=== PATIENT | female | born 1950 | race Caucasian/White ===

== ENCOUNTER 2016-06-23 17:54 | Inpatient (IN) | payer MEDICARE, OTHER ==
[~2016-06-23] VITALS: Ht 160 cm; Wt 56.7 kg
[~2016-06-23 17:54] MED LIST: HYDR-3326 PO
[2016-06-23] MEDS ORDERED: HYDROCODONE/APAP 5/325MG 1 EACH TABLET ONE (18:42)
[2016-06-23] MEDS ORDERED: HYDROCODONE/APAP 5/325MG 1 EACH TABLET PO ONE (19:00)
[2016-06-23] MEDS ORDERED: VANCOMYCIN 1 GM in IV D5W 250 ML IV ONE (19:30)
[2016-06-23] MEDS ORDERED: IV SET PRIMARY PUMP SET 1 EA INFUS.SET MC ONE ×2 (19:40→21:38)
[2016-06-23 19:42] LABS: BASOPHILS # (AUTO) 0.1 /CMM (0.0-0.2); BASOPHILS % (AUTO) 0.5 % (0.0-2.0); DIFF TOTAL % 100 %; EOSINOPHILS # (AUTO) 0.1 /CMM (0.0-0.7); EOSINOPHILS % (AUTO) 1.2 % (0.0-6.0); HEMATOCRIT 34 % (33-45); HEMOGLOBIN 11.6 g/dL (11.5-14.8); LYMPHOCYTES # (AUTO) 2.3 /CMM (0.8-4.8); LYMPHOCYTES % (AUTO) 22.6 % (20.0-44.0); MEAN CORPUSCULAR HEMOGLOBIN 32 PG (26.0-33.0); MEAN CORPUSCULAR HGB CONC 34 g/dl (31.0-36.0); MEAN CORPUSCULAR VOLUME 94 fL (82-100); MONOCYTES # (AUTO) 0.6 /CMM (0.1-1.30); MONOCYTES % (AUTO) 6.1 % (2.0-12.0); NEUTROPHILS % (AUTO) 69.6 % (43.0-81.0); PLATELET COUNT (AUTO) 283 /CMM (150-450); RED BLOOD CELL COUNT(AUTO) 3.59 MIL/uL (4.0-5.2); WHITE BLOOD COUNT (AUTO) 10.1 K/uL (4.3-11.0)
[2016-06-23 19:59] LABS: INR 0.93 (0.87-1.13); PROTHROMBIN TIME 9.8 SECS (9.5-12.7)
[2016-06-23 20:02] LABS: CALCIUM, SERUM 8.4 mg/dL (8.5-10.1); CREATININE 0.6 mg/dL (0.6-1.3); POTASSIUM 3.4 mmol/L (3.5-5.1)
[2016-06-23] MEDS ORDERED: IV NS 0.9% 1,000 ML IV PRN (20:04)
[2016-06-23 20:05] LABS: ALBUMIN 3.2 g/dL (3.4-5.0); BILIRUBIN,DIRECT 0.1 mg/dL (0.0-0.2); BILIRUBIN,TOTAL 0.4 mg/dL (0.2-1.0); INDIRECT BILIRUBIN 0.3 mg/dL (0.0-1.1); TOTAL PROTEIN, SERUM 7.3 g/dL (6.4-8.2)
[2016-06-23 20:15] VITALS: BP 126/77
[2016-06-23] MEDS ORDERED: FEE PK DOSING 1 MIN EA MC ONE (20:29)
[2016-06-23] MEDS ORDERED: ACETAMINOPHEN 325 MG TABLET PO PRN (20:30)
[2016-06-23] MEDS ORDERED: ONDANSETRON HCL/PF 4 MG/2 ML VIAL IVP PRN (20:30)
[2016-06-23] MEDS ORDERED: POTASSIUM CHLORIDE 20 MEQ POWDER PACKET PO ONE (20:30)
[2016-06-23] MEDS ORDERED: MAG HYDROX/AL HYDROX/SIMETH 30 ML UDC PO PRN (20:30)
[2016-06-23] MEDS ORDERED: MAGNESIUM HYDROXIDE 30 ML UDC PO PRN (20:30)
[2016-06-23] MEDS ORDERED: POTASSIUM CHLORIDE 20 MEQ POWDER PACKET ONE (21:27)
[2016-06-23 21:30] VITALS: BP 126/77
[2016-06-23] MEDS: IV NS 0.9% 1,000 ML IV PRN (21:44)
[2016-06-23] MEDS ORDERED: SECONDARY IV SET 1 EA INFUS.SET MC ONE (21:50)
[2016-06-23] MEDS ORDERED: ZOLPIDEM TARTRATE 5 MG TABLET PO PRN (22:00)
[2016-06-23] MEDS ORDERED: MORPHINE SULFATE INJ 2 MG/ML DISP.SYRIN ONE (22:43)
[2016-06-23] MEDS: MORPHINE SULFATE INJ 2 MG/ML DISP.SYRIN IV PRN (22:54)
[2016-06-24] MEDS ORDERED: MORPHINE SULFATE INJ 2 MG/ML DISP.SYRIN ONE (05:25)
[2016-06-24] MEDS: MORPHINE SULFATE INJ 2 MG/ML DISP.SYRIN IV PRN ×4 (05:30→20:43)
[2016-06-24 08:00] VITALS: BP 159/89
[2016-06-24 08:18] LABS: CALCIUM, SERUM 8.2 mg/dL (8.5-10.1); CREATININE 0.5 mg/dL (0.6-1.3); POTASSIUM 4.2 mmol/L (3.5-5.1)
[2016-06-24] MEDS: PANTOPRAZOLE 40 MG TABLET.DR PO SCH (08:25)
[2016-06-24] MEDS: HYDROCODONE/APAP 5/325MG 1 EACH TABLET PO PRN (08:27)
[2016-06-24 08:34] LABS: BASOPHILS % (AUTO) 0.1 % (0.0-2.0); DIFF TOTAL % 100 %; EOSINOPHILS # (AUTO) 0.1 /CMM (0.0-0.7); EOSINOPHILS % (AUTO) 0.5 % (0.0-6.0); HEMATOCRIT 32 % (33-45); LYMPHOCYTES # (AUTO) 1.1 /CMM (0.8-4.8); LYMPHOCYTES % (AUTO) 11.5 % (20.0-44.0); MEAN CORPUSCULAR HEMOGLOBIN 33 PG (26.0-33.0); MEAN CORPUSCULAR HGB CONC 35 g/dl (31.0-36.0); MEAN CORPUSCULAR VOLUME 95 fL (82-100); MONOCYTES # (AUTO) 0.7 /CMM (0.1-1.30); MONOCYTES % (AUTO) 6.9 % (2.0-12.0); NEUTROPHILS # (AUTO) 7.9 /CMM (1.8-8.9); PLATELET COUNT (AUTO) 275 /CMM (150-450); RED BLOOD CELL COUNT(AUTO) 3.37 MIL/uL (4.0-5.2); WHITE BLOOD COUNT (AUTO) 9.8 K/uL (4.3-11.0)
[2016-06-24] MEDS: VANCOMYCIN 1 GM in IV D5W 250 ML IV SCH ×2 (08:34→20:43)
[2016-06-24] MEDS: Magnesium 1GM/D5W 100ML PREMIX 100 ML IV SCH ×2 (10:15→12:05)
[2016-06-24] MEDS ORDERED: SECONDARY IV SET 1 EA INFUS.SET MC ONE (11:28)
[2016-06-24 16:00] VITALS: BP 129/76
[2016-06-24 20:00] VITALS: BP 129/75
[2016-06-25] MEDS: MORPHINE SULFATE INJ 2 MG/ML DISP.SYRIN IV PRN ×5 (02:19→22:43)
[2016-06-25 08:00] VITALS: BP_SYST 117; BP_SYST 128; BP_DIAS 54; BP_DIAS 74
[2016-06-25] MEDS: PANTOPRAZOLE 40 MG TABLET.DR PO SCH (08:02)
[2016-06-25 08:30] LABS: CALCIUM, SERUM 8.4 mg/dL (8.5-10.1); CREATININE 0.6 mg/dL (0.6-1.3); POTASSIUM 3.4 mmol/L (3.5-5.1)
[2016-06-25] MEDS: VANCOMYCIN 1 GM in IV D5W 250 ML IV SCH ×2 (10:17→21:06)
[2016-06-25] MEDS ORDERED: POTASSIUM CHLORIDE 20 MEQ TAB.PRT.SR PO SCH (13:00)
[2016-06-25] MEDS ORDERED: SECONDARY IV SET 1 EA INFUS.SET MC ONE (13:28)
[2016-06-25] MEDS: Magnesium 1GM/D5W 100ML PREMIX 100 ML IV SCH ×2 (13:36→14:35)
[2016-06-25 16:00] VITALS: BP 151/81
[2016-06-25] MEDS: IV NS 0.9% 1,000 ML IV PRN (18:24)
[2016-06-25 20:00] VITALS: BP 154/68
[2016-06-25 21:43] LABS: THYROID STIMULATING HORMONE 1.026 uIU/mL (0.358-3.74)
[2016-06-26] MEDS: HYDROCODONE/APAP 5/325MG 1 EACH TABLET PO PRN ×4 (02:13→23:15)
[2016-06-26] MEDS: MORPHINE SULFATE INJ 2 MG/ML DISP.SYRIN IV PRN ×4 (04:12→19:59)
[2016-06-26 06:55] LABS: CALCIUM, SERUM 8.6 mg/dL (8.5-10.1); CREATININE 0.6 mg/dL (0.6-1.3); POTASSIUM 3.7 mmol/L (3.5-5.1)
[2016-06-26 08:00] VITALS: BP 158/75
[2016-06-26] MEDS: PANTOPRAZOLE 40 MG TABLET.DR PO SCH (08:42)
[2016-06-26] MEDS: VANCOMYCIN 1 GM in IV D5W 250 ML IV SCH (08:43)
[2016-06-26] MEDS: IV NS 0.9% 1,000 ML IV PRN (08:43)
[2016-06-26] MEDS ORDERED: SECONDARY IV SET 1 EA INFUS.SET MC ONE (12:41)
[2016-06-26] MEDS: Magnesium 1GM/D5W 100ML PREMIX 100 ML IV SCH ×2 (12:45→14:16)
[2016-06-26 15:42] VITALS: BP 131/81
[2016-06-26 16:00] VITALS: BP 131/81
[2016-06-26] MEDS ORDERED: HYDR-3326 PO (18:47)
[2016-06-26] MEDS ORDERED: RXVAN XX (18:47)
[2016-06-26 20:00] VITALS: BP 148/86
[2016-06-27] MEDS: VANCOMYCIN 1 GM in IV D5W 250 ML IV SCH (00:12)
== END 2016-06-27 02:30 | DRG 603 ==
LOC: ER 18:02 → MED 20:20 → MEDSG2 06-25 06:33
PROVIDERS: ADMIT Nurse Practitioner Acute Care; ATTEND Nurse Practitioner Acute Care
DX: L03.113 Cellulitis of right upper limb (principal); E87.1 Hypo-osmolality and hyponatremia; J43.9 Emphysema, unspecified; I10 Essential (primary) hypertension; E87.6 Hypokalemia; F17.200 Nicotine dependence, unspecified, uncomplicated; J42 Unspecified chronic bronchitis; Z59.0 Homelessness; F17.210 Nicotine dependence, cigarettes, uncomplicated
CPT/HCPCS: 36415; 73080-TC; 73200-TC; 76882; 80048-TC; 80076-TC; 80202-TC; 83735-TC; 83935-TC; 84100-TC; 84443-TC; 85025-TC; 85730-TC; 87040-TC; 87081-TC; A4565; A4606; J2270; J3370; J3475; J7030; J7060

== ENCOUNTER 2016-07-17 09:32 | Outpatient (CLI) | payer MEDICARE, OTHER ==
[~2016-07-17 09:32] MED LIST changes: +RXVAN XX
== END 2016-07-17 23:59 | disposition home or self-care (01) ==
LOC: US 09:32
PROVIDERS: ATTEND Internal Medicine
DX: L02.511 Cutaneous abscess of right hand (principal)
CPT/HCPCS: 76882

== ENCOUNTER 2017-01-21 13:37 | Inpatient (IN) | payer MEDICARE, OTHER ==
[~2017-01-21] VITALS: Ht 160 cm; Wt 57.2 kg
--- NOTE | 2017-01-21 13:51 | NUR ---
NO ACUTE DISTRESS; PLACED IN ER 16 - MONITORED
--- NOTE | 2017-01-21 14:00 | NUR ---
LAC #18 IV ACCESS. BLOOD SAMPLE COLLECTED SENT TO LAB
--- NOTE | 2017-01-21 14:05 | NUR ---
EKG IN PROGRESS
[2017-01-21 14:07] LABS: BASOPHILS # (AUTO) 0.1 /CMM (0.0-0.2); BASOPHILS % (AUTO) 0.9 % (0.0-2.0); EOSINOPHILS # (AUTO) 0.3 /CMM (0.0-0.7); EOSINOPHILS % (AUTO) 2.6 % (0.0-6.0); HEMATOCRIT 39 % (33-45); HEMOGLOBIN 13.5 g/dL (11.5-14.8); LYMPHOCYTES # (AUTO) 2.8 /CMM (0.8-4.8); LYMPHOCYTES % (AUTO) 28.3 % (20.0-44.0); MEAN CORPUSCULAR HEMOGLOBIN 32 PG (26.0-33.0); MEAN CORPUSCULAR HGB CONC 35 g/dl (31.0-36.0); MEAN CORPUSCULAR VOLUME 92 fL (82-100); MONOCYTES # (AUTO) 0.5 /CMM (0.1-1.30); MONOCYTES % (AUTO) 5.4 % (2.0-12.0); NEUTROPHILS # (AUTO) 6.3 /CMM (1.8-8.9); NEUTROPHILS % (AUTO) 62.8 % (43.0-81.0); PLATELET COUNT (AUTO) 424 /CMM (150-450); RDW COEFFICIENT OF VARIATION 14.1 (11.5-15.0); RED BLOOD CELL COUNT(AUTO) 4.26 MIL/uL (4.0-5.2)
--- NOTE | 2017-01-21 14:08 | NUR ---
RADIOLOGY AT BEDSIDE FOR CHEST XRAY.
[2017-01-21 14:17] LABS: CALCIUM, SERUM 8.7 mg/dL (8.5-10.1); CARBON DIOXIDE 25 mmol/L (21-32); CHLORIDE 90 mmol/L (98-107); CREATININE 0.6 mg/dL (0.6-1.3); GLUCOSE 91 mg/dL (74-106); POTASSIUM 3.7 mmol/L (3.5-5.1); SODIUM SERUM 126 mmol/L (136-145); UREA NITROGEN, BLOOD 4 mg/dL (7-18)
[2017-01-21 14:21] LABS: INR 0.96 (0.87-1.13)
[2017-01-21 14:22] LABS: ALANINE AMINOTRANSFERASE 18 U/L (12-78); ALBUMIN 3.4 g/dL (3.4-5.0); ALKALINE PHOSPHATASE 83 U/L (46-116); ASPARTATE AMINOTRANSFERASE 19 U/L (15-37); BILIRUBIN,DIRECT 0.1 mg/dL (0.0-0.2); BILIRUBIN,TOTAL 0.2 mg/dL (0.2-1.0); TOTAL PROTEIN, SERUM 7.2 g/dL (6.4-8.2)
[2017-01-21 14:25] LABS: TROPONIN I < 0.017 ng/mL (0.00-0.056)
--- NOTE | 2017-01-21 16:01 | NUR ---
REPORT GIVEN TO LOLIS. PT AWAITING TRANSFER TO THE FLOOR.
[2017-01-21 18:04] VITALS: BP 134/81
--- NOTE | 2017-01-21 19:35 | NUR ---
RN NOTES PT AWAKE ON BED FAMILY AT BEDSIDE. COMPLAINING OF HEADACHE AND NON RADIATING CHEST PAIN AT SCALE OF 9/10. PT IS AOX3 ABLE TO MAKE KNOWN NEEDS. WARMTH TO TOUCH AFEBRILE. NO ACUTE RESP. DISTRESS.SR HR 80'S ON TELE MONITOR. IV SITE ON LEFT AC G 18 INTACT AND PATENT. FLUSHED WELL. PLAN OF CARE PROVIDED AND EDUCATE PT REGARDING THE DSE. PROCESS. KEPT PT CLEAN AND DRY. WILL CONTINUE TO MONITOR,
[2017-01-21 20:00] VITALS: BP 125/52
[2017-01-22] VITALS (7 sets, daily range): BP systolic 125–153; BP diastolic 52–94
--- NOTE | 2017-01-22 06:17 | NUR ---
RN NOTES PT ASLEEP WELL ON BED. NO RESP DISTRESS NOTED REMAINED IN STABLE CONDITION STILL COMPLAINING OF NON RADIATING CHEST PAIN TIME TO TIME AT SCALE OF 8-9/10. SATING 98% IN RA. PRN MEDICINE GIVEN ORDERED. ASSISTED TO THE BATHROOM AND AMBULATE WELL. KEPT PT CLEAN AND COMFORTABLE IN BED. WILL ENDORSED CONTINUITY OF CARE TO AM NURSE.
[2017-01-22 07:33] LABS: BASOPHILS # (AUTO) 0.1 /CMM (0.0-0.2); BASOPHILS % (AUTO) 0.7 % (0.0-2.0); EOSINOPHILS # (AUTO) 0.2 /CMM (0.0-0.7); EOSINOPHILS % (AUTO) 3.1 % (0.0-6.0); HEMATOCRIT 36 % (33-45); HEMOGLOBIN 12.4 g/dL (11.5-14.8); LYMPHOCYTES % (AUTO) 26.1 % (20.0-44.0); MEAN CORPUSCULAR HEMOGLOBIN 32 PG (26.0-33.0); MEAN CORPUSCULAR HGB CONC 34 g/dl (31.0-36.0); MEAN CORPUSCULAR VOLUME 93 fL (82-100); MONOCYTES # (AUTO) 0.4 /CMM (0.1-1.30); MONOCYTES % (AUTO) 5.5 % (2.0-12.0); NEUTROPHILS % (AUTO) 64.6 % (43.0-81.0); PLATELET COUNT (AUTO) 349 /CMM (150-450); RDW COEFFICIENT OF VARIATION 14.7 (11.5-15.0); WHITE BLOOD COUNT (AUTO) 7.8 K/uL (4.3-11.0)
[2017-01-22 07:38] LABS: TROPONIN I < 0.017 ng/mL (0.00-0.056)
[2017-01-22 07:48] LABS: CALCIUM, SERUM 8.4 mg/dL (8.5-10.1); CARBON DIOXIDE 25 mmol/L (21-32); CHLORIDE 98 mmol/L (98-107); CREATININE 0.6 mg/dL (0.6-1.3); GLUCOSE 139 mg/dL (74-106); MAGNESIUM 1.8 mg/dL (1.8-2.4); POTASSIUM 3.8 mmol/L (3.5-5.1); SODIUM SERUM 133 mmol/L (136-145); UREA NITROGEN, BLOOD 4 mg/dL (7-18)
--- NOTE | 2017-01-22 08:00 | NUR ---
RN NOTES PT AWAKE ON BED PT IS AOX3 ABLE TO MAKE KNOWN NEEDS. WARMTH TO TOUCH AFEBRILE. NO ACUTE RESP. DISTRESS.SR HR 80'S ON TELE MONITOR. IV SITE ON LEFT AC G 18 INTACT AND PATENT. FLUSHED WELL. PLAN OF CARE PROVIDED AND EDUCATE PT REGARDING PLAN OF CARE. KEPT PT CLEAN AND DRY. WILL CONTINUE TO MONITOR, BED IN LOWEST AND LOCKED POSITION , ON IVF ORDERED
[2017-01-22 08:57] LABS: CHOLESTEROL 179 mg/dL (<200); HDL CHOLESTEROL 68 mg/dL (40-60); LDL 102 mg/dL (0-99); TRIGLYCERIDES 36 mg/dL (30-150)
--- NOTE | 2017-01-22 10:14 | NUR ---
MOTOR SETTER NOTE SEEN B DR DEGROOT VIDEO PLAYER MECHANIC WITH NEW ORDER OF PROTONIX GIVEN
--- NOTE | 2017-01-22 11:14 | NUR ---
Social service consult requested by [facility] for homelessness. Pt. is a 66 year old female who was admitted to [facility] for chest pain. SW and disease case manager rn Kareem met with pt. bedside. Pt. is alert and oriented x 4. SW is familiar with pt. from previous admission. Pt. was pleasant and cooperative with SW during the assessment. Pt. informed SW she is homeless and has been homeless by choice for a very long time. Pt's emergency contact is her sister Crsytal who resides in [place]. Pt. has a boyfriend and lives with him on the streets at [facility] in [place]. Pt. has been with her boyfriend Martin for 14 years. Pt. receives approximately $982/month in SSI. Pt. denies suicidal/homicidal ideations and visual/auditory hallucinations at this time. Pt. consumes alcohol and smokes marijuana occasionally. Pt. smokes one packet of cigarettes per day. Pt. would like to go to [facility] upon discharge. manager retail sales Kareem is aware of discharge plan and will arrange placement. Pt. does not have an advance healthcare directive and makes her own decisions.
--- NOTE | 2017-01-22 11:19 | NUR ---
HOUSE FATHER NOTE SPRAY MIXER DREW AND SOCIAL MOE BLANTON AT BEDSIDE DISCUSSING ABOOT PLAN OF CARE
--- NOTE | 2017-01-22 16:55 | NUR ---
SHUTDOWN COORDINATOR NOTE ON BREATHING TX ORDERED PRN CONT ON IVF ORDERED WILL CONT TO MONITOR CLOSELY
--- NOTE | 2017-01-22 18:40 | NUR ---
CONDENSER CLEANER NOTE C\O PAIN 8\10 IN BODY MORPHINE 2 MG IVP GIVEN ORDERED WILL CONT TO MONITOR CLOSELY
--- NOTE | 2017-01-22 19:56 | NUR ---
SECURITY ALARM INSTALLER INITIAL NOTES RECEIVED PT AWAKE ON BED PT IS AOX3 ABLE TO MAKE KNOWN NEEDS. WARMTH TO TOUCH AFEBRILE. NO ACUTE RESP. DISTRESS.SR HR 70'S ON TELE MONITOR. IV SITE ON LEFT AC G 18 INTACT AND PATENT. FLUSHED WELL. PLAN OF CARE PROVIDED AND EDUCATE PT REGARDING PLAN OF CARE. KEPT PT CLEAN AND DRY. WILL CONTINUE TO MONITOR, BED IN LOWEST AND LOCKED POSITION , ON IVF ORDERED
[2017-01-23] VITALS (8 sets, daily range): BP systolic 123–178; BP diastolic 68–89
--- NOTE | 2017-01-23 06:25 | NUR ---
REGIONAL SALES COORDINATOR CLOSING NOTES RECEIVED PT AWAKE ON BED PT IS AOX3 ABLE TO MAKE KNOWN NEEDS. WARMTH TO TOUCH AFEBRILE. NO ACUTE RESP. DISTRESS.SR HR 70'S ON TELE MONITOR. IV SITE ON LEFT AC G 18 INTACT AND PATENT. FLUSHED WELL. PLAN OF CARE PROVIDED AND EDUCATE PT REGARDING PLAN OF CARE. KEPT PT CLEAN AND DRY. WILL CONTINUE TO MONITOR, BED IN LOWEST AND LOCKED POSITION , ON IVF ORDERED
[2017-01-23 07:37] LABS: BASOPHILS # (AUTO) 0.1 /CMM (0.0-0.2); BASOPHILS % (AUTO) 0.6 % (0.0-2.0); EOSINOPHILS # (AUTO) 0.3 /CMM (0.0-0.7); EOSINOPHILS % (AUTO) 4.1 % (0.0-6.0); HEMATOCRIT 37 % (33-45); HEMOGLOBIN 12.4 g/dL (11.5-14.8); LYMPHOCYTES # (AUTO) 1.8 /CMM (0.8-4.8); LYMPHOCYTES % (AUTO) 23.5 % (20.0-44.0); MEAN CORPUSCULAR HEMOGLOBIN 32 PG (26.0-33.0); MEAN CORPUSCULAR HGB CONC 34 g/dl (31.0-36.0); MEAN CORPUSCULAR VOLUME 94 fL (82-100); MONOCYTES # (AUTO) 0.5 /CMM (0.1-1.30); MONOCYTES % (AUTO) 6.5 % (2.0-12.0); NEUTROPHILS # (AUTO) 5.1 /CMM (1.8-8.9); NEUTROPHILS % (AUTO) 65.3 % (43.0-81.0); PLATELET COUNT (AUTO) 339 /CMM (150-450); RDW COEFFICIENT OF VARIATION 14.8 (11.5-15.0); RED BLOOD CELL COUNT(AUTO) 3.92 MIL/uL (4.0-5.2); WHITE BLOOD COUNT (AUTO) 7.9 K/uL (4.3-11.0)
[2017-01-23 07:46] LABS: CALCIUM, SERUM 8.3 mg/dL (8.5-10.1); CREATININE 0.5 mg/dL (0.6-1.3); POTASSIUM 4.5 mmol/L (3.5-5.1)
--- NOTE | 2017-01-23 08:00 | NUR ---
TELE1/RN AM SHIFT INITIAL NOTES RECEIVED PT AWAKE SITTING IN BED, A/O X 4, DENIES ANY SYMPTOMS AT THIS TIME. ON ROOM AIR SATURATING @ 99%, LUNG SOUNDS CLEAR. ON TELE MONITORING WITH SINUS RHYTHM, HR 67. IV SITE FLUSHED, PATENT WITH NO S/S OF INFECTION, SL. NO ACUTE CHANGE OF CONDITION, SCHEDULED AM MEDS TO BE GIVEN. CL WITHIN REACHED AND SAFETY MAINTAINED. ON GOING MONITORING.
--- NOTE | 2017-01-23 11:45 | NUR ---
TELE1/RN ROUNDS - DR. SARAVIA UPDATED PT'S CONDITION. PT SEEN & EXAMINED BY DR. SARAVIA, WITH NEW ORDER TO D/C CONTINUED IV FLUIDS. ORDER NOTED AND CARRIED OUT.
--- NOTE | 2017-01-23 16:00 | NUR ---
TELE1/RN AFTERNOON ROUNDS NO CHANGE OF CONDITION. MONITORING.
--- NOTE | 2017-01-23 19:30 | NUR ---
ASPHALT TAMPER INITIAL NOTES RECEIVED PATIENT AWAKE A/OX3, ABLE TO MAKE NEEDS KNOWN. FAMILY AT BEDSIDE. C/O FEELING SOME DISCOMFORT WHEN INHALING. REQUEST FOR BREATHING TX IN A LITTLE BIT. SKIN WARM AND DRY TO TOUCH. DENIES SOB, ON RA. DENIES PAIN OR DISCOMFORT. ON TELE MONITOR SR 73. HOB ELEVATED. SIDE RAILS UP AND LOCKED. BED KEPT AT LOWEST POSITION. CALL LIGHT KEPT WITHIN EASY REACH. WILL CONTINUE TO MONITOR.
--- NOTE | 2017-01-23 19:46 | NUR ---
TELE1/RN AM SHIFT END BERTHA NO CHANGE OF CONDITION NOTED DURING THE SHIFT. ALL NEEDS MET. PT ENDORSED TO PM NURSE TO CONTINUE CARE. CL WITHIN REACHED AND SAFETY MAINTAINED.
[2017-01-24] VITALS (9 sets, daily range): BP systolic 142–184; BP diastolic 62–97
--- NOTE | 2017-01-24 07:11 | NUR ---
IMMIGRATION SPECIALIST CLOSING NOTES NO SIGNIFICANT CHANGES OVERNIGHT. ALL NEEDS ANTICIPATED AND MET. SR ON TELE MONITOR. SKIN WARM AND DRY TO TOUCH. NO C/O CHEST PAIN. NO C/O SOB. SIDE RAILS UP AND LOCKED. BED KEPT AT LOWEST POSITION. CALL LIGHT KEPT WITHIN EASY REACH. WILL ENDORSE CONTINUITY OF CARE TO AM NURSE.
--- NOTE | 2017-01-24 07:30 | NUR ---
WOOL CLASSER AM NOTES PATIENT IN BED, AWAKE A/OX3, ABLE TO MAKE NEEDS KNOWN. C/O FEELING SOME DISCOMFORT LAST NIGHT, ON RA, NOT IN ANY DISTRESS, NO SOB, TELEMETRY READS SINUS RHYTHM 76, DENIES PAIN AT THIS TIME, LEFT AC G18 IV ACCESS FLUSHES WELL, SITE CLEAR, SKIN WARM AND DRY TO TOUCH. HOB ELEVATED. SIDE RAILS UP AND LOCKED. BED KEPT AT LOWEST POSITION. CALL LIGHT WITHIN EASY REACH. WILL CONTINUE TO MONITOR.
--- NOTE | 2017-01-24 09:30 | NUR ---
SLAGGER NOTES ADMINISTERED DUE MEDS.
--- NOTE | 2017-01-24 18:33 | NUR ---
CHIEF MECHANICAL ENGINEER CLOSING NOTES NO SIGNIFICANT CHANGES IN CONDITION. ALL NEEDS ANTICIPATED AND MET. SR ON TELE MONITOR. SKIN WARM AND DRY TO TOUCH. NO C/O CHEST PAIN. NO C/O SOB. SIDE RAILS UP AND LOCKED. BED KEPT AT LOWEST POSITION. CALL LIGHT KEPT WITHIN EASY REACH. RESTING COMFORTABLY. WILL ENDORSE TO NEXT SHIFT FOR SHERRY.
--- NOTE | 2017-01-24 19:56 | NUR ---
RN NOTES COMPLAINED OF HEADACHE- TYLENOL 650MG PO GIVEN ORDERED
--- NOTE | 2017-01-24 20:05 | NUR ---
RN NOTES ORTHOPEDIC PHYSICIAN ASSISTANT ALEJANDRO CALLED AND INFORMED ME THAT THE SURGEON FROM [facility] dR. ROJAS WILL CALL AND HE'S GOING TO TALK TO THE PATIENT Addendum: 01/24/17 at 2006 by CHRISTAL ALVARADO RN WRONG PATIENT- WRONG ENTRY
[2017-01-25] VITALS: BP 166/86
--- NOTE | 2017-01-25 03:41 | NUR ---
RN NOTES COMPLAINED OF HEADACHE- TYLENOL 650MG PO GIVEN ORDERED, V/S STABLE
[2017-01-25 04:00] VITALS: BP 148/91
--- NOTE | 2017-01-25 06:33 | NUR ---
RN NOTES AWAKE, DENIES PAIN, NO SOB, MORNING CARE RENDERED, CALL LIGHT WITHIN REACH, [id number] UPX2, PT. NEEDS ATTENDED. ENDORSED TO DAYSHIFT NURSE FOR CONTINUITY OF CARE
[2017-01-25 08:00] VITALS: BP 169/77
--- NOTE | 2017-01-25 08:03 | NUR ---
DANCE THERAPIST INITIAL NOTES RN RECEIVED PATIENT IN BED, AWAKE A/OX3, ABLE TO MAKE NEEDS KNOWN. NO COMPLAINTS AT THIS TIME STATED SHE HAD A HEADACHE THIS AM TYLENOL 650MG ADMINISTERED BY PM RN .PT ON RA, NOT IN ANY DISTRESS, NO SOB, DENIES PAIN AT THIS TIME, LEFT AC G18 IV ACCESS FLUSHES WELL, SITE CLEAR, SKIN WARM AND DRY TO TOUCH. HOB ELEVATED. SIDE RAILS UP AND LOCKED. BED KEPT AT LOWEST POSITION. CALL LIGHT WITHIN EASY REACH. PATIENT AMBULATORY RN WILL CONTINUE TO MONITOR.
[2017-01-25 12:00] VITALS: BP_SYST 133; BP_SYST 155; BP_DIAS 16; BP_DIAS 65
[2017-01-25] MEDS ORDERED: METO25TA20 PO (12:51)
[2017-01-25] MEDS ORDERED: ALBU2.5V13 NEB (12:51)
[2017-01-25] MEDS ORDERED: PANT40TA2 PO (12:51)
[2017-01-25] MEDS ORDERED: THIA100T13 PO (12:51)
[2017-01-25] MEDS ORDERED: ASPI81TA2 PO (12:51)
--- NOTE | 2017-01-25 15:33 | NUR ---
RN NOTE RN CALLED TO GIVE REPORT ON PATIENT , [phone]. REPORT GIVEN TO LILI BENAVIDES . RN ACKNOWLEDGED UNDERSTANDING NO COMPLAINTS OR ISSUE PER THE PATIENT AT THIS MOMENT
[2017-01-25 16:00] VITALS: BP 151/72
--- NOTE | 2017-01-25 17:21 | NUR ---
rn note ems arrived to [facility] patient report given patient , vitals assessed patient b/p elevated , MD valdovinos called for orders , md order hydraLIZINE 25mg po x 1 dose now , rn acknowledged pharmacy acknowledged medication will be administered mey ems will wait to see if this medication is effective rn will continue to follow
--- NOTE | 2017-01-25 17:42 | NUR ---
RN NOTE MEDICATION ADMINISTERED RN WILL CONTINUE TO FOLLOW PATIENT B/P PATIENT IN BED NO DISTRESS NOTED NO SOB OR ANXIETY EXPRESSED. PATIENT PLACED ON WILL CALL VIA EMS
--- NOTE | 2017-01-25 17:44 | NUR ---
RN NOTE [facility] NOTIFIED ABOUT PATIENT CURRENT STATUS AND RN ACKNOWLEDGED UNDERSTANDING
--- NOTE | 2017-01-25 19:25 | NUR ---
rn note patient stable at this time no complaints patient in bed resting , plan of care discussed with patient rn will endorsed d/c care to pm rn iv has been removed from patient no issues.
--- NOTE | 2017-01-25 19:35 | NUR ---
PRODUCT EVANGELIST INITIAL NOTE PT RECEIVED IN NO ACUTE DISTRESS. NO C/O PAIN OR ANY ISSUES AT THIS TIME. PT IS SR ON THE TELE BUT HAS A BP OF 175/89 AND WAS SUPPOSED TO BE D/C DURING THE DAY BUT WAS UNABLE TO DO SO DUE TO BP BEING TOO HIGH FOR BLS. PT HAD A LAC18G THAT WAS D/C BEFORE THE SHIFT DUE TO POSSIBLE D/C LATER DURING MY SHIFT. COMFORT AND SAFETY MEASURES TO BE ENSURED DURING THE SHIFT.
[2017-01-25 20:00] VITALS: BP 175/79
--- NOTE | 2017-01-25 22:00 | NUR ---
RN NOTE SPOKE TO DENTAL MOLD MAKER NURSE REGARDING PT D/C. WILL PUT OFF UNTIL BP IS LOWERED ON REGULAR BASIS. POSSIBLE D/C EITHER TONIGHT OR TOMORROW DURING NEXT SHIFT. ALL D/C PAPERWORK IS COMPLETED.
[2017-01-26] VITALS: BP 169/72
[2017-01-26 04:00] VITALS: BP 147/69
--- NOTE | 2017-01-26 05:50 | NUR ---
REGIONAL SERVICE MANAGER CLOSING NOTE PT REMAINS IN NO ACUTE DISTRESS. PT HAD HIGH BLOOD PRESSURE BEFORE MY SHIFT IN WHICH MEDICATION WAS ORDERED X1 NOW BUT EMT DID NOT WANT TO TAKE PT WITH BP OF THAT LEVEL. BP MEDICATION WAS GIVEN SCHEDULED BUT BP HAS SUSTAINED TO A HIGH LEVEL. PT HAS NO IV SINCE IT WAS D/C PRIOR TO MY SHIFT. WILL ENDORSE CARE TO AM NURSE.
--- NOTE | 2017-01-26 07:00 | NUR ---
RN NOTE RECEIVED PT ON BED , A/Ox4, RESPIRATION PRASHANTH AND UNLABORED, ON RA , DENIES ANY DISTRESS, ON TELE SR , SR UP x3, CALL LIGHT WITHIN EASY REACH, CONTINUE TO MONITOR BP CLOSELY AND NOTIFY MD FOR ANY SIGNIFICANT CHANGES.
[2017-01-26 08:00] VITALS: BP_SYST 147; BP_SYST 148; BP_DIAS 64; BP_DIAS 84
[2017-01-26 12:00] VITALS: BP 112/56
--- NOTE | 2017-01-26 13:00 | NUR ---
RN NOTES II=385/56 HR =94, PT STABLE , REPORT GIVEN TO [facility].
--- NOTE | 2017-01-26 15:43 | NUR ---
RN NOTES EMT PERSONAL ON THE FLOOR TO TAKE PT TO REHAB, PT'S BP =196/91. HR 65, PT STATED STATED GET EXCITED WHEN SHE WANT TO LEAVE , JAIR RAE INFORMATION SECURITY CONSULTANT PAGED AND NOTIFIED , ATIVAN .5 MG PO GIVEN , CONTINUE TO MONITOR PT . [facility] NOTIFIED.
[2017-01-26 16:00] VITALS: BP 159/84
--- NOTE | 2017-01-26 16:21 | NUR ---
RN NOTES BP 159/ 81/ HR 65, PT PANCHITO ANY DISTRESS, REPORT GIVEN TO EMT , PT LEFT THE FLOOR TO REHAB VIA AMBULANCE IN STABLE CONDITION .
== END 2017-01-26 16:16 | DRG 392 ==
LOC: ER 13:38 → TELE1 16:12
PROVIDERS: ADMIT Nurse Practitioner Acute Care; ATTEND Nurse Practitioner Acute Care
DX: K21.9 Gastro-esophageal reflux disease without esophagitis (principal); E87.1 Hypo-osmolality and hyponatremia; I10 Essential (primary) hypertension; J44.1 Chronic obstructive pulmonary disease with (acute) exacerbation; E86.9 Volume depletion, unspecified; E78.5 Hyperlipidemia, unspecified; Z59.0 Homelessness; Z72.0 Tobacco use; F10.10 Alcohol abuse, uncomplicated; Y90.6 Blood alcohol level of 120-199 mg/100 ml; M47.814 Spondylosis without myelopathy or radiculopathy, thoracic region; I70.0 Atherosclerosis of aorta
CPT/HCPCS: 36415; 71010-TC; 80048-TC; 80061-TC; 80076-TC; 83735-TC; 84100-TC; 84443-TC; 84484-TC; 85025-TC; 85730-TC; 87081-TC; 93307-TC; A4606; G0480; J2270; J7030; Z7610

== ENCOUNTER 2017-05-13 19:43 | Emergency (ER) | payer MEDICARE, OTHER ==
[~2017-05-13] VITALS: Ht 157.5 cm; Wt 59.0 kg
[~2017-05-13 19:43] MED LIST changes: +ALBU2.5V13 NEB; +ASPI-1169 PO; -HYDR-3326 PO; +METO25TA20 PO; +PANT40TA2 PO; -RXVAN XX; +THIA100T13 PO
[2017-05-13 19:58] VITALS: BP 137/74
[2017-05-13] MEDS ORDERED: ALBUTEROL FS 2.5 MG/3 ML VIAL.NEB ONE (20:50)
[2017-05-13] MEDS ORDERED: IPRATROPIUM NEB FS 0.5 MG/2.5 ML AMPUL.NEB ONE (20:50)
[2017-05-13] MEDS ORDERED: ALBUTEROL FS 2.5 MG/3 ML VIAL.NEB NEB ONE (21:00)
[2017-05-13] MEDS ORDERED: HYDROCODONE BIT/HOMATROPINE 5 ML UDC PO ONE (21:00)
[2017-05-13] MEDS ORDERED: IPRATROPIUM NEB FS 0.5 MG/2.5 ML AMPUL.NEB NEB ONE (21:00)
[2017-05-13] MEDS ORDERED: predniSONE 20 MG TABLET PO ONE (21:00)
[2017-05-13] MEDS ORDERED: HYDROCODONE BIT/HOMATROPINE 5 ML UDC ONE (21:37)
[2017-05-13] MEDS ORDERED: predniSONE 20 MG TABLET ONE (21:37)
== END 2017-05-13 23:35 | disposition home or self-care (01) ==
LOC: ER 19:46
DX: J18.9 Pneumonia, unspecified organism (principal); J40 Bronchitis, not specified as acute or chronic; F10.10 Alcohol abuse, uncomplicated; F17.200 Nicotine dependence, unspecified, uncomplicated; Z79.82 Long term (current) use of aspirin
CPT/HCPCS: 71045; 99283; 99406; A4606; J7512; Z7610

== ENCOUNTER 2017-08-21 18:00 | Emergency (ER) | payer MEDICARE, OTHER ==
[~2017-08-21] VITALS: Ht 160 cm; Wt 59.0 kg
[2017-08-21] MEDS ORDERED: oxyCODONE/APAP (5/325 MG) 1 UDTAB TABLET ONE (18:43)
[2017-08-21] MEDS ORDERED: IBUPROFEN 600 MG TABLET PO ONE ×2 (18:43→19:00)
--- NOTE | 2017-08-21 18:52 | NUR ---
PT MEDICATED ORDERED.
[2017-08-21] MEDS ORDERED: oxyCODONE/APAP (5/325 MG) 1 UDTAB TABLET PO ONE (19:00)
--- NOTE | 2017-08-21 19:18 | NUR ---
REPORT RECEIVED FROM MAKAYLA PAYAN FOR SHERRY.
[2017-08-21 19:29] VITALS: BP 132/77
--- NOTE | 2017-08-21 20:11 | NUR ---
Patient does not wish to proceed with medical care recommended by ( ). Patient given information related to possible complications, up to and including , which could occur as a result of leaving the hospital at this time. Patient verbalizes understanding of risks involved due to leaving against medical advice. Patient has signed AMA form.
[2017-12-28] MEDS ORDERED: AMLO10TA6 PO (13:23)
[2017-12-28] MEDS ORDERED: HYDR-3972 PO (13:23)
[2017-12-28] MEDS ORDERED: ASPI-1169 PO (13:23)
[2017-12-28] MEDS ORDERED: ZOLP5TAB2 PO (13:23)
[2017-12-28] MEDS ORDERED: PRED20TA PO (13:23)
[2017-12-28] MEDS ORDERED: HYDR-4076 PO (13:23)
[2017-12-28] MEDS ORDERED: PRED5TAB48 PO (13:23)
[2017-12-28] MEDS ORDERED: CEPH-570 PO (13:27)
[2017-12-28] MEDS ORDERED: PANT40TA2 PO (13:27)
== END 2017-08-21 20:13 | disposition left against medical advice (07) ==
LOC: ER 18:03
DX: M79.605 Pain in left leg (principal); I10 Essential (primary) hypertension; Z79.82 Long term (current) use of aspirin; F10.10 Alcohol abuse, uncomplicated; F17.290 Nicotine dependence, other tobacco product, uncomplicated; J44.0 Chronic obstructive pulmonary disease with (acute) lower respiratory infection; Z98.890 Other specified postprocedural states
CPT/HCPCS: 99283; 99406; A4606; Z7610

== ENCOUNTER 2017-12-25 16:01 | Inpatient (IN) | payer MEDICARE, OTHER ==
[~2017-12-25] VITALS: Ht 162.6 cm; Wt 58.1 kg
--- NOTE | 2017-12-25 16:10 | NUR ---
C/O SUBSTERNAL CHEST PAIN R/T NECK AREA. PT WAS GIVEN NITRO AND ASA, NAD NOTED, VSS, RESP EVEN AND UNLABORED, PT WAS PUT ON MONITOR, WAITING FOR MD ARREOLA.
[2017-12-25 16:37] LABS: BASOPHILS % (AUTO) 0.8 % (0.0-2.0); EOSINOPHILS % (AUTO) 4.1 % (0.0-6.0); HEMATOCRIT 38 % (33-45); HEMOGLOBIN 13.1 g/dL (11.5-14.8); LYMPHOCYTES # (AUTO) 2.4 /CMM (0.8-4.8); MEAN CORPUSCULAR HEMOGLOBIN 33 PG (26.0-33.0); MEAN CORPUSCULAR HGB CONC 34 g/dl (31.0-36.0); MEAN CORPUSCULAR VOLUME 96 fL (82-100); MONOCYTES # (AUTO) 0.4 /CMM (0.1-1.30); MONOCYTES % (AUTO) 6.6 % (2.0-12.0); NEUTROPHILS # (AUTO) 3.1 /CMM (1.8-8.9); NEUTROPHILS % (AUTO) 49.5 % (43.0-81.0); PLATELET COUNT (AUTO) 267 /CMM (150-450); RDW COEFFICIENT OF VARIATION 12.7 (11.5-15.0); RED BLOOD CELL COUNT(AUTO) 3.99 MIL/uL (4.0-5.2); WHITE BLOOD COUNT (AUTO) 6.2 K/uL (4.3-11.0)
[2017-12-25 16:46] LABS: CALCIUM, SERUM 8.5 mg/dL (8.5-10.1); CARBON DIOXIDE 23 mmol/L (21-32); CHLORIDE 89 mmol/L (98-107); CREATININE 0.5 mg/dL (0.6-1.3); GLUCOSE 87 mg/dL (74-106); POTASSIUM 3.3 mmol/L (3.5-5.1); SODIUM SERUM 122 mmol/L (136-145); UREA NITROGEN, BLOOD 3 mg/dL (7-18)
[2017-12-25 16:49] LABS: INR 0.92 (0.85-1.15)
[2017-12-25 16:52] LABS: ALANINE AMINOTRANSFERASE 38 U/L (12-78); ALBUMIN 3.6 g/dL (3.4-5.0); ALKALINE PHOSPHATASE 70 U/L (46-116); ASPARTATE AMINOTRANSFERASE 50 U/L (15-37); BILIRUBIN,DIRECT 0.1 mg/dL (0.0-0.2); BILIRUBIN,TOTAL 0.2 mg/dL (0.2-1.0); TOTAL PROTEIN, SERUM 6.3 g/dL (6.4-8.2)
[2017-12-25 16:54] LABS: TROPONIN I < 0.017 ng/mL (0.00-0.056)
[2017-12-25] MEDS ORDERED: NAPR-1164 PO (17:00)
--- NOTE | 2017-12-25 17:18 | NUR ---
CALLED [employer] CHEMICAL OPERATIONS AND TRAINING WAS PAGED.
--- NOTE | 2017-12-25 18:20 | NUR ---
REPORT GIVEN TO ROSINA BENAVIDES FOR TELE 115-1.
[2017-12-25] MEDS ORDERED: IV NS 0.9% 1,000 ML IV PRN (18:37)
[2017-12-25] MEDS ORDERED: NITROGLYCERIN PACKET 1 GM PACKET TD ONE (19:00)
[2017-12-25] MEDS ORDERED: MAG HYDROX/AL HYDROX/SIMETH 30 ML UDC PO PRN (19:00)
[2017-12-25] MEDS ORDERED: Z GUARD REMEDY 2 OZ OINT TP PRN (19:00)
[2017-12-25] MEDS ORDERED: ONDANSETRON HCL/PF 4 MG/2 ML VIAL IVP PRN (19:00)
[2017-12-25] MEDS ORDERED: MAGNESIUM HYDROXIDE 30 ML UDC PO PRN (19:00)
[2017-12-25] MEDS ORDERED: ACETAMINOPHEN 325 MG TABLET PO PRN (19:00)
[2017-12-25] MEDS ORDERED: ASPIRIN 81 MG TAB.CHEW PO ONE (19:00)
[2017-12-25] MEDS ORDERED: POTASSIUM CHLORIDE 20 MEQ TAB.PRT.SR PO ONE (19:00)
[2017-12-25 20:00] VITALS: BP 114/74
--- NOTE | 2017-12-25 20:00 | NUR ---
MANAGER SPORTS NOTES RECEIVED PT IN BED, PT CAN FROM THE ED. PT A&OX4. PT C/O FOR CHEST PAIN 8-01/18. PT AMBULATES. PT IS ON A TELE MONITOR, HR SR 84. PT HAS A IV IN L HAND #18G S/L. VSS. DVT PUMP PLACED ORDERED. PIC ARE TAKE AND IN CHART. ALL ADMISSION ORDERS CARRIED OUT. ALL SAFETY PRECAUTIONS TAKEN. BED IN LOW LOCKED POSITION, CALL LIGHT WITH IN REACH. WILL CONT TO MONITOR.
[2017-12-25] MEDS: PANTOPRAZOLE 40 MG TABLET.DR PO SCH (20:19)
[2017-12-25] MEDS: MORPHINE SULFATE INJ 2 MG/ML DISP.SYRIN IV PRN (20:21)
[2017-12-25] MEDS: HYDROCODONE/APAP 5/325MG 1 EACH TABLET PO PRN (23:27)
[2017-12-26] VITALS (7 sets, daily range): BP systolic 119–174; BP diastolic 54–92
[2017-12-26] MEDS: MORPHINE SULFATE INJ 2 MG/ML DISP.SYRIN IV PRN ×3 (00:46→10:36)
--- NOTE | 2017-12-26 06:16 | NUR ---
RN CLOSING NOTES NO SIGNIFICANT CHANGE IN PTS CONDITION OVER NIGHT. PT C/O FOR CHEST AND HEAD PAIN, PAIN MEDICATION GIVEN ORDERED. ALL ADMISSION ORDERS COMPETED. ALL NEEDS MET. DVT PUMP APPLIED. ALL SAFETY PRECAUTION TAKEN.
--- NOTE | 2017-12-26 06:16 | NUR ---
RN CLOSING NOTES
[2017-12-26 06:28] LABS: BASOPHILS # (AUTO) 0.1 /CMM (0.0-0.2); BASOPHILS % (AUTO) 1.1 % (0.0-2.0); HEMATOCRIT 39 % (33-45); HEMOGLOBIN 13.3 g/dL (11.5-14.8); LYMPHOCYTES # (AUTO) 1.6 /CMM (0.8-4.8); LYMPHOCYTES % (AUTO) 30.3 % (20.0-44.0); MEAN CORPUSCULAR HEMOGLOBIN 34 PG (26.0-33.0); MEAN CORPUSCULAR HGB CONC 34 g/dl (31.0-36.0); MEAN CORPUSCULAR VOLUME 100 fL (82-100); MONOCYTES # (AUTO) 0.4 /CMM (0.1-1.30); MONOCYTES % (AUTO) 7.1 % (2.0-12.0); NEUTROPHILS # (AUTO) 2.9 /CMM (1.8-8.9); NEUTROPHILS % (AUTO) 56.5 % (43.0-81.0); PLATELET COUNT (AUTO) 221 /CMM (150-450); RDW COEFFICIENT OF VARIATION 13.5 (11.5-15.0); RED BLOOD CELL COUNT(AUTO) 3.91 MIL/uL (4.0-5.2); WHITE BLOOD COUNT (AUTO) 5.2 K/uL (4.3-11.0)
[2017-12-26 07:04] LABS: ALBUMIN 3.2 g/dL (3.4-5.0); BILIRUBIN,DIRECT 0.1 mg/dL (0.0-0.2); BILIRUBIN,TOTAL 0.5 mg/dL (0.2-1.0); CALCIUM, SERUM 8.5 mg/dL (8.5-10.1); CREATININE 0.5 mg/dL (0.6-1.3); MAGNESIUM 1.7 mg/dL (1.8-2.4); POTASSIUM 4.4 mmol/L (3.5-5.1); TOTAL PROTEIN, SERUM 6.1 g/dL (6.4-8.2)
[2017-12-26 07:09] LABS: THYROID STIMULATING HORMONE 3.94 uIU/mL (0.358-3.74)
--- NOTE | 2017-12-26 07:30 | NUR ---
CYTOTECHNOLOGIST SUPERVISOR NOTE: RECEIVED PATIENT IN BED, AWAKE, ALERT AND ABLE TO MAKE HER NEEDS KNOWN. RESPIRATION EVEN AND UNLABORED SATURATING 95% IN ROOM AIR AND TOLERATING TI WELL. DENIED ANY PAIN AT THIS TIME. HOB ELEVATED. ON TRANSFER OPERATOR, SR HR= 74. BED LOCKED AT ALL TIMES. CALL LIGHT WITHIN REACH. NEEDS ANTICIPATED.
[2017-12-26] MEDS: ASPIRIN 81 MG TAB.CHEW PO SCH (08:12)
[2017-12-26] MEDS: PANTOPRAZOLE 40 MG TABLET.DR PO SCH (08:12)
[2017-12-26] MEDS: Magnesium 1GM/D5W 100ML PREMIX 100 ML IV SCH ×2 (09:32→10:35)
--- NOTE | 2017-12-26 10:23 | NUR ---
MS RN NOTE: ECHOCARDIOGRAM AND ARTERIAL DOPPLER FOR (B) LOWER EXTREMITY WAS DONE.
[2017-12-26] MEDS: predniSONE 20 MG TABLET PO SCH (11:23)
--- NOTE | 2017-12-26 13:00 | NUR ---
MS RN NOTE: COLLECTED THE PATIENT'S URINE AND CALLED LAB FOR PICK-UP.
[2017-12-26 14:44] LABS: APPEARANCE,URINE SL CLOUDY (CLEAR); BILIRUBIN,URINE NEGATIVE (NEGATIVE); BLOOD, URINE NEGATIVE Ery/uL (NEGATIVE); COLOR,URINE YELLOW (YELLOW); KETONES,URINE NEGATIVE (NEGATIVE); LEUKOCYTE ESTERASE ,URINE 2+ (NEGATIVE); NITRITE, URINE NEGATIVE (NEGATIVE); PROTEIN,URINE NEGATIVE (NEGATIVE); UGLUCOSE NEGATIVE (NEGATIVE); UROBILINOGEN,URINE 0.2 EU/dL (0.2)
[2017-12-26 14:55] LABS: BACTERIA,URINE Many /HPF (None Seen)
[2017-12-26 14:56] LABS: RBC,URINE 0-2 /HPF (0-2); SQUAMOUS EPITHELIAL CELL,UR MOD /HPF (None Seen)
--- NOTE | 2017-12-26 15:54 | NUR ---
MS RN NOTE: CALLED AND PAGED THE ON-CALL DOCTOR FOR [facility] ( ) TO REPORT THE PATIENT'S ELEVATED BLOOD PRESSURE. AWAITING FOR MD'S RESPONSE.
[2017-12-26] MEDS ORDERED: hydrALAZINE HCL 25 MG TABLET PO PRN (16:00)
--- NOTE | 2017-12-26 16:00 | NUR ---
MS RN NOTE: RECEIVED A CALL BACK FROM JAIR SANDOVAL, TOOL CHECKER AND TOOL CHECKER WITH NEW BP MEDICATION ORDERS, NOTED AND CARRIED OUT.
[2017-12-26] MEDS: AMLODIPINE BESYLATE 5 MG TABLET PO SCH (16:06)
--- NOTE | 2017-12-26 18:08 | NUR ---
MS RN NOTE: RECHECKED THE PATIENT'S BP 147/92 AND HR= 92.
[2017-12-26] MEDS: HYDROCODONE/APAP 10/325MG 1 EA TABLET PO PRN (18:12)
--- NOTE | 2017-12-26 19:29 | NUR ---
MS RN NOTE: PATIENT AWAKE, ALERT X4. ABLE TO GO TO THE BATHROOM. DENIED ANY DIZZINESS. NO CHEST PAIN NOTED. REPORT GIVEN TO PM SHIFT NURSE FOR CONTINUITY OF CARE.
--- NOTE | 2017-12-26 19:30 | NUR ---
MS RN INITIAL NOTE RECEIVED PATIENT AWAKE A/OX4 ABLE TO MAKE NEEDS KNOWN. NO RESPIRATORY DISTRESS NOTED, ON ROOM AIR. C/O CHEST PAIN NON-RADIATING, STATES IT MAY BE RELATED TO ACID REFLUX, SKIN WARM AND DRY TO TOUCH. EXPLAINED TO PATIENT SHE HAS NORCO FOR PAIN AND MORPHINE WAS DISCONTINUED, PATIENT STATES MORPHINE WORKED BETTER FOR HER. NO FACIAL GRIMACING NOTED, FACE RELAXED, PLEASANT. SIDE RAILS UP AND LOCKED. BED KEPT AT LOWEST POSITION. CALL LIGHT KEPT WITHIN EASY REACH. WILL CONTINUE TO MONITOR.
--- NOTE | 2017-12-26 20:00 | NUR ---
MS RN NOTE EDUCATED PATIENT ON NARCOTIC USE AND S/E, PATIENT VERBALIZED UNDERSTANDING. OFFERED PATIENT NICOTINE PATCH, PATIENT REFUSED, STATES IT DOES NOT WORK FOR HER.
--- NOTE | 2017-12-26 20:35 | NUR ---
RN NOTE RECEIVED ORDER TO ALLOW PT TO TAKE A SHOWER FROM DR HECTOR TORRES. READBACK ORDERS PERFORMED. WILL CARRY OUT.
--- NOTE | 2017-12-26 21:01 | NUR ---
MS RN NOTE PATIENT FINISHED WITH SHOWER, TOLERATED WELL, PATIENT STATES "SHE FEELS REAL GOOD."
[2017-12-26] MEDS: HYDROCODONE/APAP 5/325MG 1 EACH TABLET PO PRN (21:29)
[2017-12-26] MEDS: diphenhydrAMINE HCL ELIX 25 MG/10 ML UDC PO PRN (21:38)
--- NOTE | 2017-12-26 22:00 | NUR ---
MS RN NOTE PATIENT REQUESTED TO LEAVE DVT PUMPS OFF FOR THE TIME BEING, PATIENT AWARE OF THE BENEFITS, BUT STILL WOULD LIKE TO LEAVE THEM OFF AT THIS TIME.
[2017-12-26] MEDS: ZOLPIDEM TARTRATE 5 MG TABLET PO PRN (22:49)
--- NOTE | 2017-12-27 04:04 | NUR ---
PATIENT C/O FEELING CONSTIPATED. PRN MOM GIVEN. WILL CONTINUE TO MONITOR.
--- NOTE | 2017-12-27 04:45 | NUR ---
MS RN NOTE MOM EFFECTIVE, PATIENT STATES SHE FEELS BETTER
--- NOTE | 2017-12-27 06:15 | NUR ---
MS RN CLOSING NOTE PATIENT RESTING COMFORTABLY, NO C/O PAIN AT THIS TIME. NO RESPIRATORY DISTRESS NOTED. PATIENT INDEPENDENT WITH ADL'S. ALL NEEDS ANTICIPATED AND MET. PAIN MONITORED AND MANAGED NEEDED. SIDE RAILS UP AND LOCKED. BED KEPT AT LOWEST POSITION. CALL LIGHT KEPT WITHIN EASY REACH. WILL ENDORSE CONTINUITY OF CARE TO AM NURSE.
[2017-12-27 06:45] LABS: BASOPHILS % (AUTO) 0.1 % (0.0-2.0); EOSINOPHILS % (AUTO) 0.5 % (0.0-6.0); HEMATOCRIT 41 % (33-45); HEMOGLOBIN 13.6 g/dL (11.5-14.8); LYMPHOCYTES # (AUTO) 1.1 /CMM (0.8-4.8); LYMPHOCYTES % (AUTO) 10.2 % (20.0-44.0); MEAN CORPUSCULAR HEMOGLOBIN 33 PG (26.0-33.0); MEAN CORPUSCULAR HGB CONC 33 g/dl (31.0-36.0); MEAN CORPUSCULAR VOLUME 100 fL (82-100); MONOCYTES # (AUTO) 0.5 /CMM (0.1-1.30); MONOCYTES % (AUTO) 4.3 % (2.0-12.0); NEUTROPHILS # (AUTO) 9.1 /CMM (1.8-8.9); NEUTROPHILS % (AUTO) 84.9 % (43.0-81.0); PLATELET COUNT (AUTO) 227 /CMM (150-450); RDW COEFFICIENT OF VARIATION 13.7 (11.5-15.0); RED BLOOD CELL COUNT(AUTO) 4.07 MIL/uL (4.0-5.2); WHITE BLOOD COUNT (AUTO) 10.8 K/uL (4.3-11.0)
[2017-12-27 07:08] LABS: CALCIUM, SERUM 8.7 mg/dL (8.5-10.1); CREATININE 0.7 mg/dL (0.6-1.3); MAGNESIUM 1.9 mg/dL (1.8-2.4); POTASSIUM 3.5 mmol/L (3.5-5.1)
[2017-12-27 08:00] VITALS: BP 161/91
--- NOTE | 2017-12-27 08:00 | NUR ---
MED/SURG AM NURSE RECEIVED PATIENT IN BED, ALERT AND ORIENTED X4, NO COMPLAINS OF PAIN. NO COMPLAINS OF SHORTNESS OF BREATH, ON ROOM AIR, SATURATION AT 100%, SKIN IS WARM TO TOUCH, AFEBRILE AT 98.0, GAUGE 22 INTRAVENOUS LINE ON THE RIGHT FOREARM, INTACT AND PLACE, PATENT WHEN FLUSHED, PATIENT AMBULATORY, ENCOURAGE USE OF CALL LIGHT FOR ASSISTANCE, CALL LIGHT WITHIN EASY REACH, SAFETY MAINTAINED, WILL CONTINUE TO MONITOR
[2017-12-27] MEDS: PANTOPRAZOLE 40 MG TABLET.DR PO SCH (08:21)
[2017-12-27] MEDS: AMLODIPINE BESYLATE 5 MG TABLET PO SCH (08:21)
[2017-12-27] MEDS: predniSONE 20 MG TABLET PO SCH (08:21)
[2017-12-27] MEDS: ASPIRIN 81 MG TAB.CHEW PO SCH (08:21)
--- NOTE | 2017-12-27 10:17 | NUR ---
BLOOD PRESSURE AT 185/ 95 DESPITE THE ROUTINE NORVASC 5MG GIVEN AT 0900AM, PATIENT DENIES HEADACHE AT THIS TIME. HYDRALAZINE PRN GIVEN ORDERED. WILL CONTINUE TO MONITOR THE PATIENT.
--- NOTE | 2017-12-27 12:00 | NUR ---
MED/ASSEMBLER FLUORESCENT LIGHTS NOTES SEEN AND EXAMINED BY . NEW ORDERS OBTAINED FOR ANTIBIOTIC THERAPY AND ONE TIME DOSE OF NORVASC 5MG TAB.
[2017-12-27] MEDS ORDERED: AMLODIPINE BESYLATE 5 MG TABLET PO ONE (12:30)
[2017-12-27] MEDS: CEFTRIAXONE 1 G in IV D5W 50 ML IV SCH (12:34)
[2017-12-27] MEDS: HYDROCODONE/APAP 10/325MG 1 EA TABLET PO PRN ×2 (15:15→21:23)
[2017-12-27 16:00] VITALS: BP 138/75
--- NOTE | 2017-12-27 19:27 | NUR ---
MED/ SURG CLOSING NOTES \ NO ACUTE CHANGES NOTED WITHIN THE SHIFT. PATIENT ALERT AND AWAKE, SIGNIFICANT OTHER AT BEDSIDE. CALL LIGHT WITHIN REACH. SAFETY MAINTAINED
[2017-12-27 20:00] VITALS: BP 155/79
--- NOTE | 2017-12-27 20:00 | NUR ---
NURSE OPENING NOTES RECEIVED PATIENT IN BED, ALERT AND ORIENTED X4, NO COMPLAINS OF PAIN. NO COMPLAINS OF SHORTNESS OF BREATH, ON ROOM AIR, SATURATION AT 98%, SKIN IS WARM TO TOUCH, GAUGE 22 INTRAVENOUS LINE ON THE RIGHT FOREARM, INTACT AND PATENT WHEN FLUSHED, PATIENT AMBULATORY, ENCOURAGE USE OF CALL LIGHT FOR ASSISTANCE, CALL LIGHT WITHIN EASY REACH, SAFETY MAINTAINED, WILL CONTINUE TO MONITOR .
[2017-12-27] MEDS: diphenhydrAMINE HCL ELIX 25 MG/10 ML UDC PO PRN (21:22)
[2017-12-27] MEDS: ZOLPIDEM TARTRATE 5 MG TABLET PO PRN (23:27)
[2017-12-28] MEDS: diphenhydrAMINE HCL ELIX 25 MG/10 ML UDC PO PRN ×2 (02:59→10:46)
[2017-12-28] MEDS: HYDROCODONE/APAP 10/325MG 1 EA TABLET PO PRN ×2 (03:01→10:46)
[2017-12-28 04:00] VITALS: BP 114/66
--- NOTE | 2017-12-28 06:00 | NUR ---
RN CLOSING NOTE PATIENT RESTING COMFORTABLY, NO C/O PAIN AT THIS TIME. NO RESPIRATORY DISTRESS NOTED. PATIENT INDEPENDENT WITH ADL'S. ALL NEEDS ANTICIPATED AND MET. PAIN MANAGED NEEDED WITH TIMELY MANNERS. SIDE RAILS UP X2, BED KEPT AT LOWEST, LOCKED POSITION. CALL LIGHT KEPT WITHIN EASY REACH. WILL ENDORSE CONTINUITY OF CARE TO AM NURSE.
--- NOTE | 2017-12-28 07:31 | NUR ---
MS RN NOTES: RECEIVED PT ON BED AWAKE, ALERT AND ORIENTED X4. ABLE TO MAKE NEEDS KNOWN. NO ACUTE DISTRESS NOTED. DENIES PAIN AND DISCOMFORT AT THIS TIME. ON ROOM AIR, SATURATING WELL, BREATHING EVEN AND UNLABORED WITH NORMAL RESPIRATIONS. KEPT CLEAN, DRY AND COMFORTABLE. SAFETY AND FALL PRECAUTIONS OBSERVED AND MAINTAINED. CALL LIGHT WITHIN REACH. ENCOURAGED TO VERBALIZE NEEDS AND CONCERNS AND TO CALL FOR ASSISTANCE IF NEEDED. WILL CONTINUE TO MONITOR PT.
[2017-12-28 08:00] VITALS: BP 162/87
[2017-12-28] MEDS: predniSONE 20 MG TABLET PO SCH (08:27)
[2017-12-28] MEDS: ASPIRIN 81 MG TAB.CHEW PO SCH (08:27)
[2017-12-28] MEDS: PANTOPRAZOLE 40 MG TABLET.DR PO SCH (08:27)
--- NOTE | 2017-12-28 08:30 | NUR ---
WOUND CARE CONSULT: PT PRESENTS CONTINENT AT THIS TIME AND AMBULATORY. PT HAS SKIN CONDITION ON ARMS AND CHEST, PRESENT ON ADMISSION. PT STATES HAS ITCHING TO ARMS AND CHEST. DEFER TO MD/PRINTED CIRCUIT BOARD ASSEMBLER FOR SKIN CONDITION. RECOMMENDATIONS MADE FOR SKIN PROTECTION AND DISCUSSED WITH NURSING STAFF. PT NOTED TO HAVE DRY SKIN ON LOWER LEGS. WILL SEE PRN. CURRENT SHAMIR SCORE IS 22. Addendum: 12/28/17 at 0832 by JUSTO ROSAS WNDNU Amended: Links added.
[2017-12-28 09:00] VITALS: BP 132/68
[2017-12-28] MEDS ORDERED: AMLODIPINE BESYLATE 10 MG TABLET PO SCH (09:00)
[2017-12-28] MEDS ORDERED: MINERAL OIL/PETROLATUM,WHITE 120 GM JAR TP PRN (09:00)
[2017-12-28] MEDS: CEFTRIAXONE 1 G in IV D5W 50 ML IV SCH (11:14)
[2017-12-28] MEDS ORDERED: HYDR-4076 PO (13:23)
[2017-12-28] MEDS ORDERED: ASPI-1169 PO (13:23)
[2017-12-28] MEDS ORDERED: AMLO10TA2 PO (13:23)
[2017-12-28] MEDS ORDERED: PRED5TAB48 PO (13:23)
[2017-12-28] MEDS ORDERED: PRED20TA PO (13:23)
[2017-12-28] MEDS ORDERED: HYDR-3972 PO (13:23)
[2017-12-28] MEDS ORDERED: ZOLP5TAB2 PO (13:23)
[2017-12-28] MEDS ORDERED: PANT40TA2 PO (13:27)
[2017-12-28] MEDS ORDERED: CEPH-570 PO (13:27)
--- NOTE | 2017-12-28 14:24 | NUR ---
MS RN NOTES: REPORT GIVEN TO MAKAYLA FONTANEZ AT [facility].
[2017-12-28] MEDS: HYDROCODONE/APAP 5/325MG 1 EACH TABLET PO PRN (15:52)
[2017-12-28 16:00] VITALS: BP 117/62
--- NOTE | 2017-12-28 16:10 | NUR ---
MS RN NOTES: PATIENT WAS DISCHARGED AT [facility]. PT IN STABLE CONDITION. NO APPARENT DISTRESS WAS NOTED. ON ROOM AIR, NO SOB NOTED. PT IS AMBULATORY. IV ON RIGHT FOREARM WAS REMOVED. VITAL SIGNS ARE STABLE. BELONGINGS LIST WAS SIGNED. DISCHARGE INSTRUCTIONS GIVEN.
== END 2017-12-28 16:14 | DRG 392 ==
LOC: ER 16:02 → TELE1 18:46 → MEDSG1 12-26 12:48
PROVIDERS: ADMIT Nurse Practitioner Acute Care; ATTEND Nurse Practitioner Acute Care
DX: K21.9 Gastro-esophageal reflux disease without esophagitis (principal); E87.1 Hypo-osmolality and hyponatremia; N39.0 Urinary tract infection, site not specified; E86.0 Dehydration; E78.5 Hyperlipidemia, unspecified; J44.9 Chronic obstructive pulmonary disease, unspecified; Z59.0 Homelessness; I10 Essential (primary) hypertension; F17.210 Nicotine dependence, cigarettes, uncomplicated; I73.9 Peripheral vascular disease, unspecified; R74.0 Nonspecific elevation of levels of transaminase and lactic acid dehydrogenase [LDH]; Z72.89 Other problems related to lifestyle; M51.36 Other intervertebral disc degeneration, lumbar region; Z71.6 Tobacco abuse counseling; R21 Rash and other nonspecific skin eruption; M48.54XS Collapsed vertebra, not elsewhere classified, thoracic region, sequela of fracture; E86.1 Hypovolemia; L98.9 Disorder of the skin and subcutaneous tissue, unspecified
CPT/HCPCS: 36415; 71045-TC; 80048-TC; 80061-TC; 80076-TC; 81000-TC; 83690-TC; 83735-TC; 84100-TC; 84300-TC; 84443-TC; 84484-TC; 85025-TC; 85730-TC; 87081-TC; 87086-TC; 93307-TC; A4606; J0696; J2270; J3475; J7030; J7060; Q0163; Z7610

== ENCOUNTER 2018-04-06 11:45 | Inpatient (IN) | payer MEDICARE, OTHER ==
[~2018-04-06] VITALS: Ht 160 cm; Wt 56.9 kg
[~2018-04-06 11:45] MED LIST changes: -ALBU2.5V13 NEB; +AMLO10TA6 PO; +CEPH-570 PO; +HYDR-3972 PO; +HYDR-4076 PO; -METO25TA20 PO; +NAPR-1164 PO; +PRED20TA PO; +PRED5TAB48 PO; -THIA100T13 PO; +ZOLP5TAB2 PO
--- NOTE | 2018-04-06 12:36 | NUR ---
67 Y/O MALE PLACED IN BED 14 C/O LEFT KNEE PAIN.
--- NOTE | 2018-04-06 12:56 | NUR ---
POSSIBLE HIP FRACTURE. 20 G PLACED LEFT INTERNS. BLOOD OBTAINED AND SENT. IV MEDICATIONS GIVEN
[2018-04-06] MEDS ORDERED: MORPHINE SULFATE INJ 4 MG/ML DISP.SYRIN ONE (12:58)
[2018-04-06] MEDS ORDERED: ONDANSETRON HCL/PF 4 MG/2 ML VIAL ONE (12:58)
[2018-04-06] MEDS ORDERED: MORPHINE SULFATE INJ 2 MG/ML DISP.SYRIN IV ONE (13:00)
[2018-04-06] MEDS ORDERED: ONDANSETRON HCL/PF 4 MG/2 ML VIAL IV ONE (13:00)
[2018-04-06 13:09] LABS: BASOPHILS # (AUTO) 0.1 /CMM (0.0-0.2); BASOPHILS % (AUTO) 0.7 % (0.0-2.0); HEMATOCRIT 39 % (33-45); HEMOGLOBIN 13.5 g/dL (11.5-14.8); LYMPHOCYTES # (AUTO) 2.4 /CMM (0.8-4.8); LYMPHOCYTES % (AUTO) 24.4 % (20.0-44.0); MEAN CORPUSCULAR HGB CONC 35 g/dl (31.0-36.0); MEAN CORPUSCULAR VOLUME 96 fL (82-100); MONOCYTES # (AUTO) 0.7 /CMM (0.1-1.30); MONOCYTES % (AUTO) 6.8 % (2.0-12.0); NEUTROPHILS # (AUTO) 6.6 /CMM (1.8-8.9); NEUTROPHILS % (AUTO) 66.1 % (43.0-81.0); PLATELET COUNT (AUTO) 246 /CMM (150-450); RED BLOOD CELL COUNT(AUTO) 4.06 MIL/uL (4.0-5.2); WHITE BLOOD COUNT (AUTO) 9.9 K/uL (4.3-11.0)
[2018-04-06 13:22] LABS: CALCIUM, SERUM 8.6 mg/dL (8.5-10.1); CREATININE 0.6 mg/dL (0.6-1.3); POTASSIUM 3.3 mmol/L (3.5-5.1)
[2018-04-06 13:26] LABS: ALBUMIN 3.3 g/dL (3.4-5.0); BILIRUBIN,TOTAL 0.3 mg/dL (0.2-1.0); TOTAL PROTEIN, SERUM 6.5 g/dL (6.4-8.2)
--- NOTE | 2018-04-06 15:14 | NUR ---
NO FRACTURE OF HIP SEEN ON RADIOLOGY. HOWEVER PT CANNOT MOVE SECONDARY TO PAIN.
--- NOTE | 2018-04-06 15:40 | NUR ---
PT TAKEN TO RADIOLOGY FOR RE-EVALUATION OF HIP.
--- NOTE | 2018-04-06 18:31 | NUR ---
[facility] PAGED
--- NOTE | 2018-04-06 19:14 | NUR ---
PT TO BE ADMITTED. WAITING FOR ROOM TO COME AVAILABLE. PT FED DINNER.
[2018-04-06] MEDS ORDERED: IV NS 0.9% 1,000 ML BAG IV ONE (19:30)
[2018-04-06] MEDS ORDERED: IV 1/2NS 1000 ML 1,000 ML IV PRN (19:41)
[2018-04-06] MEDS ORDERED: ACETAMINOPHEN 325 MG TABLET PO PRN (20:00)
[2018-04-06] MEDS ORDERED: NAPROXEN 500 MG TABLET PO PRN (20:00)
[2018-04-06] MEDS ORDERED: hydrALAZINE HCL 25 MG TABLET PO PRN (20:00)
[2018-04-06] MEDS ORDERED: Z GUARD REMEDY 2 OZ OINT TP PRN (20:00)
[2018-04-06] MEDS ORDERED: MAGNESIUM HYDROXIDE 30 ML UDC PO PRN (20:00)
[2018-04-06] MEDS ORDERED: ONDANSETRON HCL/PF 4 MG/2 ML VIAL IVP PRN (20:00)
[2018-04-06] MEDS ORDERED: MAG HYDROX/AL HYDROX/SIMETH 30 ML UDC PO PRN (20:00)
[2018-04-06] MEDS ORDERED: POTASSIUM CHLORIDE 20 MEQ TAB.PRT.SR PO ONE (21:00)
--- NOTE | 2018-04-06 21:06 | NUR ---
PT ADMITTED TO M/S ROOM 204-[address] DE LA O'S SERVICE. DX - ENTRACTABLE LEFT LEG PAIN AND HYPONATREMIA. REPORT GIVEN TO VERONIKA. PT TRANSFERRED TO FLOOR.
[2018-04-06 21:15] VITALS: BP 155/81
--- NOTE | 2018-04-06 21:30 | NUR ---
ADMITTED A 67 Y/O F, A, OX4, BREATHING EVENLY. NO SOB. NAD. IN STABLE CONDITION. VSS. W/ ONGOING C/O L HIP/ LEG PAIN. MEDICAL INFO WERE OBTAINED FROM THE PT . PT IS CURRENTLY RECEIVING IV NS FROM THE ER. IV SITE INTACT AND PATENT. F/C IN PLACE, DRAINING CLEAR YELLOW URINE. NEEDS ATTENDED. BED LOW LOCKED. CALL LIGHT WITHIN REACH,. WILL CONT TO MONITOR AND WILL F/U W/ MD'S ORDERS.
[2018-04-06] MEDS: HYDROCODONE/APAP 5/325MG 1 EACH TABLET PO PRN (22:22)
--- NOTE | 2018-04-06 22:22 | NUR ---
NORCO GIVEN FOR CO L HIP PAIN. WILL CONT TO MONITOR ,
--- NOTE | 2018-04-06 22:40 | NUR ---
PAGED TO CLARIFY THE IVF ORDER . AWAITING FOR HIS CALL BACK.
--- NOTE | 2018-04-06 23:05 | NUR ---
CRISTIANO ACNP ON THE FLOOR MADE AWARE OF THE IVF ORDER OF 0.45% NS AND THE DX OF HYPONATREMIA AND ALSO PT'S C/O GENERAL ITCHING . FLAT SORTER PROCESSOR W/ A NEW ORDER TO CHANGE THE FLUID TO NS WITH THE SAME RATE AND BENADRYL. NEW ORDERS WERE PLACED. WILL CONT TO MONITOR ,
[2018-04-06] MEDS ORDERED: IV NS 0.9% 1,000 ML IV PRN (23:30)
[2018-04-06] MEDS: diphenhydrAMINE HCL 25 MG CAPSULE PO PRN (23:49)
--- NOTE | 2018-04-06 23:49 | NUR ---
BENADRYL GIVEN ORDERED FOR C/O GENERALIZED ITCHINESS. WILL CONT TO MONITOR,
[2018-04-07] MEDS: HYDROCODONE/APAP 5/325MG 1 EACH TABLET PO PRN ×3 (03:53→19:45)
--- NOTE | 2018-04-07 03:53 | NUR ---
NORCO GIVEN FOR CO L HIP PAIN. WILL CONT TO MONITOR
[2018-04-07] MEDS: diphenhydrAMINE HCL 25 MG CAPSULE PO PRN ×3 (06:35→19:44)
[2018-04-07] MEDS: PANTOPRAZOLE 40 MG TABLET.DR PO SCH (06:35)
[2018-04-07 06:41] LABS: BASOPHILS % (AUTO) 0.5 % (0.0-2.0); EOSINOPHILS % (AUTO) 4.2 % (0.0-6.0); HEMATOCRIT 37 % (33-45); HEMOGLOBIN 12.7 g/dL (11.5-14.8); LYMPHOCYTES # (AUTO) 2.1 /CMM (0.8-4.8); LYMPHOCYTES % (AUTO) 36.3 % (20.0-44.0); MEAN CORPUSCULAR HGB CONC 35 g/dl (31.0-36.0); MEAN CORPUSCULAR VOLUME 97 fL (82-100); MONOCYTES # (AUTO) 0.5 /CMM (0.1-1.30); MONOCYTES % (AUTO) 8.8 % (2.0-12.0); NEUTROPHILS # (AUTO) 2.9 /CMM (1.8-8.9); NEUTROPHILS % (AUTO) 50.2 % (43.0-81.0); PLATELET COUNT (AUTO) 213 /CMM (150-450); RED BLOOD CELL COUNT(AUTO) 3.79 MIL/uL (4.0-5.2); WHITE BLOOD COUNT (AUTO) 5.7 K/uL (4.3-11.0)
--- NOTE | 2018-04-07 07:17 | NUR ---
PT IN BED SLEEPING AROUSES EASILY. BREATHING EVENLY. NO SOB. NAD .SKIN WARM AND DRY. NO ACUTE EVENT DURING THE NIGHT. PAIN TOLERATED WELL. NO RESP DISTRESS NOTED. F/C IN PLACE. ASSISTED W/ ADLS. BED LOW LOCKED. SRX2. CALL LIGHT WITHIN REACH,. WILL CONT TO MONITOR AND WILL ENDORSE TO AM SHIFT FOR SHERRY.
[2018-04-07 08:00] VITALS: BP 140/84
--- NOTE | 2018-04-07 08:00 | NUR ---
MS RN NOTES RECEIVED PATIENT ASLEEP IN BED WITH NO DISTRESS NOTED. NO C/O PAIN OR DISCOMFORT. PERIPHERAL IV INTACT AND PATENT. BED IN LOW LOCK POSITION. ALL BELONGINGS KEPT NEAR BEDSIDE. WILL CONTINUE TO MONITOR
--- NOTE | 2018-04-07 08:30 | NUR ---
ENCOURAGED PT TO AMBULATE AND HAVE THE OSPINA CATHETER REMOVED.EXPLAINED THE COMPLICATIONS OF OSPINA CATHETER.PT AGREED TO HER OSPINA CATHETER REMOVED. ASSISTED PT TO THE TOILET WITH FWW AND REMOVED OSPINA CATHETER WITH 200 ML CLEAR YELLOW URINE WITH NO HEMATURIA NOTED.PT TOLERATED WELL.
[2018-04-07] MEDS: ASPIRIN 81 MG TAB.CHEW PO SCH (08:36)
[2018-04-07] MEDS: AMLODIPINE BESYLATE 10 MG TABLET PO SCH (08:36)
[2018-04-07] MEDS: MORPHINE SULFATE INJ 4 MG/ML DISP.SYRIN IV PRN ×2 (08:41→14:59)
--- NOTE | 2018-04-07 08:47 | NUR ---
SCANNED AND OPENED THE NICODERM PATCH AND PT REFUSED NOTIFIED THE PHARMACIST.DISPOSED THE NICODERM IN THE MEDICINE DISPENSER WITNESSED BY CO-RN,FERNANDA GONZALES.
[2018-04-07] MEDS: NICOTINE PATCH (14MG) 14 MG PATCH.TD24 TD SCH (08:49)
[2018-04-07 11:50] LABS: ALBUMIN 2.9 g/dL (3.4-5.0); BILIRUBIN,TOTAL 0.4 mg/dL (0.2-1.0); CALCIUM, SERUM 7.9 mg/dL (8.5-10.1); CREATININE 0.5 mg/dL (0.6-1.3); MAGNESIUM 1.8 mg/dL (1.8-2.4); PHOSPHORUS 2.8 mg/dL (2.5-4.9); POTASSIUM 4.3 mmol/L (3.5-5.1); TOTAL PROTEIN, SERUM 5.9 g/dL (6.4-8.2)
[2018-04-07] MEDS: Potassium Chloride 40 MEQ in IV NS 0.9% 1,000 ML IV PRN (12:09)
--- NOTE | 2018-04-07 13:53 | NUR ---
Social service consult requested by SOLEDAD Neal for placement. Pt. is a 67 year old female who was admitted to [facility] for intractable left leg and Hyponatremia. DIGNA met with pt. bedside. Pt. is alert and oriented x 4. Pt's boyfriend Martin was bedside. SW is familiar with pt. from previous admissions. Pt. receives SSI monthly. Pt. [place] [address] on [address] in [place]. Pt. has been homeless for over 15+years. Pt. drinks approximately 4 beers per day and smokes marijuana once in a while. Pt. denies any other drug use. Pt. is a cigarette smoker. Pt. has Depression and anxiety and takes Ativan for her anxiety. Pt. is trying to link with [facility] for permanent housing. Pt. does not have a clinical case manager assigned as of yet. Pt. is interested in going to [facility] when medically cleared. DIGNA informed business case analyst Stephanie regarding pt. wanting to go to the aforementioned SNF. No other social service needs are requested at this time. DIGNA is available, if needed.
[2018-04-07 13:55] LABS: OSMOLALITY,URINE 208 mOS/kg (340-1090)
[2018-04-07 14:02] LABS: URINE SODIUM, RANDOM 16 mmol/l (40-220)
[2018-04-07] MEDS: BETAMETHASONE DIP 0.05% CREAM 15 GM TUBE TP SCH ×2 (14:49→18:15)
[2018-04-07 16:00] VITALS: BP 142/76
--- NOTE | 2018-04-07 18:49 | NUR ---
MS RN NOTES PATIENT AWAKE IN BED AND REMAINS IN STABLE CONDITION. VISITOR AT BEDSIDE. NO C/O PAIN OR DISCOMFORT. ALL DUE MEDS GIVEN ORDERED WITH NO ASE NOTED. PERIPHERAL IV REMAINS INTACT AND PATENT. BED IN LOW LOCK SETTING. CALL LIGHT WITHIN REACH. WILL ENDORSE TO ONCOMING SHIFT.
--- NOTE | 2018-04-07 19:45 | NUR ---
RN NOTE; RECEIVED PT IN BED AWAKE AND ALERT. W/ ONGOING C/O LLE PAIN. BREATHING EVENLY. NAD . NEEDS ATTENDED . CALL LIGHT WITHIN REACH , WILL CONT TO MONITOR ,
--- NOTE | 2018-04-07 19:46 | NUR ---
BENADRYL AND NORCO GIVEN ORDERED PER PT'S REQUEST FOR C/O GENERALIZED ITCHINESS AND LLE PAIN . WILL CONT TO MONITOR ,
[2018-04-07] MEDS: ZOLPIDEM TARTRATE 5 MG TABLET PO PRN (21:32)
--- NOTE | 2018-04-07 21:32 | NUR ---
DORIANIEN GIVEN ORDERED PER PT'S REQUEST FOR C/O INSOMNIA . WILL CONT TO MONITOR ,
[2018-04-07 21:34] VITALS: BP 119/68
[2018-04-08] MEDS: LORAZEPAM 1 MG TABLET PO PRN ×2 (00:35→09:06)
--- NOTE | 2018-04-08 00:35 | NUR ---
ATIVAN GIVEN ORDERED PER PT'S REQUEST FOR C/O ANXIETY . WILL CONT TO MONITOR ,
[2018-04-08] MEDS: HYDROCODONE/APAP 5/325MG 1 EACH TABLET PO PRN ×4 (04:39→20:08)
[2018-04-08] MEDS: diphenhydrAMINE HCL 25 MG CAPSULE PO PRN ×4 (04:39→21:09)
--- NOTE | 2018-04-08 04:40 | NUR ---
BENADRYL AND NORCO GIVEN ORDERED PER PT'S REQUEST FOR C/O GENERALIZED ITCHINESS AND LLE PAIN . WILL CONT TO MONITOR ,
[2018-04-08] MEDS: Potassium Chloride 40 MEQ in IV NS 0.9% 1,000 ML IV PRN (06:54)
--- NOTE | 2018-04-08 07:38 | NUR ---
PT IN BED STABLE W/ NO ACUTE EVENT DURING THE NIGHT , NO C/O PAIN AT THIS TIME. MEDICATED ORDERED. NEEDS ATTENDED . BED LOW LOCKED. SRX2. CALL LIGHT WITHIN REACH,. WILL CONT TO MONITOR AND WILL ENDORSE TO AM SHIFT FOR SHERRY
[2018-04-08 08:00] VITALS: BP 135/71
--- NOTE | 2018-04-08 08:00 | NUR ---
MS RN NOTES PATIENT AWAKE IN BED.WITH C/O BLE AND LOWER BACK PAIN.NORCO GIVEN PRN FOR PAIN MGT.PERIPHERAL IV REMAINS INTACT AND PATENT WITH IVF OF NS+40 MEQ AT 75 ML/HR INFUSING WELL. BED IN LOW LOCK SETTING. CALL LIGHT WITHIN REACH.
[2018-04-08 08:19] LABS: CALCIUM, SERUM 8.7 mg/dL (8.5-10.1); CREATININE 0.6 mg/dL (0.6-1.3); MAGNESIUM 1.8 mg/dL (1.8-2.4); PHOSPHORUS 3.3 mg/dL (2.5-4.9); POTASSIUM 4.3 mmol/L (3.5-5.1)
[2018-04-08 08:30] LABS: THYROID STIMULATING HORMONE 2.757 uIU/mL (0.358-3.74); URIC ACID 3.8 mg/dL (2.6-7.2)
[2018-04-08] MEDS: PANTOPRAZOLE 40 MG TABLET.DR PO SCH (08:55)
[2018-04-08] MEDS: AMLODIPINE BESYLATE 10 MG TABLET PO SCH (08:56)
[2018-04-08] MEDS: NICOTINE PATCH (14MG) 14 MG PATCH.TD24 TD SCH (08:57)
[2018-04-08] MEDS: ASPIRIN 81 MG TAB.CHEW PO SCH (08:57)
[2018-04-08] MEDS: BETAMETHASONE DIP 0.05% CREAM 15 GM TUBE TP SCH ×2 (08:59→17:57)
[2018-04-08 14:07] LABS: URINE SODIUM, RANDOM 60 mmol/l (40-220)
[2018-04-08 14:14] LABS: APPEARANCE,URINE SL CLOUDY (CLEAR); BILIRUBIN,URINE NEGATIVE (NEGATIVE); BLOOD, URINE TRACE-INTA Ery/uL (NEGATIVE); COLOR,URINE YELLOW (YELLOW); KETONES,URINE NEGATIVE (NEGATIVE); LEUKOCYTE ESTERASE ,URINE MODERATE (NEGATIVE); NITRITE, URINE NEGATIVE (NEGATIVE); PROTEIN,URINE NEGATIVE (NEGATIVE); UGLUCOSE NEGATIVE (NEGATIVE); UROBILINOGEN,URINE 0.2 EU/dL (0.2)
[2018-04-08 14:31] LABS: BACTERIA,URINE Moderate /HPF (None Seen); RBC,URINE 0-2 /HPF (0-2); SQUAMOUS EPITHELIAL CELL,UR Few /HPF (None Seen)
[2018-04-08 16:00] VITALS: BP 119/72
[2018-04-08] MEDS: ENSURE ENLIVE CHOC 237 ML CAN PO SCH ×2 (17:00→17:57)
--- NOTE | 2018-04-08 19:00 | NUR ---
MS RN NOTES RECEIVE PT IN BED A/O X 4 IN STABLE CONDITION, NOT IN DISTRESS, SAFETY MEASURES IN PLACE WILL CONTINUE TO MONITOR.
[2018-04-08 20:00] VITALS: BP 130/79
[2018-04-08 20:48] LABS: OSMOLALITY,URINE 305 mOS/kg (340-1090)
[2018-04-08] MEDS: ZOLPIDEM TARTRATE 5 MG TABLET PO PRN (21:09)
[2018-04-09] MEDS: diphenhydrAMINE HCL 25 MG CAPSULE PO PRN ×3 (01:15→13:36)
[2018-04-09] MEDS: LORAZEPAM 1 MG TABLET PO PRN (01:15)
[2018-04-09] MEDS: HYDROCODONE/APAP 5/325MG 1 EACH TABLET PO PRN ×3 (01:17→12:20)
--- NOTE | 2018-04-09 06:36 | NUR ---
MS RN CLOSING NOTES ASLEEP AND EASILY AWAKEN, TOLERATING ROOM AIR 98%. RESPIRATION EVEN AND UNLABORED. KEPT CLEAN AND DRY AND COMFORTABLE, ALL NURSING CARE RENDERED. NEEDS ATTENDED AND ANTICIPATED. PAIN MEDICATED BY PAIN MEDICATION. TOLERATED WITH COMFORT. ON LOW BED AT ALL TIMES TO ENSURE SAFETY. SAFE HAZARD FREE ENVIRONMENT PROVIDED. CALL LIGHT WITHIN EASY TO REACH. WILL ENDORSE NEXT SHIFT CONTINUITY OF CARE
--- NOTE | 2018-04-09 07:42 | NUR ---
MS RN OPENING NOTES RECEIVED PT FROM NIGHTSHIFT RN IN STABLE CONDITION. PT IS A/O X3. NO SOB OR ACUTE SIGNS OF DISTRESS NOTED. BREATHING IS EVEN AND UNLABORED. SHE DENIES ANY PAIN AT THIS TIME. IV TO LEFT WRIST NOTED TO BE PATENT AND INTACT. NO REDNESS OR SIGNS OF INFILTRATION NOTED. BED IN LOW LOCKED POSITION, SIDE RAILS UP X2, CALL LIGHT WITHIN REACH,. WILL CONTINUE TO MONITOR
[2018-04-09] MEDS: PANTOPRAZOLE 40 MG TABLET.DR PO SCH (08:12)
[2018-04-09] MEDS: ENSURE ENLIVE CHOC 237 ML CAN PO SCH ×2 (08:12→12:18)
[2018-04-09] MEDS: NICOTINE PATCH (14MG) 14 MG PATCH.TD24 TD SCH (08:12)
[2018-04-09] MEDS: ASPIRIN 81 MG TAB.CHEW PO SCH (08:12)
[2018-04-09 08:13] VITALS: BP 144/81
[2018-04-09] MEDS: AMLODIPINE BESYLATE 10 MG TABLET PO SCH (08:13)
[2018-04-09] MEDS: BETAMETHASONE DIP 0.05% CREAM 15 GM TUBE TP SCH (08:14)
[2018-04-09] MEDS ORDERED: MULTIPLE VIT (LYCOPENE/FA/MV,CA,IRON,MIN/LUT)1 TAB PO SCH (09:00)
[2018-04-09] MEDS ORDERED: LORA1TAB PO (11:50)
--- NOTE | 2018-04-09 15:30 | NUR ---
MS GALLEY BOY NOTES PT WAS DISCHARGED TO [facility] IN STABLE CONDITION. REPORT CALLED AND GIVEN TO LILI THE RECEIVING RN. ALL NEEDS WERE MET DURING SHIFT AND ORDERS CARRIED OUT ACCORDING. ALL DUE MEDS GIVEN. PAIN PROPERLY MANAGED WITH PRN MEDICATIONS. IV WAS SUCCESSFULLY REMOVED WITH NO COMPLICATIONS. D/C INSTRUCTIONS AND EXITCARE MATERIALS REVIEWED WITH PT PRIOR TO D/C. PT VERBALIZED FULL UNDERSTANDING OF INSTRUCTIONS AND F/U APPOINTMENT. VSS PRIOR TO DISCHARGE. D/C PHOTOS TAKEN AND PLACED IN PT'S CHART. SHE WAS SAFELY TRANSFERRED FROM [facility] TO [facility] AND LEFT VIA AMBULANCE TRANSPORT. ALL BELONGINGS VERIFIED PRIOR TO D/C. PT CHOSE TO LEAVE THE WALKER PROVIDED TO HER.
== END 2018-04-09 15:27 | DRG 641 ==
LOC: ER 11:50 → TELE2 20:22 → MEDSG2 22:06
PROVIDERS: ADMIT Nurse Practitioner Acute Care
DX: E87.1 Hypo-osmolality and hyponatremia (principal); E44.0 Moderate protein-calorie malnutrition; E78.5 Hyperlipidemia, unspecified; I10 Essential (primary) hypertension; E87.6 Hypokalemia; F12.90 Cannabis use, unspecified, uncomplicated; J44.9 Chronic obstructive pulmonary disease, unspecified; F32.9 Major depressive disorder, single episode, unspecified; Z59.0 Homelessness; F17.210 Nicotine dependence, cigarettes, uncomplicated; M79.605 Pain in left leg; F10.20 Alcohol dependence, uncomplicated; Y90.9 Presence of alcohol in blood, level not specified; Z68.22 Body mass index [BMI] 22.0-22.9, adult; B35.4 Tinea corporis; H57.89 Other specified disorders of eye and adnexa; W08.XXXA Fall from other furniture, initial encounter; Y93.9 Activity, unspecified; Y92.811 Bus as the place of occurrence of the external cause
CPT/HCPCS: 36415; 71045-TC; 72192-TC; 73502; 73552; 73564-TC; 80048-TC; 80053-TC; 80061-TC; 80076-TC; 81000-TC; 83735-TC; 83935-TC; 84100-TC; 84300-TC; 84443-TC; 84550-TC; 85025-TC; 85730-TC; 87081-TC; 87086-TC; 87186-TC; 97110-TC; 97116-TC; 97530-TC; A4606; G0378; J2270; J2405; J3480; J7030; Q0163; Z7610

== ENCOUNTER 2018-06-01 11:11 | Inpatient (IN) | payer MEDICARE, OTHER ==
[~2018-06-01] VITALS: Ht 160 cm; Wt 66.2 kg
[~2018-06-01 11:11] MED LIST changes: -AMLO10TA6 PO; +AMLO10TA7 PO; -CEPH-570 PO; +LORA1TAB PO; -PRED20TA PO; -PRED5TAB48 PO
[2018-06-01] MEDS ORDERED: oxyCODONE/APAP (5/325 MG) 1 UDTAB TABLET ONE (11:46)
[2018-06-01] MEDS ORDERED: IBUPROFEN 600 MG TABLET PO ONE ×2 (11:47→12:00)
--- NOTE | 2018-06-01 11:55 | NUR ---
BIBRA 102, C/O L HIP PAIN. PT AAOX4, VSS. PT STS SHE FELL LAST NOV & ONGOING PAIN SINCE THEN. DENIES CP, SOB, DIZZINESS, N/V @ THIS TIME. PT SEEN & EVAL'D BY SOLEDAD PINTO. MEDICATED FOR PAIN & WILL CONT TO MONITOR.
[2018-06-01] MEDS ORDERED: oxyCODONE/APAP (5/325 MG) 1 UDTAB TABLET PO ONE (12:00)
[2018-06-01] MEDS ORDERED: ZOLP5TAB2 PO (12:25)
[2018-06-01] MEDS ORDERED: LORA1TAB PO (12:25)
[2018-06-01] MEDS ORDERED: HYDR-4076 PO (12:25)
[2018-06-01] MEDS ORDERED: AMLO10TA7 PO (12:25)
[2018-06-01] MEDS ORDERED: ASPI-1169 PO (12:25)
[2018-06-01] MEDS ORDERED: PANT40TA2 PO (12:25)
[2018-06-01] MEDS ORDERED: HYDR-4384 PO (12:25)
[2018-06-01 12:44] LABS: BASOPHILS # (AUTO) 0.1 /CMM (0.0-0.2); BASOPHILS % (AUTO) 0.7 % (0.0-2.0); EOSINOPHILS % (AUTO) 2.6 % (0.0-6.0); HEMATOCRIT 38 % (33-45); HEMOGLOBIN 12.9 g/dL (11.5-14.8); LYMPHOCYTES # (AUTO) 2.4 /CMM (0.8-4.8); MEAN CORPUSCULAR HGB CONC 34 g/dl (31.0-36.0); MEAN CORPUSCULAR VOLUME 96 fL (82-100); MONOCYTES # (AUTO) 0.7 /CMM (0.1-1.30); MONOCYTES % (AUTO) 9.3 % (2.0-12.0); NEUTROPHILS # (AUTO) 3.9 /CMM (1.8-8.9); NEUTROPHILS % (AUTO) 54.4 % (43.0-81.0); PLATELET COUNT (AUTO) 242 /CMM (150-450); WHITE BLOOD COUNT (AUTO) 7.2 K/uL (4.3-11.0)
[2018-06-01 12:53] LABS: CALCIUM, SERUM 8.9 mg/dL (8.5-10.1); CREATININE 0.6 mg/dL (0.6-1.3)
[2018-06-01 12:54] LABS: POTASSIUM 2.8 mmol/L (3.5-5.1)
--- NOTE | 2018-06-01 13:21 | NUR ---
325-1 MS UPDATED BED.
[2018-06-01] MEDS ORDERED: POTASSIUM CHLORIDE 20 MEQ TAB.PRT.SR PO ONE ×2 (13:30→13:43)
--- NOTE | 2018-06-01 13:35 | NUR ---
PT SITTING UP EATING MEAL. PT STS LT HIP PAIN 01/18, BLAIR, EXPERIENCE PLANNING STRATEGIST AWARE. WILL CONT TO MONITOR.
--- NOTE | 2018-06-01 13:38 | NUR ---
CALLED [employer] ELASTIC CUTTER WAS PAGED.
--- NOTE | 2018-06-01 13:56 | NUR ---
REPORT GIVEN TO CRISTHIAN TERRELL FOR CONT OF CARE.
[2018-06-01] MEDS ORDERED: ONDANSETRON HCL/PF 4 MG/2 ML VIAL IVP PRN (14:00)
[2018-06-01] MEDS ORDERED: MAG HYDROX/AL HYDROX/SIMETH 30 ML UDC PO PRN (14:00)
[2018-06-01] MEDS ORDERED: Z GUARD REMEDY 2 OZ OINT TP PRN (14:00)
[2018-06-01] MEDS ORDERED: MAGNESIUM HYDROXIDE 30 ML UDC PO PRN (14:00)
[2018-06-01] MEDS ORDERED: ACETAMINOPHEN 325 MG TABLET PO PRN (14:00)
[2018-06-01] MEDS ORDERED: NAPROXEN 500 MG TABLET PO PRN (14:00)
[2018-06-01] MEDS ORDERED: hydrALAZINE HCL 25 MG TABLET PO PRN (14:00)
[2018-06-01] MEDS ORDERED: ZOLPIDEM TARTRATE 5 MG TABLET PO PRN (14:00)
[2018-06-01 14:25] VITALS: BP 133/68
--- NOTE | 2018-06-01 14:25 | NUR ---
m/s vocational technical education director: admission admitted this 67 yrs old female pt from [facility] with dx: hip pain. awake, a/ox4; able to ambulate from gurney to her bed upon arrival to floor. still c/o left hip pain 01/18. physical therapist at bedside for assessment. oriented to room and surroundings. noted scab on left foot. inventory done by evp head of sm[employer] americ[employer] experience strategy. vss. instructed to call for assistance. will continue to monitor.
--- NOTE | 2018-06-01 14:30 | NUR ---
m/s gasoline power shovel operator: md visit dr. marquez at bedside at this time.
[2018-06-01] MEDS: HYDROCODONE/APAP 5/325MG 1 EACH TABLET PO PRN ×2 (16:27→20:54)
--- NOTE | 2018-06-01 16:27 | NUR ---
m/s epoxy coatings installer: notes c/o 02/17 left hip pain, medicated with norco 1 tab po as ordered. instructed to call for assistance. will continue to monitor.
--- NOTE | 2018-06-01 17:27 | NUR ---
m/s manager communication: notes pt having dinner. hob elevated. voiced no discomfort. call light within reach. will monitor.
--- NOTE | 2018-06-01 18:25 | NUR ---
m/s writer technical publications: notes in bed awake, resting comfortable. needs attended. instructed to call for assistance. will continue to monitor.
--- NOTE | 2018-06-01 19:00 | NUR ---
RN MS OPENING NOTES RECEIVED PATIENT IN BED AWAKE ALERT AND ORIENTED X 4, RESPIRATIONS EVEN AND UNLABORED WITH EQUAL RISE AND FALL OF CHEST, DENIES ANY PAIN OR DISCOMFORT AT THIS TIME, IV SITE TO LEFT FA #20G INTACT AND PATENT,NO REDNESS, NO INFILTRATION PRESENT. ORIENTED TO STAFF AND CALL LIGHT AND KEPT WITHIN REACH, TOILETING AND FLUIDS OFFERED, ALL NEEDS ATTENDED REMAINS COMFORTABLE AT THIS TIME, WILL CONTINUE TO MONITOR AND ATTENDED TO NEEDS.
[2018-06-01 20:00] VITALS: BP 120/73
--- NOTE | 2018-06-01 20:48 | NUR ---
RN MS NOTES PATIENT COMPLAINT OF ITCHINESS, REQUESTING FOR BENADRYL CALLED AND SPOKE TO LG WITH NEW ORDER FOR BENADRYL 25MG PO Q 6 HR PRN FOR ITCHINESS. N.O READ BACK , NOTED AND CARRIED OUT WILL CONTINUE TO MONITOR.
--- NOTE | 2018-06-01 21:00 | NUR ---
RN MS NOTES PATIENT COMPLAINT OF PAIN TO LEFT HIP 8-01/18 REQUESTING FOR NORCO NORCO 5/325 PRN GIVEN ORDERED, WILL CONTINUE TO MONITOR FOR EFFECTIVENESS.
[2018-06-01 21:34] VITALS: BP 120/73
[2018-06-01] MEDS: diphenhydrAMINE HCL ELIX 25 MG/10 ML UDC PO PRN (22:08)
--- NOTE | 2018-06-01 22:08 | NUR ---
RN MS NOTES PATIENT COMPLAINT OF ITCHINESS REQUESTING FOR PRN BENADRYL PRN GIVEN ORDERED WILL CONTINUE TO MONITOR FOR EFFECTIVENESS. PATIENT STATES SHE TAKES "BENADRYL FOR ITCHINESS."
[2018-06-02] MEDS: HYDROCODONE/APAP 5/325MG 1 EACH TABLET PO PRN ×3 (03:50→20:14)
--- NOTE | 2018-06-02 03:50 | NUR ---
RN MS NOTES PATIENT COMPLAINT OF PAIN TO LEFT HIP 8-01/18 REQUESTING FOR NORCO NORCO 5/325 PRN GIVEN ORDERED, WILL CONTINUE TO MONITOR FOR EFFECTIVENESS.
[2018-06-02] MEDS: diphenhydrAMINE HCL ELIX 25 MG/10 ML UDC PO PRN ×3 (05:46→23:37)
--- NOTE | 2018-06-02 05:52 | NUR ---
RN MS NOTES PATIENT COMPLAINT OF ITCHINESS TO ARMS REQUESTING FOR BENADRYL PRN GIVEN ORDERED
--- NOTE | 2018-06-02 06:24 | NUR ---
RN MS CLOSING NOTES PATIENT IN BED AWAKE ALERT AND ORIENTED X 4, RESPIRATIONS EVEN AND UNLABORED WITH EQUAL RISE AND FALL OF CHEST, DENIES ANY PAIN OR DISCOMFORT AT THIS TIME, IV SITE TO LEFT FA #20G INTACT AND PATENT,NO REDNESS, NO INFILTRATION PRESENT. CALL LIGHT AND KEPT WITHIN REACH, TOILETING AND FLUIDS OFFERED, ALL NEEDS ATTENDED REMAINS COMFORTABLE AT THIS TIME, WILL CONTINUE TO MONITOR AND ATTENDED TO NEEDS AND ENDORSE TO NEXT SHIFT.
[2018-06-02 06:56] LABS: BASOPHILS % (AUTO) 0.3 % (0.0-2.0); EOSINOPHILS % (AUTO) 4.8 % (0.0-6.0); HEMATOCRIT 35 % (33-45); HEMOGLOBIN 11.9 g/dL (11.5-14.8); LYMPHOCYTES % (AUTO) 33.4 % (20.0-44.0); MEAN CORPUSCULAR HGB CONC 35 g/dl (31.0-36.0); MEAN CORPUSCULAR VOLUME 96 fL (82-100); MONOCYTES # (AUTO) 0.5 /CMM (0.1-1.30); MONOCYTES % (AUTO) 8.9 % (2.0-12.0); NEUTROPHILS # (AUTO) 3.1 /CMM (1.8-8.9); NEUTROPHILS % (AUTO) 52.6 % (43.0-81.0); PLATELET COUNT (AUTO) 223 /CMM (150-450); RED BLOOD CELL COUNT(AUTO) 3.61 MIL/uL (4.0-5.2)
--- NOTE | 2018-06-02 07:30 | NUR ---
MS RN Opening Note Patient awake, resting in bed. No acute distress, SOB or complaints of chest pain. Alert and oriented x 4, able to verbalize needs. Respirations even and unlabored on room air. Peripheral IV access to the left forearm 20 gauge, intact, patent and saline locked. Skin warm and dry to touch. Fall and Safety precautions in place: bed in lowest and locked position, bed alarm on, side rails up x2, call light and personal possessions within reach. Oriented to safety measures and use of call light, verbalized understanding and demonstrated use. Will continue to monitor and intervene as needed.
[2018-06-02 07:31] LABS: THYROID STIMULATING HORMONE 2.624 uIU/mL (0.358-3.74)
[2018-06-02 07:49] LABS: CALCIUM, SERUM 8.7 mg/dL (8.5-10.1); CREATININE 0.8 mg/dL (0.6-1.3); MAGNESIUM 1.7 mg/dL (1.8-2.4); PHOSPHORUS 3.6 mg/dL (2.5-4.9); POTASSIUM 3.8 mmol/L (3.5-5.1)
[2018-06-02 08:00] VITALS: BP 130/78
[2018-06-02] MEDS: AMLODIPINE BESYLATE 10 MG TABLET PO SCH (08:10)
[2018-06-02] MEDS: PANTOPRAZOLE 40 MG TABLET.DR PO SCH (08:10)
[2018-06-02] MEDS: ASPIRIN 81 MG TAB.CHEW PO SCH (08:11)
[2018-06-02] MEDS: LORAZEPAM 1 MG TABLET PO PRN ×2 (08:21→08:46)
[2018-06-02] MEDS: Magnesium 1GM/D5W 100ML PREMIX 100 ML IV SCH ×2 (13:07→14:48)
[2018-06-02] MEDS ORDERED: PROMETHAZINE HCL SYRUP 6.25 MG/5 ML UDC PO PRN (14:00)
[2018-06-02 16:00] VITALS: BP 110/65
--- NOTE | 2018-06-02 18:39 | NUR ---
MS RN Closing Note Patient awake, resting in bed. No acute distress, SOB or complaints of chest pain. Alert and oriented x 4, able to verbalize needs. Respirations even and unlabored on room air. Peripheral IV access to the left forearm 20 gauge, intact, patent and saline locked. Skin warm and dry to touch. No acute events this shift. Patient clean, dry and comfortable. Fall and Safety precautions in place: bed in lowest and locked position, bed alarm on, side rails up x2, call light and personal possessions within reach. Oriented to safety measures and use of call light, verbalized understanding and demonstrated use. Will endorse to overnight stocker RN for continuity of care.
--- NOTE | 2018-06-02 19:30 | NUR ---
MS RN NOTES RECEIVED SLEEPING ON HER LEFT SIDE,BREATHING NORMAL,SALINE LOCK LFA INTACT AND PATENT.WITH SITTER AT BEDSIDE FOR STANDBY ASSIST.CALL LIGHT IN REACH,NEEDS ANTICIPATED.
[2018-06-02 20:00] VITALS: BP 125/75
--- NOTE | 2018-06-02 20:14 | NUR ---
MS RN NOTES PAIN MANAGEMENT C/O LEFT HIP PAIN 5/10 ON PAIN SCALE,MEDICATED WITH NORCO 5/325MG,1 TAB PO ORDERED FOR MODERATE PAIN.FALL PRECAUTION OBSERVED.
[2018-06-02 20:28] VITALS: BP 125/75
--- NOTE | 2018-06-02 23:31 | NUR ---
MS RN NOTES AWAKE,MEDICATED WITH BENADRYL 25MG ORAL SOLUTION PER PATIENT REQUEST FOR SLEEP.JULIANNE RAMOS
[2018-06-03] MEDS: HYDROCODONE/APAP 5/325MG 1 EACH TABLET PO PRN ×4 (01:46→19:34)
--- NOTE | 2018-06-03 01:46 | NUR ---
MS RN NOTES AWAKE,C/O LEFT HIP PAIN POST AMBULATION TO THE RESTROOM,MEDICATED WITH NORCO 5/325MG,1 TAB PO FOR PAIN SCALE 6/10,SITTER AT BEDSIDE.
--- NOTE | 2018-06-03 03:00 | NUR ---
MS RN NOTES SOUND ASLEEP,KEPT WARM AND COMFORTABLE.SITTER AT BEDSIDE
--- NOTE | 2018-06-03 06:42 | NUR ---
MS RN NOTES AWAKE THIS TIME,AMBULATE TO THE TOILET ASSISTED BY SITTER,NO FALL,NO INJURY.POSSIBLE D/C TO SNF.IN NO ACUTE DISTRESS.WILL ENDORSE TO DAY NURSE FOR SHERRY.
--- NOTE | 2018-06-03 07:26 | NUR ---
Nurse Notes: report received from the night nurse Татьяна Cobos RN, received patient resting quietly in bed. Pain level is 10/10, last pain medication was given at 0146. Pain is in the left foot.
[2018-06-03 08:00] VITALS: BP 133/75
[2018-06-03] MEDS: PANTOPRAZOLE 40 MG TABLET.DR PO SCH (08:04)
[2018-06-03] MEDS: ASPIRIN 81 MG TAB.CHEW PO SCH (09:40)
[2018-06-03] MEDS: AMLODIPINE BESYLATE 10 MG TABLET PO SCH (09:40)
--- NOTE | 2018-06-03 09:44 | NUR ---
Nurse Notes: Patient was medicated with [place] 1 tablet, took medication after breakfast, complaining of pain in left foot. Mepilix dressing to left foot, bandaid was removed. patient stated Mepilix feels better.
[2018-06-03] MEDS: diphenhydrAMINE HCL ELIX 25 MG/10 ML UDC PO PRN ×2 (10:32→22:13)
[2018-06-03] MEDS ORDERED: NAPROXEN 250 MG TABLET PO PRN (13:00)
--- NOTE | 2018-06-03 15:29 | NUR ---
Nurse Notes: Patient was able to ambulate with physical therapy earlier, medicated at present time with [place] 5/325. complaining of left foot pain.
[2018-06-03 17:30] VITALS: BP 122/73
--- NOTE | 2018-06-03 19:40 | NUR ---
Nurse Notes: report given to Geno BENAVIDES, patient was medicated at 1934 with [place] 5/325. for left foot pain, and left hip.
--- NOTE | 2018-06-03 19:40 | NUR ---
MS/RN OPENING NOTES PT AWAKE, ON ROOM AIR, BREATHING EVEN AND UNLABORED. DENIES SOB. IN NO ACUTE DISTRESS. RECENTLY RECEIVED PRN NORCO FOR PAIN. IV TO LFA PATENT AND INTACT. BED IN LOW/LOCKED POSITION WITH CALL LIGHT IN REACH BILATERAL UPPER SIDE RAILS IN PLACE. WILL CONTINUE TO MONITOR
[2018-06-03 20:00] VITALS: BP 120/72
[2018-06-03 20:43] VITALS: BP 120/72
[2018-06-04] MEDS: HYDROCODONE/APAP 5/325MG 1 EACH TABLET PO PRN ×4 (01:10→15:19)
--- NOTE | 2018-06-04 07:20 | NUR ---
MS/RN OPENING NOTE THE PATIENT IS RECEIVED IN BED. AWAKE, ALERT AND ORIENTED X4. IN ROOM AIR AND DENIES SOB. RESPIRATION REGULAR AND UNLABORED. DENIES PAIN AT THIS TIME. LFA G 20 PATENT AND SALINE LOCKED. BED LOW AND LOCKED. SIDE RAILS UP X3. CALL LIGHT WITHIN REACH. WILL CONTINUE TO MONITOR.
--- NOTE | 2018-06-04 07:35 | NUR ---
MS/RN CLOSING NOTES PT AWAKE, ON ROOM AIR, BREATHING EVEN AND UNLABORED. DENIES SOB, PAIN MANAGED WITH PRN NORCO. IV TO LFA PATENT AND INTACT. SLEPT WELL DURING SHIFT. ALL NEEDS MET. NO SIGNIFICANT CHANGES OVERNIGHT. BED IN LOW/LOCKED POSITION WITH CALL LIGHT IN REACH BILATERAL UPPER SIDE RAILS IN PLACE. ENDORSED TO DAY SHIFT RN SHERRY.
[2018-06-04] MEDS: diphenhydrAMINE HCL ELIX 25 MG/10 ML UDC PO PRN ×2 (07:40→14:43)
[2018-06-04] MEDS: PANTOPRAZOLE 40 MG TABLET.DR PO SCH (07:40)
[2018-06-04 09:57] VITALS: BP 115/70
[2018-06-04] MEDS: ASPIRIN 81 MG TAB.CHEW PO SCH (09:57)
[2018-06-04] MEDS: AMLODIPINE BESYLATE 10 MG TABLET PO SCH (09:57)
[2018-06-04] MEDS: LORAZEPAM 1 MG TABLET PO PRN (11:44)
--- NOTE | 2018-06-04 11:44 | NUR ---
MS/RN NOTE THE PATIENT VERBALIZED BEING ANXIOUS. PRN ATIVAN GIVEN PER ORDER. WILL CONTINUE TO MONITOR.
--- NOTE | 2018-06-04 13:20 | NUR ---
MS/RN NOTE THE PATIENT REFUSED PHOTO TO BE TAKEN DESPITE EXPLAINING RISKS AND BENEFITS MULTIPLE TIMES. GAVE DISCHARGE INSTRUCTIONS TO THE PATIENT AND SHE VERBALIZED UNDERSTANDING. REPORT GIVEN TO THE RECEIVING NURSE.
== END 2018-06-04 15:29 | DRG 554 ==
LOC: ER 11:12 → MED 13:38
DX: M16.12 Unilateral primary osteoarthritis, left hip (principal); E87.1 Hypo-osmolality and hyponatremia; M25.552 Pain in left hip; E87.6 Hypokalemia; I10 Essential (primary) hypertension; J44.9 Chronic obstructive pulmonary disease, unspecified; E78.5 Hyperlipidemia, unspecified; F17.210 Nicotine dependence, cigarettes, uncomplicated; F32.9 Major depressive disorder, single episode, unspecified; I73.9 Peripheral vascular disease, unspecified; F19.10 Other psychoactive substance abuse, uncomplicated; Z59.0 Homelessness; H02.824 Cysts of left upper eyelid; L98.8 Other specified disorders of the skin and subcutaneous tissue; Z71.6 Tobacco abuse counseling
CPT/HCPCS: 36415; 71045-TC; 73630-TC; 80048-TC; 80061-TC; 83735-TC; 84100-TC; 84443-TC; 85025-TC; 87081-TC; 97110-TC; 97116-TC; 97530-TC; G0378; J3475; Q0163; Q0169

== ENCOUNTER 2018-08-02 17:07 | Emergency (ER) | payer MEDICARE, OTHER ==
[~2018-08-02] VITALS: Ht 157.5 cm; Wt 71.7 kg
[~2018-08-02 17:07] MED LIST changes: -HYDR-3972 PO; -HYDR-4076 PO; +HYDR-4384 PO
--- NOTE | 2018-08-02 17:07 | NUR ---
PT [id number] FRM BUS STOP FOR CHEST PAIN AND N/V. +ETOH, ZOFRAN 4MG IM GIVEN MELTING SUPERVISOR, PT IS AAOX4, NOT IN RESPIRAOTRY DISTRESS, V/S STABLE, KEPT RESTED AND COMFORTABLE, HOOKED TO MONITOR, WILL CONTINUE TO MONITOR.
--- NOTE | 2018-08-02 17:44 | NUR ---
SEEN AND EXAMINED BY DR. CHRISTIE.
--- NOTE | 2018-08-02 17:45 | NUR ---
IV LINE ESTABLISHED, LABS DRAWNED AND SENT TO LAB.
--- NOTE | 2018-08-02 18:10 | NUR ---
ASPHALT MIXING MACHINE OPERATOR AT BEDSIDE FOR XRAY.
[2018-08-02 18:15] LABS: BASOPHILS # (AUTO) 0.1 /CMM (0.0-0.2); BASOPHILS % (AUTO) 0.9 % (0.0-2.0); EOSINOPHILS % (AUTO) 4.3 % (0.0-6.0); HEMATOCRIT 39 % (33-45); HEMOGLOBIN 13.6 g/dL (11.5-14.8); LYMPHOCYTES % (AUTO) 38.9 % (20.0-44.0); MEAN CORPUSCULAR HGB CONC 35 g/dl (31.0-36.0); MEAN CORPUSCULAR VOLUME 96 fL (82-100); MONOCYTES # (AUTO) 0.6 /CMM (0.1-1.30); MONOCYTES % (AUTO) 7.2 % (2.0-12.0); NEUTROPHILS # (AUTO) 3.8 /CMM (1.8-8.9); NEUTROPHILS % (AUTO) 48.7 % (43.0-81.0); PLATELET COUNT (AUTO) 315 /CMM (150-450); RED BLOOD CELL COUNT(AUTO) 4.07 MIL/uL (4.0-5.2); WHITE BLOOD COUNT (AUTO) 7.7 K/uL (4.3-11.0)
[2018-08-02 18:26] LABS: CALCIUM, SERUM 9.6 mg/dL (8.5-10.1); CARBON DIOXIDE 28 mmol/L (21-32); CHLORIDE 87 mmol/L (98-107); CREATININE 0.6 mg/dL (0.6-1.3); GLUCOSE 79 mg/dL (74-106); POTASSIUM 3.2 mmol/L (3.5-5.1); SODIUM SERUM 124 mmol/L (136-145); UREA NITROGEN, BLOOD 5 mg/dL (7-18)
[2018-08-02 18:35] LABS: ALANINE AMINOTRANSFERASE 19 U/L (12-78); ALBUMIN 3.9 g/dL (3.4-5.0); ALKALINE PHOSPHATASE 79 U/L (46-116); ASPARTATE AMINOTRANSFERASE 17 U/L (15-37); BILIRUBIN,DIRECT 0.1 mg/dL (0.0-0.2); BILIRUBIN,TOTAL 0.2 mg/dL (0.2-1.0); TOTAL PROTEIN, SERUM 7.3 g/dL (6.4-8.2)
--- NOTE | 2018-08-02 19:12 | NUR ---
REPORT REC'D FROM MELINDA LÓPEZ RN FOR SHERRY.
[2018-08-02] MEDS ORDERED: ACETAMINOPHEN ES 500 MG TABLET ONE (19:36)
[2018-08-02 19:45] VITALS: BP 116/66
[2018-08-02] MEDS: ACETAMINOPHEN ES 500 MG TABLET PO ONE (19:45)
--- NOTE | 2018-08-02 19:48 | NUR ---
verbal order for 1gm Tylenol PO. medication given prior to discharge.
== END 2018-08-02 19:47 | disposition home or self-care (01) ==
LOC: ER 18:10
DX: R07.89 Other chest pain (principal); I10 Essential (primary) hypertension; F10.10 Alcohol abuse, uncomplicated; F17.200 Nicotine dependence, unspecified, uncomplicated; Y90.9 Presence of alcohol in blood, level not specified; Z79.82 Long term (current) use of aspirin; Z90.89 Acquired absence of other organs; Z98.890 Other specified postprocedural states
CPT/HCPCS: 36415; 71045-TC; 80048-TC; 80076-TC; 84484-TC; 85025-TC

== ENCOUNTER 2018-08-07 14:18 | Emergency (ER) | payer MEDICARE, OTHER ==
[~2018-08-07] VITALS: Ht 157.5 cm; Wt 61.2 kg
[2018-08-07] MEDS ORDERED: Magnesium 1GM/D5W 100ML PREMIX 200 ML IV ONE (14:26)
[2018-08-07] MEDS ORDERED: ALBUTEROL FS 2.5 MG/3 ML VIAL.NEB NEB ONE (14:30)
[2018-08-07] MEDS ORDERED: IPRATROPIUM NEB FS 0.5 MG/2.5 ML AMPUL.NEB NEB ONE (14:30)
[2018-08-07] MEDS ORDERED: DEXAMETHASONE SOD PHOSPHATE 10 MG/ML VIAL IV ONE (14:30)
[2018-08-07 14:38] LABS: BASOPHILS # (AUTO) 0.1 /CMM (0.0-0.2); BASOPHILS % (AUTO) 1.2 % (0.0-2.0); EOSINOPHILS % (AUTO) 3.3 % (0.0-6.0); HEMATOCRIT 36 % (33-45); HEMOGLOBIN 12.4 g/dL (11.5-14.8); LYMPHOCYTES # (AUTO) 2.4 /CMM (0.8-4.8); LYMPHOCYTES % (AUTO) 35.2 % (20.0-44.0); MEAN CORPUSCULAR HGB CONC 34 g/dl (31.0-36.0); MEAN CORPUSCULAR VOLUME 97 fL (82-100); MONOCYTES # (AUTO) 0.7 /CMM (0.1-1.30); MONOCYTES % (AUTO) 10.3 % (2.0-12.0); NEUTROPHILS # (AUTO) 3.4 /CMM (1.8-8.9); PLATELET COUNT (AUTO) 274 /CMM (150-450); RED BLOOD CELL COUNT(AUTO) 3.77 MIL/uL (4.0-5.2); WHITE BLOOD COUNT (AUTO) 6.9 K/uL (4.3-11.0)
[2018-08-07] MEDS ORDERED: DEXAMETHASONE SOD PHOSPHATE 10 MG/ML VIAL ONE (14:41)
[2018-08-07] MEDS ORDERED: Magnesium 1GM/D5W 100ML PREMIX 100 ML IV ONE (14:42)
[2018-08-07] MEDS ORDERED: ALBUTEROL FS 2.5 MG/3 ML VIAL.NEB ONE (14:45)
[2018-08-07] MEDS ORDERED: ALBUTEROL FS 2.5 MG/0.5 ML VIAL.NEB ONE (14:45)
[2018-08-07 14:51] LABS: CALCIUM, SERUM 7.8 mg/dL (8.5-10.1); CARBON DIOXIDE 26 mmol/L (21-32); CHLORIDE 95 mmol/L (98-107); CREATININE 0.5 mg/dL (0.6-1.3); GLUCOSE 90 mg/dL (74-106); POTASSIUM 3.2 mmol/L (3.5-5.1); SODIUM SERUM 129 mmol/L (136-145); UREA NITROGEN, BLOOD 4 mg/dL (7-18)
[2018-08-07 15:30] VITALS: BP 131/72
--- NOTE | 2018-08-07 15:42 | NUR ---
IV removed. Catheter intact and site benign. Pressure and 4x4 applied to site. No bleeding noted.Patient discharged to home in stable condition. Written and verbal after care instructions given. Patient verbalizes understanding of instruction.
== END 2018-08-07 15:48 | disposition home or self-care (01) ==
LOC: ER 14:21
DX: J44.1 Chronic obstructive pulmonary disease with (acute) exacerbation (principal); R07.89 Other chest pain; I10 Essential (primary) hypertension; F10.10 Alcohol abuse, uncomplicated; F17.200 Nicotine dependence, unspecified, uncomplicated; Y90.9 Presence of alcohol in blood, level not specified; Z59.0 Homelessness; Z90.89 Acquired absence of other organs; Z98.890 Other specified postprocedural states; Z79.82 Long term (current) use of aspirin
CPT/HCPCS: 36415; 71045; 80048; 84484; 85025; 93005; 94640 ×2; 96365; 96375; 99284; J1100; J3475

== ENCOUNTER 2018-08-25 15:10 | Inpatient (IN) | payer MEDICARE, OTHER ==
[~2018-08-25] VITALS: Ht 160 cm; Wt 61.9 kg
--- NOTE | 2018-08-25 15:18 | NUR ---
PT BROUGHT INTO EMERGENCY ROOM FOR C/C CHEST PAIN ACCOMPANIED BY FAMILY.
[2018-08-25] MEDS ORDERED: ALBUTEROL FS 2.5 MG/3 ML VIAL.NEB CONTNEB ONE (15:30)
[2018-08-25] MEDS ORDERED: predniSONE 20 MG TABLET PO ONE (15:30)
[2018-08-25] MEDS ORDERED: IPRATROPIUM NEB FS 0.5 MG/2.5 ML AMPUL.NEB NEB ONE (15:30)
[2018-08-25 15:38] LABS: BASOPHILS # (AUTO) 0.1 /CMM (0.0-0.2); BASOPHILS % (AUTO) 1.5 % (0.0-2.0); EOSINOPHILS % (AUTO) 4.2 % (0.0-6.0); HEMATOCRIT 38 % (33-45); HEMOGLOBIN 13.2 g/dL (11.5-14.8); LYMPHOCYTES # (AUTO) 2.3 /CMM (0.8-4.8); LYMPHOCYTES % (AUTO) 37.7 % (20.0-44.0); MEAN CORPUSCULAR HGB CONC 35 g/dl (31.0-36.0); MEAN CORPUSCULAR VOLUME 95 fL (82-100); MONOCYTES # (AUTO) 0.5 /CMM (0.1-1.30); MONOCYTES % (AUTO) 9.1 % (2.0-12.0); NEUTROPHILS # (AUTO) 2.9 /CMM (1.8-8.9); NEUTROPHILS % (AUTO) 47.5 % (43.0-81.0); PLATELET COUNT (AUTO) 324 /CMM (150-450); RED BLOOD CELL COUNT(AUTO) 4.01 MIL/uL (4.0-5.2)
[2018-08-25 15:45] LABS: CALCIUM, SERUM 8.7 mg/dL (8.5-10.1); CREATININE 0.6 mg/dL (0.6-1.3); POTASSIUM 3.1 mmol/L (3.5-5.1)
[2018-08-25] MEDS ORDERED: predniSONE 20 MG TABLET ONE (16:00)
--- NOTE | 2018-08-25 16:02 | NUR ---
PT GIVEN PO MEDICATION RT CALLED FOR BREATHING TREATMENT
[2018-08-25] MEDS ORDERED: ALBUTEROL FS 2.5 MG/3 ML VIAL.NEB ONE (16:03)
[2018-08-25] MEDS ORDERED: IPRATROPIUM NEB FS 0.5 MG/2.5 ML AMPUL.NEB ONE (16:03)
[2018-08-25] MEDS ORDERED: POTASSIUM CHLORIDE 20 MEQ TAB.PRT.SR PO ONE ×2 (16:27→16:30)
[2018-08-25] MEDS ORDERED: ASPIRIN 325 MG TABLET ONE (16:57)
[2018-08-25] MEDS ORDERED: ASPIRIN 325 MG TABLET PO ONE (17:00)
--- NOTE | 2018-08-25 17:05 | NUR ---
CALLED HOUSE SUP FOR TELE BED
--- NOTE | 2018-08-25 17:26 | NUR ---
PAGED DR SHAW
--- NOTE | 2018-08-25 18:09 | NUR ---
CALLED REPORT TO CHECO RN ON 3W PT ADMITTED TO ROOM 311 UNDER MD HODGSON. TELEY
--- NOTE | 2018-08-25 18:25 | NUR ---
MS RN RECEIVED A NEW ADMISSION,67 YEAR OLD FEMALE,CAME IN W/ CC OF CHEST PAIN, COPD EXACERBATION, NSR ON MONITOR,DENIES PAIN AT THIS TIME,WILL MONITOR PATIENT.
[2018-08-25] MEDS: ASPIRIN 81 MG TAB.CHEW PO SCH (18:41)
[2018-08-25] MEDS: CARVEDILOL 6.25 MG TABLET PO SCH (18:57)
[2018-08-25] MEDS ORDERED: NITROGLYCERIN 0.4 MG/TAB BOTTLE SL PRN (19:00)
[2018-08-25] MEDS ORDERED: MORPHINE SULFATE INJ 2 MG/ML DISP.SYRIN IV PRN (19:00)
--- NOTE | 2018-08-25 19:00 | NUR ---
MS RN ON BED, NO DISTRESS NOTED, WILL ENDORSE TO SALES FORECAST ANALYST FOR CONTINUITY OF CARE.
--- NOTE | 2018-08-25 19:30 | NUR ---
RN NOTES RECEIVED PT. FROM ER DX. OF CHEST PAIN, SR ON TELE MONITOR HR-79, DENIES PAIN, NO SOB, A/OX4, AMBULATORY, ADMISSION INSTRUCTION GIVEN, CALL LIGHT WITHIN REACH, SIDERAILSUPX2, CONTINUE TO MONITOR
[2018-08-25 20:00] VITALS: BP 151/86
--- NOTE | 2018-08-25 21:10 | NUR ---
RN NOTES COMPLAINED OF CHEST PAIN.. MORPHINE 1 MG IV GIVEN ORDERED, PUT PT ON O2 @ 2L, WILL CONTINUE TO MONITOR
--- NOTE | 2018-08-25 22:00 | NUR ---
RN NOTES AFTER GIVING MORPHINE CHEST PAIN WAS RELIEVED PER PT.
[2018-08-25] MEDS: ACETAMINOPHEN 325 MG TABLET PO PRN (22:53)
--- NOTE | 2018-08-25 22:56 | NUR ---
RN NOTES COMPLAINED OF HEADACHE, GOT AN ORDER FROM SEEMA SANDOVAL A TYLENO, TYLENOL 650MG PO GIVEN ORDERED, V/ S STABLE
[2018-08-25 23:10] VITALS: BP 151/86
[2018-08-26] MEDS ORDERED: ZOLPIDEM TARTRATE 5 MG TABLET PO PRN ×2 (00:30→21:30)
--- NOTE | 2018-08-26 00:49 | NUR ---
RN NOTES PT. ASKED FOR SLEEPING PILL- GOT AN ORDER FROM DAVION SANDOVAL-PUBLIC ADDRESS SYSTEM OPERATOR, AMBIEN, AMBIEN 5MG PO GIVEN ORDERED, V/S STABLE
[2018-08-26 04:21] VITALS: BP 158/78
[2018-08-26 05:50] LABS: BASOPHILS # (AUTO) 0.1 /CMM (0.0-0.2); BASOPHILS % (AUTO) 1.1 % (0.0-2.0); EOSINOPHILS % (AUTO) 1.2 % (0.0-6.0); HEMATOCRIT 40 % (33-45); HEMOGLOBIN 13.5 g/dL (11.5-14.8); LYMPHOCYTES # (AUTO) 1.9 /CMM (0.8-4.8); LYMPHOCYTES % (AUTO) 37.6 % (20.0-44.0); MEAN CORPUSCULAR HGB CONC 34 g/dl (31.0-36.0); MEAN CORPUSCULAR VOLUME 95 fL (82-100); MONOCYTES # (AUTO) 0.4 /CMM (0.1-1.30); MONOCYTES % (AUTO) 8.7 % (2.0-12.0); NEUTROPHILS # (AUTO) 2.6 /CMM (1.8-8.9); NEUTROPHILS % (AUTO) 51.4 % (43.0-81.0); PLATELET COUNT (AUTO) 290 /CMM (150-450); RED BLOOD CELL COUNT(AUTO) 4.16 MIL/uL (4.0-5.2); WHITE BLOOD COUNT (AUTO) 5.1 K/uL (4.3-11.0)
[2018-08-26] MEDS: ACETAMINOPHEN 325 MG TABLET PO PRN ×2 (06:38→15:10)
--- NOTE | 2018-08-26 06:41 | NUR ---
RN NOTES COMPLAINED OF HEADACHE-TYLENOL 650MG PO GIVEN ORDERED, V/S STABLE, DENIES CHEST PAIN, NO SOB, MONRING CARE RENDERED,C ALL LIGHT WITHIN REACH, SIDERAILSUPX2, PT. NEEDS ATTENDED
[2018-08-26 07:29] LABS: CREATININE 0.6 mg/dL (0.6-1.3); MAGNESIUM 1.9 mg/dL (1.8-2.4); PHOSPHORUS 3.1 mg/dL (2.5-4.9)
--- NOTE | 2018-08-26 07:30 | NUR ---
software support analyst Opening Notes Patient currently awake, resting in bed. Semi-Fowlers position, supine. Alert and oriented x3, able to make needs known. No complaints of shortness of breath or chest pain at this time. Respirations even and unlabored on 2 L oxygen as needed, no acute distress noted. External youth nutritional monitor in place: currently sinus rhythm at 72 bpm. Peripheral IV to the left hand 18 gauge, intact, patent and saline locked. Updated patient on current plan of care and safety measures. Safety and fall precautions in place: bed in lowest and locked position, side rails up x2, bed alarm on, call light and personal possessions within reach. Room well lit and floor clear of items. Reminded patient of safety measures, verbalized understanding. Patient currently clean, dry and comfortable. Will continue to monitor and intervene as needed.
[2018-08-26 08:00] VITALS: BP 151/94
[2018-08-26] MEDS: ASPIRIN 81 MG TAB.CHEW PO SCH (09:01)
[2018-08-26] MEDS: CARVEDILOL 6.25 MG TABLET PO SCH ×2 (09:02→21:24)
[2018-08-26] MEDS: VALSARTAN 80 MG TABLET PO SCH (11:49)
--- NOTE | 2018-08-26 14:00 | NUR ---
MS RN Note Paged hospitalist Dr. Mas to reconcile home medications for patient. Patient requesting home medication for anxiety. Received confirmation via telephone that he will review home medications. Will follow-up.
--- NOTE | 2018-08-26 14:24 | NUR ---
Social service consult requested by Dr. Vigil for homelessness. Pt. is a 67 year old woman who was admitted to [facility] for COPD. SW met with pt. bedside. Pt. is alert and oriented x 4. Pt. was reading a book when SW went to assess pt. SW is very familiar with pt. from previous admissions. Pt. appears disheveled. Pt's skin is carranza in complexion. Pt. is cooperative and friendly with SW during the assessment. Pt. has been homeless for over 15+years. Pt. stated she has been staying with her son and his family in a motel in [place] for a month but had to leave since the place was too small. Pt. went back to the streets with her boyfriend Martin. Pt. is interested in going to [facility], where she usually goes on every discharge from [facility]. Pt. drinks approximately 4 beers per day and smokes marijuana once in a while. Pt. denies any other drug use. Pt. is a cigarette smoker. Pt. has Depression and anxiety and takes Ativan for her anxiety. Pt. does not want homeless halfway placement but wants to go to [facility] SN[facility] when medically cleared. SW informed window caser Neena Bowman regarding pt. wanting to go to the aforementioned SNF. No other social service needs are requested at this time. SW is available, if needed.
[2018-08-26 16:00] VITALS: BP 154/91
[2018-08-26] MEDS: NYSTATIN/TRIAMCIN CREAM 15 GM TUBE TP SCH (16:00)
--- NOTE | 2018-08-26 18:00 | NUR ---
MS RN Note Paged hospitalist Dr. Mas to reconcile home medications for patient. Patient requesting home medication for anxiety. Received confirmation that he will review home medications. Will follow-up.
--- NOTE | 2018-08-26 18:36 | NUR ---
MS RN Closing Notes Patient currently awake, resting in bed. Semi-Fowlers position, supine. Alert and oriented x3, able to make needs known. No complaints of shortness of breath or chest pain at this time. Respirations even and unlabored on room air, no acute distress noted. Peripheral IV to the left hand 18 gauge, intact, patent and saline locked. Updated patient on current plan of care and safety measures. Safety and fall precautions in place: bed in lowest and locked position, side rails up x2, bed alarm on, call light and personal possessions within reach. Room well lit and floor clear of items. Reminded patient of safety measures, verbalized understanding. Patient currently clean, dry and comfortable. Will endorse to MAKAYLA Zavala for continuity of care.
--- NOTE | 2018-08-26 19:35 | NUR ---
RN MS OPENING NOTES RECEIVED PT IN BED, AWAKE ALERT ORIENTED X4, BREATHING EVEN AND UNLABORED ON ROOM AIR, COMPLAINING OF PAIN ON THE LOWER EXTREMITIES, WILL FOLLOW UP WITH PAIN MEDS SCHEDULED. IV ACCESS ON THE L HAND 18G SL. BED IN LOWEST LOCKED POSITION, CALL LIGHT WITHIN REACH AT ALL TIMES, WILL CONTINUE TO MONITOR FREQUENTLY
[2018-08-26] MEDS ORDERED: LORAZEPAM 1 MG TABLET PO ONE (20:30)
[2018-08-26] MEDS ORDERED: HYDROCODONE/APAP 5/325MG 1 EACH TABLET PO PRN (20:30)
[2018-08-26 20:32] VITALS: BP 138/86
[2018-08-26] MEDS ORDERED: LORAZEPAM 0.5 MG TABLET PO PRN (21:30)
[2018-08-26] MEDS ORDERED: ZOLPIDEM TARTRATE 5 MG TABLET PO ONE (22:00)
[2018-08-26 23:49] VITALS: BP 138/86
[2018-08-27] MEDS: NYSTATIN/TRIAMCIN CREAM 15 GM TUBE TP SCH ×2 (04:44→15:57)
[2018-08-27] MEDS: ACETAMINOPHEN 325 MG TABLET PO PRN (04:44)
--- NOTE | 2018-08-27 06:27 | NUR ---
RN MS CLOSING NOTES PT REMAINS IN BED, SLEEPING, EASILY AROUSED TO NAME CALL, BREATHING EVEN AND UNLABORED ON ROOM AIR,IN NO APPARENT PAIN OR DISCOMFORT AT THIS TIME. IV ACCESS ON THE L HAND 18G SL. BED IN LOWEST LOCKED POSITION, CALL LIGHT WITHIN REACH AT ALL TIMES, WILL ENDORSE TO DAY NURSE FOR SHERRY
--- NOTE | 2018-08-27 07:30 | NUR ---
MS RN Opening Notes Patient currently awake, resting in bed. Semi-Fowlers position, supine. Alert and oriented x3, able to make needs known. No complaints of shortness of breath or chest pain at this time. Respirations even and unlabored on room air. Peripheral IV to the left hand 18 gauge, intact, patent and saline locked. Updated patient on current plan of care and safety measures. Safety and fall precautions in place: bed in lowest and locked position, side rails up x2, bed alarm on, call light and personal possessions within reach. Room well lit and floor clear of items. Reminded patient of safety measures, verbalized understanding. Patient currently clean, dry and comfortable. Will continue to monitor and intervene as needed.
[2018-08-27 08:00] VITALS: BP 140/78
--- NOTE | 2018-08-27 08:17 | NUR ---
WOUND CARE CONSULT WOUND CARE RECEIVED CONSULT FOR MULTIPLE REDNESS ON CHEST. WOUND CARE WILL DEFER CONSULT AND TREATMENT PLANS TO PLASTIC SURGICAL TEAM WHO ARE CURRENTLY FOLLOWING THIS PATIENT. PATIENT WITH SHAMIR AT 18, ALL PRESSURE ULCER PREVENTION MEASURES ARE NOTED TO BE IN PLACE. WILL SEE PRN.
[2018-08-27] MEDS: CARVEDILOL 6.25 MG TABLET PO SCH ×2 (08:42→20:37)
[2018-08-27] MEDS: VALSARTAN 80 MG TABLET PO SCH (08:42)
[2018-08-27] MEDS: ASPIRIN 81 MG TAB.CHEW PO SCH (08:42)
[2018-08-27] MEDS ORDERED: ZOLPIDEM TARTRATE 5 MG TABLET PO PRN (09:00)
[2018-08-27] MEDS: AMLODIPINE BESYLATE 10 MG TABLET PO SCH (09:22)
[2018-08-27] MEDS: GABAPENTIN 100 MG CAPSULE PO SCH ×3 (09:22→17:10)
[2018-08-27] MEDS ORDERED: NAPROXEN 250 MG TABLET PO PRN (09:30)
[2018-08-27] MEDS: LORAZEPAM 1 MG TABLET PO PRN (11:31)
[2018-08-27] MEDS: HYDROCODONE/APAP 5/325MG 1 EACH TABLET PO PRN ×2 (15:57→23:13)
[2018-08-27 16:00] VITALS: BP 134/79
--- NOTE | 2018-08-27 18:17 | NUR ---
MS RN Closing Notes Patient currently awake, sitting in bed. Semi-Fowlers position, supine. Alert and oriented x3, able to make needs known. No complaints of shortness of breath or chest pain at this time. Respirations even and unlabored on room air. No acute events this shift. Peripheral IV to the left hand 18 gauge, intact, patent and saline locked. Updated patient on current plan of care and safety measures. Safety and fall precautions in place: bed in lowest and locked position, side rails up x2, bed alarm on, call light and personal possessions within reach. Room well lit and floor clear of items. Reminded patient of safety measures, verbalized understanding. Patient currently clean, dry and comfortable. All due medications given as ordered, as needed medications administered for pain management. Will endorse to apparel trimmings sales representative RN for continuity of care.
--- NOTE | 2018-08-27 19:20 | NUR ---
RN NOTES: RECEIVED AWAKE ON BED,SITTING COMFORTABLY, FRIENDLY ,A/OX 4, ORIENTED TO UNIT AND STAFF, IV CANNULA INTACT ON LH G#18 SL,ABLE TO MAKE NEEDS KNOW, FALL,SAFETY AND ASPIRATION PRECAUTION OBSERVED, BED LOW AND LOCKED, CALL LIGHT WITHIN EASY REACH, NO PAIN OR DISCOMFORT UPON CHANGE OF SHIFT.KEPT COMFORTABLE IN BED.
[2018-08-27 20:00] VITALS: BP 135/77
[2018-08-27 20:10] VITALS: BP 135/77
--- NOTE | 2018-08-27 20:40 | NUR ---
RN NOTES: REQUEST FOR HER SLEEPING PILL,GIVEN PER PATIENT REQUEST, KEPT IN COMFORTABLE POSITION,CALL LIGHT WITHIN EASY REACH.
--- NOTE | 2018-08-27 23:13 | NUR ---
RN NOTES: AWAKE ASSISTED GOING TO THE BATHROOM, AFTER SHE PEE, SHE REQUEST FOR HER PAIN MEDICATION , COMPLAINED OF GENERALIZED PAIN 5/10, NON PHARMACOLOGIC INTERVENTION RENDERED, DIM LIGHT, PLAYED SOME SOFT MUSIC AND GIVEN WARM BLANKET.KEPT ON CLOSE WATCH.CALL LIGHT WITHIN EASY REACH.
--- NOTE | 2018-08-28 00:24 | NUR ---
RN NOTES: ABLE TO SLEEP AND REST, NO COMPLAINTS OF PAIN OR DISCOMFORT, KEPT RESTED.
[2018-08-28] MEDS: NYSTATIN/TRIAMCIN CREAM 15 GM TUBE TP SCH ×2 (04:22→16:09)
[2018-08-28] MEDS: HYDROCODONE/APAP 5/325MG 1 EACH TABLET PO PRN ×2 (05:16→15:12)
--- NOTE | 2018-08-28 05:17 | NUR ---
RN NOTES: AWAKE, SHE COMPLAINED OF PAIN 7/10 ON BOTH LOWER EXTREMITY, TRIED TO ELEVATE BUT SHE SAID "IT WONT HELP I WANT MY PAIN MEDICATION", PRN GIVEN PER PATIENT REQUEST, NON PHARMACOLOGIC INTERVENTION RENDERED.
--- NOTE | 2018-08-28 06:35 | NUR ---
RN NOTES: AWAKE IN BED, A/OX4, WAITING FOR HER BREAKFAST TO BE SERVED, NO CHEST PAIN,NO LABORATORY TEST FOR TODAY,OK TO SHOWER,TO F/U WITH CM FOR PLACEMENT,FALL,SAFETY AND ASPIRATION PRECAUTION OBSERVED, BED LOW AND LOCKED, CALL LIGHT WITHIN EASY REACH, ENDORSED FOR CONTINUITY OF CARE.
--- NOTE | 2018-08-28 07:23 | NUR ---
RN MS OPENING NOTES Received patient on room air, no sob noted. Seen patient waiting for breakfast up from her bed, steady gait. Bed at the lowest setting and call light within reach.
[2018-08-28] MEDS ORDERED: PANTOPRAZOLE 40 MG TABLET.DR PO SCH (07:30)
[2018-08-28 08:00] VITALS: BP 115/71
[2018-08-28] MEDS: GABAPENTIN 100 MG CAPSULE PO SCH ×3 (08:39→17:32)
[2018-08-28] MEDS: ASPIRIN 81 MG TAB.CHEW PO SCH (08:39)
[2018-08-28] MEDS: CARVEDILOL 6.25 MG TABLET PO SCH (08:40)
[2018-08-28] MEDS: AMLODIPINE BESYLATE 10 MG TABLET PO SCH (08:40)
[2018-08-28 08:41] VITALS: BP 115/71
[2018-08-28] MEDS: VALSARTAN 80 MG TABLET PO SCH (08:41)
[2018-08-28] MEDS: LORAZEPAM 1 MG TABLET PO PRN (08:49)
--- NOTE | 2018-08-28 18:30 | NUR ---
RN MS CLOSING NOTES Patient discharged to home with his son and boyfriend. Patient was on room air, no sob noted. Vital signs stable, patient denied pain. Patient has all the discharge paperworks signed and agreed to. Patient had no further questions about the plan of care. Patient's belongings are with her, clothes, valuables, cell phones and jewelry.
--- NOTE | 2018-09-02 11:48 | NUR ---
RN MS NOTES, LATE ENTRY Patient was in a hurry to leave and refused photo's of wounds to be taken of.
[2018-09-28] MEDS ORDERED: OXYB5TAB29 PO (14:41)
[2018-09-28] MEDS ORDERED: methylPREDNISolone SOD SUCC IV (14:41)
[2018-09-28] MEDS ORDERED: ALBUT2 NEB (14:41)
[2018-09-28] MEDS ORDERED: IPRA0.2S9 NEB (14:41)
== END 2018-08-28 18:30 | disposition home or self-care (01) | DRG 74 ==
LOC: ER 15:12 → TELE 18:17 → MED 08-26 08:43
PROVIDERS: ADMIT Internal Medicine; ATTEND Internal Medicine
DX: B02.29 Other postherpetic nervous system involvement (principal); J44.1 Chronic obstructive pulmonary disease with (acute) exacerbation; I20.0 Unstable angina; E87.1 Hypo-osmolality and hyponatremia; E78.5 Hyperlipidemia, unspecified; E87.6 Hypokalemia; I10 Essential (primary) hypertension; K21.9 Gastro-esophageal reflux disease without esophagitis; F17.210 Nicotine dependence, cigarettes, uncomplicated; Z59.0 Homelessness; I73.9 Peripheral vascular disease, unspecified; R21 Rash and other nonspecific skin eruption; H02.89 Other specified disorders of eyelid
CPT/HCPCS: 36415; 71045-TC; 80048-TC; 80061-TC; 83735-TC; 83880; 84100-TC; 84484-TC; 85025-TC; 87081-TC; 93307-TC; G0378; J2270

== ENCOUNTER 2018-09-25 08:33 | Inpatient (IN) | payer MEDICARE, OTHER ==
[~2018-09-25] VITALS: Ht 165.1 cm; Wt 57.6 kg
[~2018-09-25 08:33] MED LIST changes: -ASPI-1169 PO
--- NOTE | 2018-09-25 08:55 | NUR ---
NESTOR FROM [place] FOR CHEST PAIN, SHARP, NON-RADIATING, ALSO C/O BACK PAIN SINCE WAKING UP THIS MORNING. AOx4, AMBULATORY, TO ER BED 10, HOOKED TO MONITOR, CHANGED TO GOWN, PROVIDED W WARM BLANKET, AWAITING MD ARREOLA.
--- NOTE | 2018-09-25 08:56 | NUR ---
AMIE JALLOH AT BEDSIDE
[2018-09-25] MEDS ORDERED: IV NS 0.9% 1,000 ML BAG IV ONE (09:00)
[2018-09-25 09:07] LABS: BASOPHILS # (AUTO) 0.1 /CMM (0.0-0.2); BASOPHILS % (AUTO) 1.6 % (0.0-2.0); EOSINOPHILS % (AUTO) 0.9 % (0.0-6.0); HEMATOCRIT 40 % (33-45); HEMOGLOBIN 13.9 g/dL (11.5-14.8); LYMPHOCYTES # (AUTO) 1.3 /CMM (0.8-4.8); LYMPHOCYTES % (AUTO) 14.7 % (20.0-44.0); MEAN CORPUSCULAR HGB CONC 35 g/dl (31.0-36.0); MEAN CORPUSCULAR VOLUME 93 fL (82-100); MONOCYTES # (AUTO) 0.5 /CMM (0.1-1.30); MONOCYTES % (AUTO) 5.8 % (2.0-12.0); NEUTROPHILS # (AUTO) 6.7 /CMM (1.8-8.9); PLATELET COUNT (AUTO) 358 /CMM (150-450); WHITE BLOOD COUNT (AUTO) 8.7 K/uL (4.3-11.0)
[2018-09-25 09:15] LABS: CALCIUM, SERUM 8.9 mg/dL (8.5-10.1); CREATININE 0.7 mg/dL (0.6-1.3); POTASSIUM 3.9 mmol/L (3.5-5.1)
--- NOTE | 2018-09-25 10:42 | NUR ---
PT IN BED ASLEEP, HOOKED TO MONITOR, VSS, WILL CONTINUE TO MONITOR ACCORDINGLY, KEPT WARM AND SAFE
--- NOTE | 2018-09-25 12:12 | NUR ---
IT 326-1 DANIELLE VORA DNP Addendum: 09/25/18 at 1303 by JEANIE REPORT GIVEN TO FERNANDO BENAVIDES OF [facility]
--- NOTE | 2018-09-25 12:32 | NUR ---
PROVIDED W MEAL TRAY. PT TOLERATED PO WELL.
--- NOTE | 2018-09-25 13:00 | NUR ---
REPORT GIVEN TO FERNANDO BENAVIDES OF TELE UNIT
[2018-09-25] MEDS ORDERED: MORPHINE SULFATE INJ 4 MG/ML DISP.SYRIN ONE (13:55)
[2018-09-25] MEDS: MORPHINE SULFATE INJ 4 MG/ML DISP.SYRIN IV PRN ×3 (14:01→22:33)
--- NOTE | 2018-09-25 15:58 | NUR ---
MIXING HOUSE OPERATOR NOTES Received patient on room air, no sob noted. Patient states that she has some pain at this time. Patient states that she has been here before. Patient has no current questions or concerns at this time. Vital signs WNL, bed at the lowest setting, call light within reach.
[2018-09-25 16:00] VITALS: BP 140/89
--- NOTE | 2018-09-25 18:09 | NUR ---
RN MS CLOSING NOTES Patient remains on room air, no sob noted. Patient denies pain at this time and is lying down comfortably on her bed. Vital signs WNL, no bruises or wounds noted. Patient denies having bruises and wounds as well. Patient's bed at the lowest setting, call light within reach.
--- NOTE | 2018-09-25 19:19 | NUR ---
MS/RN OPENING NOTES RECEIVED PATIENT IN BED, AWAKE, ALERT, ABLE TO VERBALIZE NEEDS, RESPIRATIONS EVEN AND UNLABORED, LAST PAIN MEDICATION GIVEN 30 MINUTES AGO. SKIN WARM TO TOUCH, KEPT COMFORTABLE, BED LOCKED, CALL LIGHTS WITHIN REACH, WILL MONITOR.INSTRUCT TO USE CALL LIGHTS FOR ASSISTANCE, OFFERED SNACKS. WILL MONITOR.
[2018-09-25 20:00] VITALS: BP 148/83
[2018-09-25 20:42] VITALS: BP 148/83
--- NOTE | 2018-09-25 21:13 | NUR ---
MS/RN NOTES MD DE LA O INFORMED REGARDING HOME MEDS REPORTED NOT YET RECONCILED, ASKING SLEEPING MED, COUGH MEDS AND ATIVAN, TO MONITOR.
[2018-09-25] MEDS: ZOLPIDEM TARTRATE 5 MG TABLET PO PRN (21:29)
[2018-09-25] MEDS: GUAIFENESIN/D-METHORPHAN HB 5 ML UDC PO PRN (21:29)
--- NOTE | 2018-09-25 21:29 | NUR ---
MS/RN NOTES PATIENT REQUESTED MEDICATION FOR SLEEP AND COUGH MEDICATION MD ORDERAS HOME MEDICATIONS.
[2018-09-25] MEDS ORDERED: NAPROXEN 500 MG TABLET PO PRN (21:30)
[2018-09-25] MEDS ORDERED: HYDROCODONE/APAP 5/325MG 1 EACH TABLET PO PRN (21:30)
--- NOTE | 2018-09-25 23:00 | NUR ---
MS/RN NOTES PAIN MEDICATION GIVEN REQUESTED BY PATIENT FOR SEVERE PAIN 9/10 MORPHINE GIVEN. WILL MONITOR.
[2018-09-26] MEDS: MORPHINE SULFATE INJ 4 MG/ML DISP.SYRIN IV PRN ×4 (03:14→20:28)
--- NOTE | 2018-09-26 03:15 | NUR ---
MS/RN NOTES PAIN MEDICATION REQUESTED 01/18 HEAD AND CHEST B/P CHECK AT 120/80. WILL MONITOR. IV MORPHINE TO GIVE.
--- NOTE | 2018-09-26 06:21 | NUR ---
MS/RN NOTES PATIENT ABLE TO SLEEP INTERMITENTLY, PAIN MEDICATION IV MORPHINE GIVEN, MONITORED, KEPT COMFORTABLE, CALL LIGHTS WITHIN REACH.
--- NOTE | 2018-09-26 07:43 | NUR ---
M/S RN NOTES PATIENT AWAKE IN BED, ALERT AND ORIENTED X4. NO RESPIRATORY DISTRESS NOTED. PATIENT C/O CHEST PAIN 8/10, NON RADIATING. MEDICATION GIVEN ORDERED. IV SL ON RT HAND #20G, INTACT AND PATENT, NO REDNESS. PATIENT'S NEEDS ATTENDED. BED ON LOWEST LOCKED POSITION, CALL LIGHT WITHIN REACH. WILL CONTINUE TO MONITOR.
[2018-09-26] MEDS: PANTOPRAZOLE 40 MG TABLET.DR PO SCH (07:53)
[2018-09-26] MEDS: GUAIFENESIN/D-METHORPHAN HB 5 ML UDC PO PRN (07:53)
[2018-09-26 08:00] VITALS: BP 115/72
[2018-09-26] MEDS: AMLODIPINE BESYLATE 10 MG TABLET PO SCH (09:02)
[2018-09-26] MEDS ORDERED: LEVALBUTEROL HCL NEB 1.25 MG/0.5 ML VIAL.NEB IH SCH (09:30)
[2018-09-26] MEDS ORDERED: ACETAMINOPHEN 325 MG TABLET PO PRN (13:00)
[2018-09-26] MEDS ORDERED: ONDANSETRON HCL/PF 4 MG/2 ML VIAL IVP PRN (13:00)
[2018-09-26] MEDS: ALBUTEROL FS 2.5 MG/3 ML VIAL.NEB NEB SCH ×4 (13:00→22:38)
[2018-09-26] MEDS ORDERED: Z GUARD REMEDY 2 OZ OINT TP PRN (13:00)
[2018-09-26] MEDS: ENOXAPARIN SODIUM 40 MG/0.4 ML DISP.SYRIN SQ SCH ×2 (13:00→13:17)
[2018-09-26] MEDS ORDERED: MAGNESIUM HYDROXIDE 30 ML UDC PO PRN (13:00)
[2018-09-26] MEDS: IPRATROPIUM NEB FS 0.5 MG/2.5 ML AMPUL.NEB NEB SCH ×4 (13:18→22:38)
[2018-09-26] MEDS: methylPREDNISolone SOD SUCC 125 MG/2ML VIAL IV SCH ×2 (13:19→16:28)
[2018-09-26] MEDS ORDERED: ALBUTEROL FS 2.5 MG/0.5 ML VIAL.NEB NEB SCH (13:30)
[2018-09-26 16:00] VITALS: BP 150/80
--- NOTE | 2018-09-26 19:00 | NUR ---
RN mariannasurananda opening notes Received PT from morning nurse. Pt is alert and oriented X4. No respiratory distress noted. No nausea or vomiting. PT gait is steady. IV sites is SL, intact, patent and flush without resistance. Safety precautions is maintained. Bed at low position and call light is within reach. Will continue to monitor and assist all needs.
[2018-09-26 20:00] VITALS: BP 119/74
--- NOTE | 2018-09-26 20:00 | NUR ---
RN mariannasurananda notes PT c/o of chest pain 9 out 10 on pain scale, non radiating. Morphine PRN has been given. Will continue to monitor and assist all needs.
[2018-09-26] MEDS ORDERED: FUROSEMIDE 20 MG/2 ML VIAL IV ONE (20:30)
--- NOTE | 2018-09-26 21:30 | NUR ---
RN medsurg closing notes PT is alert and oriented X4. Pt is awake in bed and very talkative. PT states "Morphine helped my pain". PT's pain is reduced to 6 from 9 out of pain scale. VS is stable. All meds have been given including PRN meds and assisted all needs. IV sites is intact, patent, flush without resistance and SL. Safety precautions is maintained. Bed at low position and call light is within reach. Will endorse to other night nurse.
--- NOTE | 2018-09-26 22:00 | NUR ---
MS RN NOTE RECEIVED MIDSHIFT REPORT FROM MAKAYLA SIEGEL. PT IN STABLE CONDITION A&O X4, ABLE TO MAKE NEEDS KNOWN. CURRENTLY AWAKE, IN BED. NO SIGNS OF SOB OR DISTRESS, NO C/O PAIN. ALL CURRENT NEEDS MET. BED LOW, LOCKED, BED ALARM ON, UPPER RAILS UP, AND CALL LIGHT WITHIN REACH. WILL CONT. TO MONITOR.
[2018-09-26] MEDS: ZOLPIDEM TARTRATE 5 MG TABLET PO PRN (22:42)
[2018-09-27] MEDS: MORPHINE SULFATE INJ 4 MG/ML DISP.SYRIN IV PRN ×4 (01:19→20:13)
[2018-09-27] MEDS: ALBUTEROL FS 2.5 MG/3 ML VIAL.NEB NEB SCH ×6 (03:30→23:19)
[2018-09-27] MEDS: IPRATROPIUM NEB FS 0.5 MG/2.5 ML AMPUL.NEB NEB SCH ×6 (03:30→23:19)
[2018-09-27 06:19] LABS: BASOPHILS % (AUTO) 0.1 % (0.0-2.0); HEMATOCRIT 36 % (33-45); HEMOGLOBIN 12.3 g/dL (11.5-14.8); LYMPHOCYTES # (AUTO) 0.5 /CMM (0.8-4.8); LYMPHOCYTES % (AUTO) 10.7 % (20.0-44.0); MEAN CORPUSCULAR HGB CONC 34 g/dl (31.0-36.0); MEAN CORPUSCULAR VOLUME 94 fL (82-100); MONOCYTES # (AUTO) 0.3 /CMM (0.1-1.30); MONOCYTES % (AUTO) 5.7 % (2.0-12.0); NEUTROPHILS # (AUTO) 4.2 /CMM (1.8-8.9); NEUTROPHILS % (AUTO) 83.5 % (43.0-81.0); PLATELET COUNT (AUTO) 283 /CMM (150-450); RED BLOOD CELL COUNT(AUTO) 3.87 MIL/uL (4.0-5.2); WHITE BLOOD COUNT (AUTO) 5.1 K/uL (4.3-11.0)
--- NOTE | 2018-09-27 06:25 | NUR ---
MS RN NOTE PT IN STABLE CONDITION A&O X4, ABLE TO MAKE NEEDS KNOWN. CURRENTLY AWAKE, IN BED. NO SIGNS OF SOB OR DISTRESS, NO C/O PAIN. ALL CURRENT NEEDS MET. BED LOW, LOCKED, BED ALARM ON, UPPER RAILS UP, AND CALL LIGHT WITHIN REACH. WILL CONT. TO MONITOR AND ENDORSE TO NEXT SHIFT FOR SHERRY.
[2018-09-27 06:35] LABS: ALBUMIN 3.3 g/dL (3.4-5.0); BILIRUBIN,TOTAL 0.1 mg/dL (0.2-1.0); CALCIUM, SERUM 9.6 mg/dL (8.5-10.1); CREATININE 0.7 mg/dL (0.6-1.3); MAGNESIUM 1.5 mg/dL (1.8-2.4); PHOSPHORUS 3.3 mg/dL (2.5-4.9); POTASSIUM 3.6 mmol/L (3.5-5.1); TOTAL PROTEIN, SERUM 6.8 g/dL (6.4-8.2)
[2018-09-27 08:00] VITALS: BP 143/79
--- NOTE | 2018-09-27 08:00 | NUR ---
MS RN NOTES PATIENT NOTED IN BED RESTING NO SOB OR ACUTE DISTRESS NOTED. PATIENT ALERT, ORIENTED X3. BED IN LOW LOCKED POSITION. CALL LIGHT WITHIN REACH. PERIPHERAL IV INTACT PATENT. WILL CONTINUE TO MONITOR.
[2018-09-27] MEDS: AMLODIPINE BESYLATE 10 MG TABLET PO SCH (09:01)
[2018-09-27] MEDS: methylPREDNISolone SOD SUCC 125 MG/2ML VIAL IV SCH ×3 (09:02→17:15)
[2018-09-27] MEDS: PANTOPRAZOLE 40 MG TABLET.DR PO SCH (09:02)
[2018-09-27] MEDS: LORAZEPAM 1 MG TABLET PO PRN (09:05)
[2018-09-27] MEDS: Magnesium 1GM/D5W 100ML PREMIX 100 ML IV SCH ×2 (10:07→11:23)
--- NOTE | 2018-09-27 10:30 | NUR ---
Social service consult requested by Dr. Kim for homelessness. Pt. is a 68 year old female who was admitted to [facility] for chest pain. SW is familiar with pt. from previous admissions. Pt's last admission was on 08/25/18. SW met with pt. bedside. Pt. is alert and oriented x 4. Pt. was sitting on her bed when SW visited the pt. Pt. appears disheveled. Pt's skin is carranza in complexion. Pt. is cooperative and friendly with SW during the assessment. Pt. has been homeless for over 15+years. Pt. was staying with her son and his family in a motel in [place] for a month or so. Pt. states she is not going to live with her son anymore since they are not getting along. During last admission to [facility], pt. was discharged to [facility], however pt. declined because she only wants to go to [facility], however they had no bed availability. Pt. again would like to be discharged to [facility]. DIGNA informed pt. she will inform counseling case manager Neena Bowman regarding her request. Pt. drinks approximately 4-5 beers per day and smokes marijuana once in a while. Pt. denies any other drug use. Pt. is a cigarette smoker. Pt. states she recently started smoking cigars. Pt. has Depression and anxiety and takes Ativan for her anxiety. Pt. does not want homeless long term placement but wants to go to [facility] when medically cleared. DIGNA gave pt. contact information to [facility] located at [address] [place] [address] in [place] and informed pt. to sign up with them through the [employer] system for housing. No other social service needs are requested at this time. SW is available, if needed. Homeless Patient Waiver Form to be signed by the pt. upon discharge.
[2018-09-27] MEDS ORDERED: VITAMINS A AND D 56.7 GM TUBE TP PRN (14:00)
[2018-09-27] MEDS ORDERED: diphenhydrAMINE HCL/ZINC ACET CREAM 28.3 GM TUBE TP PRN (14:00)
[2018-09-27 15:27] VITALS: BP 120/64
[2018-09-27 15:37] LABS: APPEARANCE,URINE CLEAR (CLEAR); BILIRUBIN,URINE NEGATIVE (NEGATIVE); BLOOD, URINE NEGATIVE Ery/uL (NEGATIVE); COLOR,URINE YELLOW (YELLOW); KETONES,URINE NEGATIVE (NEGATIVE); LEUKOCYTE ESTERASE ,URINE NEGATIVE (NEGATIVE); NITRITE, URINE NEGATIVE (NEGATIVE); PH,URINE 6.5 (5.0-8.0); PROTEIN,URINE NEGATIVE (NEGATIVE); UGLUCOSE NEGATIVE (NEGATIVE); UROBILINOGEN,URINE 0.2 EU/dL (0.2)
[2018-09-27] MEDS: OXYBUTYNIN CHLORIDE ER 5 MG TAB PO SCH (18:00)
--- NOTE | 2018-09-27 19:08 | NUR ---
MS RN NOTES PATIENT IN BED RESTING NO SOB OR ACUTE DISTRESS NOTED. ALL DUE MEDICATIONS ADMINISTERED. ALL NEEDS MET. NO ACUTE CHANGES NOTED DURING SHIFT WILL ENDORSE CARE TO PM SHIFT.
--- NOTE | 2018-09-27 19:15 | NUR ---
MS/RN NOTES RECEIVED PT. SITTING UP IN BED. PT. IS AWAKE, ALERT AND ORIENTED X3. BREATHING EVEN AND UNLABORED ON ROOM AIR. NO SOB, RESPIRATORY DISTRESS OR COMPLAINTS OF PAIN NOTED AT THIS TIME. PT. WITH RIGHT FOREARM 20 GAUGE IV SALINE LOCK PRESENT, PATENT AND INTACT. BED LOCKED AND IN LOWEST POSITION, SIDE RAILS UP X2, CALL LIGHT WITHIN REACH, WILL CONTINUE TO MONITOR.
[2018-09-27 20:00] VITALS: BP 134/78
[2018-09-27] MEDS: ZOLPIDEM TARTRATE 5 MG TABLET PO PRN (23:53)
[2018-09-27] MEDS: GUAIFENESIN/D-METHORPHAN HB 5 ML UDC PO PRN (23:53)
[2018-09-28] MEDS: IPRATROPIUM NEB FS 0.5 MG/2.5 ML AMPUL.NEB NEB SCH ×5 (03:21→15:22)
[2018-09-28] MEDS: ALBUTEROL FS 2.5 MG/3 ML VIAL.NEB NEB SCH ×5 (03:21→15:22)
[2018-09-28] MEDS: MORPHINE SULFATE INJ 4 MG/ML DISP.SYRIN IV PRN ×2 (04:07→10:27)
--- NOTE | 2018-09-28 06:55 | NUR ---
MS/RN NOTES PT. IS LYING IN BED RESTING. BREATHING EVEN AND UNLABORED ON ROOM AIR. NO SOB, RESPIRATORY DISTRESS OR COMPLAINTS OF PAIN NOTED AT THIS TIME. PT. WITH RIGHT FOREARM 20 GAUGE IV SALINE LOCK PRESENT, PATENT AND INTACT. ALL PT. NEEDS MET. BED LOCKED AND IN LOWEST POSITION, SIDE RAILS UP X2, CALL LIGHT WITHIN REACH, WILL ENDORSE TO DAYSHIFT NURSE FOR CONTINUITY OF CARE.
[2018-09-28 06:59] LABS: BASOPHILS % (AUTO) 0.3 % (0.0-2.0); HEMATOCRIT 33 % (33-45); HEMOGLOBIN 11.2 g/dL (11.5-14.8); LYMPHOCYTES # (AUTO) 0.6 /CMM (0.8-4.8); LYMPHOCYTES % (AUTO) 5.7 % (20.0-44.0); MEAN CORPUSCULAR HGB CONC 34 g/dl (31.0-36.0); MEAN CORPUSCULAR VOLUME 94 fL (82-100); MONOCYTES # (AUTO) 0.4 /CMM (0.1-1.30); MONOCYTES % (AUTO) 3.8 % (2.0-12.0); NEUTROPHILS # (AUTO) 9.4 /CMM (1.8-8.9); NEUTROPHILS % (AUTO) 90.2 % (43.0-81.0); PLATELET COUNT (AUTO) 270 /CMM (150-450); RED BLOOD CELL COUNT(AUTO) 3.48 MIL/uL (4.0-5.2); WHITE BLOOD COUNT (AUTO) 10.4 K/uL (4.3-11.0)
[2018-09-28 07:09] LABS: CALCIUM, SERUM 8.8 mg/dL (8.5-10.1); CREATININE 0.6 mg/dL (0.6-1.3); MAGNESIUM 1.8 mg/dL (1.8-2.4); PHOSPHORUS 3.1 mg/dL (2.5-4.9); POTASSIUM 3.6 mmol/L (3.5-5.1)
--- NOTE | 2018-09-28 07:54 | NUR ---
MS RN NOTES PATIENT NOTED IN BED RESTING NO SOB OR ACUTE DISTRESS NOTED. PATIENT ALERT, ORIENTED X4. BED IN LOW LOCKED POSITION. CALL LIGHT WITHIN REACH. PERIPHERAL IV INTACT PATENT. WILL CONTINUE TO MONITOR.
[2018-09-28 08:00] VITALS: BP 127/67
[2018-09-28] MEDS: PANTOPRAZOLE 40 MG TABLET.DR PO SCH (08:13)
[2018-09-28] MEDS: methylPREDNISolone SOD SUCC 125 MG/2ML VIAL IV SCH ×3 (08:13→17:00)
[2018-09-28] MEDS: OXYBUTYNIN CHLORIDE ER 5 MG TAB PO SCH (08:19)
[2018-09-28] MEDS: LORAZEPAM 1 MG TABLET PO PRN (08:20)
[2018-09-28] MEDS: AMLODIPINE BESYLATE 10 MG TABLET PO SCH (08:20)
[2018-09-28] MEDS: ENOXAPARIN SODIUM 40 MG/0.4 ML DISP.SYRIN SQ SCH (09:00)
[2018-09-28] MEDS ORDERED: OXYB5TAB29 PO (14:41)
[2018-09-28] MEDS ORDERED: IPRA0.2S9 NEB (14:41)
[2018-09-28] MEDS ORDERED: ALBUT2 NEB (14:41)
[2018-09-28] MEDS ORDERED: methylPREDNISolone SOD SUCC IV (14:41)
[2018-09-28 16:00] VITALS: BP 134/68
--- NOTE | 2018-09-28 18:12 | NUR ---
MS RN NOTES PATIENT IN BED ALERT, ORIENTED X4. PATIENT TRANSFERRED TO [facility]. DISCHARGE TEACHING PROVIDED PATIENT VERBALIZED UNDERSTANDING . DISCHARGE PROTOCOL FOLLOWED. MD AWARE OF ALL ABNORMAL LABS AND TESTS. REPORT GIVEN TO MARY RN AT [facility]. PERIPHERAL IV LEFT IN PLACE REQUESTED BY PATIENT AND RN AT SNF SINCE IV STEROIDS ARE BEING CONTINUED AT SNF. ID BAND REMOVED. ALL BELONGINGS ACCOUNTED FOR, BELONGING LIST SIGNED. PATIENT TRANSFERRED TO [facility] IN STABLE CONDITION.
== END 2018-09-28 17:50 | DRG 190 ==
LOC: ER 08:34 → TELE 12:31 → MED 17:10
PROVIDERS: ADMIT Nurse Practitioner Acute Care; ATTEND Family Medicine
DX: J44.1 Chronic obstructive pulmonary disease with (acute) exacerbation (principal); I50.33 Acute on chronic diastolic (congestive) heart failure; E87.1 Hypo-osmolality and hyponatremia; I11.0 Hypertensive heart disease with heart failure; I25.10 Atherosclerotic heart disease of native coronary artery without angina pectoris; Z59.0 Homelessness; E78.5 Hyperlipidemia, unspecified; F17.210 Nicotine dependence, cigarettes, uncomplicated; N32.81 Overactive bladder; F10.10 Alcohol abuse, uncomplicated; E86.1 Hypovolemia; J40 Bronchitis, not specified as acute or chronic; L85.3 Xerosis cutis; R21 Rash and other nonspecific skin eruption; H57.9 Unspecified disorder of eye and adnexa
CPT/HCPCS: 36415; 71045-TC; 80048-TC; 80053-TC; 80061-TC; 81000-TC; 83735-TC; 83880; 84100-TC; 84484-TC; 85025-TC; 85730-TC; 87081-TC; G0378; J1650; J1940; J2270; J2930; J3475; J7030; J7050

== ENCOUNTER 2018-12-18 16:23 | Emergency (ER) | payer MEDICARE, OTHER ==
[~2018-12-18] VITALS: Ht 162.6 cm; Wt 63.5 kg
[~2018-12-18 16:23] MED LIST changes: +ALBUT2 NEB; +IPRA0.2S9 NEB; +OXYB5TAB29 PO; +methylPREDNISolone SOD SUCC IV
--- NOTE | 2018-12-18 16:23 | NUR ---
NESTOR [place] FROM THE STREET C/O ASTHMA ATTACK, WHEEZING IN THE FIELD, BREATHING TREATMENT X 1 IN THE FIELD, VA=477. TO ER BED 3, HOOKED TO MONITOR, CHANGED TO GOWN, PROVIDED W WARM BLANKET, AWAITING MD ARREOLA.
--- NOTE | 2018-12-18 16:38 | NUR ---
SARA CHIU AT BEDSIDE
[2018-12-18] MEDS ORDERED: predniSONE 20 MG TABLET ONE (16:45)
[2018-12-18] MEDS ORDERED: IPRATROPIUM NEB FS 0.5 MG/2.5 ML AMPUL.NEB ONE (16:50)
[2018-12-18] MEDS ORDERED: ALBUTEROL FS 2.5 MG/3 ML VIAL.NEB ONE (16:50)
--- NOTE | 2018-12-18 16:50 | NUR ---
RT AT BEDSIDE, STARTED PT W BREATHING TX
[2018-12-18] MEDS ORDERED: ALBUTEROL FS 2.5 MG/3 ML VIAL.NEB NEB ONE (17:00)
[2018-12-18] MEDS ORDERED: IPRATROPIUM NEB FS 0.5 MG/2.5 ML AMPUL.NEB NEB ONE (17:00)
[2018-12-18] MEDS ORDERED: predniSONE 20 MG TABLET PO ONE (17:00)
[2018-12-18] MEDS ORDERED: ACETAMINOPHEN 325 MG TABLET PO ONE (17:30)
[2018-12-18] MEDS ORDERED: IV NS 0.9% 500 ML BAG IV ONE (17:30)
[2018-12-18 17:35] LABS: BASOPHILS # (AUTO) 0.1 /CMM (0.0-0.2); BASOPHILS % (AUTO) 1.1 % (0.0-2.0); EOSINOPHILS % (AUTO) 3.7 % (0.0-6.0); HEMATOCRIT 36 % (33-45); HEMOGLOBIN 12.1 g/dL (11.5-14.8); LYMPHOCYTES # (AUTO) 3.1 /CMM (0.8-4.8); LYMPHOCYTES % (AUTO) 41.6 % (20.0-44.0); MEAN CORPUSCULAR HGB CONC 34 g/dl (31.0-36.0); MEAN CORPUSCULAR VOLUME 93 fL (82-100); MONOCYTES # (AUTO) 0.6 /CMM (0.1-1.30); MONOCYTES % (AUTO) 7.8 % (2.0-12.0); NEUTROPHILS # (AUTO) 3.4 /CMM (1.8-8.9); NEUTROPHILS % (AUTO) 45.8 % (43.0-81.0); PLATELET COUNT (AUTO) 206 /CMM (150-450); RED BLOOD CELL COUNT(AUTO) 3.82 MIL/uL (4.0-5.2); WHITE BLOOD COUNT (AUTO) 7.5 K/uL (4.3-11.0)
[2018-12-18 17:39] LABS: CALCIUM, SERUM 8.8 mg/dL (8.5-10.1); CARBON DIOXIDE 23 mmol/L (21-32); CHLORIDE 94 mmol/L (98-107); CREATININE 0.7 mg/dL (0.6-1.3); GLUCOSE 108 mg/dL (74-106); POTASSIUM 3.2 mmol/L (3.5-5.1); SODIUM SERUM 132 mmol/L (136-145); UREA NITROGEN, BLOOD 4 mg/dL (7-18)
[2018-12-18] MEDS ORDERED: ACETAMINOPHEN 325 MG TABLET ONE (17:48)
[2018-12-18 17:51] LABS: ALANINE AMINOTRANSFERASE 17 U/L (12-78); ALBUMIN 3.2 g/dL (3.4-5.0); ALKALINE PHOSPHATASE 81 U/L (46-116); ASPARTATE AMINOTRANSFERASE 26 U/L (15-37); BILIRUBIN,TOTAL 0.2 mg/dL (0.2-1.0); TOTAL PROTEIN, SERUM 6.8 g/dL (6.4-8.2)
[2018-12-18] MEDS ORDERED: IV NS 0.9% 1,000 ML BAG IV ONE (18:30)
[2018-12-18 18:32] LABS: APPEARANCE,URINE Clear (CLEAR); BILIRUBIN,URINE Negative (NEGATIVE); BLOOD, URINE Negative Ery/uL (NEGATIVE); COLOR,URINE Yellow (YELLOW); KETONES,URINE Negative (NEGATIVE); LEUKOCYTE ESTERASE ,URINE Negative (NEGATIVE); NITRITE, URINE Negative (NEGATIVE); PH,URINE 5.5 (5.0-8.0); PROTEIN,URINE Negative (NEGATIVE); UGLUCOSE Negative (NEGATIVE); UROBILINOGEN,URINE 0.2 EU/dL (0.2)
[2018-12-18] MEDS ORDERED: POTASSIUM CHLORIDE 20 MEQ TAB.PRT.SR PO ONE ×2 (18:35→19:00)
[2018-12-18] MEDS ORDERED: diphenhydrAMINE HCL 25 MG CAPSULE ONE (19:30)
[2018-12-18] MEDS ORDERED: diphenhydrAMINE HCL 25 MG CAPSULE PO ONE (19:30)
--- NOTE | 2018-12-18 19:30 | NUR ---
PT SIGNED HOMELESS WAIVER FORM
[2018-12-18 19:35] VITALS: BP 139/74
--- NOTE | 2018-12-18 19:44 | NUR ---
IV removed. Catheter intact and site benign. Pressure and 4x4 applied to site. No bleeding noted. Patient given written and verbal discharge instructions. Patient verbalizes understanding of instructions. Patient is ambulatory with steady gait. Refuses offer of assisted placement. Patient given list of available shelters in surrounding area. Patient discharged in proper clothing, all belongings returned, name band removed.
== END 2018-12-18 19:48 | disposition home or self-care (01) ==
LOC: ER 16:23
DX: J44.9 Chronic obstructive pulmonary disease, unspecified (principal); F17.200 Nicotine dependence, unspecified, uncomplicated; E87.1 Hypo-osmolality and hyponatremia; E87.8 Other disorders of electrolyte and fluid balance, not elsewhere classified; E87.6 Hypokalemia; E86.0 Dehydration; L30.9 Dermatitis, unspecified; I10 Essential (primary) hypertension; Z59.0 Homelessness; Z90.89 Acquired absence of other organs; Z98.890 Other specified postprocedural states; Z79.899 Other long term (current) drug therapy
CPT/HCPCS: 36415; 71045; 80048; 80076; 81001; 84484; 85025; 93005; 94640; 96360; 99284; 99406; J7030; J7040; J7512; Q0163; 81000-TC

== ENCOUNTER 2018-12-25 09:59 | Emergency (ER) | payer MEDICARE, OTHER ==
[~2018-12-25] VITALS: Ht 160 cm; Wt 59.0 kg
--- NOTE | 2018-12-25 10:05 | NUR ---
AAOX3, BIBRA 860 c/o weak and dizzy, admits to drinking alcohol this am, no focal deficit noted. Skin is warm and dry. Resp is even and unlabored with nad noted. Bilateral strong and equal cigar making machine supervisor. Face is symmetrical. Will continuously monitor the patient. Awaiting md for eval.
[2018-12-25] MEDS ORDERED: IV NS 0.9% 1,000 ML BAG IV ONE (10:30)
[2018-12-25 10:37] LABS: HEMATOCRIT 38 % (33-45); MEAN CORPUSCULAR VOLUME 92 fL (82-100); RED BLOOD CELL COUNT(AUTO) 4.13 MIL/uL (4.0-5.2)
[2018-12-25 10:40] LABS: BASOPHILS % (AUTO) 0.3 % (0.0-2.0); HEMOGLOBIN 12.7 g/dL (11.5-14.8); LYMPHOCYTES % (AUTO) 11.5 % (20.0-44.0); MEAN CORPUSCULAR HGB CONC 33 g/dl (31.0-36.0); MONOCYTES # (AUTO) 0.7 /CMM (0.1-1.30); MONOCYTES % (AUTO) 8.4 % (2.0-12.0); NEUTROPHILS % (AUTO) 78.8 % (43.0-81.0); PLATELET COUNT (AUTO) 301 /CMM (150-450); WHITE BLOOD COUNT (AUTO) 8.9 K/uL (4.3-11.0)
[2018-12-25 10:45] LABS: CREATININE 0.7 mg/dL (0.6-1.3); POTASSIUM 3.6 mmol/L (3.5-5.1)
--- NOTE | 2018-12-25 11:02 | NUR ---
Provided w sandwich and gatorade.
[2018-12-25 11:56] VITALS: BP 148/98
--- NOTE | 2018-12-25 11:57 | NUR ---
IV removed. Catheter intact and site benign. Pressure and 4x4 applied to site. No bleeding noted. Patient given written and verbal discharge instructions. Patient verbalizes understanding of instructions. Patient is ambulatory with steady gait. Refuses offer of longterm placement. Patient given list of available shelters in surrounding area. Name band removed. All belongings returned. Discharged in proper clothing.
== END 2018-12-25 12:14 | disposition home or self-care (01) ==
LOC: ER 10:03
DX: F10.10 Alcohol abuse, uncomplicated (principal); F17.200 Nicotine dependence, unspecified, uncomplicated; I10 Essential (primary) hypertension; Z90.89 Acquired absence of other organs; Z98.890 Other specified postprocedural states; Z79.899 Other long term (current) drug therapy; Y90.0 Blood alcohol level of less than 20 mg/100 ml
CPT/HCPCS: 36415; 80048; 80307; 83690; 85025; 99283; J7030; G0480

== ENCOUNTER 2019-01-17 12:31 | Emergency (ER) | payer MEDICARE, OTHER ==
[2019-01-17 13:18] LABS: BASOPHILS # (AUTO) 0.1 /CMM (0.0-0.2); BASOPHILS % (AUTO) 1.2 % (0.0-2.0); HEMATOCRIT 37 % (33-45); HEMOGLOBIN 12.6 g/dL (11.5-14.8); LYMPHOCYTES # (AUTO) 2.1 /CMM (0.8-4.8); LYMPHOCYTES % (AUTO) 34.7 % (20.0-44.0); MEAN CORPUSCULAR HGB CONC 34 g/dl (31.0-36.0); MEAN CORPUSCULAR VOLUME 92 fL (82-100); MONOCYTES # (AUTO) 0.7 /CMM (0.1-1.30); MONOCYTES % (AUTO) 10.7 % (2.0-12.0); NEUTROPHILS # (AUTO) 3.1 /CMM (1.8-8.9); NEUTROPHILS % (AUTO) 50.4 % (43.0-81.0); PLATELET COUNT (AUTO) 249 /CMM (150-450); RED BLOOD CELL COUNT(AUTO) 4.02 MIL/uL (4.0-5.2); WHITE BLOOD COUNT (AUTO) 6.2 K/uL (4.3-11.0)
[2019-01-17 13:24] LABS: CALCIUM, SERUM 9.5 mg/dL (8.5-10.1); CREATININE 0.5 mg/dL (0.6-1.3); POTASSIUM 3.4 mmol/L (3.5-5.1)
[2019-01-17] MEDS ORDERED: ALBUTEROL FS 2.5 MG/3 ML VIAL.NEB NEB ONE (13:30)
[2019-01-17] MEDS ORDERED: IV NS 0.9% 1,000 ML BAG IV ONE (13:30)
[2019-01-17] MEDS ORDERED: IPRATROPIUM NEB FS 0.5 MG/2.5 ML AMPUL.NEB NEB ONE (13:30)
--- NOTE | 2019-01-17 13:43 | NUR ---
CALLED RT FOR BREATHING TREATMENT
[2019-01-17] MEDS ORDERED: ALBUTEROL FS 2.5 MG/3 ML VIAL.NEB ONE (13:54)
[2019-01-17] MEDS ORDERED: IPRATROPIUM NEB FS 0.5 MG/2.5 ML AMPUL.NEB ONE (13:55)
--- NOTE | 2019-01-17 14:36 | NUR ---
Patient discharged to home in stable condition. Written and verbal after care instructions given. Patient verbalizes understanding of instruction. IV removed. Catheter intact and site benign. Pressure and 4x4 applied to site. No bleeding noted.
[2019-01-17 14:37] VITALS: BP 101/88
== END 2019-01-17 14:40 | disposition home or self-care (01) ==
LOC: ER 12:31
DX: J20.9 Acute bronchitis, unspecified (principal); J44.9 Chronic obstructive pulmonary disease, unspecified; I10 Essential (primary) hypertension; F10.20 Alcohol dependence, uncomplicated; F17.200 Nicotine dependence, unspecified, uncomplicated; Y90.9 Presence of alcohol in blood, level not specified; Z90.89 Acquired absence of other organs; Z98.890 Other specified postprocedural states
CPT/HCPCS: 36415; 71045; 80048; 85025; 94640; 99284; J7030

== ENCOUNTER 2019-02-01 13:17 | Inpatient (IN) | payer MEDICARE, OTHER ==
[~2019-02-01] VITALS: Ht 154.9 cm; Wt 58.1 kg
--- NOTE | 2019-02-01 13:46 | NUR ---
[facility] TO ER, C/O SOB AND EPIGASTRIC PAIN RADIATING TO CHEST " BURNING ". + NAUSEA; HHN - ALBUTEROL GIVEN X 1. PT SEEN & EVAL'D BY DR. DOYLE. PLACED ON ELECTRIC CAR OPERATOR, SR, NO ECTOPY NOTED. WILL CONT TO MONITOR.
[2019-02-01 13:47] LABS: BASOPHILS # (AUTO) 0.1 /CMM (0.0-0.2); BASOPHILS % (AUTO) 0.8 % (0.0-2.0); EOSINOPHILS % (AUTO) 2.9 % (0.0-6.0); HEMATOCRIT 39 % (33-45); LYMPHOCYTES # (AUTO) 2.9 /CMM (0.8-4.8); LYMPHOCYTES % (AUTO) 44.3 % (20.0-44.0); MEAN CORPUSCULAR HGB CONC 34 g/dl (31.0-36.0); MEAN CORPUSCULAR VOLUME 91 fL (82-100); MONOCYTES # (AUTO) 0.5 /CMM (0.1-1.30); MONOCYTES % (AUTO) 7.2 % (2.0-12.0); NEUTROPHILS % (AUTO) 44.8 % (43.0-81.0); PLATELET COUNT (AUTO) 209 /CMM (150-450); RED BLOOD CELL COUNT(AUTO) 4.26 MIL/uL (4.0-5.2); WHITE BLOOD COUNT (AUTO) 6.6 K/uL (4.3-11.0)
[2019-02-01 14:02] LABS: POTASSIUM 2.9 mmol/L (3.5-5.1); SODIUM SERUM 129 mmol/L (136-145)
[2019-02-01 14:03] LABS: CALCIUM, SERUM 8.6 mg/dL (8.5-10.1); CARBON DIOXIDE 20 mmol/L (21-32); CHLORIDE 92 mmol/L (98-107); CREATININE 0.7 mg/dL (0.6-1.3); GLUCOSE 85 mg/dL (74-106); UREA NITROGEN, BLOOD 6 mg/dL (7-18)
[2019-02-01] MEDS ORDERED: LIDOCAINE VISCOUS 2% UD 15 ML UDC MM ONE (14:30)
[2019-02-01] MEDS ORDERED: NITROGLYCERIN 4.9 GM SPRAY SL ONE (14:30)
[2019-02-01] MEDS ORDERED: ASPIRIN EC 325 MG TABLET.DR PO ONE ×2 (14:30→15:35)
[2019-02-01] MEDS ORDERED: MAG HYDROX/AL HYDROX/SIMETH 30 ML UDC PO ONE (14:30)
[2019-02-01 15:13] LABS: BILIRUBIN,DIRECT 0.1 mg/dL (0.0-0.2); BILIRUBIN,TOTAL 0.3 mg/dL (0.2-1.0)
[2019-02-01 15:14] LABS: ALBUMIN 3.7 g/dL (3.4-5.0); TOTAL PROTEIN, SERUM 6.9 g/dL (6.4-8.2)
[2019-02-01] MEDS ORDERED: POTASSIUM CHLORIDE 20 MEQ TAB.PRT.SR PO ONE ×2 (15:30→15:35)
[2019-02-01] MEDS ORDERED: ALBUTEROL FS 2.5 MG/3 ML VIAL.NEB CONTNEB ONE (15:30)
[2019-02-01] MEDS ORDERED: IPRATROPIUM NEB FS 0.5 MG/2.5 ML AMPUL.NEB NEB ONE (15:30)
[2019-02-01] MEDS ORDERED: methylPREDNISolone SOD SUCC 125 MG/2ML VIAL IV ONE (15:30)
[2019-02-01] MEDS ORDERED: MAG HYDROX/AL HYDROX/SIMETH 30 ML UDC ONE (15:35)
[2019-02-01] MEDS ORDERED: methylPREDNISolone SOD SUCC 125 MG/2ML VIAL ONE (15:35)
[2019-02-01] MEDS ORDERED: LIDOCAINE VISCOUS 2% UD 15 ML UDC ONE (15:35)
[2019-02-01] MEDS ORDERED: ALBUTEROL FS 2.5 MG/3 ML VIAL.NEB ONE (15:39)
[2019-02-01] MEDS ORDERED: IPRATROPIUM NEB FS 0.5 MG/2.5 ML AMPUL.NEB ONE (15:39)
[2019-02-01] MEDS ORDERED: NITROGLYCERIN 0.4 MG/TAB BOTTLE ONE (15:52)
--- NOTE | 2019-02-01 15:55 | NUR ---
Social service consult requested by ED ELEANOR Tam for homelessness. Pt. is a 68 year old female who was brought to [facility] via rescue ambulance complaining of chest pain. DIGNA met with the pt. bedside. Pt. is alert and oriented x 4. SW is familiar with the pt. from previous inpatient hospitalizations. Pt. is homeless. Pt. states she has been living with her son and boyfriend on the [place] of [place]. Pt. drinks 3 cans of beer per day and smokes a pack of cigarettes. Pt. denies drug use but smokes marijuana once in a while. Pt. states she is waiting for her sister to get a place in [place] and will move in with her. Pt. receives approximately $916.24 in [employer] money monthly. DIGNA offered pt. residential placement, however pt. declined. DIGNA left homeless residential resources and homeless waiver in the chart for pt. to sign upon discharge and for RN to give the resources. IF pt. is admitted, SW to follow up with the pt. tomorrow.
[2019-02-01] MEDS ORDERED: NITROGLYCERIN 0.4 MG/TAB BOTTLE SL ONE (16:00)
--- NOTE | 2019-02-01 16:02 | NUR ---
MEDICATED FOR CP & SOB PER ERMD ORDER, PT GINA WELL. PT'S GETTING BREATHING TX.
[2019-02-01] MEDS ORDERED: MORPHINE SULFATE INJ 2 MG/ML DISP.SYRIN IV ONE (16:30)
[2019-02-01] MEDS ORDERED: ONDANSETRON HCL/PF - ER 4 MG/2 ML VIAL IV ONE (16:30)
--- NOTE | 2019-02-01 16:30 | NUR ---
CALLED FOR BED
[2019-02-01] MEDS ORDERED: MORPHINE SULFATE INJ 4 MG/ML DISP.SYRIN ONE (16:40)
[2019-02-01] MEDS ORDERED: IOHEXOL-350 100 ML VIAL IV ONE ×2 (16:40→17:04)
[2019-02-01] MEDS ORDERED: CT SWABBABLE VALVE TRANS SET 1 EA INFUS.SET MC ONE ×2 (16:40→17:04)
[2019-02-01] MEDS ORDERED: ONDANSETRON HCL/PF 4 MG/2 ML VIAL ONE (16:40)
[2019-02-01] MEDS ORDERED: IV NS 0.9% 0 ML IV ONE (16:41)
--- NOTE | 2019-02-01 16:56 | NUR ---
room 104
[2019-02-01] MEDS ORDERED: IV NS 0.9% 250 ML IV ONE (17:04)
--- NOTE | 2019-02-01 17:10 | NUR ---
PT TO CT VIA KIT. MEDICATED FOR PAIN PER ERMD ORDER, PT GINA WELL.
[2019-02-01] MEDS ORDERED: KETOROLAC TROMETHAMINE INJ 30 MG/ML VIAL IV STA (17:45)
[2019-02-01] MEDS ORDERED: NITROGLYCERIN PACKET 1 GM PACKET ONE (17:58)
[2019-02-01] MEDS ORDERED: KETOROLAC TROMETHAMINE INJ 30 MG/ML VIAL ONE (17:58)
[2019-02-01] MEDS ORDERED: NITROGLYCERIN PACKET 1 GM PACKET TD ONE (18:00)
--- NOTE | 2019-02-01 18:26 | NUR ---
DR LELIA KRISHNA
--- NOTE | 2019-02-01 19:29 | NUR ---
DR COLIN KRISHNA
--- NOTE | 2019-02-01 19:52 | NUR ---
REPORT GIVEN TO MAKAYLA MICHAEL FOR SHERRY
[2019-02-01 20:00] VITALS: BP 195/94
[2019-02-01] MEDS ORDERED: NAPROXEN 500 MG TABLET PO PRN (20:00)
[2019-02-01] MEDS ORDERED: ALBUTEROL FS 2.5 MG/3 ML VIAL.NEB NEB PRN (20:00)
[2019-02-01] MEDS ORDERED: IPRATROPIUM NEB FS 0.5 MG/2.5 ML AMPUL.NEB NEB PRN (20:00)
--- NOTE | 2019-02-01 20:00 | NUR ---
PLATFORM INSPECTORCOILER NOTES, RECEIVED 68 YO FEMALE FROM ER DEPARTMENT VIA STRETCHER ACCOMPANIED BY A NURSE, UNDER MEDICAL SERVICES OF DR NIELSEN, WITH ADMITTING DX CHEST PAIN, VS UPON ADMISSION 200/119, 195/100, 188/89, HR 105, 97.9,18, C/O CHEST PAIN 01/18 AND PER REPORT FROM ER, PAIN HAS NOT RELIEVED WITH MORPHINE AND NITRO PATCH, WILL F/U WITH MD, PATIENT AFEBRILE AT THIS TIME, NOTED RASH IN CHEST/PAIN AND LEFT ARM, OTHERWISE SKIN INTACT, ABLE TO AMBULATE, COMPLAIN OF ARTHRITIC PAIN IN LEFT BOTH LEGS/KNEES, BED BATH UPON ADMISSION, DRY AND CLEAN, BILATERAL S/R OF BED UP FOR POSITIONING, CALL LIGHT W/I REACH, WILL CONTINUE TO MONITOR CLOSELY, AND FOLLOW UP WITH MD FOR FURTHER ORDERS. Addendum: 02/02/19 at 0656 by CM MCCALL RN OPTIMAL O2 SAT 96-98% AT ROOM AIR, NO SOB/ACUTE DISTRESS NOTED, NO DIAPHORESIS OR ABNORMALITY NOTED, BUT HIGH BLOOD PRESSURE AND CHEST PAIN.
--- NOTE | 2019-02-01 20:40 | NUR ---
RN NOTES, CALLED MD CONTESTANT COORDINATOR DERDERIAN AND REPORT BLOOD PRESSURE VALUES, AND HE REPLIED WITH NEW ORDER FOR METOPROLOL 25MG PO X1 NOW, WILL ADMINISTER ORDERED.
--- NOTE | 2019-02-01 20:40 | NUR ---
RN NOTES, DR NIELSEN AT THIS TIME ASSESSING PATIENT.
[2019-02-01] MEDS: LORAZEPAM 1 MG TABLET PO PRN (20:54)
[2019-02-01] MEDS ORDERED: NITROGLYCERIN 0.4 MG/TAB BOTTLE SL PRN (21:00)
[2019-02-01] MEDS ORDERED: METOPROLOL TARTRATE 25 MG TABLET PO ONE (21:00)
[2019-02-01] MEDS: ASPIRIN 81 MG TAB.CHEW PO SCH (21:07)
[2019-02-01] MEDS: MORPHINE SULFATE INJ 2 MG/ML DISP.SYRIN IV PRN ×2 (21:07→21:53)
--- NOTE | 2019-02-01 21:45 | NUR ---
EKG DONE. NOTIFIED RN WITH THE RESULT.
--- NOTE | 2019-02-01 21:53 | NUR ---
RN NOTES, RECHECK OF BLOOD PRESSURE AT THIS TIME, AND BLOOD PRESSURE CONTINUE 198/96 AT THIS TIME, WILL ADMINISTERED THE OTHER DOSE FOR MORPHINE, PATIENT STILL C/O CHEST PAIN, AND PLACED PATIENT IN O2 A 2LPM VIA NC AT THIS TIME, WILL CONTINUE TO MONITOR CLOSELY.
--- NOTE | 2019-02-01 22:30 | NUR ---
RN NOTES, AFTER CHECK BLOOD PRESSURE, BP AT THIS TIME 133/66, 99, 18, 99% AT 2LPM VIA NC, WILL CONTINUE TO MONITOR CLOSELY.
[2019-02-01] MEDS: ZOLPIDEM TARTRATE 5 MG TABLET PO PRN (22:46)
--- NOTE | 2019-02-01 23:11 | NUR ---
RN NOTES, CALLED DR NIELSEN AND INFORMED ABOUT THE VALUES FOR LABS ESPECIALLY LOW SODIUM AND IF HE WANTS IV FLUIDS FOR PATIENT, MD REPLIED WITH NO NEW ORDERS HE SATES " WHY SHOULD I ORDER FLUIDS IF PATIENT IS ABLE TO DRINK?" WILL CONTINUE TO MONITOR CLOSELY.
[2019-02-02] MEDS: HYDROCODONE/APAP 5/325MG 1 EACH TABLET PO PRN ×5 (00:47→21:56)
[2019-02-02 04:00] VITALS: BP 147/84
[2019-02-02 04:36] LABS: BASOPHILS % (AUTO) 0.2 % (0.0-2.0); EOSINOPHILS % (AUTO) 0.8 % (0.0-6.0); HEMATOCRIT 39 % (33-45); HEMOGLOBIN 13.3 g/dL (11.5-14.8); LYMPHOCYTES # (AUTO) 0.4 /CMM (0.8-4.8); MEAN CORPUSCULAR HGB CONC 34 g/dl (31.0-36.0); MEAN CORPUSCULAR VOLUME 90 fL (82-100); MONOCYTES # (AUTO) 0.1 /CMM (0.1-1.30); MONOCYTES % (AUTO) 1.1 % (2.0-12.0); NEUTROPHILS # (AUTO) 5.3 /CMM (1.8-8.9); NEUTROPHILS % (AUTO) 90.9 % (43.0-81.0); PLATELET COUNT (AUTO) 218 /CMM (150-450); RED BLOOD CELL COUNT(AUTO) 4.34 MIL/uL (4.0-5.2); WHITE BLOOD COUNT (AUTO) 5.8 K/uL (4.3-11.0)
[2019-02-02 04:48] LABS: CALCIUM, SERUM 8.6 mg/dL (8.5-10.1); CREATININE 0.6 mg/dL (0.6-1.3); MAGNESIUM 1.9 mg/dL (1.8-2.4); PHOSPHORUS 2.7 mg/dL (2.5-4.9)
--- NOTE | 2019-02-02 06:52 | NUR ---
RETURN TO SERVICE INSPECTOR CLOSING NOTES, PATIENT SLEEPING AT THIS TIME BUT EASILY AROUSABLE TO TACTILE STIMULI, NO SOB/ACUTE DISTRESS NOTED, WITH OPTIMAL O2 SATURATION LEVEL, DENIES CHEST PAIN AT THIS TIME, WITH EPISODES OF HIGH BLOOD PRESSURE LAST NIGHT, AFTER 2300 PATIENT WITH BLOOD PRESSURE STABLE, KEPT DRY AND CLEAN, BILATERAL S/R OF BED UP FOR POSITIONING, CALL LIGHT W/I REACH, WILL ENDORSE CONTINUITY OF CARE TO ONCOMING NURSE.
--- NOTE | 2019-02-02 07:20 | NUR ---
RN OPENING NOTES PT AWAKE AND DENIES SOB OR PAIN AT TIME OF REPORT. REPORT RECIEVED FROM CHICKEN HANGER RN. PT REQUESTING SALT AND SUGAR. PT HAS A RAC 18 GAUGE AND A LFA 20 GAUGE. BED IS LOCKED AND IN LOWEST POSITION WILL CONTINUE TO MONITOR.
[2019-02-02 08:00] VITALS: BP 174/78
[2019-02-02] MEDS: AMLODIPINE BESYLATE 10 MG TABLET PO SCH (08:13)
[2019-02-02] MEDS: ASPIRIN 81 MG TAB.CHEW PO SCH (08:13)
[2019-02-02] MEDS: PANTOPRAZOLE 40 MG TABLET.DR PO SCH (08:13)
[2019-02-02] MEDS: OXYBUTYNIN CHLORIDE ER 5 MG TAB PO SCH (08:13)
[2019-02-02] MEDS: METOPROLOL TARTRATE 25 MG TABLET PO SCH ×2 (08:14→16:33)
[2019-02-02] MEDS ORDERED: IOHEXOL-350 100 ML VIAL IV ONE ×2 (13:25→16:51)
[2019-02-02] MEDS ORDERED: CT SWABBABLE VALVE TRANS SET 1 EA INFUS.SET MC ONE (13:25)
[2019-02-02] MEDS ORDERED: IV NS 0.9% 0 ML IV ONE (13:26)
[2019-02-02] MEDS: METOPROLOL TARTRATE INJ 5 MG/5 ML AMPUL IVP PRN ×10 (13:41→14:38)
[2019-02-02] MEDS ORDERED: NITROGLYCERIN 0.4 MG/TAB BOTTLE ONE (13:43)
[2019-02-02] MEDS ORDERED: IV NS 0.9% 250 ML IV ONE (13:43)
[2019-02-02] MEDS ORDERED: NITROGLYCERIN 0.4 MG/TAB BOTTLE SL ONE ×3 (14:00→17:30)
[2019-02-02] MEDS ORDERED: METOPROLOL TARTRATE INJ 5 MG/5 ML AMPUL ONE ×3 (14:04→14:31)
[2019-02-02 16:00] VITALS: BP 116/71
--- NOTE | 2019-02-02 17:36 | NUR ---
CANCELED NITRO SL 0.4MG DUPLICATE ORDER.
[2019-02-02] MEDS ORDERED: diphenhydrAMINE HCL 25 MG CAPSULE PO PRN (18:00)
--- NOTE | 2019-02-02 19:26 | NUR ---
RN CLOSING NOTES PT SITTING IN BED WATCHING TELEVISION. REPORT GIVEN TO EVENT CREW TECHNICIAN RN FOR CONTINUATION OF CARE.
[2019-02-02 20:00] VITALS: BP 140/63
--- NOTE | 2019-02-02 23:28 | NUR ---
MS/RN PATIENT IS SLEEPING AT THIS TIME, AROUSES EASILY, APPEAR COMFORTABLE, NO SIGNS OF DISTRESS NOTED, CALL LIGHT IN REACH. WILL CONTINUE TO MONITOR.
[2019-02-02] MEDS: ZOLPIDEM TARTRATE 5 MG TABLET PO PRN (23:41)
[2019-02-03 04:00] VITALS: BP 111/68
[2019-02-03 06:00] VITALS: BP 111/68
[2019-02-03] MEDS ORDERED: HYDROCODONE/APAP 5/325MG 1 EACH TABLET ONE (06:01)
[2019-02-03] MEDS: HYDROCODONE/APAP 5/325MG 1 EACH TABLET PO PRN ×2 (06:08→22:43)
--- NOTE | 2019-02-03 06:27 | NUR ---
MS/RN PATIENT APPEARS SLEEPING AT THIS TIME, APPEAR COMFORTABLE, NO SIGNS OF DISTRESS NOTED, ALL NEEDS ATTENDED AT THIS TIME, WILL CONTINUE TO MONITOR.
--- NOTE | 2019-02-03 07:00 | NUR ---
RN AM SHIFT NOTE PATIENT AWAKE AND ALERT X4. PARTICIPATING IN CARE. ABLE TO AMBULATE TO BATHROOM WITHOUT SOB, MILD EPIGASTRIC PAIN NOTED, NO DIZZINESS, VERBALIZED BY PATIENT. DR CARLOS TO ASSES CTA THAT WAS PERFOMED YESTERDAY. PATIENT DOES NOT WANT TO GO TO A [facility] OR FACILITY PER NIGHT RN. MEDICAL MICROBIOLOGIST INVOLVED. IV PATENT AND INTACT. BED IN LOW POSITION, CALL LIGHT WITHIN REACH. ALARMS CHECKED AND OPERATING WELL.
[2019-02-03 07:31] LABS: BASOPHILS % (AUTO) 0.3 % (0.0-2.0); EOSINOPHILS % (AUTO) 0.4 % (0.0-6.0); HEMATOCRIT 38 % (33-45); HEMOGLOBIN 12.7 g/dL (11.5-14.8); LYMPHOCYTES # (AUTO) 1.6 /CMM (0.8-4.8); LYMPHOCYTES % (AUTO) 17.4 % (20.0-44.0); MEAN CORPUSCULAR HGB CONC 33 g/dl (31.0-36.0); MEAN CORPUSCULAR VOLUME 91 fL (82-100); MONOCYTES # (AUTO) 0.6 /CMM (0.1-1.30); MONOCYTES % (AUTO) 6.6 % (2.0-12.0); NEUTROPHILS % (AUTO) 75.3 % (43.0-81.0); PLATELET COUNT (AUTO) 191 /CMM (150-450); WHITE BLOOD COUNT (AUTO) 9.3 K/uL (4.3-11.0)
[2019-02-03 07:48] LABS: CALCIUM, SERUM 9.1 mg/dL (8.5-10.1); CREATININE 0.7 mg/dL (0.6-1.3); PHOSPHORUS 2.5 mg/dL (2.5-4.9); POTASSIUM 3.6 mmol/L (3.5-5.1)
[2019-02-03 08:00] VITALS: BP 109/64
[2019-02-03] MEDS: PANTOPRAZOLE 40 MG TABLET.DR PO SCH (08:14)
[2019-02-03] MEDS: ASPIRIN 81 MG TAB.CHEW PO SCH (08:14)
[2019-02-03] MEDS: OXYBUTYNIN CHLORIDE ER 5 MG TAB PO SCH (08:15)
[2019-02-03] MEDS: LORAZEPAM INJ 2 MG/ML VIAL IV PRN ×2 (08:28→16:15)
[2019-02-03] MEDS: METOPROLOL TARTRATE 25 MG TABLET PO SCH ×2 (09:00→16:15)
[2019-02-03] MEDS: AMLODIPINE BESYLATE 10 MG TABLET PO SCH (09:00)
--- NOTE | 2019-02-03 12:00 | NUR ---
RN NOTE PATIENT VERBALIZED TO RN SHE IS NOT UNCOMFORTABLE, NO PAIN AT THIS TIME. EATING AND DRINKING WELL. ABLE TO AMBULATE TO BATHROOM. ALL NEEDS MET AT THIS TIME
[2019-02-03 16:00] VITALS: BP_SYST 112; BP_SYST 148; BP_DIAS 72; BP_DIAS 84
--- NOTE | 2019-02-03 19:00 | NUR ---
RN CLOSING NOTE PATIENT ALERT ORITNED FAMILY AND BOYFRIEND AT BEDSIDE. PATIENTS BOYFRIEND ASKED TO LEAVE BY VISITING HOURS PER REQUEST OF FAMILY FOR PATIENT TO REST. PATIENT REFUSE TO GO TO [facility] PATIENT SIGNED CONSENT FOR CARDIAC STRESS TEST TOMRROW IN CHART 02/04.
--- NOTE | 2019-02-03 19:25 | NUR ---
MS/RN NOTED PATIENT RECEIVED IN BED, ALERT, AWAKE, WATCHING TV AT THIS TIME. PATIENT A/O X4, DENIES ANY PAIN OR DISCOMFORT, NO S/S OF ACUTE DISTRESS NOTED AT THIS TIME. RESPIRATION EVEN AND UNLABORED. NO SOB NOTED. LT HAND 20 GAUGE, IV SITE WITH NO S/S OF INFECTION, INFILTRATION. SAFETY MAINTAINED, BED AT THE LOWEST LOCKED POSITION. CALL LIGHT WITHIN REACH. KEPT CLEAN AND DRY. WILL CONTINUE TO MONITOR PATIENT PER PLAN OF CARE.
[2019-02-03 20:00] VITALS: BP 135/54
[2019-02-04] VITALS: BP 132/64
--- NOTE | 2019-02-04 06:41 | NUR ---
MS/RN NOTED PATIENT REMAINED IN BED, SLEEPING COMFORTABLY AT THIS TIME. NO S/S OF ACUTE DISTRESS NOTED AT THIS TIME. RESPIRATION EVEN AND UNLABORED. NO SOB NOTED. NO S/S OF PAIN NOTED. LT HAND 20 GAUGE, IV SITE WITH NO S/S OF INFECTION, INFILTRATION. PATIENT KEPT NPO AFTER MIDNIGHT FOR THE STRESS TEST TODAY. NO SIGNIFICANT CHANGE IN CONDITION NOTED. SAFETY MAINTAINED, BED AT THE LOWEST LOCKED POSITION. CALL LIGHT WITHIN REACH. KEPT CLEAN AND DRY. WILL ENDORSE TO AM SHIFT NURSE FOR SHERRY.
[2019-02-04 06:54] LABS: BASOPHILS % (AUTO) 0.5 % (0.0-2.0); EOSINOPHILS % (AUTO) 1.7 % (0.0-6.0); HEMATOCRIT 39 % (33-45); HEMOGLOBIN 12.9 g/dL (11.5-14.8); LYMPHOCYTES # (AUTO) 1.3 /CMM (0.8-4.8); LYMPHOCYTES % (AUTO) 21.8 % (20.0-44.0); MEAN CORPUSCULAR HGB CONC 34 g/dl (31.0-36.0); MEAN CORPUSCULAR VOLUME 91 fL (82-100); MONOCYTES # (AUTO) 0.5 /CMM (0.1-1.30); MONOCYTES % (AUTO) 8.8 % (2.0-12.0); NEUTROPHILS # (AUTO) 4.1 /CMM (1.8-8.9); NEUTROPHILS % (AUTO) 67.2 % (43.0-81.0); PLATELET COUNT (AUTO) 168 /CMM (150-450); RED BLOOD CELL COUNT(AUTO) 4.21 MIL/uL (4.0-5.2)
[2019-02-04 07:18] LABS: CALCIUM, SERUM 8.6 mg/dL (8.5-10.1); CREATININE 0.5 mg/dL (0.6-1.3); MAGNESIUM 1.8 mg/dL (1.8-2.4); PHOSPHORUS 3.1 mg/dL (2.5-4.9); POTASSIUM 3.7 mmol/L (3.5-5.1)
--- NOTE | 2019-02-04 07:20 | NUR ---
MS RN OPENING NOTES PT AWAKE, A/OX4. NO RESPIRATORY DISTRESS OR SOB NOTED AT THIS TIME. ON ROOM AIR SATURATING WELL. DENIES PAIN AT TIME. NPO, SHE WILL HAVE STRESS TEST TODAY. PT HAS L HAND 20 GAUGE INTACT, PATENT AND FLUSHED WELL. SAFETY MEASURES IN PLACE. BED IS LOCKED AND IN LOWEST POSITION, SIDE RIALS UP X2, CALL LIGHT WITHIN REACH. WILL CONTINUE TO MONITOR.
[2019-02-04] MEDS: PANTOPRAZOLE 40 MG TABLET.DR PO SCH ×2 (07:30→09:34)
[2019-02-04 08:00] VITALS: BP 158/68
[2019-02-04] MEDS ORDERED: REGADENOSON 0.4 MG/5 ML DISP.SYRIN IVP ONE (08:00)
--- NOTE | 2019-02-04 08:20 | NUR ---
RN MS NOTE PT TAKEN FOR STRESS TEST.
--- NOTE | 2019-02-04 09:20 | NUR ---
RN MS NOTE PT RETURNED FROM STRESS TEST. VS STABLE. BREAKFAST ORDERED.
[2019-02-04] MEDS: METOPROLOL TARTRATE 25 MG TABLET PO SCH ×2 (09:33→18:32)
[2019-02-04] MEDS: ASPIRIN 81 MG TAB.CHEW PO SCH (09:34)
[2019-02-04] MEDS: AMLODIPINE BESYLATE 10 MG TABLET PO SCH (09:34)
[2019-02-04] MEDS: OXYBUTYNIN CHLORIDE ER 5 MG TAB PO SCH (09:34)
[2019-02-04] MEDS: LORAZEPAM 1 MG TABLET PO PRN (09:47)
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
--- NOTE | 2019-02-04 14:10 | NUR ---
MS RN NOTE PT JUST HAD A BOWEL MOVEMENT.
--- NOTE | 2019-02-04 14:50 | NUR ---
MS RN NOTE DR. VORA ORDERED LACTULOSE FOR CONSTIPATION. ORDER CARRIED OUT.
[2019-02-04] MEDS ORDERED: LACTULOSE 10 G/15 ML UDC (PYXIS) PO PRN (15:00)
[2019-02-04 16:00] VITALS: BP 138/63
--- NOTE | 2019-02-04 18:05 | NUR ---
MS RN NOTE DR. VORA ORDERED DULCOLAX SUPPOSITORY AND DISCHARGE ORDER AFTER THAT. PATIENT REFUSED THE MEDICATION.
[2019-02-04] MEDS ORDERED: BISACODYL SUPP (10 MG) 10 MG/SUPP.RECT SUPP.RECT RC PRN (18:30)
--- NOTE | 2019-02-04 19:20 | NUR ---
MS/RN CLOSING NOTED PATIENT REMAINED IN BED, SLEEPING COMFORTABLY AT THIS TIME. NO S/S OF ACUTE DISTRESS NOTED AT THIS TIME. RESPIRATION EVEN AND UNLABORED. NO SOB NOTED. NO S/S OF PAIN NOTED. NO SIGNIFICANT CHANGE IN CONDITION NOTED. SAFETY MAINTAINED, BED AT THE LOWEST LOCKED POSITION. CALL LIGHT WITHIN REACH. KEPT CLEAN AND DRY. PaTIENT'S FRIEND WAS AT BEDSIDE TODAY. WILL ENDORSE TO PM SHIFT NURSE FOR SHERRY.
--- NOTE | 2019-02-04 19:25 | NUR ---
MS/RN NOTED PATIENT RECEIVED IN BED, ALERT, AWAKE, WATCHING TV AT THIS TIME. PATIENT A/O X4, DENIES ANY PAIN OR DISCOMFORT, NO S/S OF ACUTE DISTRESS NOTED AT THIS TIME. RESPIRATION EVEN AND UNLABORED. NO SOB NOTED. PATIENT ON PRESCRIBED O2 VIA NC, SATURATING 98% AT THIS TIME. RT AC 18 GAUGE AND LFA GAUGE 18, IV SITES WITH NO S/S OF INFECTION, INFILTRATION. SAFETY MAINTAINED, BED AT THE LOWEST LOCKED POSITION. CALL LIGHT WITHIN REACH. WILL CONTINUE TO MONITOR PATIENT PER PLAN OF CARE.
[2019-02-04 20:00] VITALS: BP 124/75
--- NOTE | 2019-02-04 22:07 | NUR ---
PATIENT DISCHARGED TO [facility] AT THIS TIME IN STABLE CONDITION, ACCOMPANIED BY 2 EMT'S. NO S/S OF ACUTE DISTRESS NOTED UPON DISCHARGE. RESPIRATION EVEN AND UNLABORED. NO SOB NOTED, PATIENT ALERT AND ORIENTED X4, DENIES ANY PAIN AT THIS TIME. MED RECON DONE WITH DR MERRICK VORA. REPORT GIVEN TO ROVERTO IN [facility].
== END 2019-02-05 00:34 | DRG 303 ==
LOC: ER 13:24 → MEDSG1 17:13 → TELE1 19:38 → MEDSG1 02-02 09:47
PROVIDERS: ADMIT Internal Medicine; ATTEND Nurse Practitioner Acute Care
DX: I25.10 Atherosclerotic heart disease of native coronary artery without angina pectoris (principal); E87.1 Hypo-osmolality and hyponatremia; E87.6 Hypokalemia; I10 Essential (primary) hypertension; B36.0 Pityriasis versicolor; E78.5 Hyperlipidemia, unspecified; F17.210 Nicotine dependence, cigarettes, uncomplicated; F32.9 Major depressive disorder, single episode, unspecified; F10.10 Alcohol abuse, uncomplicated; Z91.14 Patient's other noncompliance with medication regimen; Z59.0 Homelessness; K59.03 Drug induced constipation; T40.605A Adverse effect of unspecified narcotics, initial encounter; Y92.89 Other specified places as the place of occurrence of the external cause; J43.9 Emphysema, unspecified
CPT/HCPCS: 36415; 71045-TC; 75574; 76705-TC; 80048-TC; 80061-TC; 80076-TC; 83690-TC; 83735-TC; 84100-TC; 84484-TC; 85025-TC; 87081-TC; 93307-TC; A9502; G0378; J1885; J2060; J2270; J2405; J2785; J2930; J3490; J7050; Q0163; Q9967

== ENCOUNTER 2019-05-23 12:07 | Emergency (ER) | payer MEDICARE, OTHER ==
[~2019-05-23] VITALS: Ht 160 cm; Wt 57.6 kg
[~2019-05-23 12:07] MED LIST changes: -methylPREDNISolone SOD SUCC IV
[2019-05-23 12:16] VITALS: BP 114/74
== END 2019-05-23 12:38 | disposition home or self-care (01) ==
LOC: ER 12:13
DX: H69.81 Other specified disorders of Eustachian tube, right ear (principal); I10 Essential (primary) hypertension; M19.90 Unspecified osteoarthritis, unspecified site; F17.200 Nicotine dependence, unspecified, uncomplicated; Z90.89 Acquired absence of other organs; Z98.890 Other specified postprocedural states; Z79.899 Other long term (current) drug therapy; Z59.0 Homelessness

== ENCOUNTER 2019-05-31 10:26 | Inpatient (IN) | payer MEDICARE, OTHER ==
[~2019-05-31] VITALS: Ht 160 cm; Wt 59.4 kg
--- NOTE | 2019-05-31 10:50 | NUR ---
IBA RA 59 Homeless/Found in bench "Leg pain/genel weak" Pt states "Having problems with left Leg but today worse pain w/walk" BS-77. Patient a/ox4, breathing even and unlabored, nos ob noted, needs attended. Kept comfortable.
[2019-05-31 12:17] LABS: BASOPHILS % (AUTO) 0.8 % (0.0-2.0); EOSINOPHILS % (AUTO) 3.4 % (0.0-6.0); HEMATOCRIT 40 % (33-45); HEMOGLOBIN 13.7 g/dL (11.5-14.8); LYMPHOCYTES # (AUTO) 1.9 /CMM (0.8-4.8); LYMPHOCYTES % (AUTO) 31.9 % (20.0-44.0); MEAN CORPUSCULAR HGB CONC 34 g/dl (31.0-36.0); MEAN CORPUSCULAR VOLUME 94 fL (82-100); MONOCYTES # (AUTO) 0.5 /CMM (0.1-1.30); MONOCYTES % (AUTO) 8.7 % (2.0-12.0); NEUTROPHILS # (AUTO) 3.3 /CMM (1.8-8.9); NEUTROPHILS % (AUTO) 55.2 % (43.0-81.0); PLATELET COUNT (AUTO) 251 /CMM (150-450); RED BLOOD CELL COUNT(AUTO) 4.29 MIL/uL (4.0-5.2); WHITE BLOOD COUNT (AUTO) 5.9 K/uL (4.3-11.0)
[2019-05-31 12:30] LABS: CALCIUM, SERUM 8.8 mg/dL (8.5-10.1); CARBON DIOXIDE 28 mmol/L (21-32); CHLORIDE 87 mmol/L (98-107); CREATININE 0.5 mg/dL (0.6-1.3); GLUCOSE 93 mg/dL (74-106); POTASSIUM 3.5 mmol/L (3.5-5.1); SODIUM SERUM 123 mmol/L (136-145); UREA NITROGEN, BLOOD 4 mg/dL (7-18)
--- NOTE | 2019-05-31 12:30 | NUR ---
Patient is resting comfortably in bed with eyes closed. Easily aroused. VSS
--- NOTE | 2019-05-31 13:12 | NUR ---
CALLED [facility], PAGED DR SARAVIA
--- NOTE | 2019-05-31 13:15 | NUR ---
CALLED NURSING SUP FOR TELE BED
[2019-05-31] MEDS ORDERED: GUAI100S11 PO (13:20)
[2019-05-31] MEDS ORDERED: DIPH25CA51 PO (13:20)
[2019-05-31] MEDS ORDERED: IBUP-1953 PO (13:20)
[2019-05-31] MEDS ORDERED: PSEU120T57 PO (13:20)
--- NOTE | 2019-05-31 13:41 | NUR ---
CALLED [facility], PAGED DR SARAVIA
[2019-05-31] MEDS ORDERED: ASPIRIN 325 MG TABLET ONE (13:59)
[2019-05-31] MEDS ORDERED: NITROGLYCERIN PACKET 1 GM PACKET ONE (13:59)
[2019-05-31] MEDS ORDERED: ASPIRIN 325 MG TABLET PO ONE (14:00)
[2019-05-31] MEDS ORDERED: NITROGLYCERIN PACKET 1 GM PACKET TD ONE (14:00)
--- NOTE | 2019-05-31 14:18 | NUR ---
REPORT GIVEN TO THU BENAVIDES FOR SHERRY. PATIENT GIVEN FOOD TRAY AND TOLERATED MEAL.
[2019-05-31] MEDS ORDERED: ALBUTEROL FS 2.5 MG/0.5 ML VIAL.NEB NEB PRN (14:30)
[2019-05-31] MEDS ORDERED: LORAZEPAM 1 MG TABLET PO PRN (14:30)
[2019-05-31] MEDS ORDERED: ZOLPIDEM TARTRATE 5 MG TABLET PO PRN (14:30)
[2019-05-31] MEDS ORDERED: MAG HYDROX/AL HYDROX/SIMETH 30 ML UDC PO PRN (14:30)
[2019-05-31] MEDS ORDERED: GUAIFENESIN 300 MG/15 ML UDC PO PRN (14:30)
[2019-05-31] MEDS ORDERED: IPRATROPIUM NEB FS 0.5 MG/2.5 ML AMPUL.NEB NEB PRN (14:30)
[2019-05-31] MEDS ORDERED: Z GUARD REMEDY 2 OZ OINT TP PRN (14:30)
[2019-05-31] MEDS ORDERED: ONDANSETRON HCL/PF 4 MG/2 ML VIAL IVP PRN (14:30)
[2019-05-31] MEDS ORDERED: IV NS 0.9% 1,000 ML IV PRN (14:30)
[2019-05-31] MEDS ORDERED: MAGNESIUM HYDROXIDE 30 ML UDC PO PRN (14:30)
--- NOTE | 2019-05-31 15:00 | NUR ---
MS RN NOTES RECEIVED PATIENT VIA GURNEY FROM ER. PATIENT ALERT, ORIENTED X4. PERIPHERAL IV INTACT PATENT. NO SOB OR ACUTE DISTRESS NOTED. PATIENT ABLE TO AMBULATE REPORTS SOME WEAKNESS. DENIES CHEST PAIN. PATIENT PLACED IN ROOM. CALL LIGHT WITHIN REACH. BED IN LOW LOCKED POSITION, WILL CONTINUE TO MONITOR.
[2019-05-31] MEDS: HYDROCODONE/APAP 5/325MG 1 EACH TABLET PO PRN ×2 (16:47→21:02)
--- NOTE | 2019-05-31 18:53 | NUR ---
DOG AND CAT FOOD COOK NOTES PATIENT IN BED RESTING. NO SOB OR ACUTE DISTRESS NOTED. ALL DUE MEDICATIONS ADMINISTERED. ALL NEEDS MET. WILL ENDORSE CARE TO PM SHIFT.
[2019-05-31 20:00] VITALS: BP 143/72
--- NOTE | 2019-05-31 20:00 | NUR ---
TELE/RN OPENING NOTES RECEIVED PATIENT SITTING IN BED, AWAKE, ALERT X3, ABLE TO VERBALIZE NEEDS, RESPIRATIONS EVEN AND UNLABORED, ON ROOM AIR, SOME COMPLAIN OF PAIN IN BILATERAL LOWER EXTREMITIES, BED LOCKED, CALL LIGHTS WITHIN REACH, RECEIVED ENDORSEMENT FROM AM RN FOR SHERRY. BED LOCKED, CALL LIGHTS WITHIN REACH, WILL MONITOR.IV FLUIDS INFUSING AT 75 ML.
[2019-05-31 20:27] VITALS: BP 143/72
--- NOTE | 2019-05-31 21:21 | NUR ---
TELE/RN NOTES MD MADE AWARE REGARDING NGT TUBE FAILED ATTEMPT DUE TO BLOCKAGE.
[2019-06-01] VITALS: BP 131/71
[2019-06-01] MEDS: HYDROCODONE/APAP 5/325MG 1 EACH TABLET PO PRN ×2 (02:23→21:10)
--- NOTE | 2019-06-01 02:29 | NUR ---
TELE/RN NOTES PATIENT AWAKEN FROM SLEEP REPORTED SEVERE PAIN IN LOWER LEGS, ABLE TO DRINK FLUIDS AND HELP IV FLUIDS AT THIS TIME PER REQUEST. TO MONITOR.
[2019-06-01 04:00] VITALS: BP 126/79
--- NOTE | 2019-06-01 06:40 | NUR ---
321-1 PATIENT ALERT, ORIENTED X3, ABLE TO VERBALIZE NEEDS, ON PAIN MANAGEMENT MONITORING. WILL ENDORSE TO AM RN FOR SHERRY. BED LOCKED, CALL LIGHTS WITHIN REACH. WILL MONITOR.TELE MONITOR SR 81.
[2019-06-01 06:59] LABS: BASOPHILS # (AUTO) 0.1 /CMM (0.0-0.2); EOSINOPHILS % (AUTO) 3.9 % (0.0-6.0); HEMATOCRIT 40 % (33-45); HEMOGLOBIN 13.2 g/dL (11.5-14.8); LYMPHOCYTES # (AUTO) 1.4 /CMM (0.8-4.8); LYMPHOCYTES % (AUTO) 27.1 % (20.0-44.0); MEAN CORPUSCULAR HGB CONC 34 g/dl (31.0-36.0); MEAN CORPUSCULAR VOLUME 94 fL (82-100); MONOCYTES # (AUTO) 0.6 /CMM (0.1-1.30); MONOCYTES % (AUTO) 11.1 % (2.0-12.0); NEUTROPHILS % (AUTO) 56.9 % (43.0-81.0); PLATELET COUNT (AUTO) 212 /CMM (150-450); RED BLOOD CELL COUNT(AUTO) 4.19 MIL/uL (4.0-5.2); WHITE BLOOD COUNT (AUTO) 5.3 K/uL (4.3-11.0)
[2019-06-01 07:28] LABS: CALCIUM, SERUM 8.9 mg/dL (8.5-10.1); CREATININE 0.6 mg/dL (0.6-1.3); MAGNESIUM 1.9 mg/dL (1.8-2.4); PHOSPHORUS 3.5 mg/dL (2.5-4.9); POTASSIUM 3.8 mmol/L (3.5-5.1)
[2019-06-01 07:33] LABS: THYROID STIMULATING HORMONE 4.14 uIU/mL (0.358-3.74)
[2019-06-01 08:00] VITALS: BP 133/64
--- NOTE | 2019-06-01 08:13 | NUR ---
TELE/RN OPENING NOTES RECEIVED PATIENT LYING ON BED COMFORTABLY. ALERT AND ORIENTED X4. PATIENT COMPLAINED OF PAIN 12/18. PATIENT RESPIRATIONS EVEN AND UNLABORED. NO RESPIRATORY DISTRESS NOTED. BED IN LOWEST POSITION AND [id number]. SIDE RAILS UP X2. CALL LIGHTS WITHIN REACH. WILL CONTINUE TO MONITOR.
[2019-06-01] MEDS: CARVEDILOL 12.5 MG TABLET PO SCH ×2 (09:43→21:08)
[2019-06-01] MEDS: AMLODIPINE BESYLATE 10 MG TABLET PO SCH (09:43)
[2019-06-01] MEDS: ACETAMINOPHEN 325 MG TABLET PO PRN ×2 (09:52→17:19)
[2019-06-01 13:13] LABS: OSMOLALITY,URINE 410 mOS/kg (340-1090); URINE SODIUM, RANDOM 16 mmol/l (40-220)
--- NOTE | 2019-06-01 15:26 | NUR ---
Social service consult requested by Dr. Fisher for homelessness. Per chart review and MD notes, pt. is a 68-year-old female who was brought in by paramedics yesterday. Patient states she's been having generalized weakness with left-sided pressure-like chest pain intermittently for the past 24 hours. Pt has history of Emphysema and Arthritis. DIETETIC AIDE is familiar with the pt. from several ED/inpatient admissions. Pt. is alert and oriented x 4. Pt's mood is congruent. Pt. is pleasant and cooperative with SW during the assessment. Pt. appears disheveled and unkempt. Pt. reports to be homeless. Pt reports to be living with her son Martin in an abandoned post office in [place]. Pt stated, she is working with [facility] social work manager Ms Tiffany Ortega regarding housing options. Pt receives approximately $916.24 in [employer]press[employer] money monthly. Pt states she smokes Marijuana occasionally and drinks approximately 3 cans of 24 ounces of beer a few days a week. Pt denies any other drug use. Pt denies suicidal and homicidal ideations and visual/auditory hallucinations at this time. Pt smokes a pack of cigarettes per day. DIETETIC AIDE educated pt regarding the health hazards of smoking. DIETETIC AIDE provided pt. with active listening and supportive counseling. DIETETIC AIDE offered pt SNF/ nursing home placement, however pt. declined. Pt reported, to want to go back to [place], to be with her son. DIETETIC AIDE to meet with pt. again prior to discharge to offer homeless nursing home /clinics, food bank resources. Homeless Patient waiver to be signed by the pt. upon discharge. DIETETIC AIDE updated manager case Faby regarding pt. declined SNF placement. No other social service needs are requested at this time. DIETETIC AIDE is available, if needed.
[2019-06-01 16:00] VITALS: BP 121/76
[2019-06-01 18:28] VITALS: BP 121/76
--- NOTE | 2019-06-01 18:37 | NUR ---
MS/RN CLOSING NOTES PATIENT IS ALERT AND ORIENTED X4. PATIENT COMPLAINED OF PAIN 6/10 GIVE TYLENOL ORDER AT 1700. NO RESPIRATORY DISTRESS NOTED. KEPT PATIENT CLEAN AND DRY THE WHOLE TIME. SEEN AND EXAMINED BY MD WITH ORDER NOTED AND CARRIED OUT. BED IN LOWEST OSITION AND LOCKED. SIDE RAILS UP X2. WILL ENDORSED TO PSYCHOLOGY PHYSICIAN FOR CONTINUITY OF CARE.
--- NOTE | 2019-06-01 19:10 | NUR ---
MS RN NOTE RECEIVED PT IN STABLE CONDITION A/O X4, CURRENTLY RESTING IN BED. NO SIGNS OF SOB OR DISTRESS, NO C/O PAIN OR N/V. IV IN L WRIST #[address] S/L. ALL CURRENT NEEDS ATTENDED TO. BED LOW, LOCKED, UPPER RAILS UP, AND CALL LIGHT WITHIN REACH. WILL CONT. TO MONITOR.
[2019-06-01 20:00] VITALS: BP 114/78
[2019-06-02] MEDS: HYDROCODONE/APAP 5/325MG 1 EACH TABLET PO PRN ×4 (03:15→13:03)
--- NOTE | 2019-06-02 07:16 | NUR ---
MS RN NOTE PT REMAINS IN STABLE CONDITION A/O X4, CURRENTLY RESTING IN BED. NO SIGNS OF SOB OR DISTRESS, NO C/O PAIN OR N/V. IV IN L WRIST #[address] S/L. ALL CURRENT NEEDS ATTENDED TO. BED LOW, LOCKED, UPPER RAILS UP, AND CALL LIGHT WITHIN REACH. WILL CONT. TO MONITOR AND ENDORSE TO NEXT SHIFT FOR SHERRY.
[2019-06-02 07:55] LABS: CALCIUM, SERUM 9.1 mg/dL (8.5-10.1); CREATININE 0.6 mg/dL (0.6-1.3); PHOSPHORUS 3.8 mg/dL (2.5-4.9); POTASSIUM 4.3 mmol/L (3.5-5.1)
[2019-06-02 08:00] VITALS: BP 129/76
[2019-06-02 08:08] LABS: URIC ACID 3.6 mg/dL (2.6-7.2)
[2019-06-02] MEDS: AMLODIPINE BESYLATE 10 MG TABLET PO SCH (08:25)
[2019-06-02 08:26] VITALS: BP 129/76
[2019-06-02] MEDS: CARVEDILOL 12.5 MG TABLET PO SCH (08:26)
--- NOTE | 2019-06-02 08:44 | NUR ---
MS/RN OPENING NOTES RECEIVED PATIENT LYING IN BED COMFORTABLY PATIENT IS ALERT AND ORIENTED X4. NO RESPIRATORY DISTRESS NOTED. PATIENT COMPLAINED OF PAIN 7/10. IN ROOM AIR AND SATURATION IS AT 100%. RESPIRATION REGULAR AND UNLABORED. WILL CONTINUE TO MONITOR..
[2019-06-02] MEDS ORDERED: CARV12.52 PO (10:32)
--- NOTE | 2019-06-02 15:34 | NUR ---
OPTICAL LABORATORY TECHNICIAN was informed by manager of case management Faby that pt. has a dischcarge order for today. OPTICAL LABORATORY TECHNICIAN met with the pt bedside to discuss pt's discharge plan. Pt appeared to be surprised that she was being discharged. Pt reported to OPTICAL LABORATORY TECHNICIAN that she has not seen the doctor today. OPTICAL LABORATORY TECHNICIAN informed Pt she will notify ELEANOR Reinier regarding her concern. Pt did inform OPTICAL LABORATORY TECHNICIAN she will go back to [place] and declined to go to the [facility] detention. Pt did accept the following homeless resource packet that included the following: [facility] [id number] [facility] list, [facility], [facility] ; [facility] Homeless Resource Directory which includes food stamps, transitional housing, showers and hot meals etc; Mental Health clinics such as [facility] ; [facility] ; Health clinics;[facility] and Alcohol treatment centers such as [facility], ; [facility] Substance Abuse Hotline and [facility] . Homeless Patient Waiver Form was placed in pt's chart for pt to sign upon discharge. OPTICAL LABORATORY TECHNICIAN updated pt's bedside MAKAYLA Elliott regarding pt's discharge plan. No other social service needs are requested at this time.
--- NOTE | 2019-06-02 17:06 | NUR ---
MS/RN NOTES PATIENT IS ALERT AND ORIENTED X4. DENIES PAIN AT THIS TIME. IN ROOM AIR AND SATURATION IS AT 99%. RESPIRATION REGULAR AND UNLABORED. THE PATIENT IN NO APPARENT DISTRESS. THE PATIENT IS GIVEN DISCHARGE INSTRUCTIONS AND SHE VERBALIZED UNDERSTANDING. PATIENT LEFT THE HOSPITAL IN STABLE CONDITION AMBULATORY AND ALONE. GIVE TAP CARD FOR BUS. OFFER FOOD FOR DINNER BUT PATIENT REFUSED, PATIENT IS STILL FULL PER PATIENT.
== END 2019-06-02 17:00 | disposition home or self-care (01) | DRG 303 ==
LOC: ER 10:28 → TELE 13:39 → MED 06-01 10:02
DX: I25.10 Atherosclerotic heart disease of native coronary artery without angina pectoris (principal); E87.1 Hypo-osmolality and hyponatremia; B36.0 Pityriasis versicolor; E78.5 Hyperlipidemia, unspecified; I10 Essential (primary) hypertension; J44.9 Chronic obstructive pulmonary disease, unspecified; M19.90 Unspecified osteoarthritis, unspecified site; Z91.14 Patient's other noncompliance with medication regimen; K59.03 Drug induced constipation; T40.605A Adverse effect of unspecified narcotics, initial encounter; Y92.89 Other specified places as the place of occurrence of the external cause; F17.210 Nicotine dependence, cigarettes, uncomplicated; Z71.6 Tobacco abuse counseling; E86.1 Hypovolemia; F10.20 Alcohol dependence, uncomplicated; Z59.0 Homelessness
CPT/HCPCS: 36415; 71045-TC; 80048-TC; 80061-TC; 83735-TC; 83880; 83935-TC; 84100-TC; 84300-TC; 84443-TC; 84484-TC; 84550-TC; 85025-TC; 87081-TC; 97116-TC; 97530-TC; G0378; J7030

== ENCOUNTER 2019-06-07 11:23 | Outpatient (CLI) | payer MEDICARE, OTHER ==
[~2019-06-07 11:23] MED LIST changes: -ALBUT2 NEB; +CARV12.52 PO; +DIPH25CA51 PO; +IBUP-1953 PO; -IPRA0.2S9 NEB; -NAPR-1164 PO; -OXYB5TAB29 PO; -PANT40TA2 PO; -ZOLP5TAB2 PO
== END 2019-06-07 23:59 | disposition home or self-care (01) ==
LOC: MSC 11:23
PROVIDERS: ATTEND Internal Medicine
DX: J43.9 Emphysema, unspecified (principal); Z72.0 Tobacco use; G89.29 Other chronic pain; M47.892 Other spondylosis, cervical region; M47.896 Other spondylosis, lumbar region; I10 Essential (primary) hypertension; E78.5 Hyperlipidemia, unspecified; F41.8 Other specified anxiety disorders; Z79.891 Long term (current) use of opiate analgesic; Z79.899 Other long term (current) drug therapy; F10.21 Alcohol dependence, in remission

== ENCOUNTER 2019-12-25 11:42 | Inpatient (IN) | payer MEDICARE, OTHER ==
[~2019-12-25] VITALS: Ht 160 cm; Wt 55.8 kg
[~2019-12-25 11:42] MED LIST changes: +ALBU18HF2 INH; +AMLO5TAB9 PO; +IBUP-1490 PO; +LORA-259 PO
[2019-12-25 12:51] LABS: BASOPHILS # (AUTO) 0.1 /CMM (0.0-0.2); BASOPHILS % (AUTO) 0.9 % (0.0-2.0); EOSINOPHILS % (AUTO) 2.3 % (0.0-6.0); HEMATOCRIT 35 % (33-45); HEMOGLOBIN 11.9 g/dL (11.5-14.8); LYMPHOCYTES # (AUTO) 2.1 /CMM (0.8-4.8); LYMPHOCYTES % (AUTO) 30.4 % (20.0-44.0); MEAN CORPUSCULAR HGB CONC 34 g/dl (31.0-36.0); MEAN CORPUSCULAR VOLUME 100 fL (82-100); MONOCYTES # (AUTO) 0.6 /CMM (0.1-1.30); MONOCYTES % (AUTO) 8.2 % (2.0-12.0); NEUTROPHILS % (AUTO) 58.2 % (43.0-81.0); PLATELET COUNT (AUTO) 244 /CMM (150-450); RED BLOOD CELL COUNT(AUTO) 3.52 MIL/uL (4.0-5.2); WHITE BLOOD COUNT (AUTO) 6.9 K/uL (4.3-11.0)
--- NOTE | 2019-12-25 12:56 | NUR ---
Patient awake denies discomfort Blood drawn obtained and send to lab hooked in the monitor
--- NOTE | 2019-12-25 12:56 | NUR ---
Radha king in ED - 12/25/19 at 1256 by ELIZABETH Patient awake alert orrented
[2019-12-25 13:05] LABS: CALCIUM, SERUM 8.2 mg/dL (8.5-10.1); CARBON DIOXIDE 19 mmol/L (21-32); CHLORIDE 90 mmol/L (98-107); CREATININE 0.5 mg/dL (0.6-1.3); GLUCOSE 78 mg/dL (74-106); POTASSIUM 3.3 mmol/L (3.5-5.1); SODIUM SERUM 122 mmol/L (136-145); UREA NITROGEN, BLOOD 3 mg/dL (7-18)
[2019-12-25 13:17] LABS: ALANINE AMINOTRANSFERASE 38 U/L (12-78); ALBUMIN 3.3 g/dL (3.4-5.0); ALKALINE PHOSPHATASE 52 U/L (46-116); ASPARTATE AMINOTRANSFERASE 40 U/L (15-37); B-TYPE NATRIURETIC PEPTIDE 280 PG/ML (0-125); BILIRUBIN,DIRECT 0.1 mg/dL (0.0-0.2); BILIRUBIN,TOTAL 0.5 mg/dL (0.2-1.0); TOTAL PROTEIN, SERUM 7.8 g/dL (6.4-8.2)
[2019-12-25] MEDS ORDERED: IBUPROFEN 600 MG TABLET PO ONE ×2 (13:26→13:30)
[2019-12-25] MEDS ORDERED: IV NS 0.9% 500 ML BAG IV ONE (13:30)
--- NOTE | 2019-12-25 13:51 | NUR ---
MOVE SHEET SUBMITTED AND CALLED FOR TELE BED.
--- NOTE | 2019-12-25 13:55 | NUR ---
PAGED [facility].
--- NOTE | 2019-12-25 14:03 | NUR ---
CALLED LAB FOR COVID SWAB COVID.
--- NOTE | 2019-12-25 14:22 | NUR ---
Covid swab obatined and send to lab
[2019-12-25] MEDS ORDERED: MAG HYDROX/AL HYDROX/SIMETH 30 ML UDC PO PRN (14:30)
[2019-12-25] MEDS ORDERED: MAGNESIUM HYDROXIDE 30 ML UDC PO PRN (14:30)
[2019-12-25] MEDS ORDERED: Z GUARD REMEDY 2 OZ OINT TP PRN (14:30)
[2019-12-25] MEDS ORDERED: ONDANSETRON HCL/PF 4 MG/2 ML VIAL IVP PRN (14:30)
[2019-12-25] MEDS ORDERED: ACETAMINOPHEN 325 MG TABLET PO PRN (14:30)
--- NOTE | 2019-12-25 14:49 | NUR ---
REmoved heplock Rt wrist cath intact no pain
[2019-12-25] MEDS: IV NS 0.9% 1,000 ML IV PRN ×4 (14:53→17:38)
--- NOTE | 2019-12-25 15:07 | NUR ---
Patient alert and orriented non distress no Sob @ this time shes requsting for food
--- NOTE | 2019-12-25 16:39 | NUR ---
ROOM GIVEN 328-1 TELE
--- NOTE | 2019-12-25 16:55 | NUR ---
Called report to Megan Johnson aware patient is alert non distress @ this time continue to monitor
[2019-12-25] MEDS ORDERED: POTASSIUM CHLORIDE 20 MEQ TAB.PRT.SR PO ONE (17:30)
--- NOTE | 2019-12-25 17:40 | NUR ---
ADMIT NOTES RECEIVED REPORT FROM ER NURSE PATIENT WAS ADMITTED VIA GURNEY SHE IS A/O X 4 WITH NO SIGNS OF DISTRESS AND NO SOB IN ROOM AIR. IV L WRIST #22G INFUSING NS AY 75 MLS/HR. COMPLAINT ABOUT PAIN GAVE PAIN MEDICATION ACCORDINGLY TO HER PRN MED ORDERS. ORIENTED PATIENT TO HER ROOM. SAFETY MEASURES ARE APPLIED BED IS LOCKED LOW POSITION, SIDE RAILS UP X 2 FOR SAFETY. CALL LIGHT WITHIN REACH. WILL CONTINUE TO MONITOR.
[2019-12-25] MEDS: HYDROCODONE/APAP 5/325MG TABLET PO PRN ×2 (17:54→21:41)
--- NOTE | 2019-12-25 19:21 | NUR ---
TELE RYN CLOSING NOTES PATIENT IS A/O X 4 WITH NO SIGNS OF DISTRESS IN ROOM AIR. IV L WRIST #22G RUNNING NS @ 75 MLS/HR. TELE SR. PATIENT REMAINED STABLE THROUGH OUT SHIFT. PATIENT KEPT CLEAN AND DRY. ALL NEEDS, CARE, TREATMENT AND MEDICATIONS ADMINISTERED ANTICIPATED PER ORDER. SAFETY MEASURES ARE APPLIED BED IS LOCKED AND LOW POSITION, SIDE RAILS UP X 2 FOR SAFETY. CALL LIGHT WITHIN REACH. WILL ENDORSE TO THE NEXT PLANT TAXONOMIST.
--- NOTE | 2019-12-25 19:40 | NUR ---
HONING MACHINE SET UP OPERATOR OPEN NOTES PATIENT IS LAYING IN BED. A/O X4. ON RA, NO SOB/ ACUTE RESPIRATORY DISTRESS NOTED. BED IS IN LOWEST LOCKED POSITION WITH SIDE RAILS UP X2, SEMI FOWLERS. CALL LIGHT IS WITHIN REACH. WILL CONTINUE TO MONITOR.
[2019-12-25 20:00] VITALS: BP 125/73
[2019-12-26] VITALS: BP 122/74
[2019-12-26] MEDS: HYDROCODONE/APAP 5/325MG TABLET PO PRN ×4 (02:21→19:40)
[2019-12-26 04:00] VITALS: BP 131/62
[2019-12-26 04:35] VITALS: BP 131/62
--- NOTE | 2019-12-26 06:48 | NUR ---
CONTROLS PROJECT ENGINEER CLOSE NOTES PATIENT IS LAYING IN BED. A/O X4. ON RA, NO SOB/ ACUTE RESPIRATORY DISTRESS NOTED. IV IN L WRIST #22G IS PATENT AND INTACT RUNNING NS @75 MLS/HR. APPEARS COMFORTABLE/ NO COMPLAINTS OF PAIN AT THE MOMENT. BED IS IN LOWEST LOCKED POSITION WITH SIDE RAILS UP X2, SEMI FOWLERS. PATIENT IS AMBULATORY. CALL LIGHT IS WITHIN REACH. WILL ENDORSE TO AM NURSE.
[2019-12-26 06:51] LABS: BASOPHILS % (AUTO) 0.7 % (0.0-2.0); EOSINOPHILS % (AUTO) 4.1 % (0.0-6.0); HEMATOCRIT 39 % (33-45); HEMOGLOBIN 13.1 g/dL (11.5-14.8); LYMPHOCYTES # (AUTO) 1.4 /CMM (0.8-4.8); LYMPHOCYTES % (AUTO) 27.5 % (20.0-44.0); MEAN CORPUSCULAR HGB CONC 34 g/dl (31.0-36.0); MEAN CORPUSCULAR VOLUME 102 fL (82-100); MONOCYTES # (AUTO) 0.4 /CMM (0.1-1.30); MONOCYTES % (AUTO) 8.2 % (2.0-12.0); NEUTROPHILS # (AUTO) 3.1 /CMM (1.8-8.9); NEUTROPHILS % (AUTO) 59.5 % (43.0-81.0); PLATELET COUNT (AUTO) 246 /CMM (150-450); RED BLOOD CELL COUNT(AUTO) 3.81 MIL/uL (4.0-5.2); WHITE BLOOD COUNT (AUTO) 5.2 K/uL (4.3-11.0)
[2019-12-26 07:50] LABS: CALCIUM, SERUM 9.3 mg/dL (8.5-10.1); CREATININE 0.6 mg/dL (0.6-1.3); MAGNESIUM 1.9 mg/dL (1.8-2.4); PHOSPHORUS 3.8 mg/dL (2.5-4.9); POTASSIUM 4.3 mmol/L (3.5-5.1)
--- NOTE | 2019-12-26 08:00 | NUR ---
SLEEVE TURNER OPENING NOTES Received Patient resting in bed. A/O x 4. VS stable with no acute distress. Breathing even and unlabored on room air with no respiratory distress. Patient stated pain level of 9/10 headache and right chest pain. Will intervene as ordered. Telemonitor in place and patent reading SR with HR-67. 22g PIV on left wrist intact, patent and flushing well with NS infusing at 75ml/hr. Safety precautions in place. Bed locked and set to lowest position with side rails x 2 up. All needs rendered at this time. Call light within reach. Will continue to monitor.
[2019-12-26] MEDS: NICOTINE PATCH (21MG) 21 MG PATCH.TD24 TD SCH (09:00)
[2019-12-26] MEDS: DOCUSATE SODIUM 250 MG CAPSULE PO SCH (09:06)
[2019-12-26] MEDS: METOPROLOL TARTRATE 50 MG TABLET PO SCH ×2 (12:06→18:05)
[2019-12-26] MEDS ORDERED: IV NS 0.9% 250 ML IV ONE (13:02)
[2019-12-26] MEDS ORDERED: IOHEXOL-350 100 ML VIAL IV ONE (13:02)
[2019-12-26] MEDS ORDERED: NITROGLYCERIN 0.4 MG/TAB BOTTLE ONE (13:24)
[2019-12-26] MEDS ORDERED: METOPROLOL TARTRATE INJ 5 MG/5 ML AMPUL ONE ×2 (13:25→13:36)
[2019-12-26] MEDS: METOPROLOL TARTRATE INJ 5 MG/5 ML AMPUL IVP PRN ×2 (13:27→13:32)
[2019-12-26] MEDS ORDERED: NITROGLYCERIN 0.4 MG/TAB BOTTLE SL ONE (13:30)
--- NOTE | 2019-12-26 13:43 | NUR ---
RN NOTES; CTA procedure: Unable to complete procedure, patient refused in the middle of scanning, per patient she can not tolerate the procedure and stated that shes hurting and she does not want to continue the scanning anymore, informed patient that we will inform per patient "I dont care about him, just let me go back to my room" Called genoveva Johnson, and informed her about patient refusal and per genoveva she will inform .
--- NOTE | 2019-12-26 19:40 | NUR ---
SHIP ERECTOR CLOSING NOTES Patient resting in bed. A/O x 4. VS stable with no acute distress. Breathing even and unlabored on room air with no respiratory distress. Patient stated generalized pain level of 9/10. Administered Beach 5-325mg PO at this time. Will endorse to oncoming shift. Telemonitor in place and patent reading SR with HR-63. 22g PIV on LFA clean, intact, patent and flushing well. Safety precautions in place. Bed locked and set to lowest position with side rails x 2 up. All needs rendered at this time. Call light within reach. Will endorse plan of care to oncoming shift.
--- NOTE | 2019-12-26 19:48 | NUR ---
FIRE PILOT NOTES RECEIVED PATIENT AWAKE ALERT ORIENTED X4. NO SIGNS OF ACUTE RESPIRATORY OR CARDIAC DISTRESS NOTED, SAFETY MEASURES IN PLACE ASPIRATION PRECAUTION EMPHASIZED, CALL LIGHT WITH IN EASY REACH. BED IN LOW LOCKED POSITION. KEEP CLEAN WARM DRY AND COMFORTABLE. NORCO GIVEN BY AM NURSE, WILL MONITOR. IV ACCESS INTACT AND PATENT. ALL NEEDS ANTICIPATED WILL CONTINUE TO MONITOR ACCORDINGLY.
[2019-12-26 20:00] VITALS: BP 151/77
[2019-12-26] MEDS: LORAZEPAM 1 MG TABLET PO PRN (22:38)
[2019-12-27] VITALS (7 sets, daily range): BP systolic 118–180; BP diastolic 53–94
[2019-12-27] MEDS: METOPROLOL TARTRATE 50 MG TABLET PO SCH ×4 (00:34→18:05)
--- NOTE | 2019-12-27 06:14 | NUR ---
DEMOLITION HAMMER OPERATOR NOTES ALL NEEDS ATTENDED AND MET, ABLE TO REST AND SLEPT AT INTERVALS PATIENT AWAKE ALERT ORIENTED X4. NO SIGNS OF ACUTE RESPIRATORY OR CARDIAC DISTRESS NOTED, SAFETY MEASURES IN PLACE ASPIRATION PRECAUTION EMPHASIZED, CALL LIGHT WITH IN EASY REACH. BED IN LOW LOCKED POSITION. KEEP CLEAN WARM DRY AND COMFORTABLE. IV ACCESS INTACT AND PATENT. TELE MONITOR READS SINUS 70s- ALL NEEDS ANTICIPATED WILL ENDORSE TO AM NURSE FOR CONTINUITY OF CARE.
--- NOTE | 2019-12-27 07:22 | NUR ---
TRAY DRIER OPENING NOTES PATIENT RECEIVED AWAKE IN BED WATCHING TV. A/O X4. ABLE TO MAKE NEEDS KNOWN, DENIES PAIN OR ANY DISCOMFORTS AT THIS TIME. ON RA, BREATHING EVEN AND UNLABORED. TELEMONITORING READING AT THIS TIME SHOWS SR WITH OCCASIONAL PVC'S WITH HR ON THE 70'S, PT DENIES ANY CARDIAC DISTRESS AT THIS TIME. IV ACCESS ON LFA G #22 INTACT AND PATENT, IVF INFUSING ORDERED, NO S/S OF INFILTRATIONS NOTED. BED IS IN LOWEST LOCKED POSITION WITH SIDE RAILS UP X2. CALL LIGHT IS WITHIN REACH. WILL CONTINUE TO MONITOR.
[2019-12-27 07:26] LABS: BASOPHILS % (AUTO) 0.6 % (0.0-2.0); EOSINOPHILS % (AUTO) 2.3 % (0.0-6.0); HEMATOCRIT 38 % (33-45); HEMOGLOBIN 12.7 g/dL (11.5-14.8); LYMPHOCYTES # (AUTO) 0.7 /CMM (0.8-4.8); LYMPHOCYTES % (AUTO) 11.6 % (20.0-44.0); MEAN CORPUSCULAR HGB CONC 34 g/dl (31.0-36.0); MEAN CORPUSCULAR VOLUME 102 fL (82-100); MONOCYTES # (AUTO) 0.4 /CMM (0.1-1.30); MONOCYTES % (AUTO) 6.3 % (2.0-12.0); NEUTROPHILS % (AUTO) 79.2 % (43.0-81.0); PLATELET COUNT (AUTO) 224 /CMM (150-450); RED BLOOD CELL COUNT(AUTO) 3.71 MIL/uL (4.0-5.2); WHITE BLOOD COUNT (AUTO) 6.3 K/uL (4.3-11.0)
[2019-12-27] MEDS: HYDROCODONE/APAP 5/325MG TABLET PO PRN ×3 (08:33→23:35)
[2019-12-27] MEDS: NICOTINE PATCH (21MG) 21 MG PATCH.TD24 TD SCH (08:36)
[2019-12-27] MEDS: DOCUSATE SODIUM 250 MG CAPSULE PO SCH (08:37)
--- NOTE | 2019-12-27 08:37 | NUR ---
RN NOTES PT C/O HEADACHE WITH SCALE OF 6/10, PRN NORCO 5/325MG TAB GIVEN AT 0833. WILL CONTINUE TO MONITOR AND REASSESS PT.
[2019-12-27 08:55] LABS: CALCIUM, SERUM 9.2 mg/dL (8.5-10.1); CREATININE 0.7 mg/dL (0.6-1.3); MAGNESIUM 1.6 mg/dL (1.8-2.4); PHOSPHORUS 4.3 mg/dL (2.5-4.9); POTASSIUM 3.8 mmol/L (3.5-5.1)
[2019-12-27] MEDS: Magnesium 1GM/D5W 100ML PREMIX 100 ML IV SCH ×2 (09:40→10:49)
--- NOTE | 2019-12-27 12:55 | NUR ---
RN NOTES PT NOTED WITH LOW MG 1.6 TODAY, ADMINISTERED 1 GM/100ML DW X 2 BAGS ORDERED. WILL CONTINUE TO MONITOR
[2019-12-27] MEDS: METOPROLOL TARTRATE INJ 5 MG/5 ML AMPUL IVP PRN (16:17)
--- NOTE | 2019-12-27 18:28 | NUR ---
RN NOTES PT NOTED WITH LEAKING PIV ON LFA G#22 AND WAS REMOVED THEN APPLIED DRY DRESSING. NEW IV ACCESS INSERTED TO RIGHT FA G #22 AND SECURED WITH TAPE. WILL CONTINUE TO MONITOR.
--- NOTE | 2019-12-27 18:38 | NUR ---
MS RN CLOSING NOTES PATIENT IN BED WATCHING TV AT THIS TIME. A/O X4. ABLE TO MAKE NEEDS KNOWN. ON ROOM AIR, TOLERATING WELL WITH NO SOB NOTED THROUGHOUT THE DAY. IV ACCESS ON RFA G #22 INTACT AND PATENT, IVF INFUSING ORDERED, NO S/S OF INFILTRATIONS NOTED. ALL NEEDS AND CARE ATTENDED WELL. BED KEPT IN LOWEST LOCKED POSITION WITH SIDE RAILS UP X2. CALL LIGHT IS WITHIN EASY REACH OF PT. WILL ENDORSE TO COLOR DEVELOPER NURSE FOR SHERRY.
--- NOTE | 2019-12-27 19:56 | NUR ---
MS/RN OPENING NOTE Patient awake in bed. A/O x4. Face is symmetrical. Breathing even, clear, unlabored in all lobes. No acute distress or SOB noted. Pedal pulses 2+. No JVD. Skin warm, pink dry, appropriate for ethnicity intact. Bowel sounds normoactive in all quadrants, last bowel movement was this morning. Voiding via BRP, yellow, clear, urine. Patient is ambulatory. IV site RFA 22g running NS @ 75 ml/hr, no signs of infiltration. Bed in low position, wheels locked, side rails up x2, call light within reach.
[2019-12-27] MEDS: LORAZEPAM 1 MG TABLET PO PRN (21:08)
[2019-12-27] MEDS: IV NS 0.9% 1,000 ML IV PRN (23:39)
--- NOTE | 2019-12-27 23:43 | NUR ---
MS/RN NOTE Patient c/o headache and generalized pain level 9. Administered PRN norco as ordered. VSS. Will continue to monitor.
[2019-12-28] MEDS: METOPROLOL TARTRATE 50 MG TABLET PO SCH ×2 (00:07→05:01)
[2019-12-28] MEDS: HYDROCODONE/APAP 5/325MG TABLET PO PRN ×2 (05:48→09:51)
--- NOTE | 2019-12-28 05:50 | NUR ---
MS/RN NOTE Patient c/o generalized pain and headache level 7. Administered PRN norco as ordered. VSS. Will continue to monitor.
--- NOTE | 2019-12-28 06:11 | NUR ---
MS/RN OPENING NOTE Patient asleep in bed. A/O x4. Breathing even, clear, unlabored in all lobes. No acute distress or SOB noted. Pedal pulses 2+. Skin warm, pink dry, appropriate for ethnicity intact. Bowel sounds normoactive in all quadrants, no bowel movement during this shift. Voiding via BRP, yellow, clear, urine. Patient is ambulatory. IV site RFA 22g running NS @ 75 ml/hr, no signs of infiltration. Last pain medication given at 0548 as ordered. Bed in low position, wheels locked, side rails up x2, call light within reach. Will endorse to oncoming nurse. Addendum: 12/28/19 at 0614 by GENOVEVA GLEASON RN /RN CLOSING* NOTE
[2019-12-28 06:45] LABS: CALCIUM, SERUM 8.9 mg/dL (8.5-10.1); CREATININE 0.5 mg/dL (0.6-1.3); MAGNESIUM 1.9 mg/dL (1.8-2.4); POTASSIUM 3.6 mmol/L (3.5-5.1)
--- NOTE | 2019-12-28 07:31 | NUR ---
RN MS NOTES PT IN BED, AWAKE, ALERT AND ORIENTED, NO COMPLAINT OF PAIN OR ANY DISCOMFORT, BREATHING PATTERN NORMAL, CALL LIGHT WITHIN REACH, NEEDS ATTENDED.
[2019-12-28 08:00] VITALS: BP 136/65
[2019-12-28] MEDS: DOCUSATE SODIUM 250 MG CAPSULE PO SCH (08:59)
[2019-12-28] MEDS: NICOTINE PATCH (21MG) 21 MG PATCH.TD24 TD SCH (09:00)
--- NOTE | 2019-12-28 13:55 | NUR ---
RN MS NOTES PT IN BED, AWAKE, ALERT AND ORIENTED, DENIES PAIN AT THIS TIME, RESPIRATIONS NORMAL, CALL LIGHT WITHIN REACH, DISCHARGE ORDER GIVEN BY DR. SANDOVAL, DISCHARGE AND MEDICTION INSTRUCTIONS PROVIDED TO PT, VERBALIZED UNDERSTANDING, REPORT GIVEN TO ROSEMARY BENAVIDES OF [facility], BELONGINGS ACCOUNTED FOR, PICKED UP BY 2 AMBULANCE PERSONNEL, LEFT VIA GUERNEY IN STABLE CONDITION.
== END 2019-12-28 15:01 | DRG 640 ==
LOC: ER 11:53 → TELE 16:48 → MERGE 16:48 → TELE 12-26 11:09 → MED 12-27 10:04
PROVIDERS: ADMIT Internal Medicine; ATTEND Nurse Practitioner Acute Care
DX: E87.1 Hypo-osmolality and hyponatremia (principal); E43 Unspecified severe protein-calorie malnutrition; E86.0 Dehydration; R07.89 Other chest pain; E87.2 Acidosis; J44.9 Chronic obstructive pulmonary disease, unspecified; M19.90 Unspecified osteoarthritis, unspecified site; E86.1 Hypovolemia; E87.6 Hypokalemia; F17.200 Nicotine dependence, unspecified, uncomplicated; F32.9 Major depressive disorder, single episode, unspecified; F41.9 Anxiety disorder, unspecified; G62.9 Polyneuropathy, unspecified; E88.09 Other disorders of plasma-protein metabolism, not elsewhere classified; M62.50 Muscle wasting and atrophy, not elsewhere classified, unspecified site; Z68.21 Body mass index [BMI] 21.0-21.9, adult
CPT/HCPCS: 36415; 71045-TC; 75574; 80048-TC; 80076-TC; 83735-TC; 83880; 84100-TC; 84484-TC; 85025-TC; 85730-TC; 87081-TC; 93307-TC; C9803-CS; G0378; J3475; J3490; J7030; J7040; J7050; Q9967

== ENCOUNTER 2020-02-20 12:25 | Inpatient (IN) | payer MEDICARE, OTHER ==
[~2020-02-20] VITALS: Ht 162.6 cm; Wt 62.6 kg
[~2020-02-20 12:25] MED LIST changes: -AMLO5TAB9 PO; -IBUP-1953 PO; -LORA-259 PO
--- NOTE | 2020-02-20 12:25 | NUR ---
NESTOR [address] C/O CP NON RADIATING. PT IS AAOX4, NOT IN RESPIRATORY DISTRESS, V/S STABLE, KEPT RESTED AND COMFORTABLE. WILL CONTINUE TO MONITOR.
--- NOTE | 2020-02-20 12:36 | NUR ---
SEEN AND EXAMINED BY .
--- NOTE | 2020-02-20 12:48 | NUR ---
ER PHLEB AT BEDSIDE FOR BLOOD DRAW.
[2020-02-20 13:01] LABS: BASOPHILS % (AUTO) 0.5 % (0.0-2.0); HEMATOCRIT 36 % (33-45); HEMOGLOBIN 12.4 g/dL (11.5-14.8); LYMPHOCYTES # (AUTO) 3.1 /CMM (0.8-4.8); LYMPHOCYTES % (AUTO) 35.3 % (20.0-44.0); MEAN CORPUSCULAR HGB CONC 35 g/dl (31.0-36.0); MEAN CORPUSCULAR VOLUME 95 fL (82-100); MONOCYTES # (AUTO) 0.6 /CMM (0.1-1.30); MONOCYTES % (AUTO) 7.2 % (2.0-12.0); NEUTROPHILS # (AUTO) 4.8 /CMM (1.8-8.9); PLATELET COUNT (AUTO) 260 /CMM (150-450); RED BLOOD CELL COUNT(AUTO) 3.76 MIL/uL (4.0-5.2); WHITE BLOOD COUNT (AUTO) 8.7 K/uL (4.3-11.0)
[2020-02-20 13:24] LABS: CALCIUM, SERUM 8.4 mg/dL (8.5-10.1); CARBON DIOXIDE 22 mmol/L (21-32); CHLORIDE 87 mmol/L (98-107); CREATININE 0.6 mg/dL (0.6-1.3); GLUCOSE 78 mg/dL (74-106); POTASSIUM 3.4 mmol/L (3.5-5.1); SODIUM SERUM 122 mmol/L (136-145); UREA NITROGEN, BLOOD 4 mg/dL (7-18)
[2020-02-20 13:30] LABS: ALANINE AMINOTRANSFERASE 15 U/L (12-78); ALBUMIN 3.5 g/dL (3.4-5.0); ALKALINE PHOSPHATASE 77 U/L (46-116); ASPARTATE AMINOTRANSFERASE 15 U/L (15-37); BILIRUBIN,DIRECT 0.1 mg/dL (0.0-0.2); BILIRUBIN,TOTAL 0.4 mg/dL (0.2-1.0); TOTAL PROTEIN, SERUM 7.2 g/dL (6.4-8.2)
[2020-02-20] MEDS ORDERED: NITROGLYCERIN 0.4 MG/TAB BOTTLE ONE (13:50)
[2020-02-20] MEDS ORDERED: ASPIRIN 325 MG TABLET ONE (13:50)
[2020-02-20] MEDS ORDERED: CARV12.52 PO (13:53)
[2020-02-20] MEDS ORDERED: NITROGLYCERIN 0.4 MG/TAB BOTTLE SL ONE (14:00)
[2020-02-20] MEDS ORDERED: ASPIRIN 325 MG TABLET PO ONE (14:00)
[2020-02-20] MEDS ORDERED: POTASSIUM CHLORIDE 20 MEQ TAB.PRT.SR PO ONE ×3 (14:30→15:30)
--- NOTE | 2020-02-20 14:30 | NUR ---
URINE SPECIMEN COLLECTED AND SENT TO LAB.
--- NOTE | 2020-02-20 14:40 | NUR ---
COVID SPECIMEN COLLECTED AND SENT TO LAB.
[2020-02-20] MEDS ORDERED: NITROGLYCERIN 0.4 MG/TAB BOTTLE SL PRN (15:30)
[2020-02-20] MEDS ORDERED: ACETAMINOPHEN 325 MG TABLET PO PRN (15:30)
[2020-02-20] MEDS ORDERED: Z GUARD REMEDY 2 OZ OINT TP PRN (15:30)
[2020-02-20] MEDS ORDERED: MAG HYDROX/AL HYDROX/SIMETH 30 ML UDC PO PRN (15:30)
[2020-02-20] MEDS ORDERED: MAGNESIUM HYDROXIDE 30 ML UDC PO PRN (15:30)
[2020-02-20] MEDS ORDERED: LORAZEPAM 1 MG TABLET PO PRN (15:30)
[2020-02-20] MEDS ORDERED: IBUPROFEN 600 MG TABLET PO PRN (15:30)
[2020-02-20] MEDS ORDERED: ALBUTEROL SULFATE INH 18 GM HFA.AER.AD IH PRN (15:30)
[2020-02-20] MEDS ORDERED: ONDANSETRON HCL/PF 4 MG/2 ML VIAL IVP PRN (15:30)
--- NOTE | 2020-02-20 15:42 | NUR ---
REPORT GIVEN TO MAKAYLA HARRINGTON FOR SHERRY.
--- NOTE | 2020-02-20 16:10 | NUR ---
RECEIVED PATIENT FROM ER VIA GURNEY. PATIENT IS A/O X3-4, ABLE TO MAKE NEEDS KNOWN. AMBULATORY. NOT IN ANY FORM OF DISTRESS. NO SOB. DENIED PAIN OR DISCOMFORT AT THIS TIME. IV ACCESS LEFT HAND GAUGE 20 INTACT AND PATENT. SITUATED PATIENT IN THE ROOM. INSTRUCTED TO USE CALL LIGHT IF ASSISTANCE IS NEEDED. ALL BELONGINGS CHECKED AND NOTED IN BELONGINGS FORM. REFUSED SKIN ASSESSMENT/BODY CHECK, PER PATIENT, "I HAVE NO WOUNDS". SAFETY MEASURES IN PLACE. BED IN LOW/LOCKED POSITION. SIDERAILS UPX2,CALL LIGHT IN REACH. WILL CONT TO MONITOR ACCORDINGLY.
[2020-02-20 16:41] VITALS: BP 126/57
[2020-02-20] MEDS: IV NS 0.9% 1,000 ML IV PRN (17:46)
--- NOTE | 2020-02-20 18:37 | NUR ---
RN CLOSING NOTES PATIENT IN STABLE CONDITION. ALL NEEDS ATTENDED AND PROVIDED. ALL DUE MEDS GIVEN ORDERED. KEPT PATIENT SAFE AND COMFORTABLE. BED IN LOW/LOCKED POSITION. SIDERAILS UP X2, CALL LIGHT IN REACH. WILL ENDORSE ACCORDINGLY
--- NOTE | 2020-02-20 19:30 | NUR ---
CHRONIC DISEASE EPIDEMIOLOGIST OPENING NOTES PATIENT RECEIVED RESTING IN BED COMFORTABLY; A/OX4, BREATHING EVEN AND UNLABORED; NO SOB NOTED; TOLERATING ROOM AIR WELL; PATIENT ABLE TO MAKE NEEDS KNOWN; PATIENT AMBULATORY WITH STEADY GAIT; TELE MONITOR READS SINUS RHYTHM 97BOM; PATIENT REFUSING SKIN ASSESSMENT; L HAND #20 INTACT AND INFUSING NS @ 75ML/HR; ISOLATION PRECAUTIONS MAINTAINED; SAFETY PRECAUTIONS IMPLEMENTED; BED LOCKED IN LOW POSITION; SIDE RAILSX2; CALL LIGHT WITHIN REACH; WILL CONT TO MONITOR
[2020-02-20 20:00] VITALS: BP 149/76
--- NOTE | 2020-02-20 20:19 | NUR ---
PROFESSIONAL ATHLETES COACH NOTES PATIENT COMPLAINING OF DIARRHEA AND REQUESTING FOR ANTI-DIARRHEA MEDICATION; MD MADE AWARE; AWAITING ORDERS; WILL CONT TO MONITOR
--- NOTE | 2020-02-20 20:23 | NUR ---
GRILL ATTENDANT NOTES PER MERRICK VORA, IMODIUM 1 PO Q6HRS PRN; WILL ADMINISTER PER MD ORDER AND WILL CONT TO MONITOR
[2020-02-20] MEDS ORDERED: LOPERAMIDE HCL UDC 2 MG/15 ML LIQUID PO PRN (20:30)
[2020-02-20] MEDS: CARVEDILOL 12.5 MG TABLET PO SCH (20:35)
[2020-02-20] MEDS: HYDROCODONE/APAP 5/325MG TABLET PO PRN (20:36)
[2020-02-20] MEDS: ENOXAPARIN SODIUM 40 MG/0.4 ML DISP.SYRIN SQ SCH (21:13)
--- NOTE | 2020-02-20 21:14 | NUR ---
UNDERWATER ROBOTICIST NOTES PATIENT REFUSING LOVENOX SQ, RISKS/BENEFITS EXPLAINED TO PATIENT, PATIENT STILL REFUSED MED; WILL CONT TO MONITOR
[2020-02-21] VITALS: BP 120/67
[2020-02-21] MEDS: TEMAZEPAM 15 MG CAPSULE PO PRN ×2 (00:08→22:10)
[2020-02-21 04:00] VITALS: BP 136/83
[2020-02-21 05:00] VITALS: BP 136/83
--- NOTE | 2020-02-21 06:45 | NUR ---
PEDORTHIST CLOSING NOTES PATIENT RESTING IN BED COMFORTABLY; A/OX4, BREATHING EVEN AND UNLABORED; TOLERATING ROOM AIR WELL; NO SOB NOTED; TELE MONITOR READS SINUS RHYTHM 72BPM; L HAND #20 INTACT AND PATENT, TOLERATING IVF WELL; PATIENT ABLE TO MAKE NEEDS KNOWN; ISOLATION PRECAUTIONS MAINTAINED; SAFETY PRECAUTIONS IMPLEMENTED; BED LOCKED IN LOW POSITION; SIDE RAILSX2; CALL LIGHT WITHIN EASY REACH; WILL ENDORSE SHERRY TO ONCOMING SHIFT
[2020-02-21 07:19] LABS: BASOPHILS # (AUTO) 0.1 /CMM (0.0-0.2); EOSINOPHILS % (AUTO) 2.7 % (0.0-6.0); HEMATOCRIT 37 % (33-45); HEMOGLOBIN 12.5 g/dL (11.5-14.8); LYMPHOCYTES # (AUTO) 1.6 /CMM (0.8-4.8); LYMPHOCYTES % (AUTO) 19.4 % (20.0-44.0); MEAN CORPUSCULAR HGB CONC 34 g/dl (31.0-36.0); MEAN CORPUSCULAR VOLUME 97 fL (82-100); MONOCYTES # (AUTO) 0.6 /CMM (0.1-1.30); MONOCYTES % (AUTO) 7.7 % (2.0-12.0); NEUTROPHILS # (AUTO) 5.6 /CMM (1.8-8.9); NEUTROPHILS % (AUTO) 69.2 % (43.0-81.0); PLATELET COUNT (AUTO) 233 /CMM (150-450); WHITE BLOOD COUNT (AUTO) 8.1 K/uL (4.3-11.0)
--- NOTE | 2020-02-21 07:30 | NUR ---
SENIOR DATABASE ADMINISTRATOR NOTES PATIENT RECEIVED IN BED RESTING COMFORTABLY, AWAKE, ALERT, AND ORIENTED X 4. ON ROOM AIR WITH NO SIGNS OF RESPIRATORY DISTRESS AT THIS TIME, WITH EVEN NON-LABORED BREATHING AND NO SOB NOTED. ON QA ANALYST, SINUS RHYTHM. IV ACCESS INTACT AND PATENT ON L HAND, INFUSING NORMAL SALINE AT 75ml/hr. ISOLATION PRECAUTIONS REMAINED FOR RULE OUT COVID, AWAITING FOR RESULTS AT THIS TIME. SAFETY PRECAUTIONS IMPLEMENTED WITH BED LOCKED, BED IN THE LOWEST POSITION, BILATERAL SIDE RAILS UP AND CALL LIGHT WITHIN EASY REACH OF PATIENT. WILL CONTINUE TO MONITOR PATIENT.
[2020-02-21 07:40] LABS: CALCIUM, SERUM 9.2 mg/dL (8.5-10.1); CREATININE 0.6 mg/dL (0.6-1.3); MAGNESIUM 2.2 mg/dL (1.8-2.4); PHOSPHORUS 3.6 mg/dL (2.5-4.9)
[2020-02-21 07:52] LABS: THYROID STIMULATING HORMONE 2.234 uIU/mL (0.358-3.74)
[2020-02-21 08:00] VITALS: BP 133/60
[2020-02-21] MEDS: AMLODIPINE BESYLATE 10 MG TABLET PO SCH (08:27)
[2020-02-21] MEDS: CARVEDILOL 12.5 MG TABLET PO SCH ×2 (08:28→21:27)
[2020-02-21] MEDS: ASPIRIN 81 MG TAB.CHEW PO SCH (08:28)
[2020-02-21] MEDS: HYDROCODONE/APAP 5/325MG TABLET PO PRN ×2 (11:47→20:52)
[2020-02-21 12:00] VITALS: BP 126/79
--- NOTE | 2020-02-21 15:30 | NUR ---
INVESTIGATOR VICE NOTES PATIENT TRANSFERRED TO ROOM 326-1 DUE TO COVID TEST RESULT NEGATIVE. GAVE REPORT TO CHECO RN FOR SHERRY.
--- NOTE | 2020-02-21 15:40 | NUR ---
ms rn received a new transfer patient, awake,alert,oriented x4,not in any form of distress, respirations even and unlabored,no sob noted,all needs attended.
--- NOTE | 2020-02-21 16:20 | NUR ---
Food Service Aide consult requested by Avtar Falcon DNP as patient is homeless. Patient is a 69 year-old female. Per patient, she was living with her son but left as there were too many people in his home. Per patient, she needed more peace and quiet and has been staying with her boyfriend in the streets. Patient reports that she is content with her current situation and that she and her boyfriend take good care of themselves. Per patient, she had been staying in motels and stays in motels when she receives her SSI. Per patient, she is aware of all the local food pantries, hygiene locations, and out-patient mental health. Patient would like information regarding food stamps. Patient would like to apply. Per patient, SW to provide this information tomorrow 02/21 as patient wants to rest for now. SW to remain available for all needs regarding this patient. SW to follow up with food stamp information on 02/21 per patient's request.
--- NOTE | 2020-02-21 18:00 | NUR ---
ms rn called dr. hernández for order for cta in am,but he told me that its gonna be cardiac cath in am.
--- NOTE | 2020-02-21 19:00 | NUR ---
ms rn on bed, all needs attended.
--- NOTE | 2020-02-21 19:45 | NUR ---
REAMING MACHINE OPERATOR NOTE: PATIENT RESTING IN BED, NO ACUTE DISTRESS NOTED. BREATHING EVEN AND UNLABORED, NO SOB NOTED. IV TO RFA IN PLACE. BED LOCKED AND IN LOWEST POSITION, CALL LIGHT IN REACH. WILL CONTINUE TO MONITOR.
[2020-02-21 20:00] VITALS: BP 146/75
--- NOTE | 2020-02-21 21:00 | NUR ---
SHAKER OUT NOTE: PATIENT COMPLAINS OF ABD PAIN 11/17, NORCO 5/325MG 1 TAB ORAL GIVEN PER MD ORDER. WILL CONTINUE TO MONITOR.
[2020-02-21] MEDS: ENOXAPARIN SODIUM 40 MG/0.4 ML DISP.SYRIN SQ SCH (21:27)
--- NOTE | 2020-02-21 22:15 | NUR ---
ASSEMBLER DC FIELD RING NOTE: PATIENT REQUEST FOR SLEEPING MEDICATIONS, RESTORIL 15MG 1 CAP ORAL GIVEN PER MD ORDER. REPORT GIVEN TO JAIME FOR CONTINUATION OF CARE. WILL CONTINUE TO MONITOR.
--- NOTE | 2020-02-21 22:20 | NUR ---
JEWEL HOLE GAUGER NOTES RECEIVED REPORT FOR LENNY BENAVIDES FOR SHERRY. WILL CONTINUE TO MONITOR
[2020-02-21] MEDS: IV NS 0.9% 1,000 ML IV PRN (23:23)
[2020-02-22] VITALS (11 sets, daily range): BP systolic 108–136; BP diastolic 54–78
--- NOTE | 2020-02-22 06:42 | NUR ---
DADO OPERATOR NOTES PATIENT IN BED, ASLEEP, ALERT AND ORIENTED X 4. BREATHING EVEN AND UNLABORED ON ROOM AIR. SHOWS NO SIGNS OF ACUTE RESPIRATORY DISTRESS. NO ACUTE PAIN. TELE MONITOR SR. RFA 20G ITS CLEAN DRY AND INTACT. RUNNING NS AT 75ML/HR. SAFETY PRECAUTIONS IN PLACE.ALL DUE MEDICATION GIVEN. ALL NEEDS ATTENDED TO. BED IN LOWEST POSITION, LOCKED, AND CALL LIGHT KEPT WITHIN REACH. WILL ENDORSE TO ONCOMING NURSE.
[2020-02-22 06:44] LABS: BASOPHILS # (AUTO) 0.1 /CMM (0.0-0.2); BASOPHILS % (AUTO) 1.1 % (0.0-2.0); EOSINOPHILS % (AUTO) 4.1 % (0.0-6.0); HEMATOCRIT 35 % (33-45); LYMPHOCYTES # (AUTO) 1.3 /CMM (0.8-4.8); LYMPHOCYTES % (AUTO) 23.8 % (20.0-44.0); MEAN CORPUSCULAR HGB CONC 34 g/dl (31.0-36.0); MEAN CORPUSCULAR VOLUME 96 fL (82-100); MONOCYTES # (AUTO) 0.5 /CMM (0.1-1.30); MONOCYTES % (AUTO) 8.4 % (2.0-12.0); NEUTROPHILS # (AUTO) 3.4 /CMM (1.8-8.9); NEUTROPHILS % (AUTO) 62.6 % (43.0-81.0); PLATELET COUNT (AUTO) 220 /CMM (150-450); RED BLOOD CELL COUNT(AUTO) 3.65 MIL/uL (4.0-5.2); WHITE BLOOD COUNT (AUTO) 5.5 K/uL (4.3-11.0)
[2020-02-22] MEDS ORDERED: FENTANYL PF 100MCG/2ML AMPUL ONE (06:44)
[2020-02-22 07:02] LABS: CREATININE 0.6 mg/dL (0.6-1.3); MAGNESIUM 1.9 mg/dL (1.8-2.4)
--- NOTE | 2020-02-22 07:39 | NUR ---
TROLLEY WORKER OPENING NOTES BEDSIDE ENDORSEMENT DONE. PATIENT IS IN BED AWAKE AND VERBALLY RESPONSIVE, A/O X4. BREATHING EVEN AND UNLABORED, TOLERATING ROOM AIR, NOT IN ACUTE DISTRESS. ON TELE MONITORING, READING OF SR W/ HR AT 67, NO CARDIAC DISTRESS NOTED. IV ON RIGHT FOREARM #20 INTACT AND PATENT, NS @75ML/HR. CURRENTLY NPO, FOR CARDIAC CATH PROCEDURE. SAFETY PRECAUTIONS IN PLACE: BED LOCKED AND ON LOWEST POSITION, SR UP X2, CALL LIGHT W/IN REACH. WILL CONTINUE TO MONITOR.
[2020-02-22] MEDS ORDERED: LIDOCAINE HCL/PF 1% 30 ML SDV ONE (08:26)
[2020-02-22] MEDS ORDERED: IODIXANOL 150 ML IV ONE ×2 (08:26→09:48)
[2020-02-22] MEDS ORDERED: NITROGLYCERIN ICAR 1,000 MCG/10 ML VIAL ICAR ONE (08:40)
[2020-02-22] MEDS ORDERED: IV NS 0.9% 1,000 ML ONE (08:42)
[2020-02-22] MEDS ORDERED: IV SET PRIMARY PUMP SET 1 EA INFUS.SET MC ONE (08:43)
[2020-02-22] MEDS: CARVEDILOL 12.5 MG TABLET PO SCH ×2 (09:00→22:02)
[2020-02-22] MEDS: ASPIRIN 81 MG TAB.CHEW PO SCH (09:00)
[2020-02-22] MEDS: AMLODIPINE BESYLATE 10 MG TABLET PO SCH (09:00)
[2020-02-22] MEDS ORDERED: MIDAZOLAM HCL 2 MG/2ML VIAL ONE (09:13)
[2020-02-22] MEDS ORDERED: diphenhydrAMINE HCL 50 MG/ML VIAL ONE (09:14)
--- NOTE | 2020-02-22 09:21 | NUR ---
RN NOTES PATIENT WAS PICKED UP BY MELINDA RN VIA GURNEY TO MANAGER BILINGUAL FOR PROCEDURE.
[2020-02-22] MEDS ORDERED: HEPARIN SODIUM, PORCINE 5000 UNITS/1 ML VIAL ONE (09:44)
[2020-02-22] MEDS ORDERED: HEPARIN SODIUM, PORCINE 1,000 UNIT/ML VIAL ONE (09:44)
[2020-02-22] MEDS ORDERED: IODIXANOL 320MG/ML 100 ML IV ONE (09:50)
[2020-02-22] MEDS ORDERED: IV SET PRIMARY 1 EA INFUS.SET MC ONE (10:01)
[2020-02-22] MEDS ORDERED: ADENOSINE IV ONE ×4 (10:30)
[2020-02-22] MEDS ORDERED: NS 0.9% IV ONE ×4 (10:30)
--- NOTE | 2020-02-22 11:05 | NUR ---
RN NOTES PATIENT RETURNED TO UNIT VIA PATIENT'S HOSPITAL BED ACCOMPANIED BY MELINDA RN.
--- NOTE | 2020-02-22 11:37 | NUR ---
RN NOTES PATIENT NOTED W/ TR BAND ON RIGHT WRIST. NO BLEEDING NOTED.
[2020-02-22] MEDS: MORPHINE SULFATE INJ 2 MG/ML DISP.SYRIN IV PRN ×2 (11:48→19:26)
--- NOTE | 2020-02-22 12:40 | NUR ---
RN NOTES PERSONAL SERVICE REPRESENTATIVE NELLI CAME TO REMOVE 3CC OF AIR FROM TR BAND, NO BLEEDING NOTED. VS TAKEN AND RECORDED. WILL CONTINUE TO MONITOR.
--- NOTE | 2020-02-22 13:46 | NUR ---
RN NOTES 3CC OF AIR Q 15MINUTES X5 ( TOTAL 15CC) REMOVED FROM RT BAND. NO BLOOD FLOW OR RETURNED NOTED. V/S TAKEN, STABLE AND RECORDED. WILL CONTINUE TO MONITOR.
[2020-02-22] MEDS: HYDROCODONE/APAP 5/325MG TABLET PO PRN ×2 (14:16→23:34)
[2020-02-22] MEDS ORDERED: ASPI-1169 PO (15:08)
--- NOTE | 2020-02-22 17:55 | NUR ---
RN NOTES SPOKE W/ JACOB MELO; PATIENT FOR DISCHARGE TOMORROW TO [facility], PICKUP AT 1000 02/23/2020.
[2020-02-22] MEDS: IV NS 0.9% 1,000 ML IV PRN (18:11)
--- NOTE | 2020-02-22 18:44 | NUR ---
PRESIDENT COMM[employer]CIAL BANK CLOSING NOTES PATIENT IS IN BED AWAKE AND VERBALLY RESPONSIVE, A/O X4, ABLE TO MAKE NEEDS KNOWN. BREATHING EVEN AND UNLABORED, ON ROOM AIR, NOT IN ACUTE DISTRESS. TELE MONITORING W/ READING OF SR, HR AT MID 60'S, NO CARDIAC DISTRESS NOTED. IV ON RIGHT FOREARM #22, AND LEFT WRIST #20, INTACT AND PATENT, NS @75ML/HR, INFUSING WELL. ABLE TO EAT AND AMBULATE TO BATHROOM WITH ASSISTANCE. SAFETY PRECAUTIONS MAINTAINED: BED LOCKED AND ON LOWEST POSITION, SR UP X2, CALL LIGHT W/IN REACH. WILL ENDORSE TO BUILDING GUARD DEPUTY SHERIFF RN FOR SHERRY.
--- NOTE | 2020-02-22 19:12 | NUR ---
RN OPENING NOTES Received patient awake, resting on bed. On RA, denies any complaints at this time. S/P cardiac catheterization, no s/sx of bleeding noted. On tele monitor with NSR noted. On fall and aspiration precautions. Kept on bed clean, dry and comfortable. Call light within easy reach.
--- NOTE | 2020-02-22 19:15 | NUR ---
RN NOTES Noted TR band on R wrist, bruising noted around the site, minimal tenderness noted upon palpation. Pulses are strong distal and proximal to the site, AUTO FINANCE SALES REP <3 secs. No palor or jaundice noted. Kept R arm elevated with pillow. Will continue to monitor for s/sx of bleeding.
--- NOTE | 2020-02-22 21:00 | NUR ---
RN NOTES PRICING STRATEGISTsenior research executive Nurse Tamara at bedside evaluating pt. TR band removed, sterile dressing in place. Instructed patient to monitor and report any s/sx of bleeding. No lifting of heavy objects within 24hrs. Kept R arm elevated. Monitor for pulses and skin color. Pt verbalized understanding. Will continue to monitor accordingly.
[2020-02-22] MEDS: ENOXAPARIN SODIUM 40 MG/0.4 ML DISP.SYRIN SQ SCH (21:32)
--- NOTE | 2020-02-22 21:32 | NUR ---
RN NOTES scallop shucker MD notified for pt's due Lovenox. Held dose at this time per MD order.
[2020-02-22] MEDS: TEMAZEPAM 15 MG CAPSULE PO PRN (22:02)
[2020-02-23] VITALS: BP 113/63
[2020-02-23 00:01] VITALS: BP 113/63
--- NOTE | 2020-02-23 01:00 | NUR ---
RN NOTES Pt S/P TR band removal 4hrs ago. Reassessed site, no s/sx of bleeding noted, minimal bruising noted. Pulses are strong distal and proximal to site. No s/sx of impeding circulation noted. Changed dressing into tegaderm film. Reinstructed pt on avoid pressure and lifting on r arm for 24hrs, pt verbalized understanding. Will continue to monitor accordingly.
[2020-02-23 04:00] VITALS: BP 131/79
[2020-02-23] MEDS: MORPHINE SULFATE INJ 2 MG/ML DISP.SYRIN IV PRN (04:06)
--- NOTE | 2020-02-23 06:35 | NUR ---
RN CLOSING NOTES Pt asleep on bed, on RA. No s/sx of bleeding noted. Transparent dressing remained clean, dry and intact. Strong pulses noted proximal and distal to site. On tele monitor with NSR noted. Medicated for pain as ordered, noted effective. All nursing needs attended. Due meds given as ordered. Pt able to attend ADLs independently. Kept on bed clean, dry and comfortable. On fall and aspiration precautions. Endorsed.
[2020-02-23 07:17] LABS: BASOPHILS % (AUTO) 0.7 % (0.0-2.0); EOSINOPHILS % (AUTO) 4.4 % (0.0-6.0); HEMATOCRIT 33 % (33-45); HEMOGLOBIN 11.1 g/dL (11.5-14.8); LYMPHOCYTES # (AUTO) 1.6 /CMM (0.8-4.8); LYMPHOCYTES % (AUTO) 27.3 % (20.0-44.0); MEAN CORPUSCULAR HGB CONC 34 g/dl (31.0-36.0); MEAN CORPUSCULAR VOLUME 98 fL (82-100); MONOCYTES # (AUTO) 0.6 /CMM (0.1-1.30); MONOCYTES % (AUTO) 9.9 % (2.0-12.0); NEUTROPHILS # (AUTO) 3.3 /CMM (1.8-8.9); NEUTROPHILS % (AUTO) 57.7 % (43.0-81.0); PLATELET COUNT (AUTO) 192 /CMM (150-450); RED BLOOD CELL COUNT(AUTO) 3.36 MIL/uL (4.0-5.2); WHITE BLOOD COUNT (AUTO) 5.7 K/uL (4.3-11.0)
--- NOTE | 2020-02-23 07:30 | NUR ---
MS/RN Opening note Patient received from date night sitter. A/O X4, vital signs stable, no fevers noted. Denies any chest pain at this time, stating that there is some discomfort to right arm from where TR band was placed yesterday. Pain medication will be administered as needed. Patient for discharge later this morning to [facility] [place], paperwork to be prepared. Call light within reach, safety measures in place, will continue to monitor and ensure safety.
[2020-02-23 07:54] LABS: CALCIUM, SERUM 9.3 mg/dL (8.5-10.1); CREATININE 0.5 mg/dL (0.6-1.3); MAGNESIUM 1.8 mg/dL (1.8-2.4); PHOSPHORUS 4.2 mg/dL (2.5-4.9)
--- NOTE | 2020-02-23 07:59 | NUR ---
MS/director prospect papers Discharge paperwork prepared, copy made of chart.
[2020-02-23 08:00] VITALS: BP 148/78
[2020-02-23] MEDS ORDERED: ALBUTEROL FS 2.5 MG/0.5 ML VIAL.NEB NEB PRN (08:00)
[2020-02-23] MEDS: ASPIRIN 81 MG TAB.CHEW PO SCH (08:24)
[2020-02-23] MEDS: AMLODIPINE BESYLATE 10 MG TABLET PO SCH (08:25)
[2020-02-23 08:27] VITALS: BP 148/78
[2020-02-23] MEDS: CARVEDILOL 12.5 MG TABLET PO SCH (08:27)
[2020-02-23] MEDS: HYDROCODONE/APAP 5/325MG TABLET PO PRN (08:27)
--- NOTE | 2020-02-23 10:15 | NUR ---
MS/maxillofacial pathology Patient discharged to [facility] in stable condition. All personal belongings with patient and signed for on belongings list. Heplock X2 removed, pressure dressings applied. Name bands and tele monitor removed. Educated patient as to the importance of avoiding heavy lifting using left arm due to cardiac cath yesterday. Remind to keep arm elevated to avoid any swelling. Patient stated understanding. All discharge medications explained to patient, informed of possible side effects. One new medication prescribed aspirin. Explained what medication was for, possible side effect, patient stated understanding. Report called to Kellie at [facility], patient will be going to room 11. Transport here to cloth picker patient, report given to paramedics, patient left floor in stable condition.
== END 2020-02-23 10:15 | DRG 287 ==
LOC: ER 12:28 → TELE2 15:26 → TELE 02-21 15:26 → MED 02-21 15:41 → TELE 02-21 15:52
PROVIDERS: ADMIT Nurse Practitioner Acute Care; ATTEND Student in an Organized Health Care Education/Training Program
PROC: 4A023N7 Measurement of Cardiac Sampling and Pressure, Left Heart, Percutaneous Approach (ICD-10-PCS; principal; 2020-02-22)
PROC: B211YZZ Fluoroscopy of Multiple Coronary Arteries using Other Contrast (ICD-10-PCS; 2020-02-22)
DX: I25.118 Atherosclerotic heart disease of native coronary artery with other forms of angina pectoris (principal); E87.1 Hypo-osmolality and hyponatremia; E87.2 Acidosis; E87.6 Hypokalemia; Z59.0 Homelessness; E78.49 Other hyperlipidemia; E86.1 Hypovolemia; F17.210 Nicotine dependence, cigarettes, uncomplicated; Z91.14 Patient's other noncompliance with medication regimen; I10 Essential (primary) hypertension; F41.9 Anxiety disorder, unspecified; F32.9 Major depressive disorder, single episode, unspecified; F12.90 Cannabis use, unspecified, uncomplicated; F10.10 Alcohol abuse, uncomplicated; Y90.8 Blood alcohol level of 240 mg/100 ml or more; J44.9 Chronic obstructive pulmonary disease, unspecified
CPT/HCPCS: 36415; 71045-TC; 80048-TC; 80061-TC; 80076-TC; 83735-TC; 84100-TC; 84443-TC; 84484-TC; 85025-TC; 87081-TC; C1769; C1887; G0378; G0480; J0153; J1200; J1644; J2250; J2270; J2704; J3010; J3490; J7030; Q9967; U0003

== ENCOUNTER 2020-02-29 18:39 | Inpatient (IN) | payer MEDICARE, OTHER ==
[~2020-02-29] VITALS: Ht 160 cm; Wt 59.0 kg
[~2020-02-29 18:39] MED LIST changes: +ASPI-1169 PO
--- NOTE | 2020-02-29 18:48 | NUR ---
PT [id number] C.O CP EPIGASTRIC BURNING 01/18 NONRADIATING, ONSET WHILE AT A CONVENIENCE STORE "PICKING UP BEERS". REPORTS SMOKING MARIJUANA TODAY. RESP EVEN UNLABORED. DENIES N/V/D. IN ER BED 12 ON MONITOR.
--- NOTE | 2020-02-29 19:26 | NUR ---
PT AAOX4, VSS, RESPIRATIONS EVEN AND UNLABORED ON RA W/ AND NOTED. PT CONNECTED TO THE TUBE TEST TECHNICIAN AND POX. CALL LIGHT WITHIN REACH. PT KEPT COMFORTABLE. WILL CONTINUE TO MONITOR
--- NOTE | 2020-02-29 19:31 | NUR ---
CALLED FOR COVID SWAB.
[2020-02-29 19:40] LABS: ALANINE AMINOTRANSFERASE 16 U/L (12-78); ALBUMIN 3.4 g/dL (3.4-5.0); ALKALINE PHOSPHATASE 57 U/L (46-116); ASPARTATE AMINOTRANSFERASE 17 U/L (15-37); BILIRUBIN,TOTAL 0.2 mg/dL (0.2-1.0); CALCIUM, SERUM 8.7 mg/dL (8.5-10.1); CARBON DIOXIDE 21 mmol/L (21-32); CHLORIDE 89 mmol/L (98-107); CREATININE 0.6 mg/dL (0.6-1.3); GLUCOSE 94 mg/dL (74-106); POTASSIUM 3.3 mmol/L (3.5-5.1); SODIUM SERUM 124 mmol/L (136-145); TOTAL PROTEIN, SERUM 7.1 g/dL (6.4-8.2); UREA NITROGEN, BLOOD 10 mg/dL (7-18)
[2020-02-29 20:21] LABS: BASOPHILS # (AUTO) 0.1 /CMM (0.0-0.2); BASOPHILS % (AUTO) 1.3 % (0.0-2.0); EOSINOPHILS % (AUTO) 3.4 % (0.0-6.0); HEMATOCRIT 32 % (33-45); HEMOGLOBIN 10.9 g/dL (11.5-14.8); LYMPHOCYTES # (AUTO) 2.1 /CMM (0.8-4.8); LYMPHOCYTES % (AUTO) 28.4 % (20.0-44.0); MEAN CORPUSCULAR HGB CONC 34 g/dl (31.0-36.0); MEAN CORPUSCULAR VOLUME 97 fL (82-100); MONOCYTES # (AUTO) 0.7 /CMM (0.1-1.30); MONOCYTES % (AUTO) 9.2 % (2.0-12.0); NEUTROPHILS # (AUTO) 4.3 /CMM (1.8-8.9); NEUTROPHILS % (AUTO) 57.7 % (43.0-81.0); PLATELET COUNT (AUTO) 295 /CMM (150-450); RED BLOOD CELL COUNT(AUTO) 3.31 MIL/uL (4.0-5.2); WHITE BLOOD COUNT (AUTO) 7.4 K/uL (4.3-11.0)
--- NOTE | 2020-02-29 20:34 | NUR ---
REC'D NEG COVID RESULTS. MADE AWARE. CALLED NURSING SUP FOR BED
--- NOTE | 2020-02-29 20:52 | NUR ---
DR. ROLDAN SPEAKING WITH DR. CHRISTIE REGARDING ADMISSION
--- NOTE | 2020-02-29 21:01 | NUR ---
REPORT GIVEN TO CORA BENAVIDES FOR ADMISSION
--- NOTE | 2020-02-29 21:03 | NUR ---
PT IS UNABLE TO RECALL NAMES AND DOSAGES OF MEDS
[2020-02-29] MEDS ORDERED: ONDANSETRON HCL/PF 4 MG/2 ML VIAL IVP PRN (21:30)
[2020-02-29] MEDS ORDERED: diphenhydrAMINE HCL 25 MG CAPSULE PO PRN (21:30)
[2020-02-29] MEDS ORDERED: CLONIDINE HCL 0.1 MG TABLET PO PRN (21:30)
[2020-02-29] MEDS ORDERED: LORAZEPAM INJ 2 MG/ML VIAL IV PRN (21:30)
[2020-02-29] MEDS ORDERED: MAGNESIUM HYDROXIDE 30 ML UDC PO PRN (21:30)
[2020-02-29 21:45] VITALS: BP_SYST 129; BP_DIAS 64; BP_DIAS 69
--- NOTE | 2020-02-29 21:50 | NUR ---
RN ADMITTING NOTES PATIENT RECEIVED RESTING IN BED A/O X 4. STBALE ON RA WITH BREATHING EVEN AND UNLABORED, NO SOB NOTED. NO SIGNS OF ACUTE DISTRESS. NO COMPLAINTS OF PAIN OR DISCOMFORT AT THE MOMENT. PATIENT ORIENTED TO ROOM AND STAFF. ALL BELONGINGS ACCOUNTED FOR. VITALS TAKEN. SKIN ASSESSMENT DONE. TELE MONITORS PLACED. IV LOCATED ON R HAND #22. SAFETY PRECAUTIONS IN PLACE WITH BE IN LOWEST POSITION, CALL LIGHT WITHIN REACH, BREAKS ON, SIDE RAILS UP. WILL CONTINUE TO MONITOR THROUGHOUT THE NIGHT.
[2020-02-29] MEDS ORDERED: ALBUTEROL FS 2.5 MG/3 ML VIAL.NEB NEB PRN (22:00)
[2020-02-29] MEDS ORDERED: IV PREMIX NS +20MEQ KCL 1 L IV ONE (22:46)
[2020-02-29] MEDS: Potassium Chloride 20 MEQ in IV NS 0.9% 1,000 ML IV PRN (23:09)
[2020-02-29] MEDS: ACETAMINOPHEN 325 MG TABLET PO PRN (23:24)
--- NOTE | 2020-02-29 23:43 | NUR ---
RN NOTES CLARIFIED WITH MD ROLDAN ABOUT PARAMETERS FOR CLONIDINE 0.1 MG. MD ORDERED PRN WHEN SBP >150. ORDER CARRIED OUT.
[2020-03-01 00:55] VITALS: BP 132/76
[2020-03-01 04:00] VITALS: BP 120/64
[2020-03-01] MEDS ORDERED: NITROGLYCERIN 0.4 MG/TAB BOTTLE SL PRN (04:30)
--- NOTE | 2020-03-01 04:35 | NUR ---
RN NOTES PATIENT COMPLAINING OF CHEST PAIN 02/17, SHARP. CONTACTED MD ROLDAN. ORDERED FOR A STAT EKG AND NITROGLYCERIN SL Q10 X 2 TIMES PRN. ORDERS CARRIED OUT.
[2020-03-01 06:36] LABS: APPEARANCE,URINE CLEAR (CLEAR); BILIRUBIN,URINE NEGATIVE (NEGATIVE); BLOOD, URINE NEGATIVE Ery/uL (NEGATIVE); COLOR,URINE YELLOW (YELLOW); KETONES,URINE NEGATIVE (NEGATIVE); LEUKOCYTE ESTERASE ,URINE NEGATIVE (NEGATIVE); NITRITE, URINE NEGATIVE (NEGATIVE); PROTEIN,URINE NEGATIVE (NEGATIVE); UGLUCOSE NEGATIVE (NEGATIVE); UROBILINOGEN,URINE 0.2 EU/dL (0.2)
--- NOTE | 2020-03-01 06:55 | NUR ---
RN CLOSING NOTES PATIENT IN BED RESTING, A/O X 4. STABLE ON RA WITH BREATHING EVEN AND UNLABORED, NO SOB NOTED. NO SIGNS OF ACUTE DISTRESS. NO COMPLAINTS OF PAIN OR DISCOMFORT. TELE MONITOR READING SR. IV LOCATED ON L HAND #22 RUNNING NS @ 70 ML/HR. SAFETY PRECAUTIONS IN PLACE WITH BED IN LOWEST POSITION, CALL LIGHT WITHIN REACH, BREAKS ON ,SIDE RIALS UP. WILL ENDORSE TO ONCOMING SHIFT.
--- NOTE | 2020-03-01 07:15 | NUR ---
Tele/RN - Assessment Patient in bed awake, A/O X 4, denies chest pain, no complaints overnight, states feeling better, stable on room air, no apparent distress seen, tele shows SR. IVF NS with 20 meq KCl at 70 ml/hr infusing well on the left hand with no signs of infiltration. Labs reviewed, potassium improved but still low on sodium 127 today. Fall and seizure precautions maintained. Patient updated on plan of care and in agreement. Will continue with current medical management.
[2020-03-01 07:28] LABS: BASOPHILS % (AUTO) 0.7 % (0.0-2.0); EOSINOPHILS % (AUTO) 2.9 % (0.0-6.0); HEMATOCRIT 36 % (33-45); HEMOGLOBIN 12.1 g/dL (11.5-14.8); LYMPHOCYTES # (AUTO) 1.3 /CMM (0.8-4.8); LYMPHOCYTES % (AUTO) 26.4 % (20.0-44.0); MEAN CORPUSCULAR HGB CONC 34 g/dl (31.0-36.0); MEAN CORPUSCULAR VOLUME 97 fL (82-100); MONOCYTES # (AUTO) 0.4 /CMM (0.1-1.30); MONOCYTES % (AUTO) 8.7 % (2.0-12.0); NEUTROPHILS # (AUTO) 2.9 /CMM (1.8-8.9); NEUTROPHILS % (AUTO) 61.3 % (43.0-81.0); PLATELET COUNT (AUTO) 312 /CMM (150-450); WHITE BLOOD COUNT (AUTO) 4.8 K/uL (4.3-11.0)
[2020-03-01 07:29] LABS: ALANINE AMINOTRANSFERASE 18 U/L (12-78); ALBUMIN 3.6 g/dL (3.4-5.0); ALKALINE PHOSPHATASE 61 U/L (46-116); ASPARTATE AMINOTRANSFERASE 14 U/L (15-37); BILIRUBIN,TOTAL 0.5 mg/dL (0.2-1.0); CARBON DIOXIDE 24 mmol/L (21-32); CHLORIDE 95 mmol/L (98-107); CREATININE 0.5 mg/dL (0.6-1.3); GLUCOSE 92 mg/dL (74-106); MAGNESIUM 2.1 mg/dL (1.8-2.4); PHOSPHORUS 3.6 mg/dL (2.5-4.9); POTASSIUM 3.7 mmol/L (3.5-5.1); SODIUM SERUM 127 mmol/L (136-145); TOTAL PROTEIN, SERUM 7.4 g/dL (6.4-8.2); UREA NITROGEN, BLOOD 10 mg/dL (7-18)
[2020-03-01] MEDS: PANTOPRAZOLE 40 MG TABLET.DR PO SCH (07:41)
[2020-03-01 07:59] LABS: IRON, SERUM 151 ug/dl (50-175); TOTAL IRON BINDING CAPACITY 351 ug/dl (250-450)
[2020-03-01 08:00] VITALS: BP 133/81
[2020-03-01] MEDS: MULTIVITAMINS,THERAGRAN 1 UDTAB TABLET PO SCH (08:04)
[2020-03-01] MEDS: THIAMINE HCL 100 MG TABLET PO SCH (08:04)
[2020-03-01] MEDS: ASPIRIN 81 MG TAB.CHEW PO SCH (08:04)
[2020-03-01] MEDS: FOLIC ACID 1 MG TABLET PO SCH (08:04)
[2020-03-01 08:05] LABS: CHOLESTEROL 188 mg/dL (<200); HDL CHOLESTEROL 66 mg/dL (40-60); LDL 109 mg/dL (0-99); THYROID STIMULATING HORMONE 1.935 uIU/mL (0.358-3.74); TRIGLYCERIDES 80 mg/dL (30-150)
[2020-03-01] MEDS: HYDROCODONE/APAP 5/325MG TABLET PO PRN ×2 (10:20→19:39)
--- NOTE | 2020-03-01 10:30 | NUR ---
Tele/RN - Notes Patient refused to sign consent for Lexiscan stress test tomorrow. Explained the importance and benefits of the procedure but still doesn't want it. Patient stated "I had it before and it hurts too much." Charge nurse made aware.
[2020-03-01] MEDS: LORAZEPAM 1 MG TABLET PO PRN ×2 (13:49→21:44)
[2020-03-01] MEDS: ACETAMINOPHEN 325 MG TABLET PO PRN (15:54)
--- NOTE | 2020-03-01 15:54 | NUR ---
TELE/RN NOTES RECEIVED REPORT FROM MARYCARMEN BENAVIDES. PATIENT IN NO APPARENT RESPIRATORY DISTRESS NOTED. PATIENT COMPLAINED OF HEADACHE. TYLENOL 325MG 2 TAB P.O. WAS GIVEN. WILL CONTINUE TO MONITOR.
--- NOTE | 2020-03-01 15:55 | NUR ---
Tele/RN - Notes Patient is A/O x 4, stable on room air, ambulates with assistance, afebrile, no seizure activity noted. Endorsed to MAKAYLA Elliott for continuity of care.
[2020-03-01 16:00] VITALS: BP 107/61
[2020-03-01] MEDS: Potassium Chloride 20 MEQ in IV NS 0.9% 1,000 ML IV PRN (18:51)
[2020-03-01 19:06] LABS: URINE SODIUM, RANDOM 33 mmol/l (40-220)
[2020-03-01 19:22] LABS: OSMOLALITY,URINE 289 mOS/kg (340-1090)
--- NOTE | 2020-03-01 19:24 | NUR ---
TELE/RN CLOSING NOTES PATIENT IS ON BED. NO COMPLAINED OF PAIN NOTED AT THIS TIME. PATIENT IN NO APPARENT RESPIRATORY DISTRESS NOTED. TELE MONITOR IN PLACED READING SR 76 IV ACCESS AT LEFT HAND # 22 G WITH IV FLUID OF NS 1L 20KCL AT 70 ML/HR ON AND INFUSING WELL. SEEN AND EXAMINED BY MD WITH ORDERS MADE AND CARRIED OUT. ALL DUE MEDICATION WAS GIVEN. SAFETY PRECAUTION WAS IN PLACE. BED IN LOWEST POSITION AND LOCKED. SIDERAILS UP X 2.
--- NOTE | 2020-03-01 19:30 | NUR ---
RN NOTES RECEIVED PT. AWAKE ON BED, A/OX3, AMBULATORY, SR ON TELE MONITOR HR-70, NOT IN DISTRESS, , CALL LIGHT WITHIN REACH, SIDERAILSUPX2, CONTINUE TO MONITOR,
[2020-03-01 20:00] VITALS: BP 118/72
--- NOTE | 2020-03-01 20:30 | NUR ---
RN NOTES COMPLAINED OF BACK PAIN- NORCO 1 TAB PO GIVEN ORDERED, V/ STABLE
[2020-03-01 20:34] VITALS: BP 118/72
--- NOTE | 2020-03-01 21:53 | NUR ---
RN NOTES PT. ASKED FOR SOMETHING SLEEP, ATIVAN 1 MG O GIVEN ORDERED,Yareli KLEIN
[2020-03-02] VITALS: BP 154/67
[2020-03-02] MEDS: HYDROCODONE/APAP 5/325MG TABLET PO PRN ×2 (00:37→04:28)
[2020-03-02 00:50] VITALS: BP 154/67
--- NOTE | 2020-03-02 01:12 | NUR ---
RN NOTES COMPLAINED OF BACK PAIN -NORCO 1 TAB PO GIVEN ORDERED, V/S STABLE, IV GOT INFILTRATED, NEW IV LINE INSERTED ON THE RIGHT ARM,
[2020-03-02 04:20] VITALS: BP 136/72
--- NOTE | 2020-03-02 04:28 | NUR ---
RN NOTES COMPLAINED OF BACK PAIN- NORCO 1 TAB PO GIVEN ORDERED, V/S STABLE
--- NOTE | 2020-03-02 06:23 | NUR ---
RN NOTES SLEEPING BUT AROUSABLE,NOT IN DISTRESS, STILL REFUSING TO DO THE STRESS TEST, MORNING CARE RENDERED, CLL LIGHT WITHIN REACH, , SIDERAILSUPX2, PT. NEEDS ATTENDED
[2020-03-02 06:41] LABS: EOSINOPHILS % (AUTO) 3.5 % (0.0-6.0); HEMATOCRIT 32 % (33-45); HEMOGLOBIN 10.8 g/dL (11.5-14.8); LYMPHOCYTES # (AUTO) 1.7 /CMM (0.8-4.8); LYMPHOCYTES % (AUTO) 37.7 % (20.0-44.0); MEAN CORPUSCULAR HGB CONC 34 g/dl (31.0-36.0); MEAN CORPUSCULAR VOLUME 99 fL (82-100); MONOCYTES # (AUTO) 0.7 /CMM (0.1-1.30); MONOCYTES % (AUTO) 14.5 % (2.0-12.0); NEUTROPHILS % (AUTO) 43.3 % (43.0-81.0); PLATELET COUNT (AUTO) 291 /CMM (150-450); RED BLOOD CELL COUNT(AUTO) 3.19 MIL/uL (4.0-5.2); WHITE BLOOD COUNT (AUTO) 4.6 K/uL (4.3-11.0)
[2020-03-02 06:49] LABS: CALCIUM, SERUM 9.2 mg/dL (8.5-10.1); CREATININE 0.5 mg/dL (0.6-1.3); MAGNESIUM 2.1 mg/dL (1.8-2.4); POTASSIUM 4.1 mmol/L (3.5-5.1)
[2020-03-02 07:07] LABS: THYROID STIMULATING HORMONE 5.589 uIU/mL (0.358-3.74); URIC ACID 4.1 mg/dL (2.6-7.2)
--- NOTE | 2020-03-02 07:45 | NUR ---
RN NOTE THE PATIENT IS RECEIVED IN BED. PATIENT IS ALERT AND ORIENTED X4. IN ROOM AIR AND DENIES SOB. RESPIRATION REGULAR AND UNLABORED. DENIES PAIN. THE PATIENT IS IN NO APPARENT DISTRESS. TELE BOX READING IS SR 79. RIGHT ARM G 22 IS PATENT AND SALINE LOCKED. THE PATIENT REFUSES ORDERED IV FLUID DESPITE EXPLAINING RISKS AND BENEFITS MULTIPLE TIMES. BED LOW AND LOCKED. SIDE RAILS UP X2. CALL LIGHT WITHIN REACH. WILL CONTINUE TO MONITOR.
[2020-03-02 08:00] VITALS: BP 130/78
--- NOTE | 2020-03-02 08:00 | NUR ---
RN NOTE DR SINGH IS MADE AWARE PATIENT REFUSING IV FLUIDS.
[2020-03-02] MEDS: THIAMINE HCL 100 MG TABLET PO SCH (08:28)
[2020-03-02] MEDS: ASPIRIN 81 MG TAB.CHEW PO SCH (08:28)
[2020-03-02] MEDS: MULTIVITAMINS,THERAGRAN 1 UDTAB TABLET PO SCH (08:28)
[2020-03-02] MEDS: PANTOPRAZOLE 40 MG TABLET.DR PO SCH (08:28)
[2020-03-02] MEDS: FOLIC ACID 1 MG TABLET PO SCH (08:28)
--- NOTE | 2020-03-02 08:30 | NUR ---
RN NOTE DR SINGH IS MADE AWARE OF PATIENT REFUSING STRESS TEST.
[2020-03-02] MEDS ORDERED: REGADENOSON 0.4 MG/5 ML DISP.SYRIN IVP ONE (09:00)
--- NOTE | 2020-03-02 11:48 | NUR ---
RN NOTE THE PATIENT IS ALERT AND ORIENTED X4. DENIES PAIN. OXYGEN SATURATION IS ROOM AIR IS AT 97%. DENIES SOB. RESPIRATION IS REGULAR AND UNLABORED. THE PATIENT IS PROVIDED DISCHARGE EDUCATION AND INSTRUCTIONS AND SHE VERBALIZED UNDERSTANDING. THE PATIENT WILL BE PICKED UP Y BOYFRNELLY LIU.
--- NOTE | 2020-03-02 12:13 | NUR ---
RN NOTE THE PATIENT LEFT THE HOSPITAL IN STABLE CONDITION AND ACCOMPANIED BY BOYFRIEND.
== END 2020-03-02 12:00 | disposition home or self-care (01) | DRG 303 ==
LOC: ER 18:41 → TELE 20:55
PROVIDERS: ADMIT Internal Medicine; ATTEND Internal Medicine
DX: I25.10 Atherosclerotic heart disease of native coronary artery without angina pectoris (principal); E22.2 Syndrome of inappropriate secretion of antidiuretic hormone; M48.54XA Collapsed vertebra, not elsewhere classified, thoracic region, initial encounter for fracture; E46 Unspecified protein-calorie malnutrition; I10 Essential (primary) hypertension; E87.6 Hypokalemia; F17.210 Nicotine dependence, cigarettes, uncomplicated; G62.9 Polyneuropathy, unspecified; G89.29 Other chronic pain; J44.9 Chronic obstructive pulmonary disease, unspecified; F12.90 Cannabis use, unspecified, uncomplicated; E78.5 Hyperlipidemia, unspecified; D53.9 Nutritional anemia, unspecified; Z79.82 Long term (current) use of aspirin; Z59.0 Homelessness; M19.90 Unspecified osteoarthritis, unspecified site; Z91.14 Patient's other noncompliance with medication regimen; Z71.6 Tobacco abuse counseling; R55 Syncope and collapse; Z68.23 Body mass index [BMI] 23.0-23.9, adult; F10.10 Alcohol abuse, uncomplicated
CPT/HCPCS: 36415; 71045-TC; 80048-TC; 80053-TC; 80061-TC; 80076-TC; 81000-TC; 83540-TC; 83735-TC; 83935-TC; 84100-TC; 84300-TC; 84443-TC; 84484-TC; 84550-TC; 85025-TC; 87081-TC; 87086-TC; 97110-TC; 97116-TC; 97530-TC; C9803; G0378; G0480; J2785; J3480; J3490

== ENCOUNTER 2020-04-22 12:16 | Emergency (ER) | payer MEDICARE, OTHER ==
[~2020-04-22] VITALS: Ht 162.6 cm; Wt 55.3 kg
[~2020-04-22 12:16] MED LIST changes: +AMLO-213 PO; -AMLO10TA7 PO
[2020-04-22] MEDS ORDERED: IBUPROFEN 600 MG TABLET ONE (12:54)
[2020-04-22] MEDS ORDERED: IBUPROFEN 600 MG TABLET PO ONE (13:00)
--- NOTE | 2020-04-22 13:32 | NUR ---
Patient discharged to home in stable condition. Written and verbal after care instructions given. Patient verbalizes understanding of instruction.
[2020-04-22 13:35] VITALS: BP 121/82
== END 2020-04-22 13:36 | disposition home or self-care (01) ==
LOC: ER 12:20
DX: M79.604 Pain in right leg (principal); M54.41 Lumbago with sciatica, right side; I10 Essential (primary) hypertension; M19.90 Unspecified osteoarthritis, unspecified site; F12.90 Cannabis use, unspecified, uncomplicated; Z90.89 Acquired absence of other organs; Z98.890 Other specified postprocedural states; Z79.82 Long term (current) use of aspirin; Z79.899 Other long term (current) drug therapy

== ENCOUNTER 2020-04-26 11:08 | Outpatient (CLI) | payer MEDICARE, OTHER | END 2020-04-26 23:59 | disposition home or self-care (01) | LOC: MSC 11:08 | PROVIDERS: ATTEND Internal Medicine | DX: M54.40 Lumbago with sciatica, unspecified side (principal); M17.9 Osteoarthritis of knee, unspecified; M16.9 Osteoarthritis of hip, unspecified; F41.8 Other specified anxiety disorders; J44.1 Chronic obstructive pulmonary disease with (acute) exacerbation; Z72.0 Tobacco use; Z79.52 Long term (current) use of systemic steroids; F43.10 Post-traumatic stress disorder, unspecified; F32.9 Major depressive disorder, single episode, unspecified; L30.8 Other specified dermatitis ==

== ENCOUNTER 2020-05-25 11:04 | Outpatient (CLI) | payer MEDICARE, OTHER ==
[2020-05-26] MEDS ORDERED: ENOX40DI SQ (17:55)
[2020-05-26] MEDS ORDERED: PRED50TA PO (17:55)
== END 2020-05-25 23:59 | disposition home or self-care (01) ==
LOC: MSC 11:04
PROVIDERS: ATTEND Internal Medicine
DX: M54.42 Lumbago with sciatica, left side (principal); Z91.81 History of falling; M17.10 Unilateral primary osteoarthritis, unspecified knee; M47.9 Spondylosis, unspecified; M16.10 Unilateral primary osteoarthritis, unspecified hip; F43.10 Post-traumatic stress disorder, unspecified; L30.9 Dermatitis, unspecified; F17.200 Nicotine dependence, unspecified, uncomplicated; J44.1 Chronic obstructive pulmonary disease with (acute) exacerbation; Z79.899 Other long term (current) drug therapy

== ENCOUNTER 2020-05-25 11:41 | Inpatient (IN) | payer MEDICARE, OTHER ==
[~2020-05-25] VITALS: Ht 157.5 cm; Wt 49.9 kg
--- NOTE | 2020-05-25 11:45 | NUR ---
SENT BY DR SINGH FOR BACK PAIN. TO ER BED 10, HOOKED TO MONITOR. CHANGED TO HOSP GOWN, WARM BLANKET PROVIDED, PATIENT AAO x 4. NAD NOTED. AWAITING MD ARREOLA
--- NOTE | 2020-05-25 11:46 | NUR ---
DR JERRY AT BEDSIDE
[2020-05-25] MEDS ORDERED: ONDANSETRON HCL/PF 4 MG/2 ML VIAL IV ONE (12:00)
[2020-05-25] MEDS ORDERED: MORPHINE SULFATE INJ 2 MG/ML DISP.SYRIN IV ONE (12:00)
[2020-05-25] MEDS ORDERED: ONDANSETRON HCL/PF 4 MG/2 ML VIAL ONE (12:12)
[2020-05-25] MEDS ORDERED: MORPHINE SULFATE INJ 4 MG/ML DISP.SYRIN ONE (12:12)
[2020-05-25 12:41] LABS: BASOPHILS # (AUTO) 0.2 /CMM (0.0-0.2); BASOPHILS % (AUTO) 1.8 % (0.0-2.0); EOSINOPHILS % (AUTO) 1.8 % (0.0-6.0); HEMATOCRIT 39 % (33-45); LYMPHOCYTES # (AUTO) 1.4 /CMM (0.8-4.8); LYMPHOCYTES % (AUTO) 16.5 % (20.0-44.0); MEAN CORPUSCULAR HGB CONC 34 g/dl (31.0-36.0); MEAN CORPUSCULAR VOLUME 96 fL (82-100); MONOCYTES # (AUTO) 0.6 /CMM (0.1-1.30); MONOCYTES % (AUTO) 7.2 % (2.0-12.0); NEUTROPHILS # (AUTO) 6.1 /CMM (1.8-8.9); NEUTROPHILS % (AUTO) 72.7 % (43.0-81.0); PLATELET COUNT (AUTO) 305 /CMM (150-450); RED BLOOD CELL COUNT(AUTO) 4.04 MIL/uL (4.0-5.2); WHITE BLOOD COUNT (AUTO) 8.4 K/uL (4.3-11.0)
[2020-05-25 12:45] LABS: CALCIUM, SERUM 9.2 mg/dL (8.5-10.1); CREATININE 0.8 mg/dL (0.6-1.3); POTASSIUM 3.5 mmol/L (3.5-5.1)
[2020-05-25 12:51] LABS: ALBUMIN 3.7 g/dL (3.4-5.0); BILIRUBIN,TOTAL 0.8 mg/dL (0.2-1.0); TOTAL PROTEIN, SERUM 7.2 g/dL (6.4-8.2)
[2020-05-25] MEDS ORDERED: ENOXAPARIN SODIUM 40 MG/0.4 ML DISP.SYRIN SQ SCH ×2 (13:00→15:37)
[2020-05-25] MEDS ORDERED: MAGNESIUM HYDROXIDE 30 ML UDC PO PRN (13:00)
[2020-05-25] MEDS ORDERED: MAG HYDROX/AL HYDROX/SIMETH 30 ML UDC PO PRN (13:00)
[2020-05-25] MEDS ORDERED: ONDANSETRON HCL/PF 4 MG/2 ML VIAL IVP PRN (13:00)
[2020-05-25] MEDS ORDERED: Z GUARD REMEDY 2 OZ OINT TP PRN (13:00)
[2020-05-25] MEDS ORDERED: ACETAMINOPHEN 325 MG TABLET PO PRN (13:00)
[2020-05-25] MEDS ORDERED: IBUPROFEN 600 MG TABLET PO PRN (13:30)
[2020-05-25] MEDS ORDERED: LORAZEPAM 1 MG TABLET PO PRN (13:30)
[2020-05-25] MEDS ORDERED: diphenhydrAMINE HCL 25 MG CAPSULE PO PRN (13:30)
[2020-05-25] MEDS ORDERED: ENOXAPARIN SODIUM 40 MG/0.4 ML DISP.SYRIN SQ ONE (14:22)
--- NOTE | 2020-05-25 14:46 | NUR ---
COVID NEGATIVE PER MAIN LAB
[2020-05-25] MEDS ORDERED: HYDROCODONE/APAP 5/325MG TABLET ONE ×2 (15:50→19:59)
[2020-05-25] MEDS: HYDROCODONE/APAP 5/325MG TABLET PO PRN ×2 (15:52→20:11)
[2020-05-25] MEDS ORDERED: ALBUTEROL FS 2.5 MG/0.5 ML VIAL.NEB NEB PRN (16:00)
--- NOTE | 2020-05-25 16:10 | NUR ---
SOLEDAD TRUONG AT BEDSIDE. INFORMED THAT PATIENT WILL BE FOR PLACEMENT AND THAT CASE MANAGEMENT IS AWARE.
[2020-05-25] MEDS ORDERED: MORPHINE SULFATE INJ 2 MG/ML DISP.SYRIN IV PRN (19:00)
--- NOTE | 2020-05-25 19:19 | NUR ---
REPORT GIVEN TO YAO BENAVIDES FOR SHERRY
--- NOTE | 2020-05-25 19:56 | NUR ---
PATIENT C/O OF PAIN. PATIENT IS AAOX4. BREATHING EVENLY AND UNLABORED ON ROOM AIR AT 98%. CONNECTED TO MONITOR.
[2020-05-25] MEDS ORDERED: CARVEDILOL 12.5 MG TABLET ONE (20:02)
[2020-05-25] MEDS: IV NS 0.9% 1,000 ML IV PRN (20:10)
[2020-05-25] MEDS: CARVEDILOL 12.5 MG TABLET PO SCH (20:10)
--- NOTE | 2020-05-25 20:41 | NUR ---
PATIENT AMBULATORY WITH A STEADY GAIT WITH A WALKER.
[2020-05-26] MEDS ORDERED: HYDROCODONE/APAP 5/325MG TABLET ONE (00:11)
[2020-05-26] MEDS: HYDROCODONE/APAP 5/325MG TABLET PO PRN ×4 (00:12→19:41)
--- NOTE | 2020-05-26 00:55 | NUR ---
BED ASSIGNMENT 322-2
--- NOTE | 2020-05-26 01:17 | NUR ---
REPORT GIVEN TO SILVERIO BENAVIDES FOR SHERRY.
[2020-05-26 01:30] VITALS: BP 128/78
--- NOTE | 2020-05-26 01:35 | NUR ---
PATIENT TAKEN TO ASSIGNED ROOM FOR SHERRY.
[2020-05-26] MEDS: IV NS 0.9% 1,000 ML IV PRN (01:39)
--- NOTE | 2020-05-26 01:40 | NUR ---
ADDICTIONS RECOVERY SPECIALIST NOTES: PATIENT ADMITTED FROM ER WITH DIAGNOSIS OF INTRACTABLE BACK PAIN. PATIENT IS ALERT AND ORIENTED X4. ABLE TO VERBALIZE NEEDS. NO S/SX OF ACUTE RESPIRATORY DISTRESS NOTED. IV FLUID NORMAL SALINE INFUSING AT 50ML/HR VIA LEFT WRIST 22G. PATIENT AMBULATES WITH WALKER. SKIN BODY ASSESSMENT DONE, NOTED WITH SCAB ON LEFT FOREARM. BELONGINGS WERE INVENTORIED. PATIENT REPORTS PAIN ON RIGHT HIP ON A PAIN SCALE OF 3/10. SAFETY MEASURES IN PLACE, BED IN LOW SETTING, SIDE RAILS X2 IN UPRIGHT POSITION, BRAKES LOCKED. CALL LIGHT WITHIN REACH, WILL CONTINUE TO MONITOR AND ENSURE SAFETY.
[2020-05-26 03:51] VITALS: BP 128/78
--- NOTE | 2020-05-26 06:37 | NUR ---
MS RN CLOSING NOTES: PATIENT IN BED ASLEEP, AROUSES EASILY. NO ACUTE DISTRESS NOTED. IV ACCESS ON LEFT WRIST #22G PATENT AND INTACT. IV FLUIDS NORMAL SALINE INFUSING WELL AT 50ML/HR. PATIENT AMBULATES WITH WALKER. DENIES PAIN OR DISCOMFORT AT THIS TIME. SAFETY MEASURES IN PLACE. ALL NEEDS MET AND ATTENDED. CALL LIGHTS WITHIN EASY REACH. WILL ENDORSE TO DAY SHIFT NURSE FOR CONTINUITY OF CARE.
[2020-05-26 07:30] LABS: BASOPHILS % (AUTO) 0.7 % (0.0-2.0); EOSINOPHILS % (AUTO) 2.9 % (0.0-6.0); HEMATOCRIT 37 % (33-45); HEMOGLOBIN 12.1 g/dL (11.5-14.8); LYMPHOCYTES # (AUTO) 1.2 /CMM (0.8-4.8); MEAN CORPUSCULAR HGB CONC 33 g/dl (31.0-36.0); MEAN CORPUSCULAR VOLUME 96 fL (82-100); MONOCYTES # (AUTO) 0.5 /CMM (0.1-1.30); MONOCYTES % (AUTO) 8.8 % (2.0-12.0); NEUTROPHILS # (AUTO) 3.4 /CMM (1.8-8.9); NEUTROPHILS % (AUTO) 64.6 % (43.0-81.0); PLATELET COUNT (AUTO) 247 /CMM (150-450); RED BLOOD CELL COUNT(AUTO) 3.82 MIL/uL (4.0-5.2); WHITE BLOOD COUNT (AUTO) 5.2 K/uL (4.3-11.0)
[2020-05-26] MEDS ORDERED: PANTOPRAZOLE 40 MG TABLET.DR PO SCH (07:30)
--- NOTE | 2020-05-26 07:34 | NUR ---
MS/RN OPENING NOTE RECEIVED PATIENT FROM DRUG COORDINATOR NURSE. PATIENT IS A/O X3. NO ACUTE DISTRESS NOTED AT THIS TIME. ALL SAFETY MEASURES IN PLACE BED LOCKED AND IN LOWEST POSITION, CALL LIGHT WITHIN REACH, WILL CONTINUE TO MONITOR AN ENSURE SAFETY.
[2020-05-26 08:00] VITALS: BP 138/79
[2020-05-26] MEDS ORDERED: AMLODIPINE BESYLATE 5 MG TABLET PO SCH (09:00)
[2020-05-26] MEDS ORDERED: ASPIRIN 81 MG TAB.CHEW PO SCH (09:00)
[2020-05-26] MEDS: CARVEDILOL 12.5 MG TABLET PO SCH (09:06)
--- NOTE | 2020-05-26 09:09 | NUR ---
MS/RN REFUSED MED PATIENT REFUSED ENOXAPRIN INJECTION
[2020-05-26] MEDS ORDERED: DEXAMETHASONE SOD PHOSPHATE 10 MG/ML VIAL IV SCH (12:00)
[2020-05-26 12:15] LABS: POTASSIUM 3.9 mmol/L (3.5-5.1)
[2020-05-26] MEDS ORDERED: KETOROLAC TROMETHAMINE INJ 30 MG/ML VIAL IM PRN (14:30)
[2020-05-26 16:00] VITALS: BP 126/81
[2020-05-26 17:15] LABS: CALCIUM, SERUM 9.1 mg/dL (8.5-10.1); CREATININE 0.7 mg/dL (0.6-1.3); MAGNESIUM 2.1 mg/dL (1.8-2.4); PHOSPHORUS 2.7 mg/dL (2.5-4.9)
[2020-05-26] MEDS ORDERED: ENOX40DI SQ (17:55)
[2020-05-26] MEDS ORDERED: PRED50TA PO (17:55)
--- NOTE | 2020-05-26 19:43 | NUR ---
MS/RN DISCHARGED PATIENT DISCHARGED TO [facility] IN STABLE CONDITION. HEPLOCK REMOVED, PRESSURE DRESSING APPLIED, NAME BAND REMOVED. ALL PERSONAL BELONGINGS ACCOUNTED FOR ON BELONGINGS LIST AND SIGNED OFF. EDUCATED PATIENT ON DISCHARGE INSTRUCTIONS. REPORT WAS GIVEN TO DAISHA AT [facility]. TRANSPORT HERE TO CHIEF SUPPLY CHAIN OFFICER PATIENT, REPORT GIVEN TO PARAMEDICS, PATIENT LEFT IN STABLE CONDITION.
[2020-05-26 21:10] LABS: THYROID STIMULATING HORMONE 1.646 uIU/mL (0.358-3.74)
[2020-05-26 21:24] LABS: URIC ACID 6.4 mg/dL (2.6-7.2)
== END 2020-05-26 19:45 | DRG 552 ==
LOC: ER 11:43 → TRANSITION 20:03 → MED 05-26 01:02
PROVIDERS: ADMIT Registered Nurse; ATTEND Registered Nurse
DX: M54.40 Lumbago with sciatica, unspecified side (principal); E87.1 Hypo-osmolality and hyponatremia; E78.5 Hyperlipidemia, unspecified; F12.90 Cannabis use, unspecified, uncomplicated; F17.210 Nicotine dependence, cigarettes, uncomplicated; F41.9 Anxiety disorder, unspecified; G89.29 Other chronic pain; I25.10 Atherosclerotic heart disease of native coronary artery without angina pectoris; J44.9 Chronic obstructive pulmonary disease, unspecified; R62.7 Adult failure to thrive; Z79.82 Long term (current) use of aspirin; I50.9 Heart failure, unspecified; I11.0 Hypertensive heart disease with heart failure; R53.1 Weakness; Z68.20 Body mass index [BMI] 20.0-20.9, adult; M19.90 Unspecified osteoarthritis, unspecified site; Z20.822 Contact with and (suspected) exposure to COVID-19
CPT/HCPCS: 36415; 80048-TC; 80053-TC; 80061-TC; 83735-TC; 84100-TC; 84443-TC; 84550-TC; 85025-TC; 87081-TC; 97116-TC; 97530-TC; C9803; G0378; J1100; J1650; J2270; J2405; J7030

== ENCOUNTER 2020-09-28 15:44 | Emergency (ER) | payer MEDICARE, OTHER ==
[~2020-09-28] VITALS: Ht 160 cm; Wt 66.2 kg
[~2020-09-28 15:44] MED LIST changes: +ENOX40DI SQ; +PRED50TA PO
[2020-09-28] MEDS ORDERED: LIDOCAINE VISCOUS 2% UD 15 ML UDC ONE (16:27)
[2020-09-28] MEDS ORDERED: PANTOPRAZOLE 40 MG VIAL ONE (16:27)
[2020-09-28] MEDS ORDERED: FAMOTIDINE/PF INJ 20 MG/2 ML VIAL IV ONE (16:28)
[2020-09-28] MEDS ORDERED: MAG HYDROX/AL HYDROX/SIMETH 30 ML UDC ONE (16:28)
[2020-09-28] MEDS: FAMOTIDINE/PF INJ 20 MG/2 ML VIAL IV ONE (16:46)
[2020-09-28 16:47] LABS: BASOPHILS # (AUTO) 0.1 /CMM (0.0-0.2); BASOPHILS % (AUTO) 1.2 % (0.0-2.0); HEMOGLOBIN 13.3 g/dL (11.5-14.8); LYMPHOCYTES # (AUTO) 2.5 /CMM (0.8-4.8); MONOCYTES # (AUTO) 0.6 /CMM (0.1-1.30); NEUTROPHILS % (AUTO) 42.3 % (43.0-81.0); RED BLOOD CELL COUNT(AUTO) 4.22 MIL/uL (4.0-5.2)
[2020-09-28] MEDS: PANTOPRAZOLE 40 MG VIAL IV ONE (16:48)
[2020-09-28 16:51] LABS: HEMATOCRIT 40 % (33-45); LYMPHOCYTES % (AUTO) 41.8 % (20.0-44.0); MEAN CORPUSCULAR HGB CONC 34 g/dl (31.0-36.0); MEAN CORPUSCULAR VOLUME 94 fL (82-100); MONOCYTES % (AUTO) 9.7 % (2.0-12.0); NEUTROPHILS # (AUTO) 2.5 /CMM (1.8-8.9); PLATELET COUNT (AUTO) 275 /CMM (150-450)
[2020-09-28] MEDS ORDERED: ACETAMINOPHEN 325 MG TABLET ONE (16:59)
[2020-09-28] MEDS: ACETAMINOPHEN 325 MG TABLET PO ONE (17:04)
[2020-09-28] MEDS: MAG HYDROX/AL HYDROX/SIMETH 30 ML UDC PO ONE (17:04)
[2020-09-28] MEDS: LIDOCAINE VISCOUS 2% UD 15 ML UDC MM ONE (17:04)
[2020-09-28 17:07] LABS: CALCIUM, SERUM 8.7 mg/dL (8.5-10.1); CARBON DIOXIDE 28 mmol/L (21-32); CHLORIDE 90 mmol/L (98-107); CREATININE 0.5 mg/dL (0.6-1.3); GLUCOSE 91 mg/dL (74-106); POTASSIUM 3.4 mmol/L (3.5-5.1); SODIUM SERUM 129 mmol/L (136-145); UREA NITROGEN, BLOOD 5 mg/dL (7-18)
--- NOTE | 2020-09-28 17:09 | NUR ---
HEADACHE X 3 DAYS WORST TODAY. EPIGASTRIC PAIN X TODAY. ADMITS TO ETOH. PT AAOX4, VSS. RR EVEN & UNLABORED. DENIES CP, SOB, DIZZINESS, N/V AT THIS TIME. PT SEEN & EVAL'D BY DR. LEA. MEDICATED ORDERED, PT GINA WELL. WILL CONT TO MONITOR.
[2020-09-28 17:11] LABS: ALANINE AMINOTRANSFERASE 25 U/L (12-78); ALBUMIN 3.3 g/dL (3.4-5.0); ALKALINE PHOSPHATASE 87 U/L (46-116); ASPARTATE AMINOTRANSFERASE 25 U/L (15-37); BILIRUBIN,DIRECT 0.1 mg/dL (0.0-0.2); BILIRUBIN,TOTAL 0.2 mg/dL (0.2-1.0); LIPASE 41 U/L (73-393)
[2020-09-28] MEDS ORDERED: LIDOCAINE PATCH TD (17:15)
[2020-09-28] MEDS ORDERED: GABA-532 PO (17:15)
[2020-09-28] MEDS ORDERED: DULO60CA45 PO (17:15)
[2020-09-28] MEDS ORDERED: ACET325T53 PO (19:06)
[2020-09-28 19:25] VITALS: BP 124/78
== END 2020-09-28 19:27 | disposition home or self-care (01) ==
LOC: ER 16:10
DX: G44.219 Episodic tension-type headache, not intractable (principal); R10.13 Epigastric pain; E87.1 Hypo-osmolality and hyponatremia; I10 Essential (primary) hypertension; M19.90 Unspecified osteoarthritis, unspecified site; F12.90 Cannabis use, unspecified, uncomplicated; Z90.89 Acquired absence of other organs; Z98.890 Other specified postprocedural states; Z79.899 Other long term (current) drug therapy
CPT/HCPCS: 36415; 71045; 80048; 80076; 83690; 84484; 85025; 93005 ×2; 96374; 96375; 99285; C9113; J3490

== ENCOUNTER 2020-11-03 13:30 | Emergency (ER) | payer MEDICARE, OTHER ==
[~2020-11-03] VITALS: Ht 160 cm; Wt 63.5 kg
[~2020-11-03 13:30] MED LIST changes: +ACET325T53 PO; -AMLO-213 PO; -ASPI-1169 PO; -CARV12.52 PO; -DIPH25CA51 PO; +DULO60CA45 PO; -ENOX40DI SQ; +GABA-532 PO; -IBUP-1490 PO; +LIDOCAINE PATCH TD; -LORA1TAB PO; -PRED50TA PO
--- NOTE | 2020-11-03 13:30 | NUR ---
PT BIBRA [address] C/O HEADACHE 06/20. PT IS AAOX4, NOT IN RESPIRATORY DISTRESS, V/S STABLE, KEPT RESTED AND COMFORTABLE. WILL CONTINUE TO MONITOR.
[2020-11-03 14:27] LABS: BASOPHILS # (AUTO) 0.1 K/uL (0.0-0.2); BASOPHILS % (AUTO) 0.7 % (0.0-2.0); EOSINOPHILS % (AUTO) 3.3 % (0.0-6.0); HEMATOCRIT 39 % (33-45); HEMOGLOBIN 12.9 g/dL (11.5-14.8); LYMPHOCYTES # (AUTO) 1.7 K/uL (0.8-4.8); LYMPHOCYTES % (AUTO) 19.5 % (20.0-44.0); MEAN CORPUSCULAR HGB CONC 33 g/dl (31.0-36.0); MEAN CORPUSCULAR VOLUME 95 fL (82-100); MONOCYTES # (AUTO) 0.5 K/uL (0.1-1.30); MONOCYTES % (AUTO) 6.1 % (2.0-12.0); NEUTROPHILS # (AUTO) 6.3 K/uL (1.8-8.9); NEUTROPHILS % (AUTO) 70.4 % (43.0-81.0); PLATELET COUNT (AUTO) 207 K/uL (150-450); RED BLOOD CELL COUNT(AUTO) 4.09 MIL/uL (4.0-5.2); WHITE BLOOD COUNT (AUTO) 8.9 K/uL (4.3-11.0)
[2020-11-03] MEDS ORDERED: IV NS 0.9% 1,000 ML BAG IV ONE (14:30)
[2020-11-03] MEDS ORDERED: ONDANSETRON HCL/PF 4 MG/2 ML VIAL IVP ONE (14:30)
[2020-11-03] MEDS ORDERED: ONDANSETRON HCL/PF 4 MG/2 ML VIAL ONE (14:32)
[2020-11-03 14:36] LABS: CALCIUM, SERUM 8.7 mg/dL (8.5-10.1); CARBON DIOXIDE 24 mmol/L (21-32); CHLORIDE 86 mmol/L (98-107); CREATININE 0.6 mg/dL (0.6-1.3); GLUCOSE 90 mg/dL (74-106); SODIUM SERUM 122 mmol/L (136-145); UREA NITROGEN, BLOOD 4 mg/dL (7-18)
--- NOTE | 2020-11-03 14:40 | NUR ---
IV LINE ESTABLISHED BLOOD DRAWN AND SENT TO LAB.
[2020-11-03 14:42] LABS: ALANINE AMINOTRANSFERASE 27 U/L (12-78); ALBUMIN 3.3 g/dL (3.4-5.0); ALKALINE PHOSPHATASE 74 U/L (46-116); ASPARTATE AMINOTRANSFERASE 24 U/L (15-37); BILIRUBIN,DIRECT 0.2 mg/dL (0.0-0.2); BILIRUBIN,TOTAL 0.5 mg/dL (0.2-1.0); LIPASE 82 U/L (73-393); TOTAL PROTEIN, SERUM 6.6 g/dL (6.4-8.2)
--- NOTE | 2020-11-03 14:49 | NUR ---
URINE SPECIMEN COLLECTED AND SENT TO LAB.
[2020-11-03 15:17] LABS: BILIRUBIN,URINE NEGATIVE (NEGATIVE); COLOR,URINE YELLOW (YELLOW); LEUKOCYTE ESTERASE ,URINE NEGATIVE (NEGATIVE); NITRITE, URINE NEGATIVE (NEGATIVE); PROTEIN,URINE NEGATIVE (NEGATIVE); UGLUCOSE NEGATIVE (NEGATIVE); UROBILINOGEN,URINE 0.2 EU/dL (0.2)
[2020-11-03 15:27] LABS: BACTERIA,URINE None seen /HPF (None Seen); MUCUS,URINE Few /LPF (None Seen); RBC,URINE 0-2 /HPF (0-2); SQUAMOUS EPITHELIAL CELL,UR 0-2 /HPF (None Seen); WBC,URINE 0-2 /HPF (0-3)
[2020-11-03 15:28] LABS: HYALINE CASTS, URINE Few /LPF (None Seen)
[2020-11-03] MEDS ORDERED: ONDA4TAB5 PO (15:37)
[2020-11-03] MEDS ORDERED: OMEP40CA21 PO (15:37)
--- NOTE | 2020-11-03 15:50 | NUR ---
IV removed. Catheter intact and site benign. Pressure and 4x4 applied to site. No bleeding noted.
--- NOTE | 2020-11-03 15:52 | NUR ---
Patient given written and verbal discharge instructions. Patient verbalizes understanding of instructions. Patient is ambulatory with steady gait. Refuses offer of assisted placement. Patient given list of available shelters in surrounding area.
[2020-11-03 15:56] VITALS: BP 125/58
== END 2020-11-03 15:57 | disposition home or self-care (01) ==
LOC: ER 13:32
DX: R10.13 Epigastric pain (principal); I10 Essential (primary) hypertension; F17.200 Nicotine dependence, unspecified, uncomplicated; M19.90 Unspecified osteoarthritis, unspecified site; F12.90 Cannabis use, unspecified, uncomplicated; Z90.89 Acquired absence of other organs; Z98.890 Other specified postprocedural states; Z79.899 Other long term (current) drug therapy
CPT/HCPCS: 36415; 71045; 80048; 80076; 81001; 83690; 84484; 85025; 93005; 96361; 96374; 99285; 99406; J2405; J7030

== ENCOUNTER 2020-11-28 10:51 | Inpatient (IN) | payer MEDICARE, OTHER ==
[~2020-11-28] VITALS: Ht 160 cm; Wt 54.4 kg
[~2020-11-28 10:51] MED LIST changes: -ACET325T53 PO; +OMEP40CA21 PO; +ONDA4TAB5 PO
--- NOTE | 2020-11-28 10:59 | NUR ---
ETOH - [facility] TO ER, C/O WEAKNESS
--- NOTE | 2020-11-28 11:02 | NUR ---
ETOH, BEEN DRINKING WHOLE DAY - C/O WEAKNESS- CALLED 911. THE PATIENT IS ALERT AND ORIENTED X4. DENIES PAIN. IN ROOM AIR AND DENIES SOB. RESPIRATION REGULAR AND UNLABORED. WILL CONTINUE TO MONITOR THE PATIENT.
[2020-11-28] MEDS ORDERED: PANTOPRAZOLE 40 MG VIAL IV ONE (12:00)
[2020-11-28 12:18] LABS: BASOPHILS % (AUTO) 0.5 % (0.0-2.0); EOSINOPHILS % (AUTO) 5.3 % (0.0-6.0); HEMATOCRIT 39 % (33-45); HEMOGLOBIN 13.1 g/dL (11.5-14.8); LYMPHOCYTES # (AUTO) 2.4 K/uL (0.8-4.8); LYMPHOCYTES % (AUTO) 33.2 % (20.0-44.0); MEAN CORPUSCULAR HGB CONC 34 g/dl (31.0-36.0); MEAN CORPUSCULAR VOLUME 99 fL (82-100); MONOCYTES # (AUTO) 0.7 K/uL (0.1-1.30); NEUTROPHILS # (AUTO) 3.8 K/uL (1.8-8.9); PLATELET COUNT (AUTO) 233 K/uL (150-450); RED BLOOD CELL COUNT(AUTO) 3.97 MIL/uL (4.0-5.2); WHITE BLOOD COUNT (AUTO) 7.3 K/uL (4.3-11.0)
--- NOTE | 2020-11-28 12:18 | NUR ---
THE PATIENT IS TAKEN TO CT
[2020-11-28 12:30] LABS: CALCIUM, SERUM 8.5 mg/dL (8.5-10.1); CARBON DIOXIDE 19 mmol/L (21-32); CHLORIDE 92 mmol/L (98-107); CREATININE 0.6 mg/dL (0.6-1.3); GLUCOSE 76 mg/dL (74-106); POTASSIUM 3.3 mmol/L (3.5-5.1); SODIUM SERUM 127 mmol/L (136-145); UREA NITROGEN, BLOOD 5 mg/dL (7-18)
--- NOTE | 2020-11-28 12:35 | NUR ---
"Cuff Setter Overlock consult: manager clinical services consult requested for ETOH use and homelessness. Patient is a 70-year-old, female. SW met with patient at her bedside in the emergency department. Patient was eating her lunch and presented calm. Patient was alert and oriented x4. Per chart, patient was brought in by EMS on 11/28/20 with complaints of weakness and ETOH use. Patient is currently homeless and stated that she has been homeless for years. Patient currently lives on [address]. SW asked the patient if she is ambulatory and patient stated that she currently uses a walker. Patient receives [employer] as a source of income. SW asked patient if she has a history of substance use and patient reported current alcohol and cigarette use. Patient reported daily alcohol use and stated that she drinks around two to three bottles of alcohol per day. Patient reported that she smokes around a pack of cigarettes per day. SW assessed patient's history of mental illness. Patient reported a history of Anxiety and Depression and stated that she has not been taking psychiatric medication. Patient reported that she was only administered Ativan during a prior hospitalization. Patient denied suicidal or homicidal ideation. SW offered the patient homeless, substance use and outpatient mental health resources. Patient accepted the resources and thanked SW. Patient signed the homeless waiver and SW filed waiver in the patient's chart. SW discussed discharge plans with the patient. Patient requested to be discharged to [facility] ([address] [place] [id number]; ). Patient will be admitted medically. DIGNA notified manager of case managementFaby of this discharge plan. CM to follow up at the time of discharge. PLAN: Patient will be admitted medically. No further SS intervention at this time, however, SW will remain available as needed. RESOURCES: Year-round shelters: [facility] [address] [place] [address] ; [facility] [address] [place] [address]; [facility] [address] [facility]. [facility] [address] SPA 4 | [facility] [place] Provider: First to Serve Address: [address] [place] [address], [facility] # of Beds: 48 Population Served: [facility] Provider: First to Serve Address: [address] [facility], [address] # of Beds: 73 Population Served: [facility] 6 | [facility] Provider: [facility] Last Address: [address] [facility], [address] # of Beds: 63 Population Served: Adrianad SPA 3 | [facility] Provider: [facility] [place] Address: [address] [facility], [address] # of Beds: 75 Population Served: Adrianad SPA 8 | [facility] Provider: [facility] [place] Address: [address] [facility], [address] # of Beds: 80 Population Served: [facility] 1 | [facility] Provider: [facility] [facility] [place] Address: [address] [place] [address], [facility] # of Beds: 85 Population Served: Deven [facility] 2 | [facility] Provider: [place] [facility] Address: Confidential (please call for location) # of Beds: 52 Population Served: Deven [facility] 4 | [facility] Provider: [facility] Address: [address] [facility], [address] # of Beds: 49 Population Served: [facility] Provider: First To Serve Address: [address] [facility], [address] # of Beds: 27 Population Served: Deven Hygiene: [employer]: [address] ; [place] [facility] [address] [facility] ; [facility] [address] . Food Resources: [place] [employer] [facility] at [facility]- [address]; Meet Each Need with Dignity ([facility]) [address] [facility]; [facility] [address] [facility]; [facility] [address]. Mental Health resources provided: [facility] [address] [place] [address] ; [facility] [place] [facility] [address] [facility] [address], [place] [address] ; [facility] [address] [facility] [place], [place] [phone] ; [facility] [address] [place], [place] [phone] Healthcare Clinics: [facility] [address] [facility], [address] [place]. [place] ; [facility] [address] [facility] [address] [place] [address]; [facility] [address] [facility]. [place] [phone] Counseling--Outpatient [facility] [address] [facility], [place] [address] (Specializes in in-depth psychotherapy for emotional distress: anxiety, depression, interpersonal conflicts, life transitions, childhood abuse) PSYCHIATRIC OUTPATIENT SERVICES [facility] Partial Hospitalization and Intensive Outpatient Program (Managed Care and [place] Only) [address] [facility] [id number] [facility] Partial Hospitalization and Outpatient Program [address] [facility]. [address] [place], [place] [phone] [facility] Partial Hospitalization and Outpatient Program [address] [facility]. [place], [place] [phone] [facility] [address] [facility]. [address] [place], [place] [phone] [facility] Partial Hospitalization and Outpatient Program [address] [place], [place] [phone] Substance use resources provided included: [facility] Substance Abuse Self-Helpline (SAS) ; [facility] [address] [facility]. [place] [phone] ; [facility] [address] [facility] [address] ; [facility] [address] [facility] [address] ; [facility] [address] [facility] [address] ; [facility] [address] [facility] [phone] ; [facility]; [facility] [place]; [facility] [place]; Alcoholics Anonymous -SFV"
[2020-11-28] MEDS ORDERED: PANTOPRAZOLE 40 MG VIAL ONE (12:37)
[2020-11-28 12:40] LABS: ALANINE AMINOTRANSFERASE 27 U/L (12-78); ALBUMIN 3.2 g/dL (3.4-5.0); ALKALINE PHOSPHATASE 73 U/L (46-116); ASPARTATE AMINOTRANSFERASE 30 U/L (15-37); BILIRUBIN,DIRECT 0.1 mg/dL (0.0-0.2); BILIRUBIN,TOTAL 0.3 mg/dL (0.2-1.0); LIPASE 70 U/L (73-393); TOTAL PROTEIN, SERUM 6.5 g/dL (6.4-8.2)
--- NOTE | 2020-11-28 12:44 | NUR ---
PATIENT CAME BACK FROM CT.
[2020-11-28] MEDS ORDERED: DIPH25CA51 PO (13:28)
[2020-11-28] MEDS ORDERED: LORA-259 PO (13:28)
[2020-11-28] MEDS ORDERED: LIDO30AD10 TP (13:28)
[2020-11-28] MEDS ORDERED: ASPI-1169 PO (13:28)
[2020-11-28] MEDS ORDERED: MULT-447 PO (13:28)
[2020-11-28] MEDS ORDERED: MELA5TAB PO (13:28)
[2020-11-28] MEDS ORDERED: ESOM40CA PO (13:28)
[2020-11-28] MEDS ORDERED: POLY15DR40 EACHEYE (13:28)
[2020-11-28] MEDS ORDERED: CARV12.52 PO (13:29)
--- NOTE | 2020-11-28 13:58 | NUR ---
NURSING SUP GAVE 120-1.
[2020-11-28] MEDS ORDERED: ACETAMINOPHEN 325 MG TABLET PO PRN (14:00)
[2020-11-28] MEDS ORDERED: Z GUARD REMEDY 2 OZ OINT TP PRN (14:00)
[2020-11-28] MEDS ORDERED: MAG HYDROX/AL HYDROX/SIMETH 30 ML UDC PO PRN (14:00)
[2020-11-28] MEDS ORDERED: MAGNESIUM HYDROXIDE 30 ML UDC PO PRN (14:00)
[2020-11-28] MEDS ORDERED: DICYCLOMINE HCL 10 MG CAPSULE PO PRN (14:00)
[2020-11-28] MEDS ORDERED: ONDANSETRON HCL/PF 4 MG/2 ML VIAL IVP PRN (14:00)
[2020-11-28] MEDS ORDERED: IV 1/2NS 1000 ML 1,000 ML IV PRN (14:00)
--- NOTE | 2020-11-28 14:47 | NUR ---
REPORT GIVEN TO AMEENA BENAVIDES FOR SHERRY. PT AWAITNG TRANSFER TO FLOOR.
--- NOTE | 2020-11-28 15:20 | NUR ---
PT TRANSFERRED TO BED 120 IN STABLE CONDITION.
[2020-11-28] MEDS: HYDROCODONE/APAP 5/325MG TABLET PO PRN ×2 (15:30→19:12)
--- NOTE | 2020-11-28 15:39 | NUR ---
REFRIGERATION ENGINE OPERATOR NOTE PT RESTING IN BED AWAKE. ON RA WITH NO SOB OR RESPIRATORY DISTRESS PRESENT. O2 SAT >95%. A/O X4 AND GUINEAN SPEAKING. COMPLAINT OF PAIN IN ABDOMEN 7/10 AND PAIN MEDS GIVEN PER PROTOCOL. NO COMPLAINT OF NAUSEA. NO ROLLOFF TRUCK DRIVER PRESENT. NO EDEMA PRESENT. PT IS SELF AMBULATORY WITH BATHROOM PRIVILEGES. ON CARDIAC DIET. IV PRESENT ON R HAND 22G AND FLUSHES WELL. LABS AND ORDERS REVIEWED. SAFETY MEASURES IN PLACE. SIDE RAILS RAISED. BED LOWERED. CALL LIGHT WITHIN REACH. WILL CONTINUE TO MONITOR.
[2020-11-28 17:59] VITALS: BP 118/67
--- NOTE | 2020-11-28 19:25 | NUR ---
RN CLOSING NOTE PT RESTING IN BED AWAKE. ON RA WITH NO SOB OR RESPIRATORY DISTRESS PRESENT. O2 SAT >95%. A/O X4 AND BULGARIAN SPEAKING. COMPLAINT OF PAIN IN ABDOMEN 7/10 AND PAIN MEDS GIVEN PER PROTOCOL. NO COMPLAINT OF NAUSEA. NO WATER PLANT OPERATOR PRESENT. NO EDEMA PRESENT. PT IS SELF AMBULATORY WITH BATHROOM PRIVILEGES. ON CARDIAC DIET. IV PRESENT ON R HAND 22G AND FLUSHES WELL. ROUTINE MEDS GIVEN. LABS AND ORDERS REVIEWED. SAFETY MEASURES IN PLACE. SIDE RAILS RAISED. BED LOWERED. CALL LIGHT WITHIN REACH. REPORT GIVEN TO NIGHT NURSE FOR SHERRY
--- NOTE | 2020-11-28 19:40 | NUR ---
RN OPENING NOTES PT RECEIVED IN BED. A&OX4. NORMAL SR. PT IS ON ROOM AIR WITH NO S/S OF RESPIRATORY DISTRESS/SOB. PT IS AMBULATORY AND CURRENTLY ON CARDIAC (LOW-FAT) DIET. PT HAS IV LINE ON RIGHT [id number] FLUSHED, PATENT, AND INTACT. ALL SAFETY MEASURES IMPLEMENTED. BED LOCKED AND IN LOWEST POSITION. BED ALARM ON. CALL LIGHT WITHIN REACH. WILL CONTINUE TO MONITOR THROUGHOUT THE SHIFT.
[2020-11-28 20:00] VITALS: BP 128/68
--- NOTE | 2020-11-28 20:13 | NUR ---
RN NOTES PATIENT WAS COMPLAINING OF ITCHING, COMMUNICATED WITH YAN TRUONG NP. ORDER SECURED FOR 25MG BENADRYL PO Q8H. ALSO, INFORMED ABOUT POTASSIUM LEVEL OF 3.3, NO COVERAGE GIVEN DURING MORNING SHIFT, ORDER SECURED FOR 30 KDUR X1.
[2020-11-28] MEDS ORDERED: POTASSIUM CHLORIDE 10 MEQ TABLET.SA PO ONE (20:30)
[2020-11-28] MEDS: diphenhydrAMINE HCL 25 MG CAPSULE PO PRN (20:33)
[2020-11-29] MEDS: HYDROCODONE/APAP 5/325MG TABLET PO PRN ×3 (00:09→18:26)
[2020-11-29 04:00] VITALS: BP 130/72
[2020-11-29 06:52] LABS: BASOPHILS # (AUTO) 0.1 K/uL (0.0-0.2); BASOPHILS % (AUTO) 0.9 % (0.0-2.0); EOSINOPHILS % (AUTO) 7.5 % (0.0-6.0); HEMATOCRIT 40 % (33-45); HEMOGLOBIN 13.2 g/dL (11.5-14.8); LYMPHOCYTES # (AUTO) 1.7 K/uL (0.8-4.8); LYMPHOCYTES % (AUTO) 23.5 % (20.0-44.0); MEAN CORPUSCULAR HGB CONC 33 g/dl (31.0-36.0); MEAN CORPUSCULAR VOLUME 99 fL (82-100); MONOCYTES # (AUTO) 0.7 K/uL (0.1-1.30); MONOCYTES % (AUTO) 9.3 % (2.0-12.0); NEUTROPHILS # (AUTO) 4.3 K/uL (1.8-8.9); NEUTROPHILS % (AUTO) 58.8 % (43.0-81.0); PLATELET COUNT (AUTO) 192 K/uL (150-450); RED BLOOD CELL COUNT(AUTO) 4.04 MIL/uL (4.0-5.2); WHITE BLOOD COUNT (AUTO) 7.2 K/uL (4.3-11.0)
--- NOTE | 2020-11-29 07:01 | NUR ---
RN CLOSING NOTES NO SIGNIFICANT CHANGES IN PT CONDITION. NO S/S OF RESP DISTRESS/SOB. ALL DUE MEDS GIVEN. PT KEPT CLEAN AND COMFORTABLE. ALL SAFETY MEASURES IMPLEMENTED. WILL ENDORSE TO MORNING SHIFT RN FOR SHERRY.
[2020-11-29 07:43] LABS: ALBUMIN 3.3 g/dL (3.4-5.0); BILIRUBIN,TOTAL 0.6 mg/dL (0.2-1.0); CALCIUM, SERUM 8.9 mg/dL (8.5-10.1); CREATININE 0.7 mg/dL (0.6-1.3); MAGNESIUM 1.9 mg/dL (1.8-2.4); PHOSPHORUS 3.8 mg/dL (2.5-4.9); POTASSIUM 4.5 mmol/L (3.5-5.1); TOTAL PROTEIN, SERUM 6.7 g/dL (6.4-8.2)
--- NOTE | 2020-11-29 07:49 | NUR ---
RN OPENING NOTES RECEIVED PATIENT AWAKE IN BED. ALERT AND ORIENTED X 4. NO SIGNS OR SYMPTOMS OF DISTRESS NOTED. NO COMPLAINTS OF PAIN AT THIS TIME. IV ACCESS RHAND#22 PATENT AND INTACT. PATIENT ON ROOM AIR, TOLERATING WELL. SAFETY MEASURES IN PLACE WITH BED AT LOWEST POSITION AND SIDE RAILS UP X 2. CALL LIGHT IS WITHIN REACH. WILL CONTINUE TO MONITOR THROUGHOUT SHIFT.
[2020-11-29] MEDS: PANTOPRAZOLE 40 MG TABLET.DR PO SCH (09:52)
[2020-11-29 12:00] VITALS: BP 100/70
[2020-11-29] MEDS: diphenhydrAMINE HCL 25 MG CAPSULE PO PRN ×2 (18:26→22:05)
--- NOTE | 2020-11-29 19:30 | NUR ---
RN OPENING NOTES: RECEIVED PT A/OX4 IN BED RESTING COMFORTABLY. PATIENT IN NO S/SX OF ACUTE DISTRESS AT THIS TIME. NO SOB NOTED. PATIENT'S BREATHING IS EVEN AND UNLABORED. PATIENT IS ON ROOM AIR TOLERATING WELL. PATIENT ON REGULAR DIET; TOLERATES WELL. NOTED IV SITE ON R HAND #22; PATENT, INTACT AND FLUSHING WELL; NO S/S OF INFECTION OR INFILTRATION. PT AMBULATORY AND UNDER MS STATUS. SAFETY MEASURES HAVE BEEN PROVIDED AND IMPLEMENTED. PATIENT BED ALARM IS ON. HEAD OF BED ELEVATED. BED IS LOCKED, IN LOWEST POSITION AND SIDE RAILS UP. CALL LIGHT WITHIN REACH OF THE PATIENT. APPLICABLE ISOLATION PRECAUTIONS IN PLACE. WILL CONTINUE TO MONITOR AND REASSESS FOR ANY CHANGES AND WILL CARRY OUT ANY ONGOING AND ACTIVE MD ORDER.
[2020-11-29 20:00] VITALS: BP 129/76
--- NOTE | 2020-11-29 23:00 | NUR ---
RN NOTES NO CHANGE IN PATIENT CONDITION AT THIS TIME PATIENT VITALS STABLE, NO SIGNS OF ACUTE RESPIRATORY DISTRESS. WOMEN'S SOCCER COACH MADE AWARE. WILL CONTINUE TO MONITOR AND REASSESS FOR ANY CHANGES THROUGHOUT THE SHIFT.
[2020-11-30] MEDS: HYDROCODONE/APAP 5/325MG TABLET PO PRN ×3 (00:18→12:01)
[2020-11-30 04:00] VITALS: BP 135/91
--- NOTE | 2020-11-30 06:43 | NUR ---
RN CLOSING NOTE: PATIENT REMAINS IN ROOM IN NO SIGNS OF RESPIRATORY DISTRESS, PATIENT STILL ON ROOM AIR ;TOLERATING WELL SATURATING @ >95% SP02. SAFETY MEASURES IMPLEMENTED, BED IN LOWEST POSITION, LOCKED, SIDE RAILS UP, CALL LIGHT WITHIN REACH. ALL NEEDS AND ORDERS ADDRESSED DURING THE SHIFT. IV ACCESS MAINTAINED INTACT, SECURED AND FLUSHING WELL. ALL DUE MEDS GIVEN ORDERED & SCHEDULED ; PATIENT TOLERATED WELL. PATIENT KEPT CLEAN AND COMFORTABLE WITHIN THE SHIFT. PATIENT ENDORSED TO INCOMING SHIFT RN WITH STABLE VITAL SIGN AND FOR CONTINUITY OF CARE.
--- NOTE | 2020-11-30 07:25 | NUR ---
RN OPENING NOTES: RECEIVED PT A/OX4 IN BED RESTING COMFORTABLY. PATIENT IN NO S/SX OF ACUTE DISTRESS AT THIS TIME. NO SOB NOTED. PATIENT'S BREATHING IS EVEN AND UNLABORED. PATIENT IS ON ROOM AIR TOLERATING WELL. NOTED IV SITE ON R HAND #22; PATENT, INTACT AND FLUSHING WELL; NO S/S OF INFECTION OR INFILTRATION. SAFETY MEASURES HAVE BEEN PROVIDED AND IMPLEMENTED. PATIENT BED ALARM IS ON. HEAD OF BED ELEVATED. BED IS LOCKED, IN LOWEST POSITION AND SIDE RAILS UP. CALL LIGHT WITHIN REACH OF THE PATIENT. APPLICABLE ISOLATION PRECAUTIONS IN PLACE. WILL CONTINUE TO MONITOR
[2020-11-30] MEDS: PANTOPRAZOLE 40 MG TABLET.DR PO SCH (08:17)
[2020-11-30 08:58] VITALS: BP 132/76
[2020-11-30 12:00] VITALS: BP 132/76
[2020-11-30] MEDS: diphenhydrAMINE HCL 25 MG CAPSULE PO PRN (12:01)
--- NOTE | 2020-11-30 14:42 | NUR ---
TOE CLOSING MACHINE TENDER NOTE RECEIVED ORDER FOR DISCHARGE PATIENT IS A/O X4. PATIENT IS BREATHING EVENLY AND NONLABORED ON ROOM AIR. NO SIGNS OF DISTRESS NOTED. NO COMPLAINTS OF PAIN AT THIS TIME. PATIENT WAS GIVEN DISCHARGE INSTRUCTIONS BOTH VERBALLY AND IN WRITTEN FORM. PATIENT VERBALIZED UNDERSTANDING. GAVE REPORT TO RN TABLET MAKING MACHINE OPERATOR AT [facility]. ALL BELONGINGS ACCOUNTED FOR AND BELONGINGS FORM SIGNED. IV ACCESS WAS REMOVED CATHETER TIP IN PLACE, PRESSURE DRESSING APPLIED. PATIENT LEFT IN STABLE CONDITION IN AMBULANCE 2 LIFE SCIENCE TEACHER PRESENT
== END 2020-11-30 14:50 | DRG 392 ==
LOC: ER 10:51 → TELE1 14:52 → MEDSG1 14:56
PROVIDERS: ADMIT Internal Medicine; ATTEND Internal Medicine
DX: K44.9 Diaphragmatic hernia without obstruction or gangrene (principal); I25.10 Atherosclerotic heart disease of native coronary artery without angina pectoris; J44.9 Chronic obstructive pulmonary disease, unspecified; I11.0 Hypertensive heart disease with heart failure; E78.5 Hyperlipidemia, unspecified; F17.210 Nicotine dependence, cigarettes, uncomplicated; Z59.0 Homelessness; I50.9 Heart failure, unspecified; R07.9 Chest pain, unspecified; M19.90 Unspecified osteoarthritis, unspecified site; Z90.49 Acquired absence of other specified parts of digestive tract; F12.90 Cannabis use, unspecified, uncomplicated; Z79.51 Long term (current) use of inhaled steroids; Z79.899 Other long term (current) drug therapy; K57.90 Diverticulosis of intestine, part unspecified, without perforation or abscess without bleeding; F32.9 Major depressive disorder, single episode, unspecified
CPT/HCPCS: 36415; 71045-TC; 76700-TC; 80048-TC; 80053-TC; 80061-TC; 80076-TC; 83690-TC; 83735-TC; 84100-TC; 84484-TC; 85025-TC; 85730-TC; 87081-TC; C9113; C9803; G0378; J3490; Q0163; U0003

== ENCOUNTER 2021-07-24 13:10 | Inpatient (IN) | payer MEDICARE, OTHER ==
[~2021-07-24] VITALS: Ht 157.5 cm; Wt 63.5 kg
[~2021-07-24 13:10] MED LIST changes: +ASPI-1169 PO; +CARV12.52 PO; +DIPH25CA51 PO; +ESOM40CA PO; +LIDO30AD10 TP; -LIDOCAINE PATCH TD; +LORA-259 PO; +MELA5TAB PO; +MULT-447 PO; -OMEP40CA21 PO; -ONDA4TAB5 PO; +POLY15DR40 EACHEYE
--- NOTE | 2021-07-24 13:35 | NUR ---
[id number] C/O MID BACK PAIN R/T ENTIRE UPPER ABDOMEN X 2 DAYS CC OF NAUSEA AND VOMITING AND DIARRHEA X2 DAYS. PLACED COMFORTABLY ON BED. VITALS CHECKED
--- NOTE | 2021-07-24 14:11 | NUR ---
BLOOD DRAWN AND GIVEN TO AIRBORNE OPERATIONS
[2021-07-24 14:32] LABS: CALCIUM, SERUM 9.3 mg/dL (8.5-10.1); CREATININE 0.7 mg/dL (0.6-1.3); POTASSIUM 3.4 mmol/L (3.5-5.1)
[2021-07-24 14:35] LABS: BASOPHILS # (AUTO) 0.1 K/uL (0.0-0.2); BASOPHILS % (AUTO) 0.6 % (0.0-2.0); EOSINOPHILS % (AUTO) 1.1 % (0.0-6.0); HEMATOCRIT 38 % (33-45); LYMPHOCYTES # (AUTO) 2.2 K/uL (0.8-4.8); LYMPHOCYTES % (AUTO) 22.5 % (20.0-44.0); MEAN CORPUSCULAR HGB CONC 34 g/dl (31.0-36.0); MEAN CORPUSCULAR VOLUME 86 fL (82-100); MONOCYTES # (AUTO) 0.7 K/uL (0.1-1.30); MONOCYTES % (AUTO) 7.2 % (2.0-12.0); NEUTROPHILS # (AUTO) 6.8 K/uL (1.8-8.9); NEUTROPHILS % (AUTO) 68.6 % (43.0-81.0); PLATELET COUNT (AUTO) 313 K/uL (150-450); RED BLOOD CELL COUNT(AUTO) 4.47 MIL/uL (4.0-5.2); WHITE BLOOD COUNT (AUTO) 9.9 K/uL (4.3-11.0)
[2021-07-24 14:44] LABS: ALBUMIN 3.5 g/dL (3.4-5.0); BILIRUBIN,DIRECT 0.2 mg/dL (0.0-0.2); BILIRUBIN,TOTAL 0.5 mg/dL (0.2-1.0); TOTAL PROTEIN, SERUM 7.2 g/dL (6.4-8.2)
--- NOTE | 2021-07-24 14:51 | NUR ---
EKG DONE AT BEDSIDE
[2021-07-24] MEDS ORDERED: ONDANSETRON HCL/PF 4 MG/2 ML VIAL ONE (14:53)
[2021-07-24] MEDS ORDERED: MORPHINE SULFATE INJ 2 MG/ML DISP.SYRIN ONE (14:53)
[2021-07-24] MEDS ORDERED: MORPHINE SULFATE INJ 2 MG/ML DISP.SYRIN IV ONE (15:00)
[2021-07-24] MEDS ORDERED: IV NS 0.9% 1,000 ML BAG IV ONE (15:00)
[2021-07-24] MEDS ORDERED: ONDANSETRON HCL/PF 4 MG/2 ML VIAL IVP ONE (15:00)
--- NOTE | 2021-07-24 15:03 | NUR ---
CXR DONE AT BEDSIDE
--- NOTE | 2021-07-24 15:04 | NUR ---
PT STILL CANNOT PROVIDE URINE
--- NOTE | 2021-07-24 15:10 | NUR ---
PT WHEELED TO RADIOLOGY ROOM FOR CT SCAN ABDOMEN.
[2021-07-24] MEDS ORDERED: DICL100G26 TP (15:19)
[2021-07-24] MEDS ORDERED: VITA1TAB56 PO (15:19)
[2021-07-24] MEDS ORDERED: MIRT7.5T10 PO (15:19)
[2021-07-24] MEDS ORDERED: MAGN400T26 PO (15:19)
[2021-07-24] MEDS ORDERED: OMEG1CAP40 PO (15:19)
[2021-07-24] MEDS ORDERED: CLON0.1T PO (15:19)
[2021-07-24] MEDS ORDERED: LIDO30CR47 TP (15:19)
[2021-07-24] MEDS ORDERED: ACET-868 PO (15:19)
[2021-07-24] MEDS ORDERED: BUPR300F3 BC (15:19)
[2021-07-24] MEDS ORDERED: MAGN400O6 PO (15:19)
[2021-07-24] MEDS ORDERED: PIPERACILLIN /TAZOBACTAM 3.375 G in IV D5W 50 ML IV ONE (16:00)
--- NOTE | 2021-07-24 16:21 | NUR ---
[facility] CALLED IRON AND STEEL WORK SUPERVISOR PAGED.
[2021-07-24 16:45] LABS: BILIRUBIN,URINE NEGATIVE (NEGATIVE); COLOR,URINE YELLOW (YELLOW); LEUKOCYTE ESTERASE ,URINE NEGATIVE (NEGATIVE); NITRITE, URINE NEGATIVE (NEGATIVE); PROTEIN,URINE NEGATIVE (NEGATIVE); UGLUCOSE NEGATIVE (NEGATIVE); UROBILINOGEN,URINE 0.2 EU/dL (0.2)
[2021-07-24] MEDS ORDERED: PIPERACILLIN /TAZOBACTAM 3.375 G VIAL IV ONE (16:49)
--- NOTE | 2021-07-24 16:59 | NUR ---
COVID ANTIGEN SENT TO LAB
--- NOTE | 2021-07-24 16:59 | NUR ---
PT IS FOR ADMISSION DUE TO N/V AND DIARRHEA. WAITING FOR ROOM ASSIGNMENT.
[2021-07-24] MEDS ORDERED: CLONIDINE HCL 0.1 MG TABLET PO PRN (17:00)
[2021-07-24] MEDS ORDERED: ALBUTEROL SULFATE 8 GM HFA.AER.AD IH PRN ×2 (17:00→20:22)
[2021-07-24] MEDS ORDERED: BUPRENORPHINE HCL 300 MCG BC SCH (17:00)
[2021-07-24] MEDS ORDERED: ONDANSETRON HCL/PF 4 MG/2 ML VIAL IVP PRN (17:00)
[2021-07-24] MEDS ORDERED: IV NS 0.9% 1,000 ML IV PRN (17:00)
[2021-07-24] MEDS ORDERED: MAG HYDROX/AL HYDROX/SIMETH 30 ML UDC PO PRN (17:00)
[2021-07-24] MEDS ORDERED: MAGNESIUM HYDROXIDE 30 ML UDC PO PRN (17:00)
[2021-07-24] MEDS ORDERED: Z GUARD REMEDY 4 OZ OINT TP PRN (17:00)
[2021-07-24] MEDS ORDERED: ACETAMINOPHEN 325 MG TABLET PO PRN (17:00)
[2021-07-24 17:10] LABS: BACTERIA,URINE Few /HPF (None Seen); MUCUS,URINE Few /LPF (None Seen); RBC,URINE 0-2 /HPF (0-2); SQUAMOUS EPITHELIAL CELL,UR Few /HPF (None Seen); URINE AMORPHOUS URATE Few /HPF (None Seen); WBC,URINE 0-2 /HPF (0-3)
[2021-07-24] MEDS ORDERED: PIPERACILLIN /TAZOBACTAM 3.375 G in IV D5W 50 ML IV SCH (18:00)
[2021-07-24] MEDS ORDERED: MAG HYDROX/AL HYDROX/SIMETH 30 ML UDC ONE (19:19)
--- NOTE | 2021-07-24 19:23 | NUR ---
PATIENT COMPLAINING OF HEARTBURN. MAALOX GIVEN
--- NOTE | 2021-07-24 20:39 | NUR ---
PATIENT WILL BE GOING TO ROOM 107. REPORT GIVEN TO MAKAYLA DUENAS
[2021-07-24 21:12] LABS: CALCIUM, SERUM 8.6 mg/dL (8.5-10.1); CREATININE 0.8 mg/dL (0.6-1.3); POTASSIUM 3.3 mmol/L (3.5-5.1)
[2021-07-24] MEDS: GABAPENTIN 400 MG CAPSULE PO SCH (21:31)
[2021-07-24] MEDS: MIRTAZAPINE 15 MG TABLET PO SCH (21:31)
[2021-07-24] MEDS: CARVEDILOL 12.5 MG TABLET PO SCH (21:32)
[2021-07-24] MEDS: ACETAMINOPHEN 325 MG TABLET PO PRN (21:32)
[2021-07-24] MEDS: ZOLPIDEM TARTRATE 5 MG TABLET PO PRN (21:39)
[2021-07-24] MEDS: PIPERACILLIN /TAZOBACTAM 3.375 G in IV D5W 50 ML IV SCH (21:42)
[2021-07-24 22:00] VITALS: BP 131/76
[2021-07-24] MEDS ORDERED: Medication Not On Formulary EA (Melatonin 3 MG) PO SCH (22:00)
[2021-07-24] MEDS: ACIDOPHILUS/BULGARICUS 1 EACH TAB.CHEW PO SCH (22:00)
[2021-07-24] MEDS: POLYVINYL ALCOHOL 15 ML BOTTLE OP SCH (22:00)
--- NOTE | 2021-07-24 22:00 | NUR ---
RN NOTE SCHEDULED ARTIFICIAL TEARS AND LACTINEX FROM 1700 NON-ADMINISTERED. PER TAPPET ADJUSTER, MEDICATIONS NOT AVAILABLE.
--- NOTE | 2021-07-24 22:00 | NUR ---
RN NOTE RECEIVED A 70 YEAR OLD FEMALE FROM ER. PATIENT IS ALERT AND ORIENTED X4. ABLE TO MAKE NEEDS KNOWN. BREATHING EVEN AND UNLABORED. NO SOB NOTED. TOLERATING ROOM AIR. PATIENT WALKED FROM ER GURNEY TO HOSPITAL BED WITH STEADY GAIT. PATIENT CAME WITH FROM WHEEL WALKER, HOWEVER REFUSED TO USE. DENIES CHEST PAIN. STATES SHE RECEIVED MAALOX FOR HEART BURN SYMPTOMS IN SKIN WARM AND DRY. NOTED WITH RIGHT FOREARM PERIPHERAL IV 20G, SKIN ASSESSMENT DONE. NO COMPLAINTS OF NAUSEA/DIARRHEA AT THIS TIME, HOWEVER DID COMPLAIN OF MILD HEADACHE. ADMINISTERED TYLENOL PER MD ORDER. ALSO REQUESTED FOR SLEEPING MEDICATION, ADMINISTERED AMBIEN PER MD ORDER. PATIENT ASSISTED TO THE RESTROOM BY STAMPING MILL TENDER. ALL NEEDS ATTENDED, BED LOW, IN LOCKED POSITION, CALLL LIGHT WITHIN REACH.
[2021-07-25] MEDS: ACETAMINOPHEN 325 MG TABLET PO PRN ×4 (03:51→21:07)
--- NOTE | 2021-07-25 03:51 | NUR ---
RN NOTE PATIENT REQUESTED FOR TYLENOL FOR HEADACHE. ADMINISTERED TYLENOL 650 MG PER MD ORDER.
[2021-07-25 04:00] VITALS: BP 124/88
[2021-07-25] MEDS ORDERED: PIPERACILLIN /TAZOBACTAM 3.375 G VIAL IV ONE (04:11)
[2021-07-25] MEDS: PIPERACILLIN /TAZOBACTAM 3.375 G in IV D5W 50 ML IV SCH ×4 (04:14→21:01)
[2021-07-25 06:54] LABS: CALCIUM, SERUM 8.2 mg/dL (8.5-10.1); CREATININE 0.7 mg/dL (0.6-1.3); MAGNESIUM 2.1 mg/dL (1.8-2.4); PHOSPHORUS 3.4 mg/dL (2.5-4.9); POTASSIUM 3.1 mmol/L (3.5-5.1)
[2021-07-25 07:04] LABS: BASOPHILS % (AUTO) 0.7 % (0.0-2.0); EOSINOPHILS % (AUTO) 2.5 % (0.0-6.0); HEMATOCRIT 32 % (33-45); LYMPHOCYTES # (AUTO) 1.5 K/uL (0.8-4.8); LYMPHOCYTES % (AUTO) 29.7 % (20.0-44.0); MEAN CORPUSCULAR HGB CONC 34 g/dl (31.0-36.0); MEAN CORPUSCULAR VOLUME 87 fL (82-100); MONOCYTES # (AUTO) 0.5 K/uL (0.1-1.30); MONOCYTES % (AUTO) 9.5 % (2.0-12.0); NEUTROPHILS % (AUTO) 57.6 % (43.0-81.0); PLATELET COUNT (AUTO) 255 K/uL (150-450); RED BLOOD CELL COUNT(AUTO) 3.66 MIL/uL (4.0-5.2); WHITE BLOOD COUNT (AUTO) 5.1 K/uL (4.3-11.0)
--- NOTE | 2021-07-25 07:21 | NUR ---
RN NOTE PATIENT WITH MEDICATION IN HAND FROM PREVIOUS SNF FACILITY. MEDICATIONS COLLECTED AND ENDORSED TO AM RN TO BE GIVEN TO PHARMACY.
[2021-07-25] MEDS: PANTOPRAZOLE 40 MG TABLET.DR PO SCH (08:31)
[2021-07-25] MEDS: GABAPENTIN 400 MG CAPSULE PO SCH ×4 (08:31→21:01)
[2021-07-25] MEDS: POLYVINYL ALCOHOL 15 ML BOTTLE OP SCH ×3 (08:32→17:09)
[2021-07-25] MEDS: ASPIRIN 81 MG TAB.CHEW PO SCH (08:32)
[2021-07-25] MEDS: MULTIVIT W/MINERALS 1 TAB TABLET PO SCH (08:32)
[2021-07-25] MEDS: DULOXETINE HCL 30 MG CAPSULE.DR PO SCH (08:32)
[2021-07-25] MEDS: VITAMIN B COMP W-C 1 TAB TABLET PO SCH (08:32)
[2021-07-25] MEDS: LIDOCAINE 5% (PATCH) 1 EA PATCH TP SCH (08:33)
[2021-07-25] MEDS: ACIDOPHILUS/BULGARICUS 1 EACH TAB.CHEW PO SCH ×3 (08:33→16:05)
[2021-07-25] MEDS: CARVEDILOL 12.5 MG TABLET PO SCH ×2 (08:33→21:01)
[2021-07-25] MEDS ORDERED: Medication Not On Formulary EA (Omega-3 Fatty Acids/Fish Oil (Omega 3 1,000 Mg Softgel) PO SCH (09:00)
[2021-07-25] MEDS: POTASSIUM CHLORIDE 20 MEQ TAB.PRT.SR PO SCH ×2 (09:53→10:52)
[2021-07-25 12:00] VITALS: BP 140/60
[2021-07-25] MEDS ORDERED: LOPERAMIDE HCL (2 MG CAP) 2 MG CAPSULE PO PRN (12:00)
--- NOTE | 2021-07-25 13:22 | NUR ---
RN NOTE STOOL SPECIMEN FOR C.DIFF SENT TO LAB
--- NOTE | 2021-07-25 16:19 | NUR ---
"SS consult: SS Consult requested for homelessness. The pt. is a 70-year-old female patient who admitted to [facility] due to nausea, vomiting, diarrhea per EMR. Upon SS consult, the pt. is Alert & Oriented x 4 and makes good eye contact. The pt. appears unkempt and sunburned. The presents with euthymic mood & affect. Pt.s speech is deep, and clear. Pt.s thought process is WNL. SW explored pt.s living situation. Patient states he has been living at [facility] and now experiencing homelessness. SW explored pt.s drug & ETOH use. Pt. states she drinks alcohol daily about 3-4 beers and smoke up to a pack of cigarettes/ day. SW offered rehab and pt. refused. SW explored pt.s mental health Hx. Pt. denies any mental health diagnosis. Pt. denies current SI/HI and denies visual or auditory hallucinations. Per pt. she ambulated using front wheel walker she has at bedside. SW explored pt.s support system. Pt. states she has friends who help her at times. Plan: Pt. stated she would like to return to [[address] [place] [address] ]. Per Cm they are working on placement already. [facility] offered intermediate placement as alternative, and pt. is agreeable. SW provided pt. with homeless resources and pt. accepted them. Pt. signed homeless waiver and it was placed in the chart. Year-round shelters: [place] [facility] [address] [place], [place] [phone] ; [place] [facility] [address] [place] [address]; [place] [facility] Atncghl[address] [facility] [address] Winter Shelters: SPA 2 | [facility] Anibalder: Zoila white the [place] Address: Confidential (call for location ) Population Served: Coed # of Beds: 57 SPA 4 | [facility] Provider: Home at Last Address: [address] [address] # of Beds: 49 Population Served: Coed SPA 6 | [facility] Provider: Home at Last Address: [address] [facility], [address] # of Beds: 49 Population Served: Coed Jose Armando Garcia [facility] Provider: Roland JEFFERSON Address: [address] [facility] [address] # of Beds: 20 Population Served: Women GREGORY Facility Provider: Home at Last Address: [address] [facility] [address] # of Beds: 30 Population Served: Women SPA 8 | [facility] Provider: Carie of Ngoc Address: [address] [facility] [address] # of Beds: 65 Population Served: Coed Hygiene: [place] [facility]: [address] [facility] ; [place] [facility] [address] [facility] ; [facility] 6840 [facility] . Food Resources: [place] [facility] at [facility]- 5700 [facility]; Meet Each Need with Dignity ([facility]) [address] [facility]; [facility] 4377 [facility]; [facility] [address] [facility]. Mental Health resources provided: [facility] [address] [place] [address] ; [facility] [address] [facility] [address], [place] [address] ; Chapis Cherry [facility] [address] [place] [address] ; [facility] [address] [place], [place] [phone] Healthcare Clinics: [facility] [address] [facility], [address] [place]. [place] ; [facility] [address] [facility] [address] [place] [address]; [facility] [address] [facility] [place] [address] [phone] Counseling--Outpatient [facility] [address] [facility], [address] [place], [place] [address] (Specializes in in-depth psychotherapy for emotional distress: anxiety, depression, interpersonal conflicts, life transitions, childhood abuse) [facility] [address] [place] [address] (Assist with solving problem marital difficulties, separation & divorce, aging parents, & grief, chronic & terminal illness) [facility] [address] [place] [address] (Deal with loss & grief, anxiety, marital difficulties) Homebound/Mental Health Services [address] [facility] [address] [place] [address] (Provide in-home mental services to people who are incapable of leaving their homes) Organization for Needs of the Elderly Senior Service/Resource Center [address] [place] [address] [facility] [address] [facility] [place] [address] PSYCHIATRIC OUTPATIENT SERVICES [facility] Partial Hospitalization and Intensive Outpatient Program (Managed Care and [place] Only)[address] [address] BljuaquinArchbold - [facility] [phone] [facility] Partial Hospitalization and Outpatient [id number] Sergo [facility]. [address] [place], [place] [phone] [facility] Mental Health [place] [id number] [facility] [address] [place], [place] [phone] [facility] Partial Hospitalization and Outpatient [id number] [place], [phone] Substance Abuse resources provided included: [facility] Substance Abuse Self-Helpline (SAS) ; CRI -HELP [address] [facility]. [place]. [place] [address] ; [facility] [address] [facility] [address] ; [facility] [address] [place] [address] ; [facility] 400 N[facility] [address] ; [facility] Treatment [facility] 4940 Van Raffi [facility] [phone] ; [facility] 909 Gabby vdMcLean Hospital [phone] ; [facility] Substance Abuse Helpline([facility] ; [facility] ; [facility] [place]; [facility] [place]; Cri-Help [place]; I-ADARP Inter Agency Drug Abuse Recovery Devyn Nugent; [facility] [place]; [facility] [place]; [facility] [place]; [facility], [facility]. [place]; Alcoholics Anonymous -SFV; Lt-Tvnk-Tcahmrp ; Marijuana Anonymous -SFV; Narcotics Anonymous www.na.org;"
--- NOTE | 2021-07-25 16:26 | NUR ---
"SS consult: SS Consult requested for homelessness. The pt. is a 70-year-old female patient who admitted to [facility] due to nausea, vomiting, diarrhea per EMR. Upon SS consult, the pt. is Alert & Oriented x 4 and makes good eye contact. The pt. appears unkempt and sunburned. The presents with euthymic mood & affect. Pt.s speech is deep, and clear. Pt.s thought process is WNL. SW explored pt.s living situation. Patient states he has been living at [facility] and now experiencing homelessness. SW explored pt.s drug & ETOH use. Pt. states she drinks alcohol daily about 3-4 beers and smoke up to a pack of cigarettes/ day. SW offered rehab and pt. refused. SW explored pt.s mental health Hx. Pt. denies any mental health diagnosis. Pt. denies current SI/HI and denies visual or auditory hallucinations. Per pt. she ambulated using front wheel walker she has at bedside. SW explored pt.s support system. Pt. states she has friends who help her at times. Plan: Pt. stated she would like to return to [[address] [place] [address] ]. Per Cm they are working on placement already. [facility] offered intermediate placement as alternative, and pt. is agreeable. SW provided pt. with homeless resources and pt. accepted them. Pt. signed homeless waiver and it was placed in the chart. Year-round shelters: [place] [facility] [address] [place], [place] [phone] ; [facility] [place] [facility] [address] [place] [address]; [facility] Smegdol6598 [facility] [address] Winter Shelters: SPA 2 | [facility] Anibalder: Zoila white the [place] Address: Confidential (call for location ) Population Served: Coed # of Beds: 57 SPA 4 | [facility] Provider: Home at Last Address: [address] [address] # of Beds: 49 Population Served: Coed SPA 6 | [facility] Provider: Home at Last Address: [address] [facility], [address] # of Beds: 49 Population Served: Coed Jose Armando Garcia Womens Snf Provider: Roland JEFFERSON Address: [address] [facility] [address] # of Beds: 20 Population Served: Women GREGORY Facility Provider: Home at Last Address: [address] [facility] [address] # of Beds: 30 Population Served: Women SPA 8 | [facility] Provider: Carie of Ngoc Address: 86[address] [facility] [address] # of Beds: 65 Population Served: Coed Hygiene: [place] [facility]: [address] [facility] ; [place] [facility] [address] [facility] ; [facility] 7845 [facility] . Food Resources: [place] [facility] at [facility]- 5700 [facility]; Meet Each Need with Dignity ([facility]) [address]853 [facility]; [facility] Food Pantry 4364 [facility]; [facility] 8570 [facility]. Mental Health resources provided: [facility] [address] [place] [address] ; [facility] Mental Health Center, Inc[facility] [address] [facility] [address], [place] [address] ; [facility] Mental Health Urgent Care Center [address] [place] [address] ; [facility] [address] [place], [place] [phone] Healthcare Clinics: [facility] 655[address] [facility], [address] [place]. [place] ; [facility] [address] [facility] [address] [place] [address]; [address] [facility] [address] [place] [address] [phone] Counseling--Outpatient [facility] [address] [facility], [address] [place], [place] [address] (Specializes in in-depth psychotherapy for emotional distress: anxiety, depression, interpersonal conflicts, life transitions, childhood abuse) [facility] [address] [place] [address] (Assist with solving problem marital difficulties, separation & divorce, aging parents, & grief, chronic & terminal illness) [facility] [address] [place] [address] (Deal with loss & grief, anxiety, marital difficulties) Homebound/Mental Health Services [address] [facility] [address] [place] [address] (Provide in-home mental services to people who are incapable of leaving their homes) Organization for Needs of the Elderly Senior Service/Resource Center [address] [place] [address] [facility] 6514 [facility] [place] [address] PSYCHIATRIC OUTPATIENT SERVICES [facility] Partial Hospitalization and Intensive Outpatient Program (Managed Care and [place] Only)[address] [address] BljuaquinWellstar [facility]estone Hospital [phone] [facility] Partial Hospitalization and Outpatient [id number] Sergo [facility]. [address] [place], [place] [phone] [facility] Mental Health [place] Usg08203 [facility] [address] [place], [place] [phone] [facility] Partial Hospitalization and Outpatient [id number] [place], [phone] Substance Abuse resources provided included: [facility] Substance Abuse Self-Helpline (SAS) ; CRI -HELP [address] [facility]. [place]. [place] [address] ; [facility] [address] [address] ; [facility] Rehabilitation Program [address] [place] [address] ; [facility] 400 [facility] [address] ; [facility] Treatment [facility] 49[address] Raff[address] [facility] [phone] ; [employer] 909 Gabby vdBarnstable County Hospital [phone] ; [facility] Substance Abuse Helpline([facility] ; [facility] ; [facility] Antoine; Fall[facility]; Cri-Help [place]; I-ADARP Inter Agency Drug Abuse Recovery Devyn Nugent; [place] [facility] [place]; [facility]; [facility] [place]; [facility], [facility]. [place]; Alcoholics Anonymous -SFV; Dc-Wygn-Mzbswaz ; Marijuana Anonymous -SFV; Narcotics Anonymous www.na.org;"
--- NOTE | 2021-07-25 17:00 | NUR ---
PATIENT TRANSFERRED FROM [facility] REPORTED BY ALEXA BENAVIDES. PATIENT AO X 4, ABLE TO RESPONDS ALL STIMULI. IN NO ACUTE DISTRESS OBSERVED. WILL CONTINUE TO MONITOR.
--- NOTE | 2021-07-25 18:51 | NUR ---
RN CLOSING NOTE PATENT IN BED, REMAINS AO X 4, IN NO ACUTE DISTRESS OBSERVED. RESPIRATORY EVEN AND UNLABORED ON ROOM AIR. SKIN IS WARM TO TOUCH KEEP CLEAN/DRY, INTACT IV SITE. KEPT ELEVATE HOB FOR ASPIRATION PRECAUTION AND ENSURE AIRWAY, ALSO LOWEST POSITION OF THE BED FOR SAFETY. CALL LIGHT WITHIN REACH, WILL ENDORSE TO MOTORCYCLE TECHNICIAN.
--- NOTE | 2021-07-25 19:30 | NUR ---
RN NOTES RECEIVED PATIENT AWAKE ON BED, A/OX4, DENIES PAIN, NOT IN DISTRESS, CALL LIGHT WITHIN REACH, [id number], WILL CONTINUE TO MONITOR
[2021-07-25 20:00] VITALS: BP_SYST 137; BP_SYST 157; BP_DIAS 75
[2021-07-25] MEDS: MIRTAZAPINE 15 MG TABLET PO SCH (21:01)
[2021-07-25] MEDS: ATORVASTATIN 40 MG TABLET PO SCH (21:04)
[2021-07-25] MEDS: ZOLPIDEM TARTRATE 5 MG TABLET PO PRN (21:20)
--- NOTE | 2021-07-25 21:30 | NUR ---
RN NOTES COMPLAINED OF HEADACHE-TYLENOL 650MG PO GIVEN ORDERED
[2021-07-26] MEDS: ACETAMINOPHEN 325 MG TABLET PO PRN ×3 (02:09→21:40)
[2021-07-26] MEDS: PIPERACILLIN /TAZOBACTAM 3.375 G in IV D5W 50 ML IV SCH ×4 (04:11→22:03)
--- NOTE | 2021-07-26 06:47 | NUR ---
RN NOTES AWAKE, DENIES PAIN, NO SOB, MORNING CARE RENDERED, CALL LIGHT WITHIN REACH, [id number], PT. NEEDS ATTENDED
--- NOTE | 2021-07-26 07:00 | NUR ---
MS RN OPENING NOTES PATENT IN BED A/O X 4, TOLERATING WELL ON ROOM AIR WITH NO S/S OF PAIN OR RESPIRATORY DISTRESS NOTED. BREATHING EVEN AND UNLABORED. IV SITE ON RIGHT FOREARM APPEARS INFILTRATED, WAS REMOVED AND NEW IV LINE ON LEFT FOREARM TO BE INSERTED. HOB ELEVATED FOR ASPIRATION PRECAUTIONS. SAFETY MEASURES IN PLACE: BED IN LOWEST LOCKED POSITION, SIDE RAILS UP X 2, CALL LIGHT WITHIN REACH. WILL CONTINUE TO MONITOR.
[2021-07-26] MEDS: PANTOPRAZOLE 40 MG TABLET.DR PO SCH (07:40)
[2021-07-26 07:51] LABS: CALCIUM, SERUM 9.1 mg/dL (8.5-10.1); CREATININE 0.8 mg/dL (0.6-1.3); POTASSIUM 4.3 mmol/L (3.5-5.1)
[2021-07-26 08:15] VITALS: BP 176/81
[2021-07-26] MEDS: DULOXETINE HCL 30 MG CAPSULE.DR PO SCH (09:24)
[2021-07-26] MEDS: MULTIVIT W/MINERALS 1 TAB TABLET PO SCH (09:24)
[2021-07-26] MEDS: ACIDOPHILUS/BULGARICUS 1 EACH TAB.CHEW PO SCH ×3 (09:24→16:40)
[2021-07-26] MEDS: GABAPENTIN 400 MG CAPSULE PO SCH ×4 (09:25→21:31)
[2021-07-26] MEDS: CARVEDILOL 12.5 MG TABLET PO SCH ×2 (09:25→21:31)
[2021-07-26] MEDS: ASPIRIN 81 MG TAB.CHEW PO SCH (09:25)
[2021-07-26] MEDS: LIDOCAINE 5% (PATCH) 1 EA PATCH TP SCH (09:26)
[2021-07-26] MEDS: POLYVINYL ALCOHOL 15 ML BOTTLE OP SCH ×3 (09:51→16:50)
[2021-07-26] MEDS: VITAMIN B COMP W-C 1 TAB TABLET PO SCH (09:51)
[2021-07-26] MEDS ORDERED: HYDROCODONE/APAP 10/325MG TABLET PO PRN (12:00)
[2021-07-26] MEDS: HYDROMORPHONE 1 MG/1 ML DISP.SYRIN IV PRN ×2 (12:58→19:01)
[2021-07-26] MEDS ORDERED: KETOROLAC TROMETHAMINE INJ 30 MG/ML VIAL IV PRN (13:00)
--- NOTE | 2021-07-26 13:05 | NUR ---
MS RN NOTES PATIENT COMPLAINT OF 9/10 LOWER BACK PAIN AND REQUESTING MEDICATION. PRN 1 MG HYDROMORPHONE IVP ADMINISTERED ORDERED. WILL CONTINUE TO MONITOR FOR S/S OF PAIN.
[2021-07-26 16:24] VITALS: BP 132/79
[2021-07-26 17:23] LABS: CHOLESTEROL 131 mg/dL (<200); HDL CHOLESTEROL 61 mg/dL (40-60); LDL 47 mg/dL (0-99); TRIGLYCERIDES 59 mg/dL (30-150)
--- NOTE | 2021-07-26 18:30 | NUR ---
MS RN CLOSING NOTES PATIENT A/O X 4 IN BED, TOLERATING WELL ON ROOM AIR WITH NO S/S OF DISTRESS AT THIS TIME. LFA # 22 SALINE LOCK INTACT AND PATENT. SAFETY MEASURES IN PLACE: BED IN LOWEST LOCKED POSITION, SIDE RAILS UP X 2, CALL LIGHT WITHIN REACH. WILL ENDORSE TO FOREST AND CONSERVATION WORKER FOR SHERRY.
--- NOTE | 2021-07-26 19:34 | NUR ---
MS RN OPENING NOTES: RECEIVED PATIENT AWAKE IN BED, BED IN LOW POSITION, CALL LIGHTS WITHIN REACH, NO COMPLAIN OF PAIN AND DISCOMFORT AT THIS TIME, ON ROOM AIR SATURATING WELL, PATIENT IS A/OX4 AMBULATORY ABLE TO MAKE NEEDS KNOWN, WITH IV LINE\ AT LFA#22 SALINE LOCK, PATIENT, PATIENT KEPT CLEAN AND DRY ALL NEEDS MET WILL CONTINUE TO MONITOR.
[2021-07-26 20:00] VITALS: BP 129/72
[2021-07-26] MEDS: MIRTAZAPINE 15 MG TABLET PO SCH (22:03)
[2021-07-26] MEDS: ATORVASTATIN 40 MG TABLET PO SCH (22:03)
[2021-07-26] MEDS: ZOLPIDEM TARTRATE 5 MG TABLET PO PRN (22:03)
[2021-07-27 02:00] VITALS: BP 129/72
[2021-07-27] MEDS: HYDROMORPHONE 1 MG/1 ML DISP.SYRIN IV PRN ×4 (02:49→22:54)
[2021-07-27] MEDS: PIPERACILLIN /TAZOBACTAM 3.375 G in IV D5W 50 ML IV SCH ×2 (03:58→09:27)
[2021-07-27 04:04] VITALS: BP 129/72
--- NOTE | 2021-07-27 06:50 | NUR ---
RN CLOSING NOTES: PATIENT SLEEP IN BED COMFORTABLY, AROUSABLE TO VERBAL STIMULI, BED IN LOW POSITION CALL LIGHTS WITHIN REACH, NO COMPLAIN OF PAIN AND DISCOMFORT AT THIS TIME, PATIENT IS A/O X4 AMBULATORY ABLE TO MAKE NEEDS KNOWN ON ROOM AIR SATURATING WELL, WITH IV LINE AT LFA#22 SL, PATIENT KEPT CLEAN AND DRY ALL NEEDS MET ENDORSE TO INCOMING SHIFT.
--- NOTE | 2021-07-27 07:00 | NUR ---
MS RN OPENING NOTE RECEIVED PATIENT IN BED A/O X 4, TOLERATING WELL ON ROOM AIR. BREATHING EVEN AND UNLABORED, NO S/S OF DISTRESS NOTED AT THIS TIME. LFA 22G SL CLEAN, INTACT AND FLUSHING WELL. SAFETY MEASURES IN PLACE: BED IN LOWEST LOCKED POSITION, SIDE RAILS UP X 2, CALL LIGHT WITHIN REACH. WILL CONTINUE TO MONITOR.
[2021-07-27] MEDS: PANTOPRAZOLE 40 MG TABLET.DR PO SCH (07:42)
[2021-07-27 08:00] VITALS: BP 130/84
[2021-07-27 08:44] LABS: CALCIUM, SERUM 8.6 mg/dL (8.5-10.1); CREATININE 0.8 mg/dL (0.6-1.3); POTASSIUM 4.7 mmol/L (3.5-5.1)
[2021-07-27] MEDS: ACIDOPHILUS/BULGARICUS 1 EACH TAB.CHEW PO SCH ×3 (08:48→17:08)
[2021-07-27] MEDS: POLYVINYL ALCOHOL 15 ML BOTTLE OP SCH ×3 (08:48→17:07)
[2021-07-27] MEDS: LIDOCAINE 5% (PATCH) 1 EA PATCH TP SCH (08:48)
[2021-07-27] MEDS: GABAPENTIN 400 MG CAPSULE PO SCH ×4 (08:49→21:21)
[2021-07-27] MEDS: ASPIRIN 81 MG TAB.CHEW PO SCH (08:49)
[2021-07-27] MEDS: MULTIVIT W/MINERALS 1 TAB TABLET PO SCH (08:49)
[2021-07-27] MEDS: DULOXETINE HCL 30 MG CAPSULE.DR PO SCH (08:51)
[2021-07-27] MEDS: CARVEDILOL 12.5 MG TABLET PO SCH ×2 (08:51→21:22)
[2021-07-27] MEDS: VITAMIN B COMP W-C 1 TAB TABLET PO SCH (08:57)
[2021-07-27 09:20] LABS: IRON, SERUM 19 ug/dl (50-175); TOTAL IRON BINDING CAPACITY 295 ug/dl (250-450)
[2021-07-27 09:35] LABS: FERRITIN 31 ng/mL (8-388)
--- NOTE | 2021-07-27 09:58 | NUR ---
MS RN NOTE PATIENT COMPLAINT OF 9/10 RIGHT HAND PAIN AND REQUESTING MEDICATION. PRN DILAUDED 1 MG IVP ADMINISTERED ORDERED. WILL CONTINUE TO MONITOR FOR S/S OF PAIN.
[2021-07-27] MEDS ORDERED: ATOR40TA PO (13:37)
[2021-07-27] MEDS ORDERED: ACID1TAB12 PO (13:37)
[2021-07-27] MEDS ORDERED: HYDR-3980 PO (13:37)
[2021-07-27 16:00] VITALS: BP 120/75
--- NOTE | 2021-07-27 18:36 | NUR ---
MS RN CLOSING NOTES PATIENT IN BED A/O X 4, TOLERATING WELL ON ROOM AIR. BREATHING EVEN AND UNLABORED, NO S/S OF DISTRESS NOTED AT THIS TIME. LFA 22G SL CLEAN, INTACT AND FLUSHING WELL. ALL NEEDS MET. SAFETY MEASURES IN PLACE: BED IN LOWEST LOCKED POSITION, SIDE RAILS UP X 2, CALL LIGHT WITHIN REACH. WILL ENDORSE TO INSPECTING AND TESTING LEAD HAND FOR SHERRY.
--- NOTE | 2021-07-27 19:30 | NUR ---
RN NOTES RECEIVED PATIENT AWAKE ON BED,A/OX4, KIRAN, NO SOB, CALL [facility] CHUYSANDY, [id number], WILL CONTINUE TO MONITOR
[2021-07-27 20:00] VITALS: BP 148/94
[2021-07-27] MEDS: ATORVASTATIN 40 MG TABLET PO SCH (21:21)
[2021-07-27] MEDS: MIRTAZAPINE 15 MG TABLET PO SCH (21:21)
--- NOTE | 2021-07-27 23:02 | NUR ---
RN NOTES COMPLAINED OF GENERALIZED PAIN- DIALUDID 1 MF IV GIVEN ASORDERED, V/S STABLE
[2021-07-27] MEDS: ZOLPIDEM TARTRATE 5 MG TABLET PO PRN (23:57)
--- NOTE | 2021-07-28 06:23 | NUR ---
RN NOTES SLEEPING BUT AROUSABLE, NOT IN DISTRESS, DENIES PAIN, MORNING CRE RENDERED, CALL LIGHT WITHIN REACH, RUUPX2, PT. NEEDS ATTENDED
--- NOTE | 2021-07-28 07:00 | NUR ---
MS RN OPENING NOTES PATIENT IN BED A/O X 4, TOLERATING WELL ON ROOM AIR. BREATHING EVEN AND UNLABORED, NO S/S OF DISTRESS NOTED AT THIS TIME. LFA 22G SL CLEAN, INTACT AND FLUSHING WELL. ALL NEEDS MET. SAFETY MEASURES IN PLACE: BED IN LOWEST LOCKED POSITION, SIDE RAILS UP X 2, CALL LIGHT WITHIN REACH. WILL CONTINUE TO MONITOR.
[2021-07-28 07:04] LABS: CALCIUM, SERUM 8.4 mg/dL (8.5-10.1); CREATININE 0.6 mg/dL (0.6-1.3); POTASSIUM 4.1 mmol/L (3.5-5.1)
[2021-07-28] MEDS: PANTOPRAZOLE 40 MG TABLET.DR PO SCH (07:17)
[2021-07-28 08:00] VITALS: BP 150/62
[2021-07-28] MEDS: VITAMIN B COMP W-C 1 TAB TABLET PO SCH (09:06)
[2021-07-28] MEDS: ACIDOPHILUS/BULGARICUS 1 EACH TAB.CHEW PO SCH ×3 (09:07→16:40)
[2021-07-28] MEDS: DULOXETINE HCL 30 MG CAPSULE.DR PO SCH (09:07)
[2021-07-28] MEDS: POLYVINYL ALCOHOL 15 ML BOTTLE OP SCH ×3 (09:07→16:39)
[2021-07-28] MEDS: CARVEDILOL 12.5 MG TABLET PO SCH (09:08)
[2021-07-28] MEDS: MULTIVIT W/MINERALS 1 TAB TABLET PO SCH (09:08)
[2021-07-28] MEDS: GABAPENTIN 400 MG CAPSULE PO SCH ×3 (09:08→16:41)
[2021-07-28] MEDS: ASPIRIN 81 MG TAB.CHEW PO SCH (09:08)
[2021-07-28] MEDS: LIDOCAINE 5% (PATCH) 1 EA PATCH TP SCH (09:09)
[2021-07-28] MEDS: HYDROMORPHONE 1 MG/1 ML DISP.SYRIN IV PRN (10:22)
--- NOTE | 2021-07-28 10:22 | NUR ---
MS RN NOTES PATIENT COMPLAINT OF 9/10 LOWER BACK PAIN AND REQUESTING MEDICATION. PRN 1 MG HYDROMORPHONE ADMINISTERED ORDERED. WILL CONTINUE TO MONITOR FOR S/S OF PAIN.
[2021-07-28] MEDS ORDERED: SOD FERRIC GLUC 125 MG in IV NS 0.9% 100 ML IV SCH (14:00)
[2021-07-28 16:00] VITALS: BP 123/66
--- NOTE | 2021-07-28 16:42 | NUR ---
MS RN NOTE PATIENT COMPLAINT OF 9/10 HEADACHE AND REQUESTING MEDICATION. PRN NORCO [phone] PO ADMINISTERED ORDERED. WILL CONTINUE TO MONITOR FOR S/S OF PAIN.
== END 2021-07-28 18:30 | DRG 643 ==
LOC: ER 13:17 → TRANSITION 20:14 → TELE1 20:41 → MEDSG1 21:06 → MED 07-25 16:20
PROVIDERS: ADMIT Nurse Practitioner Acute Care; ATTEND Nurse Practitioner Acute Care
DX: E22.2 Syndrome of inappropriate secretion of antidiuretic hormone (principal); J15.9 Unspecified bacterial pneumonia; J44.0 Chronic obstructive pulmonary disease with (acute) lower respiratory infection; K52.89 Other specified noninfective gastroenteritis and colitis; E86.1 Hypovolemia; F32.A Depression, unspecified; F17.210 Nicotine dependence, cigarettes, uncomplicated; I11.0 Hypertensive heart disease with heart failure; I25.10 Atherosclerotic heart disease of native coronary artery without angina pectoris; Z59.00 Homelessness unspecified; K52.9 Noninfective gastroenteritis and colitis, unspecified; E78.5 Hyperlipidemia, unspecified; E87.6 Hypokalemia; Z20.822 Contact with and (suspected) exposure to COVID-19; F41.9 Anxiety disorder, unspecified; F10.10 Alcohol abuse, uncomplicated; Y90.0 Blood alcohol level of less than 20 mg/100 ml; M54.9 Dorsalgia, unspecified; Z71.6 Tobacco abuse counseling; I50.9 Heart failure, unspecified
CPT/HCPCS: 36415; 71045-TC; 80048-TC; 80061-TC; 80076-TC; 81001; 82728-TC; 83540-TC; 83605-TC; 83690-TC; 83735-TC; 84100-TC; 85025-TC; 87081-TC; 93307-TC; 97116-TC; 97530-TC; C9803; G0378; G0480; J1170; J2270; J2405; J2543; J2916; J7030; J7040; J7060